=== PATIENT | female | born 1945 | race Caucasian/White ===

== ENCOUNTER → 2018-05-17 | Outpatient (CLI) | payer MEDICARE, OTHER ==
[2018-05-17 17:30] LABS: ABSOLUTE EOSINOPHILS # (AUTO) 0.1 10^3/uL (0.0-0.6); ABSOLUTE LYMPHOCYTES (AUTO) 2.1 10^3/uL (0.5-4.7); ABSOLUTE MONOCYTES (AUTO) 0.8 10^3/uL (0.1-1.4); ABSOLUTE NEUT (AUTO) 6.5 10^3/uL (1.7-8.2); BASOPHILS % (AUTO) 0.4 % (0-2); EOSINOPHILS % (AUTO) 1.3 % (0-6); HEMATOCRIT 37.3 % (36.0-47.0); HEMOGLOBIN 12.6 g/dL (12.0-15.5); LYMPHOCYTES % (AUTO) 22.1 % (13-45); MEAN CORPUSCULAR HEMOGLOBIN 29.2 pg (27.0-33.4); MEAN CORPUSCULAR HGB CONC 33.8 g/dL (32.0-36.0); MEAN CORPUSCULAR VOLUME 87 fl (80-97); MONOCYTES % (AUTO) 8.7 % (3-13); PLATELET COUNT 537 10^3/uL (150-450); RED BLOOD COUNT 4.31 10^6/uL (3.72-5.28); SEGMENTED NEUTROPHILS % (AUTO) 67.5 % (42-78); TOTAL CELLS COUNTED % (AUTO) 100 %; WHITE BLOOD COUNT 9.6 10^3/uL (4.0-10.5)
[2018-05-17 17:37] LABS: APPEARANCE,URINE CLOUDY; BILIRUBIN,URINE NEGATIVE (NEGATIVE); CALCIUM OXALATE CRYSTALS,URINE TOO NUMEROUS TO CNT /HPF; COLOR,URINE YELLOW; GLUCOSE, URINE NEGATIVE (NEGATIVE); KETONES,URINE NEGATIVE (NEGATIVE); LEUKOCYTE ESTERASE,URINE LARGE (NEGATIVE); NITRITE,URINE NEGATIVE (NEGATIVE); PROTEIN,URINE 30 mg/dL (NEGATIVE); URINE SPECIFIC GRAVITY 1.026; UROBILINOGEN,URINE NEGATIVE mg/dL (<2.0)
--- NOTE | 2018-05-17 17:49 | RADIOLOGY REPORT (SQ) ---
EXAM DESCRIPTION: CHEST PA/LATERAL COMPLETED DATE/TIME: 05/17/2018 4:57 pm REASON FOR STUDY: PRE-OP COMPARISON: Two-view chest 05/27/2015 EXAM PARAMETERS: NUMBER OF VIEWS: two views TECHNIQUE: Digital Frontal and Lateral radiographic views of the chest acquired. RADIATION DOSE: NA LIMITATIONS: none FINDINGS: LUNGS AND PLEURA: No opacities, masses or pneumothorax. No pleural effusion. MEDIASTINUM AND HILAR STRUCTURES: No masses or contour abnormalities. HEART AND VASCULAR STRUCTURES: Heart normal size. No evidence for failure. BONES: No acute findings. HARDWARE: None in the chest. OTHER: No other significant finding. IMPRESSION: NO SIGNIFICANT RADIOGRAPHIC FINDING IN THE CHEST. TECHNICAL DOCUMENTATION: JOB ID: [id number] [employer]- All Rights Reserved Reading location - IP/workstation name: [email or web address]
[2018-05-17 17:53] LABS: ANION GAP 14 (5-19); BLOOD UREA NITROGEN 25 mg/dL (7-20); C-REACTIVE PROTEIN 18.4 mg/L (<10.0); CALCIUM 10.8 mg/dL (8.4-10.2); CARBON DIOXIDE 28 mmol/L (22-30); CHLORIDE 98 mmol/L (98-107); GLUCOSE 101 mg/dL (75-110); POTASSIUM 4.8 mmol/L (3.6-5.0); SODIUM 140.2 mmol/L (137-145)
[2018-05-17 18:07] LABS: ERYTHROCYTE SEDIMENTATION RATE 74 mm/hr (0-30)
--- NOTE | 2018-05-17 22:56 | EKG REPORT ---
SEVERITY:- ABNORMAL ECG - SINUS RHYTHM LEFT ANTERIOR FASCICULAR BLOCK PROBABLE LEFT VENTRICULAR HYPERTROPHY : Confirmed by: Andra Monreal 17-May-2018 22:55:24
== END ==
LOC: OD 16:19
PROVIDERS: ATTEND Orthopaedic Surgery
DX: Z01.810 Encounter for preprocedural cardiovascular examination (principal); Z01.811 Encounter for preprocedural respiratory examination; I10 Essential (primary) hypertension
CPT/HCPCS: 36415; 71046; 80048; 81001; 85025; 85652; 86140; 93005; 93010

== ENCOUNTER 2018-05-28 09:26 | Inpatient (IN) | payer MEDICARE, OTHER ==
[~2018-05-28 09:26] MED LIST: ACETAMINOPHEN 0 MG/0 ML RTUPB IV ONE; BUPIVACAINE INJ/PF LIPOSOME/PF 266 MG/20 ML SDV INJ PRN; CEFAZOLIN INJ 1 GM VIAL IV PRN; DEXAMETHASONE SOD PHOSPHATE INJ 4 MG/1 ML VIAL ONE; FENTANYL CITRATE INJ/PF 100 MCG/2 ML AMPUL ONE; IBUPROFEN 800 MG in NORMAL SALINE 250 ML IV PRN; LACTATED RINGERS 1000 ML IV PRN; LIDOCAINE 0.5% INJ-PF (5 MG/ML) 50 ML SDV SUBCUT PRN; MIDAZOLAM 2 MG/2 ML INJ ONE; ONDANSETRON HCL INJ/PF 4 MG/2 ML SDV ONE; OXYCODONE HCL SR 10 MG TABLET PO PRN; PANTOPRAZOLE SODIUM 20 MG TABLET.DR PO PRN; PROPOFOL INJ 200 MG/20 ML VIAL IV ONE; TRANEXAMIC ACID INJ/PF 1,000 MG/10 ML SDV IV ONE; VANCOMYCIN HCL 1,000 MG in DEXTROSE 5%-WATER 250 ML IV PRN
[2018-05-28] MEDS ORDERED: PANTOPRAZOLE SODIUM 20 MG TABLET.DR PO ONE (09:59)
[2018-05-28] MEDS ORDERED: OXYCODONE HCL SR 10 MG TABLET PO ONE (09:59)
[2018-05-28] MEDS ORDERED: CEFAZOLIN INJ 1 GM VIAL ONE (09:59)
[2018-05-28] MEDS ORDERED: METOPROLOL TARTRATE 25 MG TABLET ONE (10:45)
[2018-05-28] MEDS ORDERED: ONDANSETRON HCL INJ/PF 4 MG/2 ML SDV ONE (11:26)
[2018-05-28] MEDS ORDERED: DEXAMETHASONE SOD PHOSPHATE INJ 4 MG/1 ML VIAL ONE (11:26)
[2018-05-28] MEDS ORDERED: GLYCOPYRROLATE 1 MG/5 ML SYRINGE ONE (11:26)
[2018-05-28] MEDS ORDERED: PHENYLEPHRINE HCL INJ/PF 10 MG/1 ML SDV ONE (11:26)
[2018-05-28] MEDS ORDERED: LIDOCAINE 2% INJ-PF (20 MG/ML) 2 ML AMPUL ONE (11:26)
[2018-05-28] MEDS ORDERED: METOCLOPRAMIDE HCL INJ/PF 10 MG/2 ML SDV ONE (11:26)
[2018-05-28] MEDS ORDERED: MIDAZOLAM 2 MG/2 ML INJ ONE (11:48)
[2018-05-28] MEDS ORDERED: FENTANYL CITRATE INJ/PF 100 MCG/2 ML AMPUL ONE (11:48)
[2018-05-28] MEDS ORDERED: EPHEDRINE SULFATE INJ 50 MG/1 ML AMPULE ONE (11:48)
[2018-05-28] MEDS ORDERED: BUPIVACAINE HCL 0.25% /EPINEPHRINE INJ/PF 30 ML SDV ONE (11:49)
[2018-05-28] MEDS ORDERED: PROPOFOL INJ 200 MG/20 ML VIAL IV ONE (11:49)
[2018-05-28] MEDS ORDERED: THROMBIN (BOVINE) TOPICAL 20000 UNIT VIAL ONE (11:49)
[2018-05-28] MEDS ORDERED: THROMBIN (BOVINE) TOPICAL 5000 UNIT VIAL ONE (11:49)
[2018-05-28] MEDS ORDERED: TRANEXAMIC ACID INJ/PF 1,000 MG/10 ML SDV IV ONE ×2 (12:35→15:30)
[2018-05-28] MEDS ORDERED: DIPHENHYDRAMINE HCL 50 MG/ML VIAL IV PRN ×2 (12:47→13:33)
[2018-05-28] MEDS ORDERED: FENTANYL CITRATE INJ/PF 100 MCG/2 ML AMPUL IV PRN ×3 (12:47)
[2018-05-28] MEDS ORDERED: MORPHINE SULFATE 10 MG/ML INJ IV PRN ×5 (12:47→13:33)
[2018-05-28] MEDS ORDERED: PROMETHAZINE HCL INJ 25 MG/1 ML VIAL IV PRN ×2 (12:47)
[2018-05-28] MEDS ORDERED: MEPERIDINE HCL/PF INJ 25 MG/1 ML DISP.SYRIN IV PRN (12:47)
[2018-05-28] MEDS ORDERED: ONDANSETRON HCL INJ/PF 4 MG/2 ML SDV IV PRN ×2 (12:47→13:33)
--- NOTE | 2018-05-28 13:28 | Operative Report ---
Operative Report DATE OF SURGERY: 05/28/18 PREOPERATIVE DIAGNOSIS: Mechanical failure right knee POSTOPERATIVE DIAGNOSIS: Polyethylene failure right tibial component, extensive metallosis OPERATION: Revision right knee arthroplasty, extensive synovectomy SURGEON: ONDINA SIMONS ANESTHESIA: Spinal TISSUE REMOVED OR ALTERED: Cultures x2 to micrology. Implant to CSS. Synovium to pathology ESTIMATED BLOOD LOSS: 75 PROCEDURE: Implants used: Sada size 3, 13 mm CS tibial insert Procedure: With the patient supine Afrin table the right lower extremity is prepped and draped in sterile fashion. Limb is elevated for exsanguination tourniquet inflated to 280 torr. A longitudinal midline incision is line with the previous surgical approach. Upon entering the knee capsule along the median parapatellar region a large amount of discolored fluid is encountered. This was cultured and then evacuated. The underlying synovium varies between a dark barclay and a black. The polyethylene spacer was removed. Was found here is that in contrast to what I expected which would have been a fracture of the medial plateau, there was extensive wear of both posterior aspects such that the femur must have rolled back off the existing tibial tray and suggested a loss of polyethylene wear really what was was behind it. An extensive synovectomy was performed including suprapatellar, medial, and lateral gutters. At this point I consider the options which would be firstly just replacing the polyethylene with an increased thickness polyethylene hence giving tighter soft tissue envelope to prevent the femur from riding up and over the posterior aspect of the tibial plateau. Secondly I could revise the femoral component to a posterior stabilized implant, and then thirdly I could revise both the femoral and tibial component. The first polyethylene component lasted 6 years. By increasing the thickness of the current polyethylene and decreasing the slide off the back of the tibial component presumably a new polyethylene would last considerably longer than the 6 years. This would be relatively simple operation with a lower risk of infection. I decided to proceed with this, solely a revision of the polyethylene component. The wound was vivienne irrigated. A 13 mm by size 3 CS tibial spacer was impacted into position. Since the locking medical involves a central post and the anterior lip with a locking mechanism is not affected by any type of posterior instability. The wound was then irrigated with pulse lavage. Tourniquet was deflated. Hemostasis obtained. Wound is soft and closed in layers interrupted Vicryl followed by yecenia. A sterile compressive dressing was applied and the patient's return to the PACU in satisfactory condition.
[2018-05-28] MEDS ORDERED: ONDANSETRON 4 MG TAB.RAPDIS PO PRN (13:33)
[2018-05-28] MEDS ORDERED: ZOLPIDEM TARTRATE 5 MG TABLET PO PRN (13:33)
[2018-05-28] MEDS ORDERED: MAG HYDROX/AL HYDROX/SIMETH SUSP 30 ML UDCUP PO PRN (13:33)
[2018-05-28] MEDS ORDERED: OXYCODONE HCL IR 5 MG TABLET PO PRN (13:33)
[2018-05-28] MEDS ORDERED: ACETAMINOPHEN 325 MG TABLET PO PRN (13:33)
[2018-05-28] MEDS: RINGERS SOLUTION,LACTATED 1,000 ML IV PRN (15:26)
--- NOTE | 2018-05-28 15:35 | RADIOLOGY REPORT (SQ) ---
EXAM DESCRIPTION: KNEE RIGHT 2 VIEWS COMPLETED DATE/TIME: 05/28/2018 3:19 pm REASON FOR STUDY: Post OP -Long Cassette in PACU Z96.651 PRESENCE OF RIGHT ARTIFICIAL KNEE JOINT COMPARISON: None. NUMBER OF VIEWS: Two views TECHNIQUE: Digital radiographic images of the right knee post-procedure. LIMITATIONS: None. FINDINGS: BONES: No worrisome or unexpected findings post-procedure. DEVICE: Right total knee replacement with patellar resurfacing SOFT TISSUES: No worrisome findings. Expected postoperative soft tissue changes. IMPRESSION: SATISFACTORY POSTOPERATIVE RIGHT KNEE. TECHNICAL DOCUMENTATION: JOB ID: [id number] [employer]- All Rights Reserved Reading location - IP/workstation name: [email or web address]
[2018-05-28] MEDS: PREGABALIN 75 MG CAPSULE PO SCH (17:17)
[2018-05-28] MEDS: SENNOSIDES/DOCUSATE 8.6-50 MG 1 EACH TABLET PO SCH (17:17)
[2018-05-28] MEDS: OXYCODONE HCL SR 10 MG TABLET PO SCH (21:20)
[2018-05-28] MEDS: IBUPROFEN 800 MG in NORMAL SALINE 250 ML IV SCH (21:20)
[2018-05-28] MEDS: ATORVASTATIN CALCIUM 10 MG TABLET PO SCH (21:20)
[2018-05-29] MEDS ORDERED: VANCOMYCIN HCL 1,000 MG in DEXTROSE 5%-WATER 250 ML IV ONE (01:30)
[2018-05-29] MEDS: RINGERS SOLUTION,LACTATED 1,000 ML IV PRN (02:24)
[2018-05-29] MEDS: IBUPROFEN 800 MG in NORMAL SALINE 250 ML IV SCH ×3 (05:24→22:33)
[2018-05-29] MEDS: PANTOPRAZOLE SODIUM 40 MG TABLET.DR PO SCH (05:26)
[2018-05-29 06:04] LABS: HEMATOCRIT 31.7 % (36.0-47.0); HEMOGLOBIN 10.6 g/dL (12.0-15.5); MEAN CORPUSCULAR HEMOGLOBIN 28.9 pg (27.0-33.4); MEAN CORPUSCULAR HGB CONC 33.4 g/dL (32.0-36.0); MEAN CORPUSCULAR VOLUME 87 fl (80-97); PLATELET COUNT 303 10^3/uL (150-450); RED BLOOD COUNT 3.65 10^6/uL (3.72-5.28); RED CELL DISTRIBUTION WIDTH 13.4 % (11.5-14.0); WHITE BLOOD COUNT 11.6 10^3/uL (4.0-10.5)
[2018-05-29 06:25] LABS: ANION GAP 9 (5-19); BLOOD UREA NITROGEN 18 mg/dL (7-20); CALCIUM 9.1 mg/dL (8.4-10.2); CARBON DIOXIDE 24 mmol/L (22-30); CHLORIDE 102 mmol/L (98-107); GLUCOSE 117 mg/dL (75-110); POTASSIUM 4.8 mmol/L (3.6-5.0); SODIUM 134.6 mmol/L (137-145)
--- NOTE | 2018-05-29 07:22 | PDOC PROGRESS REPORT ---
Subjective Progress Note for:: 05/29/18 Reason For Visit: MECHANICAL FAILURE RIGHT TOTAL KNEE ARTHROPLASTY 72-year-old white female status post right revision knee arthroplasty postop day 1. Limited progress with physical therapy yesterday. Physical Exam Vital Signs: Temp Pulse Resp BP Pulse Ox 36.4 C 55 L 18 100/54 L 93 05/28/18 23:08 05/28/18 23:08 05/28/18 23:08 05/28/18 23:08 05/28/18 23:08 Intake & Output 05/28/18 05/29/18 05/30/18 06:59 06:59 06:59 Intake Total 5505 Output Total 1680 Balance 3825 Weight 106.2 kg Physical Exam: Obese middle-aged white female lying comfortably in bed. General appearance: PRESENT: no acute distress, mild distress, obese Head exam: PRESENT: normocephalic Respiratory exam: PRESENT: unlabored Cardiovascular exam: PRESENT: RRR Pulses: PRESENT: +1 pedal pulses bilateral Vascular exam: PRESENT: normal capillary refill GI/Abdominal exam: PRESENT: soft Rectal exam: PRESENT: deferred Extremities exam: PRESENT: other - Right knee dressing clean dry and intact. Distal neurovascular examination is intact. Neurological exam: PRESENT: alert, awake, oriented to person, oriented to place, oriented to time, oriented to situation. ABSENT: motor sensory deficit Psychiatric exam: PRESENT: appropriate affect, normal mood. ABSENT: homicidal ideation, suicidal ideation Skin exam: PRESENT: dry, intact, warm. ABSENT: cyanosis, rash Results Laboratory Results: 05/29/18 05:38 05/29/18 05:38 05/28/18 05/29/18 05/29/18 10:18 05:38 05:38 WBC 11.6 H RBC 3.65 L Hgb 10.6 L Hct 31.7 L MCV 87 MCH 28.9 MCHC 33.4 RDW 13.4 Plt Count 303 Sodium 134.6 L Potassium 4.4 4.8 Chloride 102 Carbon Dioxide 24 Anion Gap 9 BUN 18 Creatinine 1.00 Est GFR ( Amer) > 60 Est GFR (Non-Af Amer) 55 L Glucose 117 H Calcium 9.1 Impressions: Knee X-Ray 05/28/18 13:34 IMPRESSION: SATISFACTORY POSTOPERATIVE RIGHT KNEE. 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 Mobilize with physical therapy and weightbearing as tolerated basis. - Time Time Spent with patient: 15-24 minutes Anticipated discharge: Home with Homehealth Within: within 24 hours
[2018-05-29] MEDS ORDERED: (PENDING PHARMACY ID) (Pravastatin Sodium [Pravachol] 40 MG) PO SCH (10:00)
[2018-05-29] MEDS: ASPIRIN 81 MG TABLET, ENT COATED PO SCH (10:09)
[2018-05-29] MEDS: METOPROLOL TARTRATE 50 MG TABLET PO SCH (10:09)
[2018-05-29] MEDS: PREGABALIN 75 MG CAPSULE PO SCH ×2 (10:09→17:48)
[2018-05-29] MEDS: PRENATAL VITAMIN W DHA CAPSULE PO SCH (10:10)
[2018-05-29] MEDS: HYDROCHLOROTHIAZIDE 25 MG TABLET PO SCH (10:10)
[2018-05-29] MEDS: SENNOSIDES/DOCUSATE 8.6-50 MG 1 EACH TABLET PO SCH ×2 (10:10→17:48)
[2018-05-29] MEDS: OXYCODONE HCL SR 10 MG TABLET PO SCH ×2 (10:10→22:31)
[2018-05-29] MEDS: ATORVASTATIN CALCIUM 10 MG TABLET PO SCH (22:31)
[2018-05-30] MEDS: IBUPROFEN 800 MG in NORMAL SALINE 250 ML IV SCH (05:11)
[2018-05-30] MEDS: PANTOPRAZOLE SODIUM 40 MG TABLET.DR PO SCH (05:13)
--- NOTE | 2018-05-30 07:21 | PDOC DISCHARGE SUMMARY ---
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 Is this a current diagnosis for this admission?: Yes - Additional Information Resuscitation Status: Full Code Discharge Diet: As Tolerated Discharge Activity: Activity As Tolerated, Balance Activity w/Rest, No Driving, Slowly Increase Activity, No tub bath, Walk Frequently Home Medications: Celecoxib [Celebrex 200 mg Capsule] 200 mg PO DAILY 05/22/18 Ergocalciferol (Vitamin D2) [Drisdol 50,000 unit (1.25MG) Capsule] 50,000 unit PO MO@1000 05/22/18 Hydrochlorothiazide [Hydrodiuril 25 mg Tablet] 25 mg PO DAILY 05/22/18 Metoprolol Tartrate [Lopressor 50 mg Tablet] 50 mg PO DAILY 05/22/18 Pravastatin Sodium [Pravachol] 40 mg PO DAILY 05/22/18 Tramadol HCl [Ultram 50 mg Tablet] 50 mg PO Q4HP PRN MDD filled 3/4 for 7 day supply 05/22/18 History of Present Illness History of Present Illness: MELONY DAWSON is a 72 year old female The patient is a 72-year-old white female status post right knee arthroplasty in 2012 who presents with polyethylene failure. She is admitted for elective right knee revision arthroplasty. Hospital Course Hospital Course: Patient is admitted through the operating where she undergoes uncomplicated revision ORIF plasty. She is returned to floor in satisfactory condition. Initially she makes little progress with physical therapy for the second day she is up ambulating and is relatively pain-free except for incisional pain. Dressing is taken down on postop day #2. The underlying OpSite is clean dry and intact. There is minimal pedal edema. Distal neurovascular examination is intact. Physical Exam Vital Signs: Temp Pulse Resp BP Pulse Ox 36.9 C 56 L 18 134/58 H 96 05/30/18 02:04 05/30/18 02:04 05/30/18 02:04 05/30/18 02:04 05/30/18 02:04 Intake & Output 05/29/18 05/30/18 05/31/18 06:59 06:59 06:59 Intake Total 5505 2890 Output Total 6320 900 Balance 3825 1989 Weight 106.2 kg 107 kg Physical Exam: Middle-aged white female lying in bed. She is alert, oriented, and appropriate. General appearance: PRESENT: obese Head exam: PRESENT: normocephalic Respiratory exam: PRESENT: unlabored Cardiovascular exam: PRESENT: RRR Pulses: PRESENT: +1 pedal pulses bilateral Vascular exam: PRESENT: normal capillary refill GI/Abdominal exam: PRESENT: soft Rectal exam: PRESENT: deferred Extremities exam: PRESENT: other - Compressive dressing taken down on the morning of postop day 2. The underlying OpSite dressing is clean dry and intact. There is minimal pedal edema. Distal neurovascular examination is intact. Neurological exam: PRESENT: alert, awake, oriented to person, oriented to place, oriented to time, oriented to situation. ABSENT: motor sensory deficit Psychiatric exam: PRESENT: appropriate affect, normal mood. ABSENT: homicidal ideation, suicidal ideation Skin exam: PRESENT: dry, intact, warm. ABSENT: cyanosis, rash Results Laboratory Results: 05/29/18 05:38 05/29/18 05:38 Impressions: Knee X-Ray 05/28/18 13:34 IMPRESSION: SATISFACTORY POSTOPERATIVE RIGHT KNEE. Status: Imported from PACS Qualifiers - * PATIENT BEING DISCHARGED WITH ANY OF THE FOLLOWING DIAGNOSIS: No VTE patient discharged on overlapping Therapy?: Yes Plan Discharge Plan: Patient to be discharged home with home health services and DME. Follow-up with Dr. Rosi De Los Santos Groom for surgery in 2 weeks for staple removal.
[2018-05-30 07:50] LABS: HEMOGLOBIN 10.7 g/dL (12.0-15.5); MEAN CORPUSCULAR HEMOGLOBIN 28.9 pg (27.0-33.4); MEAN CORPUSCULAR HGB CONC 33.5 g/dL (32.0-36.0); MEAN CORPUSCULAR VOLUME 86 fl (80-97); PLATELET COUNT 311 10^3/uL (150-450); RED BLOOD COUNT 3.71 10^6/uL (3.72-5.28); RED CELL DISTRIBUTION WIDTH 13.5 % (11.5-14.0); WHITE BLOOD COUNT 6.4 10^3/uL (4.0-10.5)
[2018-05-30 09:49] VITALS: BP 134/58
[2018-05-30] MEDS: HYDROCHLOROTHIAZIDE 25 MG TABLET PO SCH (09:57)
[2018-05-30] MEDS: ASPIRIN 81 MG TABLET, ENT COATED PO SCH (09:57)
[2018-05-30] MEDS: SENNOSIDES/DOCUSATE 8.6-50 MG 1 EACH TABLET PO SCH (09:57)
[2018-05-30] MEDS: METOPROLOL TARTRATE 50 MG TABLET PO SCH (09:57)
[2018-05-30] MEDS: PRENATAL VITAMIN W DHA CAPSULE PO SCH (09:57)
[2018-05-30] MEDS: PREGABALIN 75 MG CAPSULE PO SCH (09:57)
[2018-05-30] MEDS: OXYCODONE HCL SR 10 MG TABLET PO SCH (09:58)
[2018-06-04] MEDS ORDERED: ERGOCALCIFEROL (VITAMIN D2) 50000 UNIT (1.25 MG) CAPSULE PO SCH (10:00)
== END 2018-05-30 10:42 | disposition home health service (06) | DRG 489 ==
LOC: INOR 09:26 → 4S 14:59
PROVIDERS: ADMIT Orthopaedic Surgery; ATTEND Orthopaedic Surgery
PROC: 0SPC09Z Removal of Liner from Right Knee Joint, Open Approach (ICD-10-PCS; 2018-05-28)
PROC: 0SUV09Z Supplement Right Knee Joint, Tibial Surface with Liner, Open Approach (ICD-10-PCS; principal; 2018-05-28 14:00)
DX: T84.092A Other mechanical complication of internal right knee prosthesis, initial encounter (principal); Y79.2 Prosthetic and other implants, materials and accessory orthopedic devices associated with adverse incidents; I10 Essential (primary) hypertension; E78.00 Pure hypercholesterolemia, unspecified; E66.9 Obesity, unspecified; Z96.651 Presence of right artificial knee joint; Z79.82 Long term (current) use of aspirin; Z79.899 Other long term (current) drug therapy; Z79.891 Long term (current) use of opiate analgesic
CPT/HCPCS: 01402; 36415; 80048; 84132; 85027; 87070; 87075; 87077; 87186; 87205; 88304; 94799; C1713; C1776; J0131; J0690; J1100; J1741; J2250; J2370; J2405; J2704; J2765; J3010; J3370; J3490; J7050; J7060; J7120

== ENCOUNTER → 2018-06-28 | Outpatient (CLI) | payer MEDICARE, OTHER ==
[2018-06-28 10:34] LABS: ABSOLUTE EOSINOPHILS # (AUTO) 0.3 10^3/uL (0.0-0.6); ABSOLUTE LYMPHOCYTES (AUTO) 1.3 10^3/uL (0.5-4.7); ABSOLUTE MONOCYTES (AUTO) 0.8 10^3/uL (0.1-1.4); ABSOLUTE NEUT (AUTO) 4.4 10^3/uL (1.7-8.2); BASOPHILS % (AUTO) 0.4 % (0-2); EOSINOPHILS % (AUTO) 4.7 % (0-6); HEMATOCRIT 37.5 % (36.0-47.0); HEMOGLOBIN 12.2 g/dL (12.0-15.5); LYMPHOCYTES % (AUTO) 18.3 % (13-45); MEAN CORPUSCULAR HEMOGLOBIN 27.8 pg (27.0-33.4); MEAN CORPUSCULAR HGB CONC 32.6 g/dL (32.0-36.0); MEAN CORPUSCULAR VOLUME 85 fl (80-97); MONOCYTES % (AUTO) 12.2 % (3-13); PLATELET COUNT 412 10^3/uL (150-450); RED BLOOD COUNT 4.39 10^6/uL (3.72-5.28); RED CELL DISTRIBUTION WIDTH 14.8 % (11.5-14.0); SEGMENTED NEUTROPHILS % (AUTO) 64.4 % (42-78); TOTAL CELLS COUNTED % (AUTO) 100 %; WHITE BLOOD COUNT 6.9 10^3/uL (4.0-10.5)
[2018-06-28 11:07] LABS: ANION GAP 13 (5-19); BLOOD UREA NITROGEN 27 mg/dL (7-20); C-REACTIVE PROTEIN 13.4 mg/L (<10.0); CARBON DIOXIDE 27 mmol/L (22-30); CHLORIDE 103 mmol/L (98-107); GLUCOSE 103 mg/dL (75-110); POTASSIUM 5.4 mmol/L (3.6-5.0); SODIUM 142.7 mmol/L (137-145)
[2018-06-28 11:36] LABS: ERYTHROCYTE SEDIMENTATION RATE 34 mm/hr (0-30)
== END ==
LOC: OD 09:51
PROVIDERS: ATTEND Orthopaedic Surgery
DX: M25.561 Pain in right knee (principal)
CPT/HCPCS: 36415; 80048; 85025; 85652; 86140

== ENCOUNTER → 2018-07-19 | Outpatient (CLI) | payer MEDICARE, OTHER ==
[2018-07-19 10:31] LABS: ABSOLUTE EOSINOPHILS # (AUTO) 0.2 10^3/uL (0.0-0.6); ABSOLUTE MONOCYTES (AUTO) 0.5 10^3/uL (0.1-1.4); ABSOLUTE NEUT (AUTO) 1.8 10^3/uL (1.7-8.2); BASOPHILS % (AUTO) 1.3 % (0-2); EOSINOPHILS % (AUTO) 4.7 % (0-6); HEMATOCRIT 36.1 % (36.0-47.0); HEMOGLOBIN 11.9 g/dL (12.0-15.5); MEAN CORPUSCULAR HEMOGLOBIN 28.1 pg (27.0-33.4); MEAN CORPUSCULAR VOLUME 85 fl (80-97); MONOCYTES % (AUTO) 14.5 % (3-13); PLATELET COUNT 290 10^3/uL (150-450); RED BLOOD COUNT 4.23 10^6/uL (3.72-5.28); RED CELL DISTRIBUTION WIDTH 15.7 % (11.5-14.0); SEGMENTED NEUTROPHILS % (AUTO) 50.5 % (42-78); TOTAL CELLS COUNTED % (AUTO) 100 %; WHITE BLOOD COUNT 3.6 10^3/uL (4.0-10.5)
[2018-07-19 10:59] LABS: ANION GAP 11 (5-19); BLOOD UREA NITROGEN 32 mg/dL (7-20); CARBON DIOXIDE 27 mmol/L (22-30); CHLORIDE 103 mmol/L (98-107); GLUCOSE 94 mg/dL (75-110); POTASSIUM 4.9 mmol/L (3.6-5.0)
[2018-07-19 11:03] LABS: C-REACTIVE PROTEIN < 5.0 mg/L (<10.0)
[2018-07-19 11:21] LABS: ERYTHROCYTE SEDIMENTATION RATE 23 mm/hr (0-30)
== END ==
LOC: OD 09:31
PROVIDERS: ATTEND Orthopaedic Surgery
DX: M25.561 Pain in right knee (principal); M25.562 Pain in left knee
CPT/HCPCS: 36415; 80048; 85025; 85652; 86140

== ENCOUNTER 2018-07-30 03:23 | Inpatient (IN) | payer MEDICARE, OTHER ==
--- NOTE | 2018-07-30 05:26 | RADIOLOGY REPORT (SQ) ---
EXAM DESCRIPTION: XR KNEE 4 OR MORE VIEWS COMPLETED DATE/TME: 07/30/2018 04:46 CLINICAL HISTORY: 72 years, Female, post surgical/ pain COMPARISON: 05/28/2018 right knee NUMBER OF VIEWS: 4 TECHNIQUE: 4 view right knee LIMITATIONS: None. FINDINGS: Osteopenia. Right knee arthroplasty changes. Negative for acute fracture or dislocation. Soft tissue swelling may reflect residual postoperative inflammation. Question tiny joint effusion IMPRESSION: Residual soft tissue swelling with questionable tiny joint effusion may reflect residual postoperative change. copyright 2010 [employer]- All Rights Reserved
--- NOTE | 2018-07-30 07:03 | ER Document Report ---
ED Extremity Problem, Lower - General Chief Complaint: Knee Pain Stated Complaint: KNEE PAIN Time Seen by Provider: 07/30/18 06:39 Notes: This is a pleasant 72-year-old female to emerge department chief complaint of severe pain in the right knee. Patient had a partial knee replacement by Dr. Duy Aranda. This happened approximately a month or so ago. Since that time she has had drainage coming out of the knee. Has seen Dr. Aranda as an outpatient. Scheduled to go back to [place] for the summer but the pain was so severe that she could not stand up or walk or go to the bathroom. States that she feels like she really does need to go to the bathroom but cannot. She denies any fevers but does feel achy. TRAVEL OUTSIDE OF THE [place] IN LAST 30 DAYS: No - HPI Patient complains to provider of: Pain, Swelling Location: Knee Quality of pain: Achy, Throbbing Severity: Moderate Associated symptoms: Chills - Related Data Allergies/Adverse Reactions: No Known Allergies Allergy (Verified 05/21/18 12:19) Past Medical History - General Information source: Patient - Social History Smoking Status: Former Smoker Frequency of alcohol use: None Drug Abuse: None Lives with: Spouse/Significant other Family History: Reviewed & Not Pertinent Patient has suicidal ideation: No Patient has homicidal ideation: No - Past Medical History Cardiac Medical History: Reports: Hx Hypercholesterolemia, Hx Hypertension Denies: Hx Atrial Fibrillation, Hx Congestive Heart Failure, Hx Coronary Artery Disease, Hx Heart Attack, Hx Peripheral Vascular Disease, Hx Heart Murmur Pulmonary Medical History: Denies: Hx Asthma, Hx Bronchitis, Hx COPD, Hx Sleep Apnea Neurological Medical History: Denies: Hx Cerebrovascular Accident, Hx Seizures Endocrine Medical History: Denies: Hx Hyperthyroidism, Hx Hypothyroidism Renal/ Medical History: Denies: Hx Kidney Stones, Hx Peritoneal Dialysis Malignancy Medical History: Denies: Hx Leukemia GI Medical History: Denies: Hx Gastroesophageal Reflux Disease Musculoskeletal Medical History: Reports Hx Arthritis - knees, hands, Denies Hx Fibromyalgia, Denies Hx Muscular Dystrophy Psychiatric Medical History: Denies: Hx Bipolar Disorder, Hx Depression, Hx Post Traumatic Stress Disorder Traumatic Medical History: Denies: Hx Fractures Infectious Medical History: Denies: Hx HIV Past Surgical History: Denies: Hx Appendectomy, Hx Bowel Surgery, Hx Section, Hx Cholecystectomy, Hx Coronary Artery Bypass Graft, Hx Gastric Bypass Surgery, Hx Herniorrhaphy, Hx Hysterectomy, Hx Mastectomy, Hx Pacemaker, Hx Tonsillectomy, Hx Tubal Ligation - Immunizations Hx Pneumococcal Vaccination: 02/28/16 Review of Systems - Review of Systems Notes: Constitutional: denies: Chills, Diaphoresis, Fever, Malaise, Weakness EENT: denies: Eye discharge, Blurred vision, Tearing, Double vision, Nose congestion, Nose discharge, Throat swelling, Mouth pain Cardiovascular: denies: Palpitations, Heart racing, Orthopnea, Dyspnea, Chest pain Respiratory: denies: Cough, Hurts to breathe, Wheezing, Shortness of breath Gastrointestinal: denies: Abdominal pain, Diarrhea, Nausea, Vomiting, Black stools, bright red blood in stool Genitourinary: denies: Burning, Dysuria, Discharge, Frequency, Flank pain, Hematuria Musculoskeletal: Complaining of pain, swelling, redness and drainage from the right knee. Hematologic/Lymphatic: denies: Anemia, Easy bleeding, Easy bruising, Blood clots Neurological/Psychological: denies: Confusion, Dementia, Depression, Loss of consciousness Skin: No lesions, no masses, no skin breakdown, no abscesses Physical Exam - Vital signs Vitals: Temp Pulse Resp BP Pulse Ox 99.7 F 106 H 20 159/60 H 94 07/30/18 03:32 07/30/18 03:32 07/30/18 03:32 07/30/18 03:32 07/30/18 03:32 Interpretation: Normal - General General appearance: Appears well, Alert - HEENT Head: Normocephalic, Atraumatic Eyes: Normal Pupils: PERRL - Respiratory Respiratory status: No respiratory distress Chest status: Nontender Breath sounds: Normal Chest palpation: Normal - Cardiovascular Rhythm: Regular Heart sounds: Normal auscultation Murmur: No - Abdominal Inspection: Normal Distension: No distension Bowel sounds: Normal Tenderness: Nontender Organomegaly: No organomegaly - Back Back: Normal, Nontender - Extremities General upper extremity: Normal inspection, Nontender, Normal color, Normal ROM, Normal temperature General lower extremity: Other - Left lower extremity unremarkable. Right lower extremity demonstrates market swelling to the right knee. There is a midline surgical incision scar that is healing but there is a small little area right in the middle of the incision that is open and draining a clear serous fluid. The knee has palpable ballottement and effusion. decrease range of motion due to pain. Pulses are intact distally.. No: Monroe's sign - Neurological Neuro grossly intact: Yes Cognition: Normal Orientation: AAOx4 Adan Coma Scale Eye Opening: Spontaneous Adan Coma Scale Verbal: Oriented Hancock Coma Scale Motor: Obeys Commands Adan Coma Scale Total: 15 Speech: Normal Motor strength normal: LUE, RUE, LLE, RLE Sensory: Normal - Psychological Associated symptoms: Normal affect, Normal mood - Skin Skin Temperature: Warm Skin Moisture: Dry Skin Color: Normal Course - Re-evaluation Re-evalutation: 07/30/18 13:31 Patient has a slight elevated WBC count elevated CRP. Has drainage coming out of the knee. Culture has been obtained. Consulted with Dr. Duy Aranda. He will admit at this time in stable condition. - Vital Signs Vital signs: Temp Pulse Resp BP Pulse Ox 98.6 F 59 L 16 133/73 H 96 07/30/18 09:45 07/30/18 09:45 07/30/18 09:45 07/30/18 09:45 07/30/18 09:45 - Laboratory Result Diagrams: 07/30/18 07:50 07/30/18 07:50 Laboratory results interpreted by me: 07/30/18 07/30/18 07:50 07:50 WBC 11.5 H Hgb 11.8 L Hct 35.0 L RDW 16.0 H Seg Neutrophils % 84.1 H Lymphocytes % 5.5 L Absolute Neutrophils 9.7 H Est GFR (Non-Af Amer) 56 L Glucose 126 H C-Reactive Protein 52.0 H Discharge - Discharge Clinical Impression: Effusion, right knee, Postoperative pain of knee, Urinary retention with incomplete bladder emptying Condition: Good Disposition: ADMITTED INPATIENT Admitting Provider: Rosi Unit Admitted: Medical Floor
[2018-07-30 08:07] LABS: ABSOLUTE LYMPHOCYTES (AUTO) 0.6 10^3/uL (0.5-4.7); ABSOLUTE MONOCYTES (AUTO) 1.2 10^3/uL (0.1-1.4); ABSOLUTE NEUT (AUTO) 9.7 10^3/uL (1.7-8.2); BASOPHILS % (AUTO) 0.4 % (0-2); HEMOGLOBIN 11.8 g/dL (12.0-15.5); LYMPHOCYTES % (AUTO) 5.5 % (13-45); MEAN CORPUSCULAR HEMOGLOBIN 28.3 pg (27.0-33.4); MEAN CORPUSCULAR HGB CONC 33.5 g/dL (32.0-36.0); MEAN CORPUSCULAR VOLUME 84 fl (80-97); PLATELET COUNT 281 10^3/uL (150-450); RED BLOOD COUNT 4.16 10^6/uL (3.72-5.28); SEGMENTED NEUTROPHILS % (AUTO) 84.1 % (42-78); TOTAL CELLS COUNTED % (AUTO) 100 %; WHITE BLOOD COUNT 11.5 10^3/uL (4.0-10.5)
[2018-07-30] MEDS ORDERED: ONDANSETRON 4 MG TAB.RAPDIS PO PRN (08:15)
[2018-07-30 08:29] LABS: ALANINE AMINOTRANSFERASE 23 U/L (9-52); ALKALINE PHOSPHATASE 81 U/L (38-126); ANION GAP 11 (5-19); ASPARTATE AMINO TRANSFERASE 21 U/L (14-36); BILIRUBIN,DIRECT 0.3 mg/dL (0.0-0.4); BLOOD UREA NITROGEN 19 mg/dL (7-20); CALCIUM 9.6 mg/dL (8.4-10.2); CARBON DIOXIDE 25 mmol/L (22-30); CHLORIDE 102 mmol/L (98-107); GLUCOSE 126 mg/dL (75-110); POTASSIUM 4.1 mmol/L (3.6-5.0); SODIUM 138.4 mmol/L (137-145); TOTAL PROTEIN 6.6 g/dL (6.3-8.2)
[2018-07-30 08:48] LABS: ERYTHROCYTE SEDIMENTATION RATE 22 mm/hr (0-30)
[2018-07-30] MEDS: ACETAMINOPHEN 325 MG TABLET PO PRN (10:17)
[2018-07-30] MEDS: OXYCODONE HCL IR 5 MG TABLET PO PRN ×2 (15:00→21:03)
[2018-07-31] MEDS: ACETAMINOPHEN 325 MG TABLET PO PRN (05:30)
[2018-07-31] MEDS: OXYCODONE HCL IR 5 MG TABLET PO PRN ×2 (05:31→20:30)
[2018-07-31] MEDS ORDERED: (PENDING PHARMACY ID) (Acetaminophen [Tylenol Extra Strength 500 Mg Tablet] 500 MG) PO PRN (07:53)
[2018-07-31] MEDS ORDERED: SULFAMETHOXAZOLE/TRIMETHOPRIM 800-160 MG TABLET PO SCH (08:00)
[2018-07-31] MEDS: HYDROCHLOROTHIAZIDE 25 MG TABLET PO SCH (09:57)
[2018-07-31] MEDS: METOPROLOL TARTRATE 50 MG TABLET PO SCH (09:57)
[2018-07-31] MEDS: DOCUSATE SODIUM 100 MG CAPSULE PO SCH ×2 (09:57→17:56)
[2018-07-31] MEDS: CELECOXIB 200 MG CAPSULE PO SCH (09:58)
--- NOTE | 2018-07-31 14:26 | PDOC PROGRESS REPORT ---
Subjective Progress Note for:: 07/31/18 Reason For Visit: EFFUSION,RIGHT KNEE The patient is a 72-year-old white female the patient is a 72-year-old white female approximate 1 month status post right knee revision a rthroplasty. She is been followed as an outpatient postoperatively with some concernConcern about the appearance of the wound. The wound has been dry. She is been followed with laboratory values which have demonstrated normal erythrocyte sedimentation rate and C-reactive protein numbers. She presented to the emergency room yesterday with increasing pain at that point a C-reactive protein had increased from normal to 50. She was admitted for observation. Superficial cultures have grown gram-positive cocci otherwise undetermined. This may well represent a skin contamination. The patient remains afebrile with moderate knee pain. Physical Exam Vital Signs: Temp Pulse Resp BP Pulse Ox 36.7 C 61 16 127/70 H 95 07/31/18 07:17 07/31/18 12:05 07/31/18 12:05 07/31/18 12:05 07/31/18 12:05 Intake & Output 07/30/18 07/31/18 08/01/18 06:59 06:59 06:59 Intake Total 1606 240 Output Total 1875 325 Balance -269 -85 Weight 106.4 kg 105.5 kg Physical Exam: Overweight middle-aged white female lying in bed in minimal distress. General appearance: PRESENT: no acute distress, obese, well-developed, well- nourished Head exam: PRESENT: normocephalic Respiratory exam: PRESENT: unlabored Cardiovascular exam: PRESENT: RRR Pulses: PRESENT: +1 pedal pulses bilateral GI/Abdominal exam: PRESENT: soft Rectal exam: PRESENT: deferred Extremities exam: PRESENT: other - Right knee dressing with a small amount of serous drainage from the central portion of the wound Neurological exam: PRESENT: alert, awake, oriented to person, oriented to place, oriented to time, oriented to situation. ABSENT: motor sensory deficit Psychiatric exam: PRESENT: appropriate affect, normal mood. ABSENT: homicidal ideation, suicidal ideation Skin exam: PRESENT: dry, intact, warm. ABSENT: cyanosis, rash Results Laboratory Results: 07/30/18 07:50 07/30/18 07:50 Impressions: Knee X-Ray 07/30/18 04:46 IMPRESSION: Residual soft tissue swelling with questionable tiny joint effusion may reflect residual postoperative change. copyright 2010 [employer]- All Rights Reserved Status: Imported from PACS Assessment & Plan - Diagnosis (1) Effusion, right knee Is this a current diagnosis for this admission?: Yes Plan: Right knee dressing with a small amount of serous drainage from the central portion of the wound 72-year-old white female with a relatively benign postoperative course but now with an elevation in CRP and some superficial wound drainage approximate 1 month status post revision right knee arthroplasty. I am not sure how much kayode to put into a superficial wound culture. I think the best course of action at this point would be to take the patient back to the operating room for an I&D liner exchange and good deep cultures. The patient and her understand the rationale for this and agreed to the plan. - Time Time Spent with patient: 15-24 minutes Anticipated discharge: Other Within: Other
[2018-07-31] MEDS: ATORVASTATIN CALCIUM 10 MG TABLET PO SCH (17:55)
[2018-07-31] MEDS ORDERED: ATORVASTATIN CALCIUM 10 MG TABLET PO SCH (18:00)
[2018-07-31] MEDS ORDERED: (PENDING PHARMACY ID) (Pravastatin Sodium [Pravachol] 40 MG) PO SCH (18:00)
[2018-08-01] MEDS: RINGERS SOLUTION,LACTATED 1,000 ML IV PRN (00:06)
[2018-08-01] MEDS: ACETAMINOPHEN 325 MG TABLET PO PRN ×3 (01:22→23:34)
[2018-08-01] MEDS: OXYCODONE HCL IR 5 MG TABLET PO PRN ×3 (02:56→21:47)
[2018-08-01] MEDS ORDERED: MIDAZOLAM 2 MG/2 ML INJ ONE (11:06)
[2018-08-01] MEDS ORDERED: EPHEDRINE SULFATE INJ 50 MG/1 ML AMPULE ONE (11:07)
[2018-08-01] MEDS ORDERED: PROPOFOL INJ 200 MG/20 ML VIAL IV ONE ×2 (11:07→13:29)
[2018-08-01] MEDS ORDERED: BUPIVACAINE HCL 0.5%-EPI 1:200000 INJ/PF 30 ML VIAL ONE (11:08)
[2018-08-01] MEDS ORDERED: THROMBIN (BOVINE) TOPICAL 20000 UNIT VIAL ONE (11:08)
[2018-08-01] MEDS ORDERED: BACITRACIN INJ 50,000 UNIT VIAL ONE (11:10)
[2018-08-01] MEDS ORDERED: DIPHENHYDRAMINE HCL 50 MG/ML VIAL IV PRN (11:45)
[2018-08-01] MEDS ORDERED: FENTANYL CITRATE INJ/PF 100 MCG/2 ML AMPUL IV PRN ×3 (11:45)
[2018-08-01] MEDS ORDERED: PROMETHAZINE HCL INJ 25 MG/1 ML VIAL IV PRN ×2 (11:45)
[2018-08-01] MEDS ORDERED: ONDANSETRON HCL INJ/PF 4 MG/2 ML SDV IV PRN (11:45)
[2018-08-01] MEDS ORDERED: MEPERIDINE HCL/PF INJ 25 MG/1 ML DISP.SYRIN IV PRN (11:45)
[2018-08-01] MEDS ORDERED: VANCOMYCIN HCL INJ 1000 MG VIAL ONE ×3 (12:05→12:21)
--- NOTE | 2018-08-01 12:41 | Operative Report ---
Operative Report DATE OF SURGERY: 08/01/18 PREOPERATIVE DIAGNOSIS: Wound drainage status post right revision knee arthropl asty POSTOPERATIVE DIAGNOSIS: Same OPERATION: Revision knee arthroplasty SURGEON: ONDINA SIMONS ANESTHESIA: Spinal TISSUE REMOVED OR ALTERED: Cultures x2 to microbiology, polyethylene insert to CSS ESTIMATED BLOOD LOSS: 75 PROCEDURE: With the patient supine Afrin table the right lower extremities prepped and draped in sterile fashion. The limb is elevated for exsanguination tourniquet inflated to 280 torr. The inferior aspect of incision including the sinus tract is open. The underlying fluid collection is evacuated and cultured. Tissue from the wound edges at this point is included in the culture specimen. Its p articular debrided and then irrigated with 3 L of normal suntanned bacitracin. At this point gloves are changed as is a knife blade and the underlying retinaculum which appears intact is open. The cultures are taken deep. The polyethylene is removed. The polyethylene is examined and there is no clear damage to the posterior lip suggesting that the previous surgery which was for instability was successful in eradicating the instability. The wound was again irrigated with 3 L normal saline containing bacitracin. Antibiotics are now administered intravenously. The replacement polyethylene liner which is a [employer] CS size 3, 13 mm spacer is impacted into position. The wound is now closed in layers using PDS followed by yecenia. A sterile compressive dressing was applied and the patient's return to the PACU in satisfactory condition.
[2018-08-01] MEDS ORDERED: RINGERS SOLUTION,LACTATED 1,000 ML IV PRN (13:32)
[2018-08-01] MEDS ORDERED: FENTANYL CITRATE INJ/PF 100 MCG/2 ML AMPUL ONE (13:35)
[2018-08-01] MEDS ORDERED: MEPERIDINE HCL/PF INJ 25 MG/1 ML DISP.SYRIN ONE (13:40)
[2018-08-01] MEDS ORDERED: PHENYLEPHRINE HCL INJ/PF 10 MG/1 ML SDV ONE (13:51)
[2018-08-01] MEDS: CELECOXIB 200 MG CAPSULE PO SCH (14:32)
[2018-08-01] MEDS: HYDROCHLOROTHIAZIDE 25 MG TABLET PO SCH (14:59)
[2018-08-01] MEDS: DOCUSATE SODIUM 100 MG CAPSULE PO SCH ×2 (14:59→17:04)
[2018-08-01] MEDS: METOPROLOL TARTRATE 50 MG TABLET PO SCH (15:00)
[2018-08-01] MEDS: ATORVASTATIN CALCIUM 10 MG TABLET PO SCH (17:07)
[2018-08-01] MEDS: VANCOMYCIN HCL 750 MG in DEXTROSE 5%-WATER 250 ML IV SCH (21:40)
[2018-08-02] MEDS: RINGERS SOLUTION,LACTATED 1,000 ML IV PRN (02:13)
[2018-08-02] MEDS: OXYCODONE HCL IR 5 MG TABLET PO PRN ×2 (04:16→18:20)
--- NOTE | 2018-08-02 07:41 | PDOC PROGRESS REPORT ---
Subjective Progress Note for:: 08/02/18 Reason For Visit: STATUS POST RIGHT TOTAL KNEE REPLACEMENT POD #1, R TKR Physical Exam Vital Signs: Temp Pulse Resp BP Pulse Ox 38.4 C H 76 18 133/45 H 96 08/01/18 23:31 08/01/18 23:31 08/01/18 23:31 08/01/18 23:31 08/01/18 23:31 Intake & Output 08/01/18 08/02/18 08/03/18 06:59 06:59 06:59 Intake Total 1320 26033 Output Total 725 1700 Balance 595 8930 Weight 106.503 kg 109.9 kg General appearance: PRESENT: no acute distress Musculoskeletal exam: PRESENT: other - R knee dressing with some proximal drainage Neurological exam: PRESENT: alert, awake, oriented to person, oriented to place, oriented to time, oriented to situation, CN II-XII grossly intact. ABSENT: motor sensory deficit Psychiatric exam: PRESENT: appropriate affect, normal mood. ABSENT: homicidal ideation, suicidal ideation Skin exam: PRESENT: dry, intact, warm. ABSENT: cyanosis, rash Results Laboratory Results: 07/30/18 07:50 07/30/18 07:50 07/30/18 07:32 Knee - Right Gram Stain - Final 07/30/18 07:32 Knee - Right Wound Culture - Final 1+ SKIN GADIEL Impressions: Knee X-Ray 07/30/18 04:46 IMPRESSION: Residual soft tissue swelling with questionable tiny joint effusion may reflect residual postoperative change. copyright 2010 [employer]- All Rights Reserved Status: Imported from PACS Assessment & Plan - Diagnosis (1) Effusion, right knee Is this a current diagnosis for this admission?: Yes Plan: awaiting intra op cx - Time Time Spent with patient: 15-24 minutes Anticipated discharge: Home with Homehealth Within: Other
[2018-08-02] MEDS: ACETAMINOPHEN 325 MG TABLET PO PRN (08:45)
[2018-08-02] MEDS: METOPROLOL TARTRATE 50 MG TABLET PO SCH (09:18)
[2018-08-02] MEDS: HYDROCHLOROTHIAZIDE 25 MG TABLET PO SCH (09:18)
[2018-08-02] MEDS: DOCUSATE SODIUM 100 MG CAPSULE PO SCH ×2 (09:18→18:17)
[2018-08-02] MEDS: VANCOMYCIN HCL 750 MG in DEXTROSE 5%-WATER 250 ML IV SCH ×2 (09:19→21:14)
[2018-08-02] MEDS: ASPIRIN 81 MG TABLET, ENT COATED PO SCH (10:39)
[2018-08-02] MEDS: ATORVASTATIN CALCIUM 10 MG TABLET PO SCH (18:17)
[2018-08-03] MEDS: OXYCODONE HCL IR 5 MG TABLET PO PRN ×3 (00:06→20:23)
[2018-08-03 05:39] LABS: APPEARANCE,URINE CLEAR; BILIRUBIN,URINE NEGATIVE (NEGATIVE); COLOR,URINE YELLOW; GLUCOSE, URINE NEGATIVE (NEGATIVE); KETONES,URINE NEGATIVE (NEGATIVE); LEUKOCYTE ESTERASE,URINE NEGATIVE (NEGATIVE); NITRITE,URINE NEGATIVE (NEGATIVE); PROTEIN,URINE NEGATIVE (NEGATIVE); URINE SPECIFIC GRAVITY 1.006; UROBILINOGEN,URINE NEGATIVE mg/dL (<2.0)
[2018-08-03] MEDS: DOCUSATE SODIUM 100 MG CAPSULE PO SCH ×2 (10:34→17:02)
[2018-08-03] MEDS: ASPIRIN 81 MG TABLET, ENT COATED PO SCH (10:34)
[2018-08-03] MEDS: HYDROCHLOROTHIAZIDE 25 MG TABLET PO SCH (10:34)
[2018-08-03] MEDS: METOPROLOL TARTRATE 50 MG TABLET PO SCH (10:34)
[2018-08-03] MEDS: VANCOMYCIN HCL 750 MG in DEXTROSE 5%-WATER 250 ML IV SCH ×2 (10:35→21:28)
[2018-08-03 11:06] LABS: HEMOGLOBIN 10.7 g/dL (12.0-15.5); MEAN CORPUSCULAR HEMOGLOBIN 28.5 pg (27.0-33.4); MEAN CORPUSCULAR HGB CONC 33.5 g/dL (32.0-36.0); MEAN CORPUSCULAR VOLUME 85 fl (80-97); PLATELET COUNT 322 10^3/uL (150-450); RED BLOOD COUNT 3.76 10^6/uL (3.72-5.28); WHITE BLOOD COUNT 6.7 10^3/uL (4.0-10.5)
[2018-08-03 11:24] LABS: ANION GAP 11 (5-19); BLOOD UREA NITROGEN 13 mg/dL (7-20); CARBON DIOXIDE 28 mmol/L (22-30); CHLORIDE 96 mmol/L (98-107); GLUCOSE 112 mg/dL (75-110); POTASSIUM 3.8 mmol/L (3.6-5.0); SODIUM 135.3 mmol/L (137-145)
[2018-08-03 11:29] LABS: VANCOMYCIN,TROUGH 13.5 ug/mL (5.0-20.0)
[2018-08-03] MEDS: ATORVASTATIN CALCIUM 10 MG TABLET PO SCH (17:02)
[2018-08-04] MEDS: ACETAMINOPHEN 325 MG TABLET PO PRN ×3 (01:03→17:05)
--- NOTE | 2018-08-04 06:55 | PDOC PROGRESS REPORT ---
Subjective Progress Note for:: 08/04/18 Reason For Visit: STATUS POST RIGHT TOTAL KNEE REPLACEMENT 72-year-old white female 2-month status post right knee revision arthroplasty now status post an I&D. Both superficial and deep cultures are growing gram- positive cocci in clusters. No further identification and sensitivities available at this time. Physical Exam Vital Signs: Temp Pulse Resp BP Pulse Ox 37.1 C 74 18 142/69 H 95 08/04/18 00:00 08/04/18 00:00 08/04/18 00:00 08/04/18 00:00 08/04/18 00:00 Intake & Output 08/02/18 08/03/18 08/04/18 06:59 06:59 06:59 Intake Total 95801 2670 2380 Output Total 1700 1250 750 Balance 8930 1420 1630 Weight 109.9 kg 107.4 kg 106.7 kg Physical Exam: Patient is alert, oriented, and appropriate. She is somewhat discouraged with the news of the deep underlying infection. We do discuss going home versus halfway facility and she seems somewhat resigned towards the latter. General appearance: PRESENT: no acute distress, mild distress Head exam: PRESENT: normocephalic Respiratory exam: PRESENT: unlabored Cardiovascular exam: PRESENT: RRR Pulses: PRESENT: +1 pedal pulses bilateral Vascular exam: PRESENT: normal capillary refill GI/Abdominal exam: PRESENT: soft Rectal exam: PRESENT: deferred Extremities exam: PRESENT: other - Right knee dressing with minor drainage. Results Laboratory Results: 08/03/18 10:50 08/03/18 10:50 08/03/18 08/03/18 10:50 10:50 WBC 6.7 RBC 3.76 Hgb 10.7 L Hct 32.0 L MCV 85 MCH 28.5 MCHC 33.5 RDW 16.0 H Plt Count 322 Sodium 135.3 L Potassium 3.8 Chloride 96 L Carbon Dioxide 28 Anion Gap 11 BUN 13 Creatinine 0.65 Est GFR ( Amer) > 60 Est GFR (Non-Af Amer) > 60 Glucose 112 H Calcium 9.0 Impressions: Knee X-Ray 07/30/18 04:46 IMPRESSION: Residual soft tissue swelling with questionable tiny joint effusion may reflect residual postoperative change. copyright 2010 [email or web address]- All Rights Reserved Status: Imported from PACS Assessment & Plan - Diagnosis (1) Effusion, right knee Is this a current diagnosis for this admission?: Yes Plan: We will continue empiric vancomycin pending further culture identification and sensitivity. I anticipate halfway facility placement early next week. - Time Time Spent with patient: 15-24 minutes Anticipated discharge: SNF Within: Other
[2018-08-04] MEDS ORDERED: ROPINIROLE HCL 0.25 MG TABLET PO ONE ×2 (07:15→09:30)
[2018-08-04] MEDS: ASPIRIN 81 MG TABLET, ENT COATED PO SCH (09:29)
[2018-08-04] MEDS: METOPROLOL TARTRATE 50 MG TABLET PO SCH (09:29)
[2018-08-04] MEDS: HYDROCHLOROTHIAZIDE 25 MG TABLET PO SCH (09:29)
[2018-08-04] MEDS: DOCUSATE SODIUM 100 MG CAPSULE PO SCH ×2 (09:29→17:05)
[2018-08-04] MEDS: VANCOMYCIN HCL 750 MG in DEXTROSE 5%-WATER 250 ML IV SCH ×2 (09:30→21:13)
[2018-08-04] MEDS: OXYCODONE HCL IR 5 MG TABLET PO PRN ×2 (11:14→21:20)
[2018-08-04] MEDS: ATORVASTATIN CALCIUM 10 MG TABLET PO SCH (17:05)
[2018-08-04] MEDS: ROPINIROLE HCL 0.25 MG TABLET PO SCH ×2 (21:06→21:13)
[2018-08-05] MEDS: ACETAMINOPHEN 325 MG TABLET PO PRN (02:46)
[2018-08-05] MEDS: OXYCODONE HCL IR 5 MG TABLET PO PRN ×2 (06:03→20:02)
[2018-08-05] MEDS: HYDROCHLOROTHIAZIDE 25 MG TABLET PO SCH (09:26)
[2018-08-05] MEDS: ASPIRIN 81 MG TABLET, ENT COATED PO SCH (09:26)
[2018-08-05] MEDS: DOCUSATE SODIUM 100 MG CAPSULE PO SCH ×2 (09:26→17:27)
[2018-08-05] MEDS: VANCOMYCIN HCL 750 MG in DEXTROSE 5%-WATER 250 ML IV SCH ×2 (09:27→21:22)
[2018-08-05] MEDS: METOPROLOL TARTRATE 50 MG TABLET PO SCH (09:27)
[2018-08-05] MEDS: ATORVASTATIN CALCIUM 10 MG TABLET PO SCH (17:27)
[2018-08-05] MEDS: ROPINIROLE HCL 0.25 MG TABLET PO SCH ×2 (21:21→21:23)
[2018-08-06] MEDS ORDERED: ERGOCALCIFEROL (VITAMIN D2) 50000 UNIT (1.25 MG) CAPSULE PO SCH (07:53)
[2018-08-06] MEDS: ACETAMINOPHEN 325 MG TABLET PO PRN (08:24)
[2018-08-06] MEDS: OXYCODONE HCL IR 5 MG TABLET PO PRN ×2 (08:54→23:17)
[2018-08-06] MEDS ORDERED: NORMAL SALINE 10 ML SDV (AFTER EACH USE) IV PRN (11:00)
[2018-08-06] MEDS: HYDROCHLOROTHIAZIDE 25 MG TABLET PO SCH (11:21)
[2018-08-06] MEDS: METOPROLOL TARTRATE 50 MG TABLET PO SCH (11:22)
[2018-08-06] MEDS: DOCUSATE SODIUM 100 MG CAPSULE PO SCH ×2 (11:22→17:49)
[2018-08-06] MEDS: VANCOMYCIN HCL 750 MG in DEXTROSE 5%-WATER 250 ML IV SCH (11:23)
[2018-08-06] MEDS: ASPIRIN 81 MG TABLET, ENT COATED PO SCH (11:23)
--- NOTE | 2018-08-06 11:56 | RADIOLOGY REPORT (SQ) ---
EXAM DESCRIPTION: PICC INSERTION; FLUORO/CV PLACEMENT; U/S GUIDE FOR VASCULAR ACCESS COMPLETED DATE/TIME: 08/06/2018 10:11 am REASON FOR STUDY: Pt needs picc access for medications. ; [employer] ABX; IV ACCESS COMPARISON: None. FLUOROSCOPY TIME: 49 seconds. 1 images saved to PACS. TECHNIQUE: Fluoroscopic and ultrasound guided PICC placement. LIMITATIONS: None. PROCEDURE: After written consent and assessment were obtained, the patient was brought into the fluo roscopy room and placed supine on the table. Ultrasound evaluation of potential access sites were per formed. After successfully identifying a patent left basilic vein, the left arm was prepped and drape d in a sterile fashion along with the ultrasound probe. The entry site was anesthetized with 1% lidoc sarah. A 21 gauge 7 cm needle was advanced through the skin and into the basilic vein under live ultra sound guidance. An ultrasound image was saved to PACS confirming access site. A .018 guide wire was then inserted through the needle and into the venous system. The needle was then removed and an 11 b lade scalpel was used to make a 1cm skin incision. A 5 fr peel-away sheath was advanced over the wir e and into the venous system. A measurement was then made using the existing wire and live fluoroscop ic guidance. The wire was then removed and trimmed. The PICC was advanced through the peel-away sheat h and into the venous system. The peel-away sheath was removed and the catheter was adhered to the pa tients arm with a stat lock. The catheter was then aspirated and flushed and a sterile bandage was pl aced over the access site. A fluoroscopic spot image was saved to PACS confirming the catheter tip w ithin the superior vena cava. IMPRESSION: SUCCESSFUL PLACEMENT OF A 5 FR DUAL LUMEN 43 CM PICC IN THE LEFT BASILIC VEIN. COMMENT: Patient medication list reviewed: Yes- Quality ID# 130:Eligible professional attests to doc umenting in the medical record they obtained, updated, or reviewed the patient's current medications. . Quality ID 145: Final reports for procedures using fluoroscopy that document radiation exposure lucia pam, or exposure time and number of fluorographic images (if radiation exposure indices are not avail able) Quality ID #76: The patient was prepped and draped using maximum sterile barrier technique including cap, mask, sterile gown, sterile gloves, a large sterile sheet, hand hygiene, and 2% Chlorhexidine fo r cutaneous antisepsis. When ultrasound is used, sterile ultrasound techniques are followed requiring sterile gel and sterile probes. TECHNICAL DOCUMENTATION: JOB ID: [id number] [employer]- All Rights Reserved rev-07/14 Reading location - IP/workstation name: [email or web address]
--- NOTE | 2018-08-06 12:28 | PDOC PROGRESS REPORT ---
Subjective Progress Note for:: 08/06/18 Subjective:: Patient sitting up in bed eating lunch with no distress. Interval events are notable for identification of the pathogen is micrococcus. Sensitivities are being sent out and are pending. Reason For Visit: STATUS POST RIGHT TOTAL KNEE REPLACEMENT Status post I&D for right knee periprosthetic infection. Physical Exam Vital Signs: Temp Pulse Resp BP Pulse Ox 37.1 C 83 18 131/47 H 94 08/06/18 07:28 08/06/18 07:28 08/06/18 07:28 08/06/18 07:28 08/06/18 07:28 Intake & Output 08/05/18 08/06/18 08/07/18 06:59 06:59 06:59 Intake Total 2270 2040 Output Total 200 Balance 2270 1840 Weight 106.7 kg 106.7 kg General appearance: PRESENT: no acute distress Pulses: PRESENT: +1 pedal pulses bilateral Vascular exam: PRESENT: normal capillary refill GI/Abdominal exam: PRESENT: soft Rectal exam: PRESENT: deferred Extremities exam: PRESENT: other - Right knee dressing with bloody drainage Neurological exam: PRESENT: alert, awake, oriented to person, oriented to place, oriented to time, oriented to situation. ABSENT: motor sensory deficit Psychiatric exam: PRESENT: appropriate affect, normal mood. ABSENT: homicidal ideation, suicidal ideation Skin exam: PRESENT: dry, intact, warm. ABSENT: cyanosis, rash Results Laboratory Results: 08/03/18 10:50 08/03/18 10:50 08/01/18 11:55 Knee - Right Gram Stain - Final 08/01/18 11:55 Knee - Right Wound Culture - Final Micrococcus Species No Anaerobic Organisms 08/01/18 11:55 Knee - Right Gram Stain - Final 08/01/18 11:55 Knee - Right Wound Culture - Final Micrococcus Species No Anaerobic Organisms Impressions: Knee X-Ray 07/30/18 04:46 IMPRESSION: Residual soft tissue swelling with questionable tiny joint effusion may reflect residual postoperative change. copyright 2011 [employer]- All Rights Reserved Guidance Fluoroscopy 08/06/18 00:00 IMPRESSION: SUCCESSFUL PLACEMENT OF A 5 FR DUAL LUMEN 43 CM PICC IN THE LEFT BASILIC VEIN. Interventional Vascular Procedure 08/06/18 00:00 IMPRESSION: SUCCESSFUL PLACEMENT OF A 5 FR DUAL LUMEN 43 CM PICC IN THE LEFT BASILIC VEIN. PICC Line Insertion 08/06/18 00:00 IMPRESSION: SUCCESSFUL PLACEMENT OF A 5 FR DUAL LUMEN 43 CM PICC IN THE LEFT BASILIC VEIN. Status: Imported from PACS Assessment & Plan - Diagnosis (1) Effusion, right knee Is this a current diagnosis for this admission?: Yes Plan: Plan will be to switch from vancomycin to Levaquin. Sensitivities are pending. Patient requesting transfer to [facility] facility as opposed to being discharged home. Social work has been consulted for this. - Time Time Spent with patient: 15-24 minutes Anticipated discharge: SNF Within: when bed available
--- NOTE | 2018-08-06 12:42 | PDOC TRANSFER SUMMARY ---
General - Admit/Disc Date/PCP Admission Date/Primary Care Provider: 07/30/18 08:10 ONDINA SIMONS MD Discharge Date: 08/06/18 - Discharge Diagnosis (1) Effusion, right knee Is this a current diagnosis for this admission?: Yes - Additional Information Resuscitation Status: Full Code Home Medications: Acetaminophen [Tylenol Extra Strength 500 mg Tablet] 500 mg PO Q4HP PRN 07/30/18 Celecoxib [Celebrex 200 mg Capsule] 200 mg PO DAILY 07/30/18 Ergocalciferol (Vitamin D2) [Drisdol 50,000 unit (1.25MG) Capsule] 50,000 unit PO MO 07/30/18 Hydrochlorothiazide [Hydrodiuril 25 mg Tablet] 25 mg PO DAILY 07/30/18 Metoprolol Tartrate [Lopressor 50 mg Tablet] 50 mg PO DAILY 07/30/18 Pravastatin Sodium [Pravachol] 40 mg PO QPM 07/30/18 History of Present Illness Admission Date/PCP: 07/30/18 08:10 ONDINA SIMONS MD History of Present Illness: MELONY DAWSON is a 72 year old female 72-year-old white female status post right knee revision arthroplasty on May 28, 2018 presented with serous drainage from the central portion of the wound. Hospital Course Hospital Course: The patient was admitted through the operating where she underwent I&D of the wound. Intraoperative findings were unremarkable. Subsequent cultures have grown micrococcus. PICC line is placed and the patient switch from vancomycin which was empiric, to Levaquin. Physical Exam Vital Signs: Temp Pulse Resp BP Pulse Ox 37.1 C 83 18 131/47 H 94 08/06/18 07:28 08/06/18 07:28 08/06/18 07:28 08/06/18 07:28 08/06/18 07:28 Intake & Output 08/05/18 08/06/18 08/07/18 06:59 06:59 06:59 Intake Total 2270 2040 Output Total 200 Balance 2270 1840 Weight 106.7 kg 106.7 kg General appearance: PRESENT: no acute distress, obese, well-developed, well- nourished Head exam: PRESENT: normocephalic Respiratory exam: PRESENT: unlabored Cardiovascular exam: PRESENT: RRR Pulses: PRESENT: +1 pedal pulses bilateral Vascular exam: PRESENT: normal capillary refill GI/Abdominal exam: PRESENT: soft Rectal exam: PRESENT: deferred Extremities exam: PRESENT: other - Right knee dressing with some drainage evident. Wound is well approximated with sutures. Neurological exam: PRESENT: alert, awake, oriented to person, oriented to place, oriented to time, oriented to situation. ABSENT: motor sensory deficit Skin exam: PRESENT: dry, intact, warm. ABSENT: cyanosis, rash Results Laboratory Results: 08/03/18 10:50 08/03/18 10:50 08/01/18 11:55 Knee - Right Gram Stain - Final 08/01/18 11:55 Knee - Right Wound Culture - Final Micrococcus Species No Anaerobic Organisms 08/01/18 11:55 Knee - Right Gram Stain - Final 08/01/18 11:55 Knee - Right Wound Culture - Final Micrococcus Species No Anaerobic Organisms Impressions: Knee X-Ray 07/30/18 04:46 IMPRESSION: Residual soft tissue swelling with questionable tiny joint effusion may reflect residual postoperative change. copyright 2011 [employer]- All Rights Reserved Guidance Fluoroscopy 08/06/18 00:00 IMPRESSION: SUCCESSFUL PLACEMENT OF A 5 FR DUAL LUMEN 43 CM PICC IN THE LEFT BASILIC VEIN. Interventional Vascular Procedure 08/06/18 00:00 IMPRESSION: SUCCESSFUL PLACEMENT OF A 5 FR DUAL LUMEN 43 CM PICC IN THE LEFT BASILIC VEIN. PICC Line Insertion 08/06/18 00:00 IMPRESSION: SUCCESSFUL PLACEMENT OF A 5 FR DUAL LUMEN 43 CM PICC IN THE LEFT BASILIC VEIN. Status: Imported from PACS Transfer Plan - Disposition Transfer Plan: Patient to be transferred to senior care facility for ongoing physical therapy and IV antibiotic administration - Time Spent with Patient Time spent with patient: Less than 30 Minutes Qualifiers - * PATIENT BEING DISCHARGED WITH ANY OF THE FOLLOWING DIAGNOSIS: No VTE patient discharged on overlapping Therapy?: Yes Acute Heart Failure - Is this a Heart Failure Patient?: No LVEF < 40%?: No- if no continue to question #3 Plan Discharge Plan: Follow-up with Dr. Simons and [facility] for surgery in 2 weeks for suture removal Time Spent: Less than 30 Minutes
[2018-08-06] MEDS: ATORVASTATIN CALCIUM 10 MG TABLET PO SCH (17:49)
[2018-08-06] MEDS ORDERED: LEVOFLOXACIN 750 MG/D5W RTU 750 MG/150 ML RTUPB IV SCH (18:00)
[2018-08-06] MEDS: ROPINIROLE HCL 0.25 MG TABLET PO SCH (21:07)
[2018-08-06] MEDS: NORMAL SALINE 10 ML SDV (SCHEDULED) IV SCH (21:07)
[2018-08-07] MEDS ORDERED: POLYETHYLENE GLYCOL 3350 POWDER 17 GM/1 PACKET PO SCH (09:00)
[2018-08-07] MEDS: ASPIRIN 81 MG TABLET, ENT COATED PO SCH (09:04)
[2018-08-07] MEDS: METOPROLOL TARTRATE 50 MG TABLET PO SCH (09:04)
[2018-08-07] MEDS: DOCUSATE SODIUM 100 MG CAPSULE PO SCH (09:04)
[2018-08-07] MEDS: OXYCODONE HCL IR 5 MG TABLET PO PRN (09:04)
[2018-08-07] MEDS: HYDROCHLOROTHIAZIDE 25 MG TABLET PO SCH (09:04)
[2018-08-07] MEDS: NORMAL SALINE 10 ML SDV (SCHEDULED) IV SCH (09:21)
[2018-08-07 10:42] LABS: VANCOMYCIN,TROUGH 7.9 ug/mL (5.0-20.0)
[2018-08-07] MEDS ORDERED: MAGNESIUM CITRATE 296 ML BOTTLE PO ONE (13:00)
[2018-08-07 15:36] VITALS: BP 115/68
== END 2018-08-07 17:00 | DRG 489 ==
LOC: ER 03:23 → OBSVTOIN 08:10 → EH 08:10 → 4N 09:27
PROVIDERS: ADMIT Orthopaedic Surgery; ATTEND Orthopaedic Surgery
PROC: 0SUV09Z Supplement Right Knee Joint, Tibial Surface with Liner, Open Approach (ICD-10-PCS; 2018-08-01)
PROC: 0SPC09Z Removal of Liner from Right Knee Joint, Open Approach (ICD-10-PCS; principal; 2018-08-01 10:30)
PROC: 02HV33Z Insertion of Infusion Device into Superior Vena Cava, Percutaneous Approach (ICD-10-PCS; 2018-08-06)
PROC: B5181ZA Fluoroscopy of Superior Vena Cava using Low Osmolar Contrast, Guidance (ICD-10-PCS; 2018-08-06)
PROC: B548ZZA Ultrasonography of Superior Vena Cava, Guidance (ICD-10-PCS; 2018-08-06)
DX: M25.461 Effusion, right knee (principal); E66.9 Obesity, unspecified; I10 Essential (primary) hypertension; Z96.651 Presence of right artificial knee joint; Z79.899 Other long term (current) drug therapy; Z79.1 Long term (current) use of non-steroidal anti-inflammatories (NSAID); Z87.891 Personal history of nicotine dependence
CPT/HCPCS: 01402; 36415; 36569; 51702; 76937; 77001; 80048; 80053; 80202; 81001; 82565; 85025; 85027; 85652; 86140; 87070; 87075; 87077; 87205; 99284; C1776; J1642; J1956; J2175; J2250; J2370; J2704; J3010; J3370; J3490; J7060; J7120

== ENCOUNTER → 2018-12-12 | Outpatient (CLI) | payer MEDICARE, OTHER ==
[2018-12-12 09:54] LABS: ABSOLUTE EOSINOPHILS # (AUTO) 0.2 10^3/uL (0.0-0.6); ABSOLUTE MONOCYTES (AUTO) 0.8 10^3/uL (0.1-1.4); ABSOLUTE NEUT (AUTO) 3.1 10^3/uL (1.7-8.2); BASOPHILS % (AUTO) 0.5 % (0-2); EOSINOPHILS % (AUTO) 4.7 % (0-6); HEMATOCRIT 33.1 % (36.0-47.0); HEMOGLOBIN 11.1 g/dL (12.0-15.5); LYMPHOCYTES % (AUTO) 19.1 % (13-45); MEAN CORPUSCULAR HEMOGLOBIN 27.3 pg (27.0-33.4); MEAN CORPUSCULAR HGB CONC 33.6 g/dL (32.0-36.0); MEAN CORPUSCULAR VOLUME 81 fl (80-97); MONOCYTES % (AUTO) 15.7 % (3-13); PLATELET COUNT 374 10^3/uL (150-450); RED BLOOD COUNT 4.07 10^6/uL (3.72-5.28); RED CELL DISTRIBUTION WIDTH 14.9 % (11.5-14.0); TOTAL CELLS COUNTED % (AUTO) 100 %; WHITE BLOOD COUNT 5.2 10^3/uL (4.0-10.5)
--- NOTE | 2018-12-12 10:08 | RADIOLOGY REPORT (SQ) ---
EXAM DESCRIPTION: CHEST PA/LATERAL COMPLETED DATE/TIME: 12/12/2018 9:46 am REASON FOR STUDY: PRE-OP COMPARISON: 05/17/2018. EXAM PARAMETERS: NUMBER OF VIEWS: two views TECHNIQUE: Digital Frontal and Lateral radiographic views of the chest acquired. RADIATION DOSE: NA LIMITATIONS: none FINDINGS: LUNGS AND PLEURA: No opacities, masses or pneumothorax. No pleural effusion. MEDIASTINUM AND HILAR STRUCTURES: No masses or contour abnormalities. HEART AND VASCULAR STRUCTURES: Heart normal size. No evidence for failure. BONES: No acute findings. HARDWARE: None in the chest. OTHER: No other significant finding. IMPRESSION: NO SIGNIFICANT RADIOGRAPHIC FINDING IN THE CHEST. TECHNICAL DOCUMENTATION: JOB ID: [id number] [employer]- All Rights Reserved Reading location - IP/workstation name: [email or web address]
[2018-12-12 10:18] LABS: APPEARANCE,URINE CLEAR; BILIRUBIN,URINE NEGATIVE (NEGATIVE); COLOR,URINE YELLOW; GLUCOSE, URINE NEGATIVE (NEGATIVE); KETONES,URINE NEGATIVE (NEGATIVE); LEUKOCYTE ESTERASE,URINE NEGATIVE (NEGATIVE); NITRITE,URINE NEGATIVE (NEGATIVE); PROTEIN,URINE NEGATIVE (NEGATIVE); URINE SPECIFIC GRAVITY 1.015; UROBILINOGEN,URINE NEGATIVE mg/dL (<2.0)
[2018-12-12 10:24] LABS: ANION GAP 10 (5-19); BLOOD UREA NITROGEN 25 mg/dL (7-20); CALCIUM 10.7 mg/dL (8.4-10.2); CARBON DIOXIDE 24 mmol/L (22-30); CHLORIDE 104 mmol/L (98-107); GLUCOSE 91 mg/dL (75-110); POTASSIUM 5.2 mmol/L (3.6-5.0)
--- NOTE | 2018-12-12 23:09 | EKG REPORT ---
SEVERITY:- ABNORMAL ECG - SINUS RHYTHM FIRST DEGREE AV BLOCK LEFT ANTERIOR FASCICULAR BLOCK PROBABLE LEFT VENTRICULAR HYPERTROPHY ANTERIOR Q WAVES, POSSIBLY DUE TO LVH : Confirmed by: Andra Monreal 12-Dec-2018 23:08:45
== END ==
LOC: OD 09:10
PROVIDERS: ATTEND Orthopaedic Surgery
DX: Z01.810 Encounter for preprocedural cardiovascular examination (principal); Z01.811 Encounter for preprocedural respiratory examination; Z01.812 Encounter for preprocedural laboratory examination; M16.11 Unilateral primary osteoarthritis, right hip
CPT/HCPCS: 36415; 71046; 80048; 81001; 85025; 93005; 93010

== ENCOUNTER 2019-01-09 06:43 | Inpatient (IN) | payer MEDICARE, OTHER ==
[~2019-01-09 06:43] MED LIST changes: -ACETAMINOPHEN 0 MG/0 ML RTUPB IV ONE; +CEFAZOLIN INJ 1 GM VIAL ONE; -DEXAMETHASONE SOD PHOSPHATE INJ 4 MG/1 ML VIAL ONE; -FENTANYL CITRATE INJ/PF 100 MCG/2 ML AMPUL ONE; +GLYCOPYRROLATE 1 MG/5 ML VIAL ONE; -MIDAZOLAM 2 MG/2 ML INJ ONE; -ONDANSETRON HCL INJ/PF 4 MG/2 ML SDV ONE; +OXYCODONE HCL SR 10 MG TABLET PO ONE; -OXYCODONE HCL SR 10 MG TABLET PO PRN; +PANTOPRAZOLE SODIUM 20 MG TABLET.DR PO ONE; -PROPOFOL INJ 200 MG/20 ML VIAL IV ONE; -TRANEXAMIC ACID INJ/PF 1,000 MG/10 ML SDV IV ONE
[2019-01-09] MEDS: OXYCODONE HCL SR 10 MG TABLET PO PRN ×2 (06:50→21:05)
[2019-01-09] MEDS ORDERED: FENTANYL CITRATE INJ/PF 100 MCG/2 ML AMPUL ONE (08:52)
[2019-01-09] MEDS ORDERED: MIDAZOLAM 2 MG/2 ML INJ ONE (08:53)
[2019-01-09] MEDS ORDERED: PROPOFOL INJ 200 MG/20 ML VIAL IV ONE ×2 (08:53→13:03)
[2019-01-09] MEDS ORDERED: TRANEXAMIC ACID INJ/PF 1,000 MG/10 ML SDV ONE ×2 (09:01→13:26)
[2019-01-09] MEDS ORDERED: VANCOMYCIN HCL INJ 1000 MG VIAL ONE (09:16)
[2019-01-09] MEDS ORDERED: MEPERIDINE HCL/PF INJ 25 MG/1 ML DISP.SYRIN IV PRN (09:57)
[2019-01-09] MEDS ORDERED: PROMETHAZINE HCL INJ 25 MG/1 ML VIAL IV PRN (09:57)
[2019-01-09] MEDS ORDERED: MORPHINE SULFATE 10 MG/ML INJ IV PRN (09:57)
[2019-01-09] MEDS ORDERED: FENTANYL CITRATE INJ/PF 100 MCG/2 ML AMPUL IV PRN ×3 (09:57)
[2019-01-09] MEDS ORDERED: DIPHENHYDRAMINE HCL 50 MG/ML VIAL IV PRN ×2 (09:57→10:55)
[2019-01-09] MEDS ORDERED: ONDANSETRON 4 MG TAB.RAPDIS PO PRN (10:55)
[2019-01-09] MEDS ORDERED: MAG HYDROX/AL HYDROX/SIMETH SUSP 30 ML UDCUP PO PRN (10:55)
[2019-01-09] MEDS ORDERED: ONDANSETRON HCL INJ/PF 4 MG/2 ML SDV IV PRN (10:55)
[2019-01-09] MEDS ORDERED: RINGERS SOLUTION,LACTATED 1,000 ML IV PRN (10:55)
[2019-01-09] MEDS ORDERED: ZOLPIDEM TARTRATE 5 MG TABLET PO PRN (10:55)
--- NOTE | 2019-01-09 10:55 | Operative Report ---
Operative Report DATE OF SURGERY: 01/09/19 PREOPERATIVE DIAGNOSIS: Right knee periprosthetic infection OPERATION: Right knee resection arthroplasty and implantation of a cement spacer SURGEON: ONDINA SIMONS ANESTHESIA: Spinal TISSUE REMOVED OR ALTERED: Tissue to pathology. Implant to CSS. Swabs and tissue to microbiology ESTIMATED BLOOD LOSS: 100 INTRAOPERATIVE FINDINGS: Extensive synovitis with metallosis PROCEDURE: With the patient supine Afrin table the right lower extremity is prepped and draped in sterile fashion. Limb is elevated for exsanguination tourniquet inflated to 280 torr. A standard midline medial parapatellar approach knee is taken in line with previous surgical approaches. Upon entering the deep layer a large amount of cloudy yellow fluid is incorporated encountered and this is sent for culture and sensitivity. There is a significant amount of hypertrophic synovium and metallosis from the first failure. The synovium was debrided and most of the metallosis was in this manner removed but it cannot be removed in its entirety because of its extensive nature. Next a TPS saw was used to loosen the cement on the femoral component and this is disimpacted with essentially no loss. TPS saw was then used to loosen the tibial component and this is elevated using stacked osteotomes. There is essentially no bone loss except behind the knee and the keel. Lastly a TPS saw was used to remove the existing patella component and the talar pegs were removed using combination of a drill and a curette. At this point the wound was again debrided meticulously and irrigated with 3 L normal suntanned of Betadine. Size medium femoral and tibial ostial remedy components are used as a trial reduction and this is felt to be adequate. The ostial remedy implants containing gentamicin. Subsequently PMMA with tobramycin and vancomycin is mixed and used to cement these implants in place. The tourniquet is deflated. Hemostasis obtained with electrocautery. The wound was reapproximated interrupted PDS suture. Skin is reapproximated using yecenia. A sterile compressive dressing and knee immobilizer are applied and the patient's return to the PACU in satisfactory condition.
--- NOTE | 2019-01-09 12:05 | RADIOLOGY REPORT (SQ) ---
EXAM DESCRIPTION: KNEE RIGHT 2 VIEWS COMPLETED DATE/TIME: 01/09/2019 11:53 am REASON FOR STUDY: Post OP -Long Cassette in PACU M25.561 PAIN IN RIGHT KNEE COMPARISON: None. NUMBER OF VIEWS: Two view(s). TECHNIQUE: Digital radiographic images of the right knee post-procedure. LIMITATIONS: None. FINDINGS: BONES: No worrisome or unexpected findings post-procedure. DEVICE: Patient is status post total knee revision. Please refer to the operative report for further discussion. SOFT TISSUES: No worrisome findings. Expected postoperative soft tissue changes. IMPRESSION: Postoperative total right knee revision. Please refer to the operative report for furth er discussion. TECHNICAL DOCUMENTATION: JOB ID: [id number] [employer]- All Rights Reserved Reading location - IP/workstation name: [email or web address]
[2019-01-09] MEDS: TRANEXAMIC ACID INJ/PF 1,000 MG/10 ML SDV IV ONE ×2 (13:30→17:10)
[2019-01-09] MEDS ORDERED: IBUPROFEN 800 MG in NORMAL SALINE 250 ML IV SCH (14:00)
[2019-01-09] MEDS: SENNOSIDES/DOCUSATE 8.6-50 MG 1 EACH TABLET PO SCH (17:30)
[2019-01-09] MEDS: IBUPROFEN 800 MG in NORMAL SALINE 250 ML IV SCH (17:30)
[2019-01-09] MEDS ORDERED: VANCOMYCIN HCL 1,000 MG in DEXTROSE 5%-WATER 250 ML IV ONE (23:00)
[2019-01-10] MEDS: OXYCODONE HCL IR 5 MG TABLET PO PRN ×2 (03:59→10:22)
[2019-01-10] MEDS: IBUPROFEN 800 MG in NORMAL SALINE 250 ML IV SCH ×3 (03:59→18:11)
[2019-01-10 06:03] LABS: HEMATOCRIT 29.6 % (36.0-47.0); HEMOGLOBIN 9.9 g/dL (12.0-15.5); MEAN CORPUSCULAR HEMOGLOBIN 28.2 pg (27.0-33.4); MEAN CORPUSCULAR HGB CONC 33.5 g/dL (32.0-36.0); MEAN CORPUSCULAR VOLUME 84 fl (80-97); PLATELET COUNT 223 10^3/uL (150-450); RED BLOOD COUNT 3.51 10^6/uL (3.72-5.28); RED CELL DISTRIBUTION WIDTH 15.6 % (11.5-14.0); WHITE BLOOD COUNT 7.3 10^3/uL (4.0-10.5)
[2019-01-10 06:24] LABS: ANION GAP 6 (5-19); BLOOD UREA NITROGEN 23 mg/dL (7-20); CALCIUM 9.6 mg/dL (8.4-10.2); CARBON DIOXIDE 27 mmol/L (22-30); CHLORIDE 104 mmol/L (98-107); GLUCOSE 100 mg/dL (75-110); POTASSIUM 4.3 mmol/L (3.6-5.0)
--- NOTE | 2019-01-10 07:36 | PDOC PROGRESS REPORT ---
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 Uneventful course overnight. Limited progress with physical therapy yesterday. Physical Exam Vital Signs: Temp Pulse Resp BP Pulse Ox 36.8 C 57 L 18 111/48 L 95 01/09/19 23:20 01/09/19 23:20 01/09/19 22:00 01/09/19 23:20 01/09/19 23:20 Intake & Output 01/09/19 01/10/19 01/11/19 06:59 06:59 06:59 Intake Total 0 7381 Output Total 4459 Balance 0 2922 Weight 107.9 kg Physical Exam: Elderly white female lying in bed in no apparent distress. Patient is alert, oriented, and appropriate. General appearance: PRESENT: no acute distress, mild distress Head exam: PRESENT: normocephalic Respiratory exam: PRESENT: unlabored Cardiovascular exam: PRESENT: RRR Pulses: PRESENT: +1 pedal pulses bilateral Vascular exam: PRESENT: normal capillary refill GI/Abdominal exam: PRESENT: soft Rectal exam: PRESENT: deferred Extremities exam: PRESENT: other - Right lower extremity dressing clean dry and intact. Distal neurovascular examination is intact. Neurological exam: PRESENT: alert, awake, oriented to person, oriented to place, oriented to time, oriented to situation. ABSENT: motor sensory deficit Psychiatric exam: PRESENT: appropriate affect, normal mood. ABSENT: homicidal ideation, suicidal ideation Skin exam: PRESENT: dry, intact, warm. ABSENT: cyanosis, rash Results Laboratory Results: 01/10/19 04:44 01/10/19 04:44 01/09/19 01/10/19 01/10/19 07:19 04:44 04:44 WBC 7.3 RBC 3.51 L Hgb 9.9 L Hct 29.6 L MCV 84 MCH 28.2 MCHC 33.5 RDW 15.6 H Plt Count 223 Sodium 136.9 L Potassium 4.3 4.3 Chloride 104 Carbon Dioxide 27 Anion Gap 6 BUN 23 H Creatinine 1.04 Est GFR ( Amer) > 60 Glucose 100 Calcium 9.6 Impressions: Knee X-Ray 01/09/19 10:57 IMPRESSION: Postoperative total right knee revision. Please refer to the operative report for further discussion. Status: Imported from PACS Assessment & Plan - Diagnosis (1) Infection of knee Is this a current diagnosis for this admission?: Yes Plan: Patient has an order for PICC line placement and anticipate 6 weeks of IV antibiotic therapy. Empirically have chosen Rocephin for 6 weeks and we will await intraoperative cultures for any further information. Patient remains committed to returning home with home health services and antibiotic administration which I concur with. However advised her that this will require a certain level of function includes independent transfers from bed to chair to bathroom. She is can work aggressively with physical therapy today. - Time Time Spent with patient: 15-24 minutes Anticipated discharge: Home with Homehealth Within: within 24 hours
[2019-01-10] MEDS ORDERED: CEFTRIAXONE 2 GM/D5W RTU 2 GM/50 ML RTUPB IV SCH (10:00)
[2019-01-10] MEDS: PRENATAL VITAMIN W DHA CAPSULE PO SCH (10:14)
[2019-01-10] MEDS: ESCITALOPRAM OXALATE 10 MG TABLET PO SCH (10:15)
[2019-01-10] MEDS: ASPIRIN 81 MG TABLET, ENT COATED PO SCH (10:15)
[2019-01-10] MEDS: SENNOSIDES/DOCUSATE 8.6-50 MG 1 EACH TABLET PO SCH ×2 (10:15→18:11)
[2019-01-10] MEDS: PANTOPRAZOLE SODIUM 40 MG TABLET.DR PO SCH (10:15)
[2019-01-10] MEDS: HYDROCHLOROTHIAZIDE 25 MG TABLET PO SCH (10:15)
[2019-01-10] MEDS: OXYCODONE HCL SR 10 MG TABLET PO SCH ×3 (10:16→22:27)
--- NOTE | 2019-01-10 10:24 | RADIOLOGY REPORT (SQ) ---
EXAM DESCRIPTION: PICC INSERTION; FLUORO/CV PLACEMENT; U/S GUIDE FOR VASCULAR ACCESS COMPLETED DATE/TIME: 01/10/2019 9:47 am REASON FOR STUDY: IV access; IV ABX M25.561 PAIN IN RIGHT KNEE COMPARISON: Two-view chest 12/12/2018 FLUOROSCOPY TIME: 43 seconds total fluoro time 1 fluoroscopic and 1 ultrasound images saved to PACS. TECHNIQUE: Fluoroscopic and ultrasound guided PICC placement. LIMITATIONS: None. PROCEDURE: After written consent and assessment were obtained, the patient was brought into the fluo roscopy room and placed supine on the table. Ultrasound evaluation of potential access sites were per formed. After successfully identifying a patent left basilic vein, the left arm was prepped and drape d in a sterile fashion along with the ultrasound probe. The entry site was anesthetized with 1% lidoc sarah. A 21 gauge 7 cm needle was advanced through the skin and into the basilic vein under live ultra sound guidance. An ultrasound image was saved to PACS confirming access site. A .018 guide wire was then inserted through the needle and into the venous system. The needle was then removed and an 11 b lade scalpel was used to make a 1cm skin incision. A 5 fr peel-away sheath was advanced over the wir e and into the venous system. A measurement was then made using the existing wire and live fluoroscop ic guidance. The wire was then removed and trimmed. The PICC was advanced through the peel-away sheat h and into the venous system. The peel-away sheath was removed and the catheter was adhered to the pa tients arm with a stat lock. The catheter was then aspirated and flushed and a sterile bandage was pl aced over the access site. A fluoroscopic spot image was saved to PACS confirming the catheter tip w ithin the superior vena cava. IMPRESSION: SUCCESSFUL PLACEMENT OF A 5 FR DUAL LUMEN 43 CM PICC IN THE LEFT BASILIC VEIN. COMMENT: Patient medication list reviewed: Yes- Quality ID# 130:Eligible professional attests to doc umenting in the medical record they obtained, updated, or reviewed the patient's current medications. . Quality ID 145: Final reports for procedures using fluoroscopy that document radiation exposure lucia pam, or exposure time and number of fluorographic images (if radiation exposure indices are not avail able) Quality ID #76: The patient was prepped and draped using maximum sterile barrier technique including cap, mask, sterile gown, sterile gloves, a large sterile sheet, hand hygiene, and 2% Chlorhexidine fo r cutaneous antisepsis. When ultrasound is used, sterile ultrasound techniques are followed requiring sterile gel and sterile probes. Right Knee prosthesis put in May 2018 TECHNICAL DOCUMENTATION: JOB ID: [id number] [employer]- All Rights Reserved rev-07/14 Reading location - IP/workstation name: [email or web address]
[2019-01-10] MEDS ORDERED: NORMAL SALINE 10 ML SDV (AFTER EACH USE) IV PRN (13:00)
[2019-01-10] MEDS ORDERED: (PENDING PHARMACY ID) (Pravastatin Sodium [Pravachol] 40 MG) PO SCH (18:00)
[2019-01-10] MEDS: ATORVASTATIN CALCIUM 10 MG TABLET PO SCH (18:11)
[2019-01-10] MEDS: NORMAL SALINE 10 ML SDV (SCHEDULED) IV SCH (22:28)
[2019-01-11] MEDS: IBUPROFEN 800 MG in NORMAL SALINE 250 ML IV SCH ×3 (02:56→21:11)
[2019-01-11] MEDS: OXYCODONE HCL IR 5 MG TABLET PO PRN (02:56)
[2019-01-11 06:38] LABS: HEMATOCRIT 21.8 % (36.0-47.0); MEAN CORPUSCULAR HEMOGLOBIN 28.4 pg (27.0-33.4); MEAN CORPUSCULAR HGB CONC 33.6 g/dL (32.0-36.0); MEAN CORPUSCULAR VOLUME 85 fl (80-97); PLATELET COUNT 160 10^3/uL (150-450); RED BLOOD COUNT 2.58 10^6/uL (3.72-5.28); RED CELL DISTRIBUTION WIDTH 15.4 % (11.5-14.0)
[2019-01-11 06:41] LABS: HEMOGLOBIN 7.3 g/dL (12.0-15.5)
--- NOTE | 2019-01-11 07:19 | PDOC PROGRESS REPORT ---
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 Physical Exam Vital Signs: Temp Pulse Resp BP Pulse Ox 36.9 C 76 19 94/53 L 99 01/11/19 00:00 01/11/19 00:00 01/11/19 00:00 01/11/19 00:00 01/11/19 00:00 Intake & Output 01/10/19 01/11/19 01/12/19 06:59 06:59 06:59 Intake Total 7381 790 Output Total 4459 1300 Balance 2922 -510 Weight 107.9 kg 103.5 kg Physical Exam: Middle-aged white female lying in bed. Patient is alert, oriented, and appropriate. General appearance: PRESENT: no acute distress, mild distress Head exam: PRESENT: normocephalic Respiratory exam: PRESENT: unlabored Cardiovascular exam: PRESENT: RRR Pulses: PRESENT: +1 pedal pulses bilateral Vascular exam: PRESENT: normal capillary refill GI/Abdominal exam: PRESENT: soft Rectal exam: PRESENT: deferred Extremities exam: PRESENT: other - Lower extremity dressing clean dry and intact Neurological exam: PRESENT: alert, awake, oriented to person, oriented to place, oriented to time, oriented to situation. ABSENT: motor sensory deficit Psychiatric exam: PRESENT: appropriate affect, normal mood. ABSENT: homicidal ideation, suicidal ideation Skin exam: PRESENT: dry, intact, warm. ABSENT: cyanosis, rash Results Laboratory Results: 01/11/19 05:45 01/10/19 04:44 01/11/19 05:45 WBC 5.0 RBC 2.58 L Hgb 7.3 L D Hct 21.8 L MCV 85 MCH 28.4 MCHC 33.6 RDW 15.4 H Plt Count 160 Impressions: Knee X-Ray 01/09/19 10:57 IMPRESSION: Postoperative total right knee revision. Please refer to the operative report for further discussion. Guidance Fluoroscopy 01/10/19 00:00 IMPRESSION: SUCCESSFUL PLACEMENT OF A 5 FR DUAL LUMEN 43 CM PICC IN THE LEFT BASILIC VEIN. Interventional Vascular Procedure 01/10/19 00:00 IMPRESSION: SUCCESSFUL PLACEMENT OF A 5 FR DUAL LUMEN 43 CM PICC IN THE LEFT BASILIC VEIN. PICC Line Insertion 01/10/19 00:00 IMPRESSION: SUCCESSFUL PLACEMENT OF A 5 FR DUAL LUMEN 43 CM PICC IN THE LEFT BASILIC VEIN. Status: Imported from PACS Assessment & Plan - Diagnosis (1) Infection of knee Is this a current diagnosis for this admission?: Yes Plan: Physical therapy has recommended consideration for rehab placement. The patient is committed to returning home. We will continue in-house physical therapy for coming day or 2 and reassess her functional capacity at that point. Patient will need 6 weeks of IV antibiotic therapy. Cultures are growing gram-positive cocci in chains. (2) Acute blood loss anemia Is this a current diagnosis for this admission?: Yes Plan: Patient's hematocrit is dropped to 21%. She received 2 units of packed red blood cells today. - Time Time Spent with patient: 15-24 minutes Anticipated discharge: Home with Homehealth Within: Other
[2019-01-11] MEDS: PANTOPRAZOLE SODIUM 40 MG TABLET.DR PO SCH (09:11)
[2019-01-11] MEDS: ESCITALOPRAM OXALATE 10 MG TABLET PO SCH (09:12)
[2019-01-11] MEDS: OXYCODONE HCL SR 10 MG TABLET PO SCH (09:12)
[2019-01-11] MEDS: SENNOSIDES/DOCUSATE 8.6-50 MG 1 EACH TABLET PO SCH ×2 (09:12→17:01)
[2019-01-11] MEDS: PRENATAL VITAMIN W DHA CAPSULE PO SCH (09:12)
[2019-01-11] MEDS: HYDROCHLOROTHIAZIDE 25 MG TABLET PO SCH (09:12)
[2019-01-11] MEDS: ASPIRIN 81 MG TABLET, ENT COATED PO SCH (09:12)
[2019-01-11] MEDS: NORMAL SALINE 10 ML SDV (SCHEDULED) IV SCH ×2 (09:14→21:12)
[2019-01-11] MEDS: ATORVASTATIN CALCIUM 10 MG TABLET PO SCH (17:01)
[2019-01-12] MEDS: IBUPROFEN 800 MG in NORMAL SALINE 250 ML IV SCH ×3 (03:12→17:44)
[2019-01-12] MEDS: PANTOPRAZOLE SODIUM 40 MG TABLET.DR PO SCH (05:17)
[2019-01-12 05:54] LABS: HEMATOCRIT 33.2 % (36.0-47.0); MEAN CORPUSCULAR HEMOGLOBIN 28.7 pg (27.0-33.4); MEAN CORPUSCULAR HGB CONC 33.8 g/dL (32.0-36.0); MEAN CORPUSCULAR VOLUME 85 fl (80-97); PLATELET COUNT 203 10^3/uL (150-450); RED BLOOD COUNT 3.91 10^6/uL (3.72-5.28); RED CELL DISTRIBUTION WIDTH 14.9 % (11.5-14.0); WHITE BLOOD COUNT 5.5 10^3/uL (4.0-10.5)
[2019-01-12 05:57] LABS: HEMOGLOBIN 11.2 g/dL (12.0-15.5)
[2019-01-12 06:06] LABS: ANION GAP 8 (5-19); BLOOD UREA NITROGEN 21 mg/dL (7-20); CALCIUM 9.7 mg/dL (8.4-10.2); CARBON DIOXIDE 25 mmol/L (22-30); CHLORIDE 107 mmol/L (98-107); GLUCOSE 116 mg/dL (75-110); POTASSIUM 3.8 mmol/L (3.6-5.0)
[2019-01-12] MEDS: SENNOSIDES/DOCUSATE 8.6-50 MG 1 EACH TABLET PO SCH ×2 (10:18→17:44)
[2019-01-12] MEDS: HYDROCHLOROTHIAZIDE 25 MG TABLET PO SCH (10:18)
[2019-01-12] MEDS: PRENATAL VITAMIN W DHA CAPSULE PO SCH (10:18)
[2019-01-12] MEDS: ESCITALOPRAM OXALATE 10 MG TABLET PO SCH (10:18)
[2019-01-12] MEDS: ASPIRIN 81 MG TABLET, ENT COATED PO SCH (10:19)
[2019-01-12] MEDS: NORMAL SALINE 10 ML SDV (SCHEDULED) IV SCH ×2 (10:25→21:14)
[2019-01-12] MEDS: ATORVASTATIN CALCIUM 10 MG TABLET PO SCH (17:44)
[2019-01-12] MEDS ORDERED: CEFTRIAXONE 2 GM/D5W RTU 2 GM/50 ML RTUPB IV ONE (20:00)
[2019-01-12] MEDS: OXYCODONE HCL IR 5 MG TABLET PO PRN (23:34)
[2019-01-13] MEDS: IBUPROFEN 800 MG in NORMAL SALINE 250 ML IV SCH (02:41)
[2019-01-13] MEDS: PANTOPRAZOLE SODIUM 40 MG TABLET.DR PO SCH (05:06)
--- NOTE | 2019-01-13 08:01 | PDOC PROGRESS REPORT ---
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 Patient quite distraught this morning in tears. I think this is in part because of her functional disability and prolonged hospitalization. She is adamant that she wants discharged to home as opposed to a senior care facility. She is also complaining about constipation. And when I asked she states that she was on an antidepressant preoperatively that has not been continued. More concerningly her postoperative orders included 6 weeks of IV Rocephin therapy. For reasons that are unclear to this clinician her IV Rocephin was stopped 2 days ago without any notification to myself. Of asked the nurse in attendance to enter this as an RL6 event. Physical Exam Vital Signs: Temp Pulse Resp BP Pulse Ox 36.8 C 71 18 158/78 H 94 01/13/19 00:14 01/13/19 00:14 01/13/19 00:14 01/13/19 00:14 01/13/19 00:14 Intake & Output 01/12/19 01/13/19 01/14/19 06:59 06:59 06:59 Intake Total 2090 1847 Output Total 1200 1950 Balance 890 -103 Weight 90.5 kg 90 kg Physical Exam: Overweight not obese middle-aged white female in bed in [facility]. When the patient comes down she is alert, oriented, and appropriate. She is complaining of constipation. General appearance: PRESENT: mild distress, obese Head exam: PRESENT: normocephalic Respiratory exam: PRESENT: unlabored Cardiovascular exam: PRESENT: RRR Pulses: PRESENT: +1 pedal pulses bilateral Vascular exam: PRESENT: normal capillary refill GI/Abdominal exam: PRESENT: soft Rectal exam: PRESENT: deferred Musculoskeletal exam: PRESENT: other - Right knee compressive dressing is taken down. Wound is well approximated with sutures. There is no surrounding erythema or induration. There may be a small amount of ongoing serosanguineous drainage. Psychiatric exam: PRESENT: depressed Skin exam: PRESENT: dry, intact, warm. ABSENT: cyanosis, rash Results Laboratory Results: 01/12/19 05:20 01/12/19 05:20 01/09/19 10:00 Knee - Right Gram Stain - Final 01/09/19 10:00 Knee - Right Gram Stain - Final 01/09/19 10:09 Knee - Right Gram Stain - Final Impressions: Knee X-Ray 01/09/19 10:57 IMPRESSION: Postoperative total right knee revision. Please refer to the operative report for further discussion. Guidance Fluoroscopy 01/10/19 00:00 IMPRESSION: SUCCESSFUL PLACEMENT OF A 5 FR DUAL LUMEN 43 CM PICC IN THE LEFT BASILIC VEIN. Interventional Vascular Procedure 01/10/19 00:00 IMPRESSION: SUCCESSFUL PLACEMENT OF A 5 FR DUAL LUMEN 43 CM PICC IN THE LEFT BASILIC VEIN. PICC Line Insertion 01/10/19 00:00 IMPRESSION: SUCCESSFUL PLACEMENT OF A 5 FR DUAL LUMEN 43 CM PICC IN THE LEFT BASILIC VEIN. Status: Imported from PACS Assessment & Plan - Diagnosis (1) Infection of knee Is this a current diagnosis for this admission?: Yes Plan: Restart IV Rocephin therapy. The dose is 2 g IV every 24 for 6 weeks. Continue with physical therapy on touchdown weightbearing restriction. (2) Acute blood loss anemia Is this a current diagnosis for this admission?: Yes Plan: Status post transfusion patient's hematocrit is above 30% (3) Constipation Is this a current diagnosis for this admission?: Yes Plan: Discussed the use of cathartic with nursing staff (4) Situational depression Is this a current diagnosis for this admission?: Yes Plan: Discussed restarting the patient's antidepressant with the nursing staff - Time Time Spent with patient: 15-24 minutes Anticipated discharge: Home with Homehealth Within: Other Disposition: Patient remains committed to returning home with home health services as opposed to rehab. This will probably require a longer hospitalization but I am supportive of it.
[2019-01-13] MEDS: ESCITALOPRAM OXALATE 10 MG TABLET PO SCH (10:06)
[2019-01-13] MEDS: HYDROCHLOROTHIAZIDE 25 MG TABLET PO SCH (10:06)
[2019-01-13] MEDS: SENNOSIDES/DOCUSATE 8.6-50 MG 1 EACH TABLET PO SCH ×2 (10:06→18:09)
[2019-01-13] MEDS: PRENATAL VITAMIN W DHA CAPSULE PO SCH (10:06)
[2019-01-13] MEDS: NORMAL SALINE 10 ML SDV (SCHEDULED) IV SCH ×2 (10:06→21:17)
[2019-01-13] MEDS: ASPIRIN 81 MG TABLET, ENT COATED PO SCH (10:06)
[2019-01-13] MEDS: OXYCODONE HCL IR 5 MG TABLET PO PRN ×2 (18:08→23:32)
[2019-01-13] MEDS: ATORVASTATIN CALCIUM 10 MG TABLET PO SCH (18:09)
[2019-01-13] MEDS: CEFTRIAXONE 2 GM/D5W RTU 2 GM/50 ML RTUPB IV SCH (18:09)
[2019-01-14] MEDS: PANTOPRAZOLE SODIUM 40 MG TABLET.DR PO SCH (05:48)
[2019-01-14] MEDS: ESCITALOPRAM OXALATE 10 MG TABLET PO SCH (09:22)
[2019-01-14] MEDS: PRENATAL VITAMIN W DHA CAPSULE PO SCH (09:22)
[2019-01-14] MEDS: SENNOSIDES/DOCUSATE 8.6-50 MG 1 EACH TABLET PO SCH ×2 (09:22→17:54)
[2019-01-14] MEDS: HYDROCHLOROTHIAZIDE 25 MG TABLET PO SCH (09:22)
[2019-01-14] MEDS: ASPIRIN 81 MG TABLET, ENT COATED PO SCH (09:22)
[2019-01-14] MEDS: NORMAL SALINE 10 ML SDV (SCHEDULED) IV SCH ×2 (09:23→22:27)
[2019-01-14] MEDS: OXYCODONE HCL IR 5 MG TABLET PO PRN ×2 (09:30→22:27)
[2019-01-14] MEDS: ATORVASTATIN CALCIUM 10 MG TABLET PO SCH (17:54)
[2019-01-14] MEDS: CEFTRIAXONE 2 GM/D5W RTU 2 GM/50 ML RTUPB IV SCH (17:54)
[2019-01-14] MEDS: ACETAMINOPHEN 325 MG TABLET PO PRN (20:10)
[2019-01-15] MEDS: PANTOPRAZOLE SODIUM 40 MG TABLET.DR PO SCH (05:31)
--- NOTE | 2019-01-15 07:09 | PDOC PROGRESS REPORT ---
Subjective Progress Note for:: 01/15/19 Reason For Visit: M25.561 PAIN IN RIGHT KNEE 73-year-old white female status post right knee resection arthroplasty for periprosthetic infection. Patient in better spirits this morning. Ambulated 30 feet with physical therapy yesterday. Physical Exam Vital Signs: Temp Pulse Resp BP Pulse Ox 36.9 C 75 18 143/68 H 99 01/15/19 00:00 01/15/19 00:00 01/15/19 00:00 01/15/19 00:00 01/15/19 00:00 Intake & Output 01/14/19 01/15/19 01/16/19 06:59 06:59 06:59 Intake Total 1324 526 Output Total 2450 2550 Balance -1125 Weight 92 kg 92.4 kg General appearance: PRESENT: no acute distress, obese Head exam: PRESENT: normocephalic Respiratory exam: PRESENT: unlabored Cardiovascular exam: PRESENT: RRR Pulses: PRESENT: +1 pedal pulses bilateral Vascular exam: PRESENT: normal capillary refill GI/Abdominal exam: PRESENT: soft Rectal exam: PRESENT: deferred Extremities exam: PRESENT: other - Right knee dressing clean and dry Results Laboratory Results: 01/12/19 05:20 01/12/19 05:20 01/09/19 10:09 Knee - Right Gram Stain - Final Impressions: Knee X-Ray 01/09/19 10:57 IMPRESSION: Postoperative total right knee revision. Please refer to the operative report for further discussion. Guidance Fluoroscopy 01/10/19 00:00 IMPRESSION: SUCCESSFUL PLACEMENT OF A 5 FR DUAL LUMEN 43 CM PICC IN THE LEFT BASILIC VEIN. Interventional Vascular Procedure 01/10/19 00:00 IMPRESSION: SUCCESSFUL PLACEMENT OF A 5 FR DUAL LUMEN 43 CM PICC IN THE LEFT BASILIC VEIN. PICC Line Insertion 01/10/19 00:00 IMPRESSION: SUCCESSFUL PLACEMENT OF A 5 FR DUAL LUMEN 43 CM PICC IN THE LEFT BASILIC VEIN. Status: Imported from PACS Assessment & Plan - Diagnosis (1) Infection of knee Is this a current diagnosis for this admission?: Yes Plan: Patient's cultures now growing strep mitis. In the past they have grown micrococcus as well as E. coli. Is very difficult for me to put the infectious picture together in one knee package. I think continue on with a broad-spectrum antibiotic such as Rocephin is appropriate. Plan on 6 weeks of IV Rocephin therapy and then reevaluate for reconstruction. Anticipate discharge home tomorrow with home health services and DME. (2) Acute blood loss anemia Is this a current diagnosis for this admission?: Yes Plan: Resolved after transfusion (3) Constipation Is this a current diagnosis for this admission?: Yes Plan: Resolved (4) Situational depression Is this a current diagnosis for this admission?: Yes Plan: Improving on Lexapro - Time Time Spent with patient: 15-24 minutes Anticipated discharge: Home with Homehealth Within: within 24 hours - Plan Summary Plan Summary: Anticipate discharge home tomorrow with DME and home health services.
[2019-01-15] MEDS: OXYCODONE HCL IR 5 MG TABLET PO PRN ×2 (10:15→22:26)
[2019-01-15] MEDS: PRENATAL VITAMIN W DHA CAPSULE PO SCH (10:16)
[2019-01-15] MEDS: SENNOSIDES/DOCUSATE 8.6-50 MG 1 EACH TABLET PO SCH ×2 (10:16→17:35)
[2019-01-15] MEDS: ASPIRIN 81 MG TABLET, ENT COATED PO SCH (10:16)
[2019-01-15] MEDS: ESCITALOPRAM OXALATE 10 MG TABLET PO SCH (10:16)
[2019-01-15] MEDS: HYDROCHLOROTHIAZIDE 25 MG TABLET PO SCH (10:17)
[2019-01-15] MEDS: NORMAL SALINE 10 ML SDV (SCHEDULED) IV SCH ×2 (10:47→22:26)
[2019-01-15] MEDS: ACETAMINOPHEN 325 MG TABLET PO PRN ×2 (12:56→19:45)
[2019-01-15] MEDS: ATORVASTATIN CALCIUM 10 MG TABLET PO SCH (17:35)
[2019-01-15] MEDS: CEFTRIAXONE 2 GM/D5W RTU 2 GM/50 ML RTUPB IV SCH (17:35)
[2019-01-16] MEDS: PANTOPRAZOLE SODIUM 40 MG TABLET.DR PO SCH (06:27)
--- NOTE | 2019-01-16 08:52 | PDOC PROGRESS REPORT ---
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 Patient receiving IV Rocephin for what seems to be a myriad of positive cultures beginning in May 2018. Very limited progress with physical therapy yesterday. Physical Exam Vital Signs: Temp Pulse Resp BP Pulse Ox 37.2 C 76 16 139/65 H 92 01/15/19 23:38 01/15/19 23:38 01/15/19 23:38 01/15/19 23:38 01/15/19 23:38 Intake & Output 01/15/19 01/16/19 01/17/19 06:59 06:59 06:59 Intake Total 526 516 Output Total 2550 Balance -2023 516 Weight 92.4 kg General appearance: PRESENT: no acute distress, mild distress Head exam: PRESENT: normocephalic Respiratory exam: PRESENT: unlabored Cardiovascular exam: PRESENT: RRR Pulses: PRESENT: +1 pedal pulses bilateral GI/Abdominal exam: PRESENT: soft Rectal exam: PRESENT: deferred Musculoskeletal exam: PRESENT: other - Right knee dressing clean dry and intact. Modest amount of pedal edema. Distal neurovascular examination is intact. Neurological exam: PRESENT: alert, awake, oriented to person, oriented to place, oriented to time, oriented to situation. ABSENT: motor sensory deficit Psychiatric exam: PRESENT: depressed Skin exam: PRESENT: dry, intact, warm. ABSENT: cyanosis, rash Results Laboratory Results: 01/12/19 05:20 01/12/19 05:20 01/09/19 10:09 Knee - Right Gram Stain - Final 01/09/19 10:09 Knee - Right Wound Culture - Final Streptococcus Mitis Staphylococcus Epidermidis No Anaerobic Organisms Impressions: Knee X-Ray 01/09/19 10:57 IMPRESSION: Postoperative total right knee revision. Please refer to the operative report for further discussion. Guidance Fluoroscopy 01/10/19 00:00 IMPRESSION: SUCCESSFUL PLACEMENT OF A 5 FR DUAL LUMEN 43 CM PICC IN THE LEFT BASILIC VEIN. Interventional Vascular Procedure 01/10/19 00:00 IMPRESSION: SUCCESSFUL PLACEMENT OF A 5 FR DUAL LUMEN 43 CM PICC IN THE LEFT BASILIC VEIN. PICC Line Insertion 01/10/19 00:00 IMPRESSION: SUCCESSFUL PLACEMENT OF A 5 FR DUAL LUMEN 43 CM PICC IN THE LEFT BASILIC VEIN. Status: Imported from PACS Assessment & Plan - Diagnosis (1) Infection of knee Is this a current diagnosis for this admission?: Yes Plan: Under adequate adequate antibiotic treatment (2) Acute blood loss anemia Is this a current diagnosis for this admission?: Yes Plan: Resolved (3) Constipation Is this a current diagnosis for this admission?: Yes Plan: Resolved (4) Situational depression Is this a current diagnosis for this admission?: Yes Plan: Antidepressant, Lexapro, restarted - Time Time Spent with patient: 15-24 minutes Anticipated discharge: Home with Homehealth Within: within 24 hours - Plan Summary Plan Summary: At this point the patient's functional level is really not going to be able to support a discharge home with home health services. The patient is encouraged to work diligently with physical therapy today. We also begin discussing the potential for discharge to rehabilitation.
[2019-01-16] MEDS: OXYCODONE HCL IR 5 MG TABLET PO PRN (08:54)
[2019-01-16] MEDS: HYDROCHLOROTHIAZIDE 25 MG TABLET PO SCH (09:47)
[2019-01-16] MEDS: ASPIRIN 81 MG TABLET, ENT COATED PO SCH (09:47)
[2019-01-16] MEDS: PRENATAL VITAMIN W DHA CAPSULE PO SCH (09:48)
[2019-01-16] MEDS: NORMAL SALINE 10 ML SDV (SCHEDULED) IV SCH (09:48)
[2019-01-16] MEDS: SENNOSIDES/DOCUSATE 8.6-50 MG 1 EACH TABLET PO SCH (09:48)
[2019-01-16] MEDS: ESCITALOPRAM OXALATE 10 MG TABLET PO SCH (09:48)
[2019-01-16] MEDS ORDERED: ZOLPIDEM TARTRATE 5 MG TABLET PO PRN (11:29)
[2019-01-16] MEDS ORDERED: OXYCODONE HCL IR 5 MG TABLET PO PRN (11:29)
--- NOTE | 2019-01-16 13:18 | PDOC TRANSFER SUMMARY ---
Impression - Admit/DC Date/PCP Admission Date/Primary Care Provider: 01/09/19 06:43 EDWARD JEAN NP Discharge Date: 01/16/19 - Discharge Diagnosis (1) Infection of knee Is this a current diagnosis for this admission?: Yes (2) Acute blood loss anemia Is this a current diagnosis for this admission?: Yes (3) Constipation Is this a current diagnosis for this admission?: Yes (4) Situational depression Is this a current diagnosis for this admission?: Yes - Additional Information Resuscitation Status: Full Code Discharge Diet: Regular Discharge Activity: Balance Activity w/Rest, No tub bath Referrals: [facility] [Outside] EDWARD JEAN NP [Primary Care Provider] - Home Medications: Hydrochlorothiazide [Hydrodiuril 25 mg Tablet] 25 mg PO DAILY 07/30/18 Pravastatin Sodium [Pravachol] 40 mg PO QPM 07/30/18 Escitalopram Oxalate [Lexapro 10 mg Tablet] 10 mg PO DAILY 01/09/19 History of Present Illiness History of Present Illness: MELONY DAWSON is a 73 year old female The patient is a 73-year-old female who underwent a right knee 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 coli. She separately had drainage from the wound and underwent an I&D when the cultures grew micrococcus. Persistent wound drainage resulted in her current admission for a two-stage resection arthroplasty of the right knee. Hospital Course Hospital Course: Patient is admitted through the operating where she undergoes an uncomplicated resection arthroplasty. Sutures have grown strep mitis. A PICC line was placed and patient was started on Rocephin because it was felt to cover E. coli, micrococcus, and strep mitis. The patient is to receive 2 g IV every 24. The patient was seen by physical therapy for touchdown weightbearing of the right lower extremity and this has been difficult for the patient to make progress with. The patient demonstrated a hematocrit dropped to 21.8% received 2 units of packed red blood cells. This resulted in hematocrit of 33%. Patient also complained constipation and this was relieved with a cathartic. Physical Exam Vital Signs: Temp Pulse Resp BP Pulse Ox 37.1 C 83 22 H 157/75 H 94 01/16/19 08:28 01/16/19 08:28 01/16/19 08:28 01/16/19 08:28 01/16/19 08:28 Intake & Output 01/15/19 01/16/19 01/17/19 06:59 06:59 06:59 Intake Total 526 516 Output Total 2550 Balance -2023 516 Weight 92.4 kg General appearance: PRESENT: mild distress, obese Respiratory exam: PRESENT: unlabored Cardiovascular exam: PRESENT: RRR Pulses: PRESENT: +1 pedal pulses bilateral Vascular exam: PRESENT: normal capillary refill GI/Abdominal exam: PRESENT: soft Rectal exam: PRESENT: deferred Extremities exam: PRESENT: other - Lower extremity incision is covered with an OpSite. The wound remains clean dry and intact. Mild pedal edema. Distal neurovascular examination is intact. Neurological exam: PRESENT: alert, awake, oriented to person, oriented to place, oriented to time, oriented to situation. ABSENT: motor sensory deficit Psychiatric exam: PRESENT: appropriate affect, normal mood. ABSENT: homicidal ideation, suicidal ideation Skin exam: PRESENT: dry, intact, warm. ABSENT: cyanosis, rash Results Laboratory Results: WBC 5.5 10^3/uL (4.0-10.5) 01/12/19 05:20 RBC 3.91 10^6/uL (3.72-5.28) 01/12/19 05:20 Hgb 11.2 g/dL (12.0-15.5) L D 01/12/19 05:20 Hct 33.2 % (36.0-47.0) L 01/12/19 05:20 MCV 85 fl (80-97) 01/12/19 05:20 MCH 28.7 pg (27.0-33.4) 01/12/19 05:20 MCHC 33.8 g/dL (32.0-36.0) 01/12/19 05:20 RDW 14.9 % (11.5-14.0) H 01/12/19 05:20 Plt Count 203 10^3/uL (150-450) 01/12/19 05:20 Sodium 139.8 mmol/L (137-145) 01/12/19 05:20 Potassium 3.8 mmol/L (3.6-5.0) 01/12/19 05:20 Chloride 107 mmol/L (98-107) 01/12/19 05:20 Carbon Dioxide 25 mmol/L (22-30) 01/12/19 05:20 Anion Gap 8 (5-19) 01/12/19 05:20 BUN 21 mg/dL (7-20) H 01/12/19 05:20 Creatinine 1.29 mg/dL (0.52-1.25) H 01/12/19 05:20 Est GFR ( Amer) 49 (>60) L 01/12/19 05:20 Est GFR (MDRD) Non-Af 41 (>60) L 01/12/19 05:20 Glucose 116 mg/dL (75-110) H 01/12/19 05:20 Calcium 9.7 mg/dL (8.4-10.2) 01/12/19 05:20 Blood Type O POSITIVE 01/11/19 10:36 Blood Type Confirm O POSITIVE 01/11/19 10:39 Antibody Screen NEGATIVE 01/11/19 10:36 Crossmatch See Detail 01/11/19 10:36 Impressions: Knee X-Ray 01/09/19 10:57 IMPRESSION: Postoperative total right knee revision. Please refer to the operative report for further discussion. Guidance Fluoroscopy 01/10/19 00:00 IMPRESSION: SUCCESSFUL PLACEMENT OF A 5 FR DUAL LUMEN 43 CM PICC IN THE LEFT BASILIC VEIN. Interventional Vascular Procedure 01/10/19 00:00 IMPRESSION: SUCCESSFUL PLACEMENT OF A 5 FR DUAL LUMEN 43 CM PICC IN THE LEFT BASILIC VEIN. PICC Line Insertion 01/10/19 00:00 IMPRESSION: SUCCESSFUL PLACEMENT OF A 5 FR DUAL LUMEN 43 CM PICC IN THE LEFT BASILIC VEIN. Plan Plan of Treatment: Patient to be transferred to a assisted facility where she will continue to receive Rocephin 2 g IV every 24 hours for a total of 6 weeks of therapy. She will also be seen by physical therapy for touchdown weightbearing ambulation on the right lower extremity. Follow-up with Dr. Aranda Bronson [facility] for surgery in 2 weeks for suture removal. Resting can be changed on the right knee as needed. Stroke Is this a Stroke Patient?: No Stroke Pt being discharged on Anti-thrombolytic therapy?: Yes Acute Heart Failure - Is this a Heart Failure Patient?: No
[2019-01-16 16:29] VITALS: BP 135/55
== END 2019-01-16 18:18 | DRG 464 ==
LOC: INOR 06:43 → 4S 15:42
PROVIDERS: ADMIT Orthopaedic Surgery; ATTEND Orthopaedic Surgery
PROC: 0SHC08Z Insertion of Spacer into Right Knee Joint, Open Approach (ICD-10-PCS; 2019-01-09)
PROC: 0SBC0ZZ Excision of Right Knee Joint, Open Approach (ICD-10-PCS; 2019-01-09)
PROC: 0SPC0JZ Removal of Synthetic Substitute from Right Knee Joint, Open Approach (ICD-10-PCS; principal; 2019-01-09 09:00)
PROC: 02HV33Z Insertion of Infusion Device into Superior Vena Cava, Percutaneous Approach (ICD-10-PCS; 2019-01-10)
PROC: B518ZZA Fluoroscopy of Superior Vena Cava, Guidance (ICD-10-PCS; 2019-01-10)
PROC: B548ZZA Ultrasonography of Superior Vena Cava, Guidance (ICD-10-PCS; 2019-01-10)
PROC: 30233N1 Transfusion of Nonautologous Red Blood Cells into Peripheral Vein, Percutaneous Approach (ICD-10-PCS; 2019-01-11)
DX: T84.53XA Infection and inflammatory reaction due to internal right knee prosthesis, initial encounter (principal); D62 Acute posthemorrhagic anemia; E78.00 Pure hypercholesterolemia, unspecified; I10 Essential (primary) hypertension; K59.00 Constipation, unspecified; F43.21 Adjustment disorder with depressed mood; B95.4 Other streptococcus as the cause of diseases classified elsewhere; B95.7 Other staphylococcus as the cause of diseases classified elsewhere
CPT/HCPCS: 01402; 36415; 36430; 36569; 76937; 77001; 80048; 84132; 85027; 86617; 86618; 86850; 86900; 86901; 86920; 87070; 87075; 87077; 87186; 87205; 94799; C1713; J0690; J0696; J1642; J1741; J2250; J2704; J3010; J3370; J3490; J7050; J7060; L1830; P9016

== ENCOUNTER → 2019-03-07 | Outpatient (CLI) | payer MEDICARE, OTHER ==
[2019-03-07 11:58] LABS: ABSOLUTE LYMPHOCYTES (AUTO) 0.9 10^3/uL (0.5-4.7); ABSOLUTE MONOCYTES (AUTO) 0.8 10^3/uL (0.1-1.4); ABSOLUTE NEUT (AUTO) 3.8 10^3/uL (1.7-8.2); HEMATOCRIT 37.3 % (36.0-47.0); HEMOGLOBIN 12.6 g/dL (12.0-15.5); LYMPHOCYTES % (AUTO) 16.8 % (13-45); MEAN CORPUSCULAR HEMOGLOBIN 28.6 pg (27.0-33.4); MEAN CORPUSCULAR HGB CONC 33.9 g/dL (32.0-36.0); MEAN CORPUSCULAR VOLUME 84 fl (80-97); MONOCYTES % (AUTO) 14.2 % (3-13); PLATELET COUNT 241 10^3/uL (150-450); RED BLOOD COUNT 4.42 10^6/uL (3.72-5.28); RED CELL DISTRIBUTION WIDTH 15.1 % (11.5-14.0); TOTAL CELLS COUNTED % (AUTO) 100 %; WHITE BLOOD COUNT 5.5 10^3/uL (4.0-10.5)
[2019-03-07 12:27] LABS: ANION GAP 8 (5-19); BLOOD UREA NITROGEN 29 mg/dL (7-20); C-REACTIVE PROTEIN 5.2 mg/L (<10.0); CALCIUM 11.6 mg/dL (8.4-10.2); CARBON DIOXIDE 33 mmol/L (22-30); CHLORIDE 99 mmol/L (98-107); GLUCOSE 92 mg/dL (75-110); POTASSIUM 3.6 mmol/L (3.6-5.0)
[2019-03-07 12:46] LABS: ERYTHROCYTE SEDIMENTATION RATE 13 mm/hr (0-30)
== END ==
LOC: OD 11:01
PROVIDERS: ATTEND Orthopaedic Surgery
DX: M25.561 Pain in right knee (principal)
CPT/HCPCS: 36415; 80048; 85025; 85652; 86140

== ENCOUNTER 2019-03-19 21:24 | Inpatient (IN) | payer OTHER, MEDICARE ==
--- NOTE | 2019-03-19 21:42 | ER Document Report ---
ED Medical Screen (RME) - General Chief Complaint: Fever Stated Complaint: FEVER POST SURGICAL PAIN Time Seen by Provider: 03/19/19 21:36 Primary Care Provider: ONDINA SIMONS MD [Primary Care Provider] - Follow up as needed Mode of Arrival: Wheelchair Information source: Patient, Relative Notes: 73-year-old female presents to the emergency department with right knee pain swelling fever vomiting. She reports last year, 2018, she had a knee replacement. She reports it became infected. In November they removed the knee replacement due to this infection, put a block in, placed a PICC line and she has been taking antibiotics since then. She just stopped antibiotics 5 days ago per orders from Dr. Simons. She reports today increased knee pain, fever and she is vomited upon arrival to the ED. Son reports swelling and redness to the knee. I have greeted and performed a rapid initial assessment of this patient. A comprehensive ED assessment and evaluation of the patient, analysis of test results and completion of the medical decision making process will be conducted by additional ED providers. TRAVEL OUTSIDE OF THE [place] IN LAST 30 DAYS: No - Related Data Allergies/Adverse Reactions: No Known Allergies Allergy (Verified 01/09/19 07:48) Past Medical History - Past Medical History Cardiac Medical History: Reports: Hx Hypercholesterolemia, Hx Hypertension Denies: Hx Atrial Fibrillation, Hx Congestive Heart Failure, Hx Coronary Artery Disease, Hx Heart Attack, Hx Peripheral Vascular Disease, Hx Heart Murmur Pulmonary Medical History: Denies: Hx Asthma, Hx Bronchitis, Hx COPD, Hx Sleep Apnea Neurological Medical History: Denies: Hx Cerebrovascular Accident, Hx Seizures Endocrine Medical History: Denies: Hx Hyperthyroidism, Hx Hypothyroidism Renal/ Medical History: Denies: Hx Kidney Stones, Hx Peritoneal Dialysis Malignancy Medical History: Denies: Hx Leukemia GI Medical History: Denies: Hx Gastroesophageal Reflux Disease Musculoskeltal Medical History: Reports Hx Arthritis - knees, hands, Denies Hx Fibromyalgia, Denies Hx Muscular Dystrophy Psychiatric Medical History: Denies: Hx Bipolar Disorder, Hx Depression, Hx Post Traumatic Stress Disorder Traumatic Medical History: Denies: Hx Fractures Infectious Medical History: Denies: Hx HIV Past Surgical History: Denies: Hx Appendectomy, Hx Bowel Surgery, Hx S ection, Hx Cholecystectomy, Hx Coronary Artery Bypass Graft, Hx Gastric Bypass Surgery, Hx Herniorrhaphy, Hx Hysterectomy, Hx Mastectomy, Hx Pacemaker, Hx Tonsillectomy, Hx Tubal Ligation Physical Exam - Vital signs Vitals: Temp Pulse Resp BP Pulse Ox 98.0 F 89 18 125/67 97 03/19/19 21:35 03/19/19 21:35 03/19/19 21:35 03/19/19 21:35 03/19/19 21:35 Course - Vital Signs Vital signs: Temp Pulse Resp BP Pulse Ox 98.0 F 89 18 125/67 97 03/19/19 21:35 03/19/19 21:35 03/19/19 21:35 03/19/19 21:35 03/19/19 21:35 Doctor's Discharge - Discharge Referrals: ONDINA SIMONS MD [Primary Care Provider] - Follow up as needed
[2019-03-19] MEDS ORDERED: ONDANSETRON 4 MG TAB.RAPDIS PO ONE (21:44)
[2019-03-19 22:28] LABS: ABSOLUTE LYMPHOCYTES (AUTO) 0.8 10^3/uL (0.5-4.7); ABSOLUTE MONOCYTES (AUTO) 1.4 10^3/uL (0.1-1.4); ABSOLUTE NEUT (AUTO) 11.9 10^3/uL (1.7-8.2); BASOPHILS % (AUTO) 0.2 % (0-2); HEMATOCRIT 39.6 % (36.0-47.0); HEMOGLOBIN 13.5 g/dL (12.0-15.5); LYMPHOCYTES % (AUTO) 5.6 % (13-45); MEAN CORPUSCULAR HEMOGLOBIN 28.7 pg (27.0-33.4); MEAN CORPUSCULAR HGB CONC 34.1 g/dL (32.0-36.0); MEAN CORPUSCULAR VOLUME 84 fl (80-97); PLATELET COUNT 262 10^3/uL (150-450); RED CELL DISTRIBUTION WIDTH 14.5 % (11.5-14.0); SEGMENTED NEUTROPHILS % (AUTO) 84.2 % (42-78); TOTAL CELLS COUNTED % (AUTO) 100 %; WHITE BLOOD COUNT 14.1 10^3/uL (4.0-10.5)
[2019-03-19 22:45] LABS: ALBUMIN 4.3 g/dL (3.5-5.0); ALKALINE PHOSPHATASE 91 U/L (38-126); ANION GAP 12 (5-19); ASPARTATE AMINO TRANSFERASE 34 U/L (14-36); BILIRUBIN,DIRECT 0.1 mg/dL (0.0-0.4); BILIRUBIN,TOTAL 1.7 mg/dL (0.2-1.3); BLOOD UREA NITROGEN 23 mg/dL (7-20); CARBON DIOXIDE 30 mmol/L (22-30); CHLORIDE 96 mmol/L (98-107); GLUCOSE 125 mg/dL (75-110); POTASSIUM 3.3 mmol/L (3.6-5.0); TOTAL PROTEIN 6.9 g/dL (6.3-8.2)
[2019-03-19 22:55] LABS: CALCIUM 12.1 mg/dL (8.4-10.2)
[2019-03-19] MEDS ORDERED: KETOROLAC TROMETHAMINE INJ/PF 30 MG/1 ML SDV IV ONE (23:06)
--- NOTE | 2019-03-19 23:06 | ER Document Report ---
ED General - General Chief Complaint: Knee Pain Stated Complaint: FEVER POST SURGICAL PAIN Time Seen by Provider: 03/19/19 21:36 Primary Care Provider: ONDINA SIMONS MD [Primary Care Provider] - Follow up as needed Mode of Arrival: Wheelchair TRAVEL OUTSIDE OF THE [place] IN LAST 30 DAYS: No - HPI Notes: Mrs. Crow is a 73-year-old female with a chief complaint of recurrent problems with right knee. Patient reports that she has advanced degenerative arthritis of both knees and underwent a right knee arthroplasty and total joint replacement performed by Dr. Ondina Simons in August 2017. The prosthesis subsequently became infected and was removed surgically. Thereafter a second knee replacement was performed on the same joint. This also became infected and was subsequently removed. Since that time the patient has had 2 persistent draining tracts along the anterior aspect of the right knee joint. She is recently been treated with IV vancomycin for an extended course through a PICC line. This was completed 5 days ago and the PICC line was removed. She is now reporting increased drainage over the past 24 hours and says that she has had temperature about 99. 8 associated with malaise, chills, nausea and vomiting. - Related Data Allergies/Adverse Reactions: No Known Allergies Allergy (Verified 01/09/19 07:48) Home Medications: Hydroclorothiazide 1 daily. Lexapro 1 daily. Pravachol daily. [place] q6 hours Past Medical History - General Information source: Patient, Relative - Social History Smoking Status: Never Smoker Family History: Reviewed & Not Pertinent Patient has suicidal ideation: No Patient has homicidal ideation: No - Past Medical History Cardiac Medical History: Reports: Hx Hypercholesterolemia, Hx Hypertension Denies: Hx Atrial Fibrillation, Hx Congestive Heart Failure, Hx Coronary Artery Disease, Hx Heart Attack, Hx Peripheral Vascular Disease, Hx Heart Murmur Pulmonary Medical History: Denies: Hx Asthma, Hx Bronchitis, Hx COPD, Hx Sleep Apnea Neurological Medical History: Denies: Hx Cerebrovascular Accident, Hx Seizures Endocrine Medical History: Denies: Hx Hyperthyroidism, Hx Hypothyroidism Renal/ Medical History: Denies: Hx Kidney Stones, Hx Peritoneal Dialysis Malignancy Medical History: Denies: Hx Leukemia GI Medical History: Denies: Hx Gastroesophageal Reflux Disease Musculoskeletal Medical History: Reports Hx Arthritis - knees, hands, Denies Hx Fibromyalgia, Denies Hx Muscular Dystrophy Psychiatric Medical History: Denies: Hx Bipolar Disorder, Hx Depression, Hx Post Traumatic Stress Disorder Traumatic Medical History: Denies: Hx Fractures Infectious Medical History: Denies: Hx HIV Past Surgical History: Denies: Hx Appendectomy, Hx Bowel Surgery, Hx Section, Hx Cholecystectomy, Hx Coronary Artery Bypass Graft, Hx Gastric Bypass Surgery, Hx Herniorrhaphy, Hx Hysterectomy, Hx Mastectomy, Hx Pacemaker, Hx Tonsillectomy, Hx Tubal Ligation - Immunizations Hx Pneumococcal Vaccination: 02/28/16 Review of Systems - Review of Systems Notes: Constitutional: As per HPI. HENT: Negative for sore throat. Eyes: Negative for visual changes. Cardiovascular: Negative for chest pain. Respiratory: Negative for shortness of breath. Gastrointestinal: As per HPI. Genitourinary: Negative for dysuria. Musculoskeletal: As per HPI. Skin: Negative for rash. Neurological: Negative for headaches, weakness or numbness. 10 point ROS negative except as marked above and in HPI. Physical Exam - Vital signs Vitals: Temp Pulse Resp BP Pulse Ox 98.0 F 89 18 125/67 97 03/19/19 21:35 03/19/19 21:35 03/19/19 21:35 03/19/19 21:35 03/19/19 21:35 - Notes Notes: GENERAL: Well-developed well-nourished appearing in no acute distress. SKIN: Good turgor no rashes. HEAD: Normocephalic atraumatic. EYES: PERRLA. EOMI. Conjunctivae and sclerae clear. EARS: CANALS AND TMS CLEAR. NOSE: CLEAR. MOUTH: Moist mucosa. Good dentition. No stridor or edema. No drooling. NECK: Supple. No masses or thyromegaly. No adenopathy. Carotids 2+ without bruits. No JVD. BACK: Symmetrical without tenderness. CHEST: Respirations unlabored. Breath sounds clear and symmetrical. HEART: Regular rhythm. No murmur gallop or rub. ABDOMEN: Soft nontender without masses, organomegaly or rebound. Bowel sounds normally active. No bruits. GENITALIA: Deferred. EXTREMITIES: Right knee joint shows extensive soft tissue swelling with diffuse redness and warmth as well as associated tenderness. There are 2 draining tracts over the anterior surface of the knee near midline each measuring approxi mately 2.0 cm's with some clear to yellow drainage. Decreased range of motion of the knee joint secondary to pain and swelling. No calf tenderness. Cap refill less than 1.5 seconds. Dorsalis pedis and posterior tibial pulses 3+ and symmetrical. NEUROLOGICAL: GCS 15. Alert and oriented x3. Fluent speech. Cranial nerves II through XII intact. Sensorimotor and cerebellar normal. Normal tone. PSYCHIATRIC: Appropriate affect. Course - Vital Signs Vital signs: Temp Pulse Resp BP Pulse Ox 98.0 F 89 18 136/54 H 92 03/19/19 21:35 03/19/19 21:35 03/19/19 21:35 03/19/19 23:01 03/19/19 23:01 - Laboratory Result Diagrams: 03/19/19 22:15 03/19/19 22:15 Laboratory results interpreted by me: 03/19/19 03/19/19 03/19/19 22:15 22:15 23:20 WBC 14.1 H RDW 14.5 H Lymph % (Auto) 5.6 L Absolute Neuts (auto) 11.9 H Seg Neutrophils % 84.2 H Potassium 3.3 L Chloride 96 L BUN 23 H Est GFR ( Amer) 55 L Est GFR (MDRD) Non-Af 45 L Glucose 125 H Calcium 12.1 H* Ionized Calcium Glory 1.44 H Total Bilirubin 1.7 H Discharge - Discharge Clinical Impression: Postoperative wound infection right knee, Hypercalcemia Condition: Stable Disposition: ADMITTED INPATIENT Unit Admitted: Surgical Floor Referrals: ONDINA SIMONS MD [Primary Care Provider] - Follow up as needed
--- NOTE | 2019-03-19 23:35 | RADIOLOGY REPORT (SQ) ---
EXAM DESCRIPTION: XR KNEE 1-2 VIEWS COMPLETED DATE/TME: 03/19/2019 22:59 CLINICAL HISTORY: 73 years, Female, pain, swelling, drainage COMPARISON: 01/09/2019 right knee NUMBER OF VIEWS: 2 TECHNIQUE: 2 views right knee LIMITATIONS: None. FINDINGS: Diffuse osteopenia. Vascular opacifications. Extensive soft tissue swelling anteriorly. There is disruption of the right knee prosthesis, with periprosthetic lucencies involving the distal femur and the proximal tibia. Abnormal anterior tilting of the tibial component. Findings could reflect a posttraumatic process versus loosening versus infection IMPRESSION: Disruption of the right knee prosthesis with periprosthetic lucencies and anterior abnormal tilting of the tibial component. Extensive soft tissue swelling. copyright 2010 [employer]- All Rights Reserved
--- NOTE | 2019-03-20 00:02 | RADIOLOGY REPORT (SQ) ---
EXAM DESCRIPTION: AP portable view of the chest CLINICAL HISTORY: 73 years Female, Hypercalcemia COMPARISON: None. FINDINGS: Lungs: Exam is underpenetrated. This limits diagnostic quality. The appearance of the lung parenchyma is stable. No pneumothorax. No pleural effusion. Mediastinum: Cardiac and mediastinal silhouette are stable Bones: Degenerative arthritis is noted in the left shoulder joint IMPRESSION: No acute process. No significant interval change.
[2019-03-20] MEDS ORDERED: INFLUENZA QUAD (6MOS+) 2019-20 VAC 0.5 ML SYR IM ONE (01:42)
[2019-03-20] MEDS: RINGERS SOLUTION,LACTATED 1,000 ML IV PRN ×3 (01:45→18:59)
[2019-03-20] MEDS: MORPHINE SULFATE 10 MG/ML INJ IV PRN (02:31)
--- NOTE | 2019-03-20 08:30 | PDOC CONSULTATION ---
Consultation Consult Date: 03/20/19 Attending physician:: ONDINA SIMONS Provider Consulted: JANIYA CARRILLO Consult reason:: Hypercalcemia, concern of malignancy History of Present Illness Admission Date/PCP: 03/19/19 23:44 ONDINA SIMONS MD Patient complains of: Hypercalcemia History of Present Illness: MELONY DAWSON is a 73 year old female with a known history of right knee replacement with unfortunate persistent infection, has been on recent prolonged course of IV antibiotics for this. This is been ongoing for some time now. Upon presentation here with continued dehydration and infection, she was found to have calcium of 11.6, thereafter today the calcium was up to 12. We were consulted as oncology for consideration of work-up for malignancy. She does not have pain anywhere else other than the knee. Past Medical History Cardiac Medical History: Reports: Hyperlipidema, Hypertension Denies: Atrial Fibrillation, Congestive Heart Failure, Coronary Artery Disease, Myocardial Infarction, Peripheral Vascular Disease, Heart Murmur Pulmonary Medical History: Denies: Asthma, Bronchitis, Chronic Obstructive Pulmonary Disease (COPD), Sleep Apnea Neurological Medical History: Denies: Seizures Endocrine Medical History: Denies: Hyperthyroidism, Hypothyroidism Malignancy Medical History: Denies: Leukemia GI Medical History: Denies: Gastroesophageal Reflux Disease Musculoskeltal Medical History: Reports: Arthritis - knees, hands Denies: Fibromyalgia Psychiatric Medical History: Denies: Bipolar Disorder, Depression, Post Traumatic Stress Disorder Hematology: Reports: Anemia - as a teen Denies: Hemophilia, Sickle Cell Disease Infectious Medical History: Denies: HIV Past Surgical History Past Surgical History: Denies: Amputation, Appendectomy, Section, Cholecystectomy, Coronary Artery Bypass Graft, Gastric Bypass Surgery, Herniorrhaphy, Hysterectomy, Mastectomy, Pacemaker, Tonsillectomy, Tubal Ligation Social History Information Source: Patient Smoking Status: Never Smoker Frequency of Alcohol Use: None Hx Recreational Drug Use: No Drugs: None Hx Prescription Drug Abuse: No - Advance Directive Resuscitation Status: Full Code Family History Family History: Reviewed & Not Pertinent Parental Family History Reviewed: Yes Children Family History Reviewed: Yes Sibling(s) Family History Reviewed.: Yes Medication/Allergy Allergies/Adverse Reactions: No Known Allergies Allergy (Verified 01/09/19 07:48) Review of Systems Constitutional: ABSENT: chills, fever(s), headache(s), weight gain, weight loss Eyes: ABSENT: visual disturbances Ears: ABSENT: hearing changes Cardiovascular: ABSENT: chest pain, dyspnea on exertion, edema, orthropnea, palpitations Respiratory: ABSENT: cough, hemoptysis Gastrointestinal: ABSENT: abdominal pain, constipation, diarrhea, hematemesis, hematochezia, nausea, vomiting Genitourinary: ABSENT: dysuria, hematuria Musculoskeletal: ABSENT: joint swelling Integumentary: ABSENT: rash, wounds Neurological: ABSENT: abnormal gait, abnormal speech, confusion, dizziness, focal weakness, syncope Psychiatric: ABSENT: anxiety, depression, homidical ideation, suicidal ideation Endocrine: ABSENT: cold intolerance, heat intolerance, polydipsia, polyuria Hematologic/Lymphatic: ABSENT: easy bleeding, easy bruising Physical Exam Vital Signs: Temp Pulse Resp BP Pulse Ox 99.0 F 73 20 102/52 L 93 03/20/19 03:08 03/20/19 03:08 03/20/19 03:08 03/20/19 03:08 03/20/19 03:08 Intake & Output 03/19/19 03/20/19 03/21/19 06:59 06:59 06:59 Output Total 0 Balance 0 Weight 92.5 kg General appearance: PRESENT: no acute distress, well-developed, well-nourished Head exam: PRESENT: atraumatic, normocephalic Eye exam: PRESENT: conjunctiva pink, EOMI, PERRLA. ABSENT: scleral icterus Ear exam: PRESENT: normal external ear exam Mouth exam: PRESENT: moist, tongue midline Neck exam: ABSENT: carotid bruit, JVD, lymphadenopathy, thyromegaly Respiratory exam: PRESENT: clear to auscultation nbuia. ABSENT: rales, rhonchi, wheezes Cardiovascular exam: PRESENT: RRR. ABSENT: diastolic murmur, rubs, systolic murmur Pulses: PRESENT: normal dorsalis pedis pul Vascular exam: PRESENT: normal capillary refill GI/Abdominal exam: PRESENT: normal bowel sounds, soft. ABSENT: distended, guarding, mass, organolmegaly, rebound, tenderness Rectal exam: PRESENT: deferred Extremities exam: PRESENT: full ROM. ABSENT: calf tenderness, clubbing, pedal edema Neurological exam: PRESENT: alert, awake, oriented to person, oriented to place, oriented to time, oriented to situation, CN II-XII grossly intact. ABSENT: motor sensory deficit Psychiatric exam: PRESENT: appropriate affect, normal mood. ABSENT: homicidal ideation, suicidal ideation Skin exam: PRESENT: dry, intact, warm. ABSENT: cyanosis, rash Results Laboratory Results: 03/19/19 22:15 03/19/19 22:15 03/19/19 03/19/19 03/19/19 22:15 22:15 23:20 WBC 14.1 H RBC 4.70 Hgb 13.5 Hct 39.6 MCV 84 MCH 28.7 MCHC 34.1 RDW 14.5 H Plt Count 262 Seg Neutrophils % 84.2 H Sodium 137.5 Potassium 3.3 L Chloride 96 L Carbon Dioxide 30 Anion Gap 12 BUN 23 H Creatinine 1.17 Est GFR ( Amer) 55 L Glucose 125 H Calcium 12.1 H* Ionized Calcium Glory 1.44 H Total Bilirubin 1.7 H AST 34 Alkaline Phosphatase 91 Total Protein 6.9 Albumin 4.3 Impressions: Knee X-Ray 03/19/19 22:59 IMPRESSION: Disruption of the right knee prosthesis with periprosthetic lucencies and anterior abnormal tilting of the tibial component. Extensive soft tissue swelling. copyright 2011 [employer]- All Rights Reserved Chest X-Ray 03/19/19 23:36 IMPRESSION: No acute process. No significant interval change. Assessment & Plan - Diagnosis (1) Hypercalcemia Is this a current diagnosis for this admission?: Yes Plan: Unlikely related to malignancy but we did a full malignancy work-up with myeloma labs, I also did work-up for other causes of hypercalcemia including thyroid abnormalities as well as parathyroid abnormalities, creatinine is slightly elevated at 1.17, but she does not seem to have a strong element of chronic kidney disease. Electrolyte work-up also pending. Ultimately if the myeloma labs show some sort of M spike, a skeletal survey would be useful. Will follow. - Time Time Spent: Greater than 70 Minutes - Inpatient Certification Based on my medical assessment, after consideration of the patient's comorbidities, presenting symptoms, or acuity I expect that the services needed warrant INPATIENT care.: Yes I certify that my determination is in accordance with my understanding of Medicare's requirements for reasonable and necessary INPATIENT services [42 CFR 412.3e].: Yes Medical Necessity: Risk of Complication if Not Cared For in Hospital
[2019-03-20 08:42] LABS: ABSOLUTE MONOCYTES (AUTO) 1.4 10^3/uL (0.1-1.4); ABSOLUTE NEUT (AUTO) 7.5 10^3/uL (1.7-8.2); BASOPHILS % (AUTO) 0.1 % (0-2); HEMATOCRIT 34.4 % (36.0-47.0); HEMOGLOBIN 11.9 g/dL (12.0-15.5); LYMPHOCYTES % (AUTO) 10.1 % (13-45); MEAN CORPUSCULAR HEMOGLOBIN 29.2 pg (27.0-33.4); MEAN CORPUSCULAR HGB CONC 34.6 g/dL (32.0-36.0); MEAN CORPUSCULAR VOLUME 84 fl (80-97); PLATELET COUNT 198 10^3/uL (150-450); RED BLOOD COUNT 4.08 10^6/uL (3.72-5.28); RED CELL DISTRIBUTION WIDTH 14.8 % (11.5-14.0); SEGMENTED NEUTROPHILS % (AUTO) 75.8 % (42-78); TOTAL CELLS COUNTED % (AUTO) 100 %; WHITE BLOOD COUNT 9.9 10^3/uL (4.0-10.5)
[2019-03-20 09:02] LABS: PHOSPHORUS 3.6 mg/dL (2.5-4.5)
[2019-03-20 09:12] LABS: C-REACTIVE PROTEIN 129.1 mg/L (<10.0)
[2019-03-20] MEDS: ESCITALOPRAM OXALATE 10 MG TABLET PO SCH ×2 (11:23→11:25)
[2019-03-20] MEDS: HYDROCHLOROTHIAZIDE 25 MG TABLET PO SCH (11:24)
[2019-03-20] MEDS: HYDROCODONE/ACETAMINOPHEN 5-325 MG TABLET PO PRN (11:25)
[2019-03-20] MEDS: ATORVASTATIN CALCIUM 10 MG TABLET PO SCH (21:58)
--- NOTE | 2019-03-20 23:27 | Progress Note ---
Provider Note Provider Note: ID Telephone Consultation Note Contacted earlier by Dr. Aranda via Pharmacy earlier this afternoon. Spoke by telephone. Pt not seen or examined. Per chart review, Ms. 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 At that time infection was not suspected; operative cultures taken of a dark colored fuild encountered in the OR yielded E coli in broth subculture only. Patient returned to the OR in July 2018 for washout and liner exchange after she developed increasing pain, elevation in inflammatory markers, and complaint of a small amount of serous drainage from the central portion of her post-op wound. In the OR, Micrococcus was isolated from both cultures sent. Per notes, she was on IV vancomycin, then Levaquin. Pt continued to have a single area of weeping sinus with serous drainage at the proximal end of the incision, and on 01/09/19 she was taken to the OR for resection arthroplasty with implantation of cement spacer. A "large amount of cloudy yellow fluid" was encountered and sent for culture; 3 cultures all grew Streptococcus mitis. Two colonies of a methicillin- resistant CoNS were encountered in one culture. The patient was recommended treatment with IV Rocephin 2 grams daily x 6 weeks. This hospitalization she presented with c/o 2 persistent sinus tracts along the anterior aspect of the R knee, per ED provider note, which had increased in drainage over 24h, becoming associated with malaise and chills. No objective fever. R knee was described as having extensive soft tissue swelling with diffuse redness, warmth, and tenderness with 2 areas near the midline of the knee with clear to yellow drainage. Initial labs notable for leukocytosis WBC 14, slightly low chloride Cl 96 and potassium 3.3, and elevated calcium 12.1. Normal total protein and albumin. CRP is elevated 129.1. ESR two weeks earlier was normal 13 mm/hr. Blood cultures are negative x 1 day. 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 If patient is not septic, holding antibiotics until deep cultures can be obtained is appropriate. If she become systemically ill, Rocephin 2 grams IV daily would be a reasonable antibiotic to start with based on her prior cultures. Prognosis for successful reimplantation is guarded based on her hx of prior revisions and infections and current problem. Whether there is a direct relationship between her hypercalcemia and infection is unclear. Excess 1,25-dihydroxyvitamin D can occur with TB and lead to hypercalcemia, but her vitamin D level was in the 20s. Does not appear to be primary hyperthyroidism with low-normal PTH. Thiazide diuretic can contribute to mild hypercalcemia. Not sure it can account for calcium level of 12.1 in its entirety, but stopping HCTZ and using alternative antihpertensive may be prudent to take this out of the picture. Edgard Su MD [facility] Infectious Diseases pager [phone]
[2019-03-21] MEDS: RINGERS SOLUTION,LACTATED 1,000 ML IV PRN ×3 (02:11→17:00)
[2019-03-21] MEDS: HYDROCODONE/ACETAMINOPHEN 5-325 MG TABLET PO PRN (04:31)
--- NOTE | 2019-03-21 07:03 | PDOC H&P ---
History of Present Illness Admission Date/PCP: 03/19/19 23:44 ONDINA SIMONS MD History of Present Illness: MELONY DAWSON is a 73 year old female Patient is a 73-year-old white female status post knee revision with subsequent postoperative infection. This is been treated initially with a washout and polyethylene exchange and then subsequently with component removal and insertion of a part of a polymethylmethacrylate spacer. Cultures have grown strep mitis. The patient has been treated with IV Rocephin. Once the IV Rocephin was stopped at the end of 6 weeks, the patient clearly had a recurrence of the underlying infection. The patient is admitted to the orthopedic service. Infectious disease at [facility] was consulted. Because of a concurrent hypercalcemia which seems to be persistent oncology is consulted. Past Medical History Cardiac Medical History: Reports: Hyperlipidema, Hypertension Denies: Atrial Fibrillation, Congestive Heart Failure, Coronary Artery Disease, Myocardial Infarction, Peripheral Vascular Disease, Heart Murmur Pulmonary Medical History: Denies: Asthma, Bronchitis, Chronic Obstructive Pulmonary Disease (COPD), Sleep Apnea Neurological Medical History: Denies: Seizures Endocrine Medical History: Denies: Hyperthyroidism, Hypothyroidism Malignancy Medical History: Denies: Leukemia GI Medical History: Denies: Gastroesophageal Reflux Disease Musculoskeltal Medical History: Reports: Arthritis - knees, hands Denies: Fibromyalgia Psychiatric Medical History: Denies: Bipolar Disorder, Depression, Post Traumatic Stress Disorder Hematology: Reports: Anemia - as a teen Denies: Hemophilia, Sickle Cell Disease Infectious Medical History: Denies: HIV Past Surgical History Past Surgical History: Denies: Amputation, Appendectomy, Section, Cholecystectomy, Coronary Artery Bypass Graft, Gastric Bypass Surgery, Herniorrhaphy, Hysterectomy, Mastectomy, Pacemaker, Tonsillectomy, Tubal Ligation Social History Information Source: Patient, [facility]ri[facility] Office, [facility] Records Lives with: Spouse/Significant other Smoking Status: Never Smoker Frequency of Alcohol Use: None Hx Recreational Drug Use: No Drugs: None Hx Prescription Drug Abuse: No - Advance Directive Resuscitation Status: Full Code Family History Family History: Reviewed & Not Pertinent Parental Family History Reviewed: No Children Family History Reviewed: No Sibling(s) Family History Reviewed.: No Medication/Allergy Home Medications: Escitalopram Oxalate [Lexapro 10 mg Tablet] 10 mg PO DAILY 03/20/19 Hydrochlorothiazide [Hydrodiuril 25 mg Tablet] 25 mg PO DAILY 03/20/19 Hydrocodone/Acetaminophen [Vance 5-325 mg Tablet] 1 tab PO Q6HP PRN 03/20/19 Pravastatin Sodium [Pravachol] 40 mg PO QHS 03/20/19 Allergies/Adverse Reactions: No Known Allergies Allergy (Verified 01/09/19 07:48) Review of Systems All systems: as per PMH Physical Exam Vital Signs: Temp Pulse Resp BP Pulse Ox 37.3 C 72 20 127/43 H 95 03/20/19 23:37 03/20/19 23:37 03/20/19 23:37 03/20/19 23:37 03/20/19 23:37 Intake & Output 03/19/19 03/20/19 03/21/19 06:59 06:59 06:59 Intake Total 3675 Output Total 0 700 Balance 0 2975 Weight 92.5 kg Physical Exam: Overweight middle-aged white female lying in hospital bed. Patient is alert, oriented, appropriate, and somewhat discouraged. General appearance: PRESENT: no acute distress, mild distress Head exam: PRESENT: normocephalic Respiratory exam: PRESENT: unlabored Cardiovascular exam: PRESENT: RRR Pulses: PRESENT: +1 pedal pulses bilateral GI/Abdominal exam: PRESENT: soft Rectal exam: PRESENT: deferred Extremities exam: PRESENT: other - Right knee dressing with continued serous drainage Neurological exam: PRESENT: alert, awake, oriented to person, oriented to place, oriented to time, oriented to situation. ABSENT: motor sensory deficit Psychiatric exam: PRESENT: appropriate affect, normal mood. ABSENT: homicidal ideation, suicidal ideation Skin exam: PRESENT: dry, intact, warm. ABSENT: cyanosis, rash Results Laboratory Results: 03/20/19 08:30 03/19/19 22:15 03/20/19 03/20/19 03/20/19 08:30 08:30 08:30 WBC 9.9 RBC 4.08 Hgb 11.9 L Hct 34.4 L MCV 84 MCH 29.2 MCHC 34.6 RDW 14.8 H Plt Count 198 Seg Neutrophils % 75.8 Phosphorus 3.6 Magnesium 1.8 C-Reactive Protein 129.1 H TSH PTH Intact 12.9 03/20/19 08:30 WBC RBC Hgb Hct MCV MCH MCHC RDW Plt Count Seg Neutrophils % Phosphorus Magnesium C-Reactive Protein TSH 0.79 PTH Intact Impressions: Knee X-Ray 03/19/19 22:59 IMPRESSION: Disruption of the right knee prosthesis with periprosthetic lucencies and anterior abnormal tilting of the tibial component. Extensive soft tissue swelling. copyright 2011 [employer]- All Rights Reserved Chest X-Ray 03/19/19 23:36 IMPRESSION: No acute process. No significant interval change. Status: Imported from PACS Assessment & Plan - Diagnosis (1) Infection of knee Is this a current diagnosis for this admission?: Yes Plan: Patient is discussed in great detail with Dr. Elizabeth at [facility]. We agree to withhold antibiotics pending repeat irrigation debridement PMMA spacer exchange. Based on those cultures recommendations for eye ongoing IV antibiotics will be made. (2) Hypercalcemia Is this a current diagnosis for this admission?: Yes Plan: Patient with a persistent hyperglycemia of uncertain etiology. This may represent an associated immune suppression condition that may have an impact on eradicating the patient's knee infection. Will follow Dr. Maria G dc's recommendations. - Time Time Spent: 50 to 70 Minutes Anticipated discharge: Other Within: Other
[2019-03-21] MEDS: ESCITALOPRAM OXALATE 10 MG TABLET PO SCH (10:18)
[2019-03-21] MEDS: HYDROCHLOROTHIAZIDE 25 MG TABLET PO SCH (10:18)
[2019-03-21 15:36] LABS: FREE KAPPA LIGHT CHAINS 14.9 mg/L (3.3-19.4); FREE LAMBDA LIGHT CHAINS 12.3 mg/L (5.7-26.3)
[2019-03-21 15:50] LABS: KAPPA LAMBDA RATIO 1.21 (0.26-1.65)
[2019-03-21] MEDS: MORPHINE SULFATE 10 MG/ML INJ IV PRN (19:07)
[2019-03-21] MEDS: ATORVASTATIN CALCIUM 10 MG TABLET PO SCH (22:02)
[2019-03-22] MEDS: RINGERS SOLUTION,LACTATED 1,000 ML IV PRN ×3 (00:46→13:19)
[2019-03-22] MEDS: MORPHINE SULFATE 10 MG/ML INJ IV PRN ×2 (02:55→16:27)
[2019-03-22] MEDS ORDERED: FENTANYL CITRATE INJ/PF 100 MCG/2 ML AMPUL ONE (06:30)
[2019-03-22] MEDS ORDERED: KETAMINE HCL INJ 500 MG/10 ML VIAL ONE (06:30)
[2019-03-22] MEDS ORDERED: ONDANSETRON HCL INJ/PF 4 MG/2 ML SDV ONE (06:31)
[2019-03-22] MEDS ORDERED: PROPOFOL INJ 200 MG/20 ML VIAL IV ONE (06:31)
[2019-03-22] MEDS ORDERED: MIDAZOLAM 2 MG/2 ML INJ ONE (06:31)
[2019-03-22] MEDS ORDERED: MORPHINE SULFATE 10 MG/ML INJ IV PRN (09:16)
[2019-03-22] MEDS ORDERED: FENTANYL CITRATE INJ/PF 100 MCG/2 ML AMPUL IV PRN ×3 (09:16)
[2019-03-22] MEDS ORDERED: ONDANSETRON HCL INJ/PF 4 MG/2 ML SDV IV PRN (09:16)
[2019-03-22] MEDS ORDERED: DIPHENHYDRAMINE HCL 50 MG/ML VIAL IV PRN (09:16)
[2019-03-22] MEDS ORDERED: PROMETHAZINE HCL INJ 25 MG/1 ML VIAL IV PRN ×2 (09:16)
[2019-03-22] MEDS ORDERED: MEPERIDINE HCL/PF INJ 25 MG/1 ML DISP.SYRIN IV PRN (09:16)
[2019-03-22] MEDS ORDERED: VANCOMYCIN HCL INJ 1000 MG VIAL ONE (09:33)
--- NOTE | 2019-03-22 11:09 | Operative Report ---
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 SURGEON: ONDINA SIMONS ANESTHESIA: Spinal TISSUE REMOVED OR ALTERED: Tissue to pathology for frozen section diagnosis. Synovium x2 to microbiology. Synovial fluid x1 to microbiology ESTIMATED BLOOD LOSS: 100 PROCEDURE: Preamble the patient is a 73-year-old white female status post knee revision with subsequent prosthetic infection that underwent a polyethylene exchange and I&D which was unsuccessful with persistent infection. That she then underwent a resection arthroplasty and after completing 6 weeks of IV Rocephin therapy with normalization of sed rate and CRP, there was a recurrence of the infection clinically and the sedimentation rate and CRP both leticia. Patient is taken to the operating room today for irrigation debridement exchange of the polymethylmethacrylate spacer primarily for the purpose of good deep cultures. The patient supine operative table the right lower extremities prepped and draped sterile fashion. Limb is elevated for exsanguination tourniquet inflated to 280 torr. The longitudinal incision is elliptically excised to leave good skin at the edges for closure. This is taken down to the retinaculum the retinaculum was opened. Upon opening the retinaculum the underlying synovial fluid which is bloody tinged is collected and sent for culture and sensitivity. The knee is then opened and the existing med spacers from the femur and the tibia are easily removed. The joint is then examined in systematic fashion and debrided meticulously. Patient was sent to pathology for frozen section and a diagnosis is returned of focal acute inflammation. Joint is irrigated with 3 L of normal saline containing Betadine and pulse lavage. Joint is again debrided meticulously. An additional 3 L normal saline containing Betadine is irrigated through the pulse lavage. The joint is examined in systematic fashion again with no evidence of any necrotic debris, residual cement, or other foreign bodies such as suture. Polymethylmethacrylate with tobramycin and vancomycin is mixed and used inserted as a spacer. This is inserted as a static spacer as opposed to a dynamic spacer. The tourniquet is deflated. Hemostasis obtained with electrocautery. The wound is then closed in layers with interrupted PDS. A sterile compressive dressing is applied and the patient is returned to the PACU in satisfactory condition.
[2019-03-22] MEDS ORDERED: RINGERS SOLUTION,LACTATED 1,000 ML IV PRN (11:31)
[2019-03-22] MEDS ORDERED: EPHEDRINE SULFATE INJ 50 MG/1 ML AMPULE ONE (11:49)
[2019-03-22] MEDS ORDERED: MORPHINE SULFATE 10 MG/ML INJ IV SCH (12:00)
--- NOTE | 2019-03-22 12:20 | PDOC PROGRESS REPORT ---
Subjective Progress Note for:: 03/22/19 Subjective:: Patient resting in bed comfortably. She states that she has no abdominal pain, no confusion. She denies recent fevers. Reason For Visit: POST OPERATIVE WOUND INFECTION. Physical Exam Vital Signs: Temp Pulse Resp BP Pulse Ox 97.4 F 99 17 96/56 L 100 03/22/19 11:32 03/22/19 12:02 03/22/19 12:02 03/22/19 12:02 03/22/19 12:02 Intake & Output 03/21/19 03/22/19 03/23/19 06:59 06:59 06:59 Intake Total 3675 4900 8500 Output Total 1150 2400 6030 Balance 2525 2500 2470 Weight 92.3 kg 86.2 kg General appearance: PRESENT: obese Head exam: PRESENT: normocephalic Eye exam: PRESENT: EOMI Respiratory exam: PRESENT: unlabored Neurological exam: PRESENT: alert, awake, oriented to person, oriented to place, oriented to time, oriented to situation Psychiatric exam: PRESENT: appropriate affect Results Laboratory Results: 03/20/19 08:30 03/19/19 22:15 03/22/19 08:11 Ionized Calcium Glory 1.42 H 03/19/19 23:20 Knee - Right Gram Stain - Final Impressions: Knee X-Ray 03/19/19 22:59 IMPRESSION: Disruption of the right knee prosthesis with periprosthetic lucencies and anterior abnormal tilting of the tibial component. Extensive soft tissue swelling. copyright 2011 [employer]- All Rights Reserved Chest X-Ray 03/19/19 23:36 IMPRESSION: No acute process. No significant interval change. Assessment & Plan - Diagnosis (1) Hypercalcemia Is this a current diagnosis for this admission?: Yes Plan: Work-up in process, but labs could take 1-2 weeks to come back. If she is stable for discharge otherwise, I am happy to follow-up in office for the remainder of results. (2) Infection of knee Is this a current diagnosis for this admission?: Yes Plan: As per Dr. Aranda. ID was consulted. - Time Time Spent with patient: Less than 15 minutes - Plan Summary Plan Summary: Please call with any concerns. Her Ca is stable without any symptoms.
[2019-03-22] MEDS: ESCITALOPRAM OXALATE 10 MG TABLET PO SCH (13:14)
[2019-03-22] MEDS: HYDROCHLOROTHIAZIDE 25 MG TABLET PO SCH (13:17)
[2019-03-22 14:07] LABS: ABSOLUTE MONOCYTES (AUTO) 0.8 10^3/uL (0.1-1.4); ABSOLUTE NEUT (AUTO) 3.6 10^3/uL (1.7-8.2); BASOPHILS % (AUTO) 0.6 % (0-2); HEMATOCRIT 31.5 % (36.0-47.0); LYMPHOCYTES % (AUTO) 18.1 % (13-45); MEAN CORPUSCULAR HEMOGLOBIN 29.6 pg (27.0-33.4); MEAN CORPUSCULAR HGB CONC 34.9 g/dL (32.0-36.0); MEAN CORPUSCULAR VOLUME 85 fl (80-97); MONOCYTES % (AUTO) 15.5 % (3-13); PLATELET COUNT 192 10^3/uL (150-450); RED BLOOD COUNT 3.71 10^6/uL (3.72-5.28); RED CELL DISTRIBUTION WIDTH 14.1 % (11.5-14.0); SEGMENTED NEUTROPHILS % (AUTO) 65.8 % (42-78); TOTAL CELLS COUNTED % (AUTO) 100 %; WHITE BLOOD COUNT 5.5 10^3/uL (4.0-10.5)
[2019-03-22] MEDS ORDERED: GLYCOPYRROLATE 1 MG/5 ML VIAL ONE (14:36)
[2019-03-22] MEDS ORDERED: PHENYLEPHRINE HCL INJ/PF 10 MG/1 ML SDV ONE (14:36)
[2019-03-22 14:37] LABS: A/G RATIO. 1.6 (0.7-1.7); ALBUMIN 3 3.3 g/dL (2.9-4.4); ALPHA-1-GLOBULIN 0.4 g/dL (0.0-0.4); BETA GLOBULIN 0.8 g/dL (0.7-1.3); GAMMA GLOBULINS 0.4 g/dL (0.4-1.8); IMMUNOGLOBULIN G 458 mg/dL (700-1600); IMMUNOGLOBULIN M 28 mg/dL (26-217); MONOCLONAL-SPIKE Not Observed g/dL (Not Observ); PROTEIN TOTAL SERUM 5.5 g/dL (6.0-8.5)
[2019-03-22] MEDS: HYDROCODONE/ACETAMINOPHEN 5-325 MG TABLET PO PRN ×2 (15:08→21:12)
[2019-03-22] MEDS ORDERED: RIFAMPIN 300 MG CAPSULE PO SCH (18:00)
[2019-03-22] MEDS: CEFEPIME HCL 2 GM in DEXTROSE 5%-WATER 50 ML IV SCH (21:10)
[2019-03-22] MEDS: ATORVASTATIN CALCIUM 10 MG TABLET PO SCH (21:12)
--- NOTE | 2019-03-22 21:38 | Progress Note ---
Provider Note Provider Note: [facility] Telephone Advice Follow Up Chart reviewed. Patient os a 73-year-old woman admitted with suspected right k nee infection. She has a history of right TKR in 2012. In 05/2018, she had revision and cultures at that time grew E coli from broth only, but no signs of infection at that time. In July she had washout and poly exchange. Cultures grew Micrococcus for which she received vancomycin then Levaquin. Due to non healing, she returned to the OR in 12/2018 for resection arthroplasty and cement spacer. Streptococcus mitis grew at that time. She received 6 weeks of ceftriaxone. She is now presenting pain again and drainage. She was taken to the OR today for washout/debridement and poly exchange with vancomycin and tobramycin spacer. She has been started on vancomycin and cefepime awaiting for cultures. Vital Signs: Temp Pulse Resp BP Pulse Ox 98.1 F 82 18 95/49 L 98 03/22/19 19:16 03/22/19 19:16 03/22/19 19:16 03/22/19 19:16 03/22/19 19:16 Intake & Output 03/21/19 03/22/19 03/23/19 06:59 06:59 06:59 Intake Total 3675 4900 02617 Output Total 1150 2400 6580 Balance 2525 2500 4440 Weight 92.3 kg 86.2 kg Weight/Height Weight 86.2 kg Height 5 ft 5 in Laboratories: 03/22/19 08:11 03/19/19 22:15 MCV 85 fl (80-97) 03/22/19 08:11 MCH 29.6 pg (27.0-33.4) 03/22/19 08:11 MCHC 34.9 g/dL (32.0-36.0) 03/22/19 08:11 RDW 14.1 % (11.5-14.0) H 03/22/19 08:11 Seg Neutrophils % 65.8 % (42-78) 03/22/19 08:11 Chloride 96 mmol/L (98-107) L 03/19/19 22:15 Carbon Dioxide 30 mmol/L (22-30) 03/19/19 22:15 Anion Gap 12 (5-19) 03/19/19 22:15 Est GFR ( Amer) 55 (>60) L 03/19/19 22:15 Glucose 125 mg/dL (75-110) H 03/19/19 22:15 Calcium 12.1 mg/dL (8.4-10.2) H* 03/19/19 22:15 Ionized Calcium Glory 1.42 mmol/L (1.14-1.30) H 03/22/19 08:11 Phosphorus 3.6 mg/dL (2.5-4.5) 03/20/19 08:30 Magnesium 1.8 mg/dL (1.6-2.3) 03/20/19 08:30 Total Bilirubin 1.7 mg/dL (0.2-1.3) H 03/19/19 22:15 AST 34 U/L (14-36) 03/19/19 22:15 Alkaline Phosphatase 91 U/L (38-126) 03/19/19 22:15 C-Reactive Protein 129.1 mg/L (<10.0) H 03/20/19 08:30 Total Protein 6.9 g/dL (6.3-8.2) 03/19/19 22:15 Albumin 4.3 g/dL (3.5-5.0) 03/19/19 22:15 TSH 0.79 uIU/mL (0.47-4.68) 03/20/19 08:30 PTH Intact 12.9 pg/mL (10.0-65.0) 03/20/19 08:30 03/19/19 23:20 Knee - Right Gram Stain - Final Microbiology: Blood cultures 03/19 NGTD Wound Culture 03/19 NGTD Tissue Culture 03/22 NGTD Radiology: Knee X-Ray 03/19/19 22:59 IMPRESSION: Disruption of the right knee prosthesis with periprosthetic lucencies and anterior abnormal tilting of the tibial component. Extensive soft tissue swelling. Chest X-Ray 03/19/19 23:36 IMPRESSION: No acute process. No significant interval change. Assessment and Recommendations: Patient admitted with right knee infection, she is s/p multiple washouts and poly exchange. Cultures are in process, continue vancomycin and cefepime until cultures are finalized to target therapy. Once cultures are final, we will give final recommendations. She will need 6 weeks of iV antibiotics if cultures come back positive. Chen Tolbert MD [facility] [id number]
[2019-03-23] MEDS: HYDROCODONE/ACETAMINOPHEN 5-325 MG TABLET PO PRN ×3 (03:18→16:42)
[2019-03-23 05:02] LABS: ANION GAP 5 (5-19); BLOOD UREA NITROGEN 15 mg/dL (7-20); CALCIUM 10.1 mg/dL (8.4-10.2); CARBON DIOXIDE 31 mmol/L (22-30); CHLORIDE 99 mmol/L (98-107); GLUCOSE 99 mg/dL (75-110); POTASSIUM 3.9 mmol/L (3.6-5.0)
[2019-03-23] MEDS: MORPHINE SULFATE 10 MG/ML INJ IV PRN (05:39)
[2019-03-23] MEDS: CEFEPIME HCL 2 GM in DEXTROSE 5%-WATER 50 ML IV SCH ×3 (05:39→22:38)
[2019-03-23 06:09] LABS: HEMATOCRIT 26.1 % (36.0-47.0); HEMOGLOBIN 9.3 g/dL (12.0-15.5); MEAN CORPUSCULAR HGB CONC 35.5 g/dL (32.0-36.0); MEAN CORPUSCULAR VOLUME 84 fl (80-97); PLATELET COUNT 209 10^3/uL (150-450); RED BLOOD COUNT 3.09 10^6/uL (3.72-5.28); RED CELL DISTRIBUTION WIDTH 13.9 % (11.5-14.0); WHITE BLOOD COUNT 6.1 10^3/uL (4.0-10.5)
[2019-03-23 08:28] LABS: IMMUNOGLOBULIN A 39 mg/dL (64-422)
[2019-03-23] MEDS: ESCITALOPRAM OXALATE 10 MG TABLET PO SCH (09:54)
[2019-03-23] MEDS: HYDROCHLOROTHIAZIDE 25 MG TABLET PO SCH (09:54)
[2019-03-23] MEDS: ASPIRIN 81 MG TABLET, ENT COATED PO SCH (09:54)
[2019-03-23] MEDS: VANCOMYCIN HCL 1,000 MG in DEXTROSE 5%-WATER 250 ML IV SCH (09:55)
[2019-03-23] MEDS ORDERED: CEFTRIAXONE 2 GM/D5W RTU 2 GM/50 ML RTUPB IV SCH (10:00)
[2019-03-23] MEDS: ATORVASTATIN CALCIUM 10 MG TABLET PO SCH (22:38)
[2019-03-24] MEDS: CEFEPIME HCL 2 GM in DEXTROSE 5%-WATER 50 ML IV SCH ×3 (05:13→21:22)
[2019-03-24] MEDS: ASPIRIN 81 MG TABLET, ENT COATED PO SCH (10:58)
[2019-03-24] MEDS: ESCITALOPRAM OXALATE 10 MG TABLET PO SCH (10:58)
[2019-03-24] MEDS: HYDROCHLOROTHIAZIDE 25 MG TABLET PO SCH (11:02)
[2019-03-24] MEDS: HYDROCODONE/ACETAMINOPHEN 5-325 MG TABLET PO PRN ×2 (11:06→21:22)
[2019-03-24] MEDS: VANCOMYCIN HCL 1,000 MG in DEXTROSE 5%-WATER 250 ML IV SCH (11:55)
[2019-03-24] MEDS: ATORVASTATIN CALCIUM 10 MG TABLET PO SCH (21:22)
[2019-03-25] MEDS: HYDROCODONE/ACETAMINOPHEN 5-325 MG TABLET PO PRN ×2 (03:22→19:39)
[2019-03-25] MEDS: CEFEPIME HCL 2 GM in DEXTROSE 5%-WATER 50 ML IV SCH ×3 (05:22→22:11)
[2019-03-25] MEDS: VANCOMYCIN HCL 1,000 MG in DEXTROSE 5%-WATER 250 ML IV SCH (09:10)
[2019-03-25] MEDS: HYDROCHLOROTHIAZIDE 25 MG TABLET PO SCH (09:19)
[2019-03-25] MEDS: ESCITALOPRAM OXALATE 10 MG TABLET PO SCH (09:19)
[2019-03-25] MEDS: ASPIRIN 81 MG TABLET, ENT COATED PO SCH (09:19)
--- NOTE | 2019-03-25 11:44 | PDOC PROGRESS REPORT ---
Subjective Progress Note for:: 03/25/19 Reason For Visit: POST OPERATIVE WOUND INFECTION. 73-year-old white female status post resection arthroplasty of the right knee and implantation of a non-articulating spacer. Patient doing well postop on empiric antibiotics. Initial culture results are showing corynebacteria and gram-positive cocci in chains. Physical Exam Vital Signs: Temp Pulse Resp BP Pulse Ox 36.8 C 63 16 117/43 L 94 03/25/19 07:32 03/25/19 07:32 03/25/19 07:32 03/25/19 07:32 03/25/19 07:32 Intake & Output 03/24/19 03/25/19 03/26/19 06:59 06:59 06:59 Intake Total 2410 861 Output Total 800 Balance 1610 861 Weight 106.7 kg 104.4 kg General appearance: PRESENT: mild distress, obese Head exam: PRESENT: normocephalic Respiratory exam: PRESENT: unlabored Cardiovascular exam: PRESENT: RRR Pulses: PRESENT: +1 pedal pulses bilateral Vascular exam: PRESENT: normal capillary refill GI/Abdominal exam: PRESENT: soft Rectal exam: PRESENT: deferred Musculoskeletal exam: PRESENT: other - Right knee OpSite clean dry and intact. Results Laboratory Results: 03/23/19 04:17 03/23/19 04:17 03/22/19 10:22 Knee - Right Gram Stain - Final 03/22/19 10:22 Knee - Right Wound Culture - Final Corynebacterium Species Enterococcus Faecium (Group D) No Anaerobic Organisms 03/19/19 23:20 Blood Blood Culture - Final NO GROWTH IN 5 DAYS 03/19/19 22:15 Blood Blood Culture - Final NO GROWTH IN 5 DAYS 03/19/19 23:20 Knee - Right Gram Stain - Final 03/19/19 23:20 Knee - Right Wound Culture - Final Enterococcus Faecium (Group D) Impressions: Knee X-Ray 03/19/19 22:59 IMPRESSION: Disruption of the right knee prosthesis with periprosthetic lucencies and anterior abnormal tilting of the tibial component. Extensive soft tissue swelling. copyright 2010 [employer]- All Rights Reserved Chest X-Ray 03/19/19 23:36 IMPRESSION: No acute process. No significant interval change. Status: Imported from PACS Assessment & Plan - Diagnosis (1) Infection of knee Is this a current diagnosis for this admission?: Yes Plan: Waiting final culture results and recommendations from [facility] (2) Hypercalcemia Is this a current diagnosis for this admission?: Yes - Time Time Spent with patient: 15-24 minutes Anticipated discharge: Home with Homehealth Within: Other
[2019-03-25] MEDS: ATORVASTATIN CALCIUM 10 MG TABLET PO SCH (22:11)
[2019-03-26] MEDS: HYDROCODONE/ACETAMINOPHEN 5-325 MG TABLET PO PRN ×2 (02:16→22:18)
[2019-03-26] MEDS: CEFEPIME HCL 2 GM in DEXTROSE 5%-WATER 50 ML IV SCH ×3 (05:32→22:19)
--- NOTE | 2019-03-26 07:08 | PDOC PROGRESS REPORT ---
Subjective Progress Note for:: 03/26/19 Reason For Visit: POST OPERATIVE WOUND INFECTION. 73-year-old white female now postop day 4 status post I&D of the right knee with a PMMA spacer exchange. Patient with an uneventful course overnight. Patient somewhat distraught over her ongoing morbidities and the uncertainty in her postoperative plan. She desires discharge home as opposed to rehab. Physical Exam Vital Signs: Temp Pulse Resp BP Pulse Ox 36.9 C 72 16 121/40 L 93 03/25/19 23:40 03/25/19 23:40 03/25/19 23:40 03/25/19 23:40 03/25/19 23:40 Intake & Output 03/25/19 03/26/19 03/27/19 06:59 06:59 06:59 Intake Total 861 1180 Balance 861 1180 Weight 104.4 kg 102.6 kg General appearance: PRESENT: no acute distress, obese Head exam: PRESENT: normocephalic Respiratory exam: PRESENT: unlabored Cardiovascular exam: PRESENT: RRR Pulses: PRESENT: +1 pedal pulses bilateral GI/Abdominal exam: PRESENT: soft Rectal exam: PRESENT: deferred Extremities exam: PRESENT: other - Right lower extremity dressing clean dry and intact. Neurological exam: PRESENT: alert, awake, oriented to person, oriented to place, oriented to time, oriented to situation. ABSENT: motor sensory deficit Psychiatric exam: PRESENT: appropriate affect, normal mood. ABSENT: homicidal ideation, suicidal ideation Skin exam: PRESENT: dry, intact, warm. ABSENT: cyanosis, rash Results Laboratory Results: 03/23/19 04:17 03/23/19 04:17 03/22/19 10:22 Knee - Right Gram Stain - Final 03/22/19 10:22 Knee - Right Gram Stain - Final 03/22/19 10:22 Knee - Right Wound Culture - Final Corynebacterium Species Enterococcus Faecium (Group D) No Anaerobic Organisms Impressions: Knee X-Ray 03/19/19 22:59 IMPRESSION: Disruption of the right knee prosthesis with periprosthetic lucencies and anterior abnormal tilting of the tibial component. Extensive soft tissue swelling. copyright 2010 [employer]- All Rights Reserved Chest X-Ray 03/19/19 23:36 IMPRESSION: No acute process. No significant interval change. Status: Imported from PACS Assessment & Plan - Diagnosis (1) Infection of knee Is this a current diagnosis for this admission?: Yes Plan: Currently cultures are growing corynebacteria as well as gram-positive cocci in chains presumably the previously cultured strep mitis. Recommendations from [facility] pending. Plan for today will be discussing the patient's discharge plan with social work and coming up with a concrete plan. A team meeting will then be convened so that everybody is aware of what the patient's discharge plan will be. I think this will decrease the patient's anxiety level considerably. (2) Hypercalcemia Is this a current diagnosis for this admission?: Yes - Time Time Spent with patient: 15-24 minutes Anticipated discharge: Home with Homehealth Within: Other
[2019-03-26 07:44] LABS: ABSOLUTE MONOCYTES (AUTO) 0.9 10^3/uL (0.1-1.4); ABSOLUTE NEUT (AUTO) 3.9 10^3/uL (1.7-8.2); BASOPHILS % (AUTO) 0.1 % (0-2); HEMATOCRIT 28.9 % (36.0-47.0); LYMPHOCYTES % (AUTO) 17.2 % (13-45); MEAN CORPUSCULAR HEMOGLOBIN 29.1 pg (27.0-33.4); MEAN CORPUSCULAR HGB CONC 34.6 g/dL (32.0-36.0); MEAN CORPUSCULAR VOLUME 84 fl (80-97); MONOCYTES % (AUTO) 15.3 % (3-13); PLATELET COUNT 372 10^3/uL (150-450); RED BLOOD COUNT 3.44 10^6/uL (3.72-5.28); RED CELL DISTRIBUTION WIDTH 13.8 % (11.5-14.0); SEGMENTED NEUTROPHILS % (AUTO) 67.4 % (42-78); TOTAL CELLS COUNTED % (AUTO) 100 %; WHITE BLOOD COUNT 5.7 10^3/uL (4.0-10.5)
[2019-03-26] MEDS ORDERED: PHARMACY COMMUNICATION ORDER MC SCH (09:30)
[2019-03-26] MEDS: VANCOMYCIN HCL 1,000 MG in DEXTROSE 5%-WATER 250 ML IV SCH (10:46)
[2019-03-26] MEDS: HYDROCHLOROTHIAZIDE 25 MG TABLET PO SCH (10:47)
[2019-03-26] MEDS: ASPIRIN 81 MG TABLET, ENT COATED PO SCH (10:47)
[2019-03-26] MEDS: ESCITALOPRAM OXALATE 10 MG TABLET PO SCH (10:47)
[2019-03-26 11:28] LABS: VANCOMYCIN,TROUGH 11.4 ug/mL (5.0-20.0)
--- NOTE | 2019-03-26 11:33 | Progress Note ---
Provider Note Provider Note: [facility] Telephone Advice Follow Up Chart reviewed. Patient is a 73-year-old woman admitted with suspected right k nee infection. She has a history of right TKR in 2012. In 05/2018, she had revision and cultures at that time grew E coli from broth only, but no signs of infection at that time. In July she had washout and poly exchange. Cultures grew Micrococcus for which she received vancomycin then Levaquin. Due to non healing, she returned to the OR in 12/2018 for resection arthroplasty and cement spacer. Streptococcus mitis grew at that time. She received 6 weeks of ceftriaxone. She is now presenting pain again and drainage. She was taken to the OR on Monday for washout/debridement and poly exchange with vancomycin and tobramycin spacer. She has been started on vancomycin and cefepime awaiting for cultures. Her cultures are growing Corynebacterium and Enterococcus faecium susceptible to vancomycin. She is otherwise doing well post operatively. Allergies: No Known Allergies Allergy (Verified 01/09/19 07:48) Medications: Escitalopram Oxalate [Lexapro 10 mg Tablet] 10 mg PO DAILY 03/20/19 [History] Hydrochlorothiazide [Hydrodiuril 25 mg Tablet] 25 mg PO DAILY 03/20/19 [History] Hydrocodone/Acetaminophen [[place] 5-325 mg Tablet] 1 tab PO Q6HP PRN 03/20/19 [History] Pravastatin Sodium [Pravachol] 40 mg PO QHS 03/20/19 [History] Vital Signs: Temp Pulse Resp BP Pulse Ox 98.1 F 65 18 146/65 H 94 03/26/19 08:00 03/26/19 08:00 03/26/19 08:00 03/26/19 08:00 03/26/19 08:00 Intake & Output 03/25/19 03/26/19 03/27/19 06:59 06:59 06:59 Intake Total 861 1180 Balance 861 1180 Weight 104.4 kg 102.6 kg Weight/Height Weight 102.6 kg Height 5 ft 5 in Laboratories: 03/26/19 07:25 MCV 84 fl (80-97) 03/26/19 07:25 MCH 29.1 pg (27.0-33.4) 03/26/19 07:25 MCHC 34.6 g/dL (32.0-36.0) 03/26/19 07:25 RDW 13.8 % (11.5-14.0) 03/26/19 07:25 Seg Neutrophils % 67.4 % (42-78) 03/26/19 07:25 Chloride 99 mmol/L (98-107) 03/23/19 04:17 Carbon Dioxide 31 mmol/L (22-30) H 03/23/19 04:17 Anion Gap 5 (5-19) 03/23/19 04:17 Est GFR ( Amer) > 60 (>60) 03/23/19 04:17 Glucose 99 mg/dL (75-110) 03/23/19 04:17 Calcium 10.1 mg/dL (8.4-10.2) 03/23/19 04:17 Ionized Calcium Glory 1.40 mmol/L (1.14-1.30) H 03/26/19 07:25 Phosphorus 3.6 mg/dL (2.5-4.5) 03/20/19 08:30 Magnesium 1.8 mg/dL (1.6-2.3) 03/20/19 08:30 Total Bilirubin 1.7 mg/dL (0.2-1.3) H 03/19/19 22:15 AST 34 U/L (14-36) 03/19/19 22:15 Alkaline Phosphatase 91 U/L (38-126) 03/19/19 22:15 C-Reactive Protein 129.1 mg/L (<10.0) H 03/20/19 08:30 Total Protein 5.5 g/dL (6.0-8.5) L 03/20/19 08:30 Albumin 4.3 g/dL (3.5-5.0) 03/19/19 22:15 TSH 0.79 uIU/mL (0.47-4.68) 03/20/19 08:30 PTH Intact 12.9 pg/mL (10.0-65.0) 03/20/19 08:30 03/22/19 10:22 Knee - Right Gram Stain - Final 03/22/19 10:22 Knee - Right Gram Stain - Final 03/22/19 10:22 Knee - Right Wound Culture - Final Corynebacterium Species Enterococcus Faecium (Group D) No Anaerobic Organisms Radiology: Knee X-Ray 03/19/19 22:59 IMPRESSION: Disruption of the right knee prosthesis with periprosthetic lucencies and anterior abnormal tilting of the tibial component. Extensive soft tissue swelling. Chest X-Ray 03/19/19 23:36 IMPRESSION: No acute process. No significant interval change. Assessment and Recommendations: Patient with right prosthetic knee infection s/p I&D and poly exchange. She is overall doing well. Cultures positive for Corynebacterium and Enterococcus faecium susceptible to vancomycin and daptomycin. She will need 6 weeks of vancomycin if she tolerates it. Should closely monitor GFR nad vancomycin trough 15. If can't tolerate vancomycin, daptomycin 6 mg/kg iv daily will be the alternative. It is safer and better tolerated. If daptomycin is chosen, should hold pravastatin as it will increase the risk of muscle toxicity and monitor CK weekly. Please monitor CBC, CMP, ESR and CRP weekly. EOT will be 05/03/2019. At completion of therapy should remove PICC line. She will need follow up with [facility] to determine if further therapy is needed after completion of 6 weeks of iv. She will need a referral to [facility] that can be faxed to [phone]. Please call [phone] to schedule an appointment within 3 weeks. Please call if any questions. Chen Tolbert MD [facility] [id number]
[2019-03-26] MEDS: POLYETHYLENE GLYCOL 3350 POWDER 17 GM/1 PACKET PO PRN (12:59)
--- NOTE | 2019-03-26 13:48 | PDOC PROGRESS REPORT ---
Subjective Progress Note for:: 03/26/19 Subjective:: Patient continues to feel good without new complaints. Knee is feeling better. She continues on IV antibiotics. She was seen during morning rounds. Reason For Visit: POST OPERATIVE WOUND INFECTION. Physical Exam Vital Signs: Temp Pulse Resp BP Pulse Ox 98.1 F 65 18 146/65 H 94 03/26/19 08:00 03/26/19 08:00 03/26/19 08:00 03/26/19 08:00 03/26/19 08:00 Intake & Output 03/25/19 03/26/19 03/27/19 06:59 06:59 06:59 Intake Total 861 1230 250 Balance 861 1230 250 Weight 104.4 kg 102.6 kg General appearance: PRESENT: no acute distress Head exam: PRESENT: normocephalic Eye exam: PRESENT: EOMI Respiratory exam: PRESENT: unlabored Extremities exam: ABSENT: pedal edema Neurological exam: PRESENT: alert, awake Psychiatric exam: PRESENT: appropriate affect Skin exam: PRESENT: normal color Results Laboratory Results: 03/26/19 07:25 03/26/19 10:07 03/26/19 03/26/19 03/26/19 07:25 07:25 10:07 WBC 5.7 RBC 3.44 L Hgb 10.0 L Hct 28.9 L MCV 84 MCH 29.1 MCHC 34.6 RDW 13.8 Plt Count 372 Seg Neutrophils % 67.4 Creatinine 0.95 Est GFR ( Amer) > 60 Ionized Calcium Glory 1.40 H 03/22/19 10:22 Knee - Right Gram Stain - Final 03/22/19 10:22 Knee - Right Gram Stain - Final 03/22/19 10:22 Knee - Right Wound Culture - Final Corynebacterium Species Enterococcus Faecium (Group D) No Anaerobic Organisms Impressions: Knee X-Ray 03/19/19 22:59 IMPRESSION: Disruption of the right knee prosthesis with periprosthetic lucencies and anterior abnormal tilting of the tibial component. Extensive soft tissue swelling. copyright 2011 [employer]- All Rights Reserved Chest X-Ray 03/19/19 23:36 IMPRESSION: No acute process. No significant interval change. Assessment & Plan - Diagnosis (1) Hypercalcemia Is this a current diagnosis for this admission?: Yes Plan: Ionized calcium is improving, although no known cause. We discussed her work-up for multiple myeloma. This was negative. May consider bone scan or skeletal survey as outpatient. She is not currently symptomatic, so I do not feel strongly that bisphosphonate is needed. Continue hydration, and avoid exogenous Ca supplements. (2) Infection of knee Is this a current diagnosis for this admission?: Yes Plan: As per primary team. - Time Time Spent with patient: Less than 15 minutes
[2019-03-26] MEDS: ATORVASTATIN CALCIUM 10 MG TABLET PO SCH (22:18)
[2019-03-27] MEDS: CEFEPIME HCL 2 GM in DEXTROSE 5%-WATER 50 ML IV SCH (05:51)
[2019-03-27] MEDS: VANCOMYCIN HCL 1,000 MG in DEXTROSE 5%-WATER 250 ML IV SCH (10:58)
[2019-03-27] MEDS: HYDROCHLOROTHIAZIDE 25 MG TABLET PO SCH (10:58)
[2019-03-27] MEDS: ASPIRIN 81 MG TABLET, ENT COATED PO SCH (10:58)
[2019-03-27] MEDS: ESCITALOPRAM OXALATE 10 MG TABLET PO SCH (10:58)
[2019-03-27] MEDS: POLYETHYLENE GLYCOL 3350 POWDER 17 GM/1 PACKET PO PRN (10:59)
[2019-03-27] MEDS ORDERED: NA PHOS,M-B/NA PHOS,DI-BA (ADULT) 133 ML ENEMA PR ONE (12:00)
--- NOTE | 2019-03-27 14:43 | RADIOLOGY REPORT (SQ) ---
EXAM DESCRIPTION: PICC INSERTION; FLUORO/CV PLACEMENT; U/S GUIDE FOR VASCULAR ACCESS COMPLETED DATE/TIME: 03/27/2019 2:10 pm REASON FOR STUDY: NURSING HOME ANTIBIOTICS; NURSING HOME ABX; IV ABX COMPARISON: None. FLUOROSCOPY TIME: 17 seconds 1 images saved to PACS. TECHNIQUE: Fluoroscopic and ultrasound guided PICC placement. LIMITATIONS: None. PROCEDURE: After written consent and assessment were obtained, the patient was brought into the fluo roscopy room and placed supine on the table. Ultrasound evaluation of potential access sites were per formed. After successfully identifying a patent right basilic vein, the right upper arm was prepped a nd draped in a sterile fashion along with the ultrasound probe. The entry site was anesthetized with 1% lidocaine. A 21 gauge 7 cm needle was advanced through the skin and into the basilic vein under li ve ultrasound guidance. An ultrasound image was saved to PACS confirming access site. A .018 guide wire was then inserted through the needle and into the venous system. The needle was then removed and an 11 blade scalpel was used to make a 1cm skin incision. A 5 fr peel-away sheath was advanced over the wire and into the venous system. A measurement was then made using the existing wire and live fl uoroscopic guidance. The wire was then removed and trimmed. The PICC was advanced through the peel-aw ay sheath and into the venous system. The peel-away sheath was removed and the catheter was adhered t o the patients arm with a stat lock. The catheter was then aspirated and flushed and a sterile bandag e was placed over the access site. A fluoroscopic spot image was saved to PACS confirming the cathet er tip within the SVC. IMPRESSION: SUCCESSFUL PLACEMENT OF A 5 FR DUAL LUMEN 42 CM PICC IN THE RIGHT BASILIC VEIN. COMMENT: Patient medication list reviewed: Yes- Quality ID# [id number]:Eligible professional attests to doc umenting in the medical record they obtained, updated, or reviewed the patient's current medications. . Quality ID 145: Final reports for procedures using fluoroscopy that document radiation exposure lucia pam, or exposure time and number of fluorographic images (if radiation exposure indices are not avail able) Quality ID #76: The patient was prepped and draped using maximum sterile barrier technique including cap, mask, sterile gown, sterile gloves, a large sterile sheet, hand hygiene, and 2% Chlorhexidine fo r cutaneous antisepsis. When ultrasound is used, sterile ultrasound techniques are followed requiring sterile gel and sterile probes. TECHNICAL DOCUMENTATION: JOB ID: [id number] [employer]- All Rights Reserved rev-07/14 Reading location - IP/workstation name: [id number]
--- NOTE | 2019-03-27 14:43 | RADIOLOGY REPORT (SQ) ---
EXAM DESCRIPTION: PICC INSERTION; FLUORO/CV PLACEMENT; U/S GUIDE FOR VASCULAR ACCESS COMPLETED DATE/TIME: 03/27/2019 2:10 pm REASON FOR STUDY: CORRECTION ANTIBIOTICS; CORRECTION ABX; IV ABX COMPARISON: None. FLUOROSCOPY TIME: 17 seconds 1 images saved to PACS. TECHNIQUE: Fluoroscopic and ultrasound guided PICC placement. LIMITATIONS: None. PROCEDURE: After written consent and assessment were obtained, the patient was brought into the fluo roscopy room and placed supine on the table. Ultrasound evaluation of potential access sites were per formed. After successfully identifying a patent right basilic vein, the right upper arm was prepped a nd draped in a sterile fashion along with the ultrasound probe. The entry site was anesthetized with 1% lidocaine. A 21 gauge 7 cm needle was advanced through the skin and into the basilic vein under li ve ultrasound guidance. An ultrasound image was saved to PACS confirming access site. A .018 guide wire was then inserted through the needle and into the venous system. The needle was then removed and an 11 blade scalpel was used to make a 1cm skin incision. A 5 fr peel-away sheath was advanced over the wire and into the venous system. A measurement was then made using the existing wire and live fl uoroscopic guidance. The wire was then removed and trimmed. The PICC was advanced through the peel-aw ay sheath and into the venous system. The peel-away sheath was removed and the catheter was adhered t o the patients arm with a stat lock. The catheter was then aspirated and flushed and a sterile bandag e was placed over the access site. A fluoroscopic spot image was saved to PACS confirming the cathet er tip within the SVC. IMPRESSION: SUCCESSFUL PLACEMENT OF A 5 FR DUAL LUMEN 42 CM PICC IN THE RIGHT BASILIC VEIN. COMMENT: Patient medication list reviewed: Yes- Quality ID# 130:Eligible professional attests to doc umenting in the medical record they obtained, updated, or reviewed the patient's current medications. . Quality ID 145: Final reports for procedures using fluoroscopy that document radiation exposure lucia pam, or exposure time and number of fluorographic images (if radiation exposure indices are not avail able) Quality ID #76: The patient was prepped and draped using maximum sterile barrier technique including cap, mask, sterile gown, sterile gloves, a large sterile sheet, hand hygiene, and 2% Chlorhexidine fo r cutaneous antisepsis. When ultrasound is used, sterile ultrasound techniques are followed requiring sterile gel and sterile probes. TECHNICAL DOCUMENTATION: JOB ID: [id number] [employer]- All Rights Reserved rev-07/14 Reading location - IP/workstation name: [email or web address]
[2019-03-27] MEDS ORDERED: NORMAL SALINE 10 ML SDV (AFTER EACH USE) IV PRN (17:30)
[2019-03-27] MEDS: HYDROCODONE/ACETAMINOPHEN 5-325 MG TABLET PO PRN (21:37)
[2019-03-27] MEDS: ATORVASTATIN CALCIUM 10 MG TABLET PO SCH (21:37)
[2019-03-27] MEDS: NORMAL SALINE 10 ML SDV (SCHEDULED) IV SCH (21:38)
--- NOTE | 2019-03-28 06:42 | PDOC DISCHARGE SUMMARY ---
Impression - Admit/DC Date/PCP Admission Date/Primary Care Provider: 03/19/19 23:44 ONDINA SIMONS MD Discharge Date: 03/28/19 - Discharge Diagnosis (1) Infection of knee Is this a current diagnosis for this admission?: Yes (2) Hypercalcemia Is this a current diagnosis for this admission?: Yes - Additional Information Resuscitation Status: Full Code Discharge Diet: Regular Discharge Activity: Balance Activity w/Rest, No tub bath Referrals: ONDINA SIMONS MD [Primary Care Provider] - Follow up as needed Home Medications: Escitalopram Oxalate [Lexapro 10 mg Tablet] 10 mg PO DAILY 03/20/19 Hydrochlorothiazide [Hydrodiuril 25 mg Tablet] 25 mg PO DAILY 03/20/19 Hydrocodone/Acetaminophen [[place] 5-325 mg Tablet] 1 tab PO Q6HP PRN 03/20/19 Pravastatin Sodium [Pravachol] 40 mg PO QHS 03/20/19 History of Present Illiness History of Present Illness: The patient is a 73-year-old white female status post left knee revision arthroplasty who developed postoperative infection. Initially the patient underwent a polyethylene exchange and washout followed by a component resection and insertion of a spacer. This ultimately did not control the infection and the patient returns for repeat I&D with spacer exchange. Hospital Course Hospital Course: Patient is admitted through the emergency room because of elevated white count, malaise, and other systemic manifestations of recurrent infection. She is subsequently taken to the operating where she undergoes an I&D of the knee with spacer exchange. Intraoperative findings included frozen section diagnosis of focal acute inflammation. The patient is returned to the floor in satisfactory condition. [facility] ID is consulted and make specific recommendations regarding ongoing antibiotics. Once the organisms are identified the antibiotic is narrowed to vancomycin. Of note also is that pathology has noted chronic granulomatous inflammation in the resected skin sp ecimen in addition to the acute inflammation in the synovial. The significance of this is uncertain at this point. Physical Exam Vital Signs: Temp Pulse Resp BP Pulse Ox 37.0 C 76 17 119/62 96 03/27/19 23:45 03/27/19 23:45 03/27/19 23:45 03/27/19 23:45 03/27/19 23:45 Intake & Output 03/26/19 03/27/19 03/28/19 06:59 06:59 06:59 Intake Total 1230 1654 1206 Balance 1230 1654 1206 Weight 102.6 kg 102.5 kg 95.1 kg General appearance: PRESENT: no acute distress, mild distress, obese Head exam: PRESENT: normocephalic Respiratory exam: PRESENT: unlabored Cardiovascular exam: PRESENT: RRR Pulses: PRESENT: +1 pedal pulses bilateral Vascular exam: PRESENT: normal capillary refill GI/Abdominal exam: PRESENT: soft Rectal exam: PRESENT: deferred Musculoskeletal exam: PRESENT: other - Right knee dressing change on the morning of discharge. A portion of this is saturated with serosanguineous fluid that seems to emanate from the midportion of the wound. Neurological exam: PRESENT: alert, awake, oriented to person, oriented to place, oriented to time, oriented to situation. ABSENT: motor sensory deficit Psychiatric exam: PRESENT: appropriate affect, normal mood. ABSENT: homicidal ideation, suicidal ideation Skin exam: PRESENT: dry, intact, warm. ABSENT: cyanosis, rash Results Laboratory Results: WBC 5.7 10^3/uL (4.0-10.5) 03/26/19 07:25 RBC 3.44 10^6/uL (3.72-5.28) L 03/26/19 07:25 Hgb 10.0 g/dL (12.0-15.5) L 03/26/19 07:25 Hct 28.9 % (36.0-47.0) L 03/26/19 07:25 MCV 84 fl (80-97) 03/26/19 07:25 MCH 29.1 pg (27.0-33.4) 03/26/19 07:25 MCHC 34.6 g/dL (32.0-36.0) 03/26/19 07:25 RDW 13.8 % (11.5-14.0) 03/26/19 07:25 Plt Count 372 10^3/uL (150-450) 03/26/19 07:25 Lymph % (Auto) 17.2 % (13-45) 03/26/19 07:25 [place] % (Auto) 15.3 % (3-13) H 03/26/19 07:25 Eos % (Auto) 0.0 % (0-6) 03/26/19 07:25 Baso % (Auto) 0.1 % (0-2) 03/26/19 07:25 Absolute Neuts (auto) 3.9 10^3/uL (1.7-8.2) 03/26/19 07:25 Absolute Lymphs (auto) 1.0 10^3/uL (0.5-4.7) 03/26/19 07:25 Absolute Monos (auto) 0.9 10^3/uL (0.1-1.4) 03/26/19 07:25 Absolute Eos (auto) 0.0 10^3/uL (0.0-0.6) 03/26/19 07:25 Absolute Basos (auto) 0.0 10^3/uL (0.0-0.2) 03/26/19 07:25 Seg Neutrophils % 67.4 % (42-78) 03/26/19 07:25 ESR 31 mm/hr (0-30) H 03/21/19 05:29 Sodium 134.8 mmol/L (137-145) L 03/23/19 04:17 Potassium 3.9 mmol/L (3.6-5.0) 03/23/19 04:17 Chloride 99 mmol/L (98-107) 03/23/19 04:17 Carbon Dioxide 31 mmol/L (22-30) H 03/23/19 04:17 Anion Gap 5 (5-19) 03/23/19 04:17 BUN 15 mg/dL (7-20) 03/23/19 04:17 Creatinine 0.95 mg/dL (0.52-1.25) 03/26/19 10:07 Est GFR ( Amer) > 60 (>60) 03/26/19 10:07 Est GFR (MDRD) Non-Af 58 (>60) L 03/26/19 10:07 Glucose 99 mg/dL (75-110) 03/23/19 04:17 Calcium 10.1 mg/dL (8.4-10.2) 03/23/19 04:17 Ionized Calcium Glory 1.40 mmol/L (1.14-1.30) H 03/26/19 07:25 Phosphorus 3.6 mg/dL (2.5-4.5) 03/20/19 08:30 Magnesium 1.8 mg/dL (1.6-2.3) 03/20/19 08:30 Total Bilirubin 1.7 mg/dL (0.2-1.3) H 03/19/19 22:15 Direct Bilirubin 0.1 mg/dL (0.0-0.4) 03/19/19 22:15 Neonat Total Bilirubin Not Reportable 03/19/19 22:15 Neonat Direct Bilirubin Not Reportable 03/19/19 22:15 Neonat Indirect Bili Not Reportable 03/19/19 22:15 AST 34 U/L (14-36) 03/19/19 22:15 ALT 21 U/L (<35) 03/19/19 22:15 Alkaline Phosphatase 91 U/L (38-126) 03/19/19 22:15 C-Reactive Protein 129.1 mg/L (<10.0) H 03/20/19 08:30 Total Protein 5.5 g/dL (6.0-8.5) L 03/20/19 08:30 Albumin 4.3 g/dL (3.5-5.0) 03/19/19 22:15 Globulin 2.2 g/dL (2.2-3.9) 03/20/19 08:30 Alb/Glob Ratio Alt Meth 1.6 (0.7-1.7) 03/20/19 08:30 Svfgo-8-Lfpgggidj 0.4 g/dL (0.0-0.4) 03/20/19 08:30 Ovdwm-1-Ejfstvbjn 0.6 g/dL (0.4-1.0) 03/20/19 08:30 Beta Globulins 0.8 g/dL (0.7-1.3) 03/20/19 08:30 Gamma Globulins 0.4 g/dL (0.4-1.8) 03/20/19 08:30 M-Kenny Not Observed g/dL (Not Observ) 03/20/19 08:30 Vitamin D 25-Hydroxy 23.8 ng/mL (14.7-68.3) 03/20/19 08:30 TSH 0.79 uIU/mL (0.47-4.68) 03/20/19 08:30 PTH Intact 12.9 pg/mL (10.0-65.0) 03/20/19 08:30 Immunoglobulin A 39 mg/dL (64-422) L 03/20/19 08:30 Immunoglobulin A 40 mg/dL (64-422) L 03/20/19 08:30 Immunoglobulin G 458 mg/dL (700-1600) L 03/20/19 08:30 Immunoglobulin G 475 mg/dL (700-1600) L 03/20/19 08:30 Immunoglobulin M 28 mg/dL (26-217) 03/20/19 08:30 Immunoglobulin M 29 mg/dL (26-217) 03/20/19 08:30 Serum Immunofixation Comment (.) 03/20/19 08:30 Immunofixation Note Comment (.) 03/20/19 08:30 Time Trough Drawn 1007 03/26/19 10:07 Vancomycin Trough 11.4 ug/mL (5.0-20.0) 03/26/19 10:07 IgE 3 IU/mL (6-495) L 03/20/19 08:30 Albumin (TOAN) 3.3 g/dL (2.9-4.4) 03/20/19 08:30 [place] LC, Quant 14.9 mg/L (3.3-19.4) 03/20/19 08:30 Free Lambda LC, Quant 12.3 mg/L (5.7-26.3) 03/20/19 08:30 [place]/Lambda Ratio 1.21 (0.26-1.65) 03/20/19 08:30 Impressions: Knee X-Ray 03/19/19 22:59 IMPRESSION: Disruption of the right knee prosthesis with periprosthetic lucencies and anterior abnormal tilting of the tibial component. Extensive soft tissue swelling. copyright 2011 [facility] [employer] [facility] [employer]- All Rights Reserved Chest X-Ray 03/19/19 23:36 IMPRESSION: No acute process. No significant interval change. Guidance Fluoroscopy 03/27/19 00:00 IMPRESSION: SUCCESSFUL PLACEMENT OF A 5 FR DUAL LUMEN 42 CM PICC IN THE RIGHT BASILIC VEIN. Interventional Vascular Procedure 03/27/19 00:00 IMPRESSION: SUCCESSFUL PLACEMENT OF A 5 FR DUAL LUMEN 42 CM PICC IN THE RIGHT BASILIC VEIN. PICC Line Insertion 03/27/19 00:00 IMPRESSION: SUCCESSFUL PLACEMENT OF A 5 FR DUAL LUMEN 42 CM PICC IN THE RIGHT BASILIC VEIN. Plan Plan of Treatment: Patient is can be discharged home with home health services and DME. She is on a touchdown weightbearing restriction on the right lower extremity. She received a total of 6 weeks of IV vancomycin therapy. Follow-up with Dr. Simons and [facility] for surgery in 1 week for wound inspection and potentially suture removal. Stroke Is this a Stroke Patient?: No Stroke Pt being discharged on Anti-thrombolytic therapy?: Yes Acute Heart Failure - Is this a Heart Failure Patient?: No
[2019-03-28] MEDS: ESCITALOPRAM OXALATE 10 MG TABLET PO SCH (09:05)
[2019-03-28] MEDS: HYDROCHLOROTHIAZIDE 25 MG TABLET PO SCH (09:05)
[2019-03-28] MEDS: VANCOMYCIN HCL 1,000 MG in DEXTROSE 5%-WATER 250 ML IV SCH (09:05)
[2019-03-28] MEDS: ASPIRIN 81 MG TABLET, ENT COATED PO SCH (09:05)
[2019-03-28] MEDS: NORMAL SALINE 10 ML SDV (SCHEDULED) IV SCH (09:06)
[2019-03-28] MEDS: HYDROCODONE/ACETAMINOPHEN 5-325 MG TABLET PO PRN (09:09)
[2019-03-28 12:41] VITALS: BP 132/79
== END 2019-03-28 15:00 | disposition home health service (06) | DRG 487 ==
LOC: ER 21:24 → EH 23:44 → 3S 03-20 00:55 → 4N 03-24 11:16
PROVIDERS: ADMIT Orthopaedic Surgery; ATTEND Orthopaedic Surgery
PROC: 0SHC08Z Insertion of Spacer into Right Knee Joint, Open Approach (ICD-10-PCS; 2019-03-22)
PROC: 0SPC08Z Removal of Spacer from Right Knee Joint, Open Approach (ICD-10-PCS; principal; 2019-03-22 09:30)
PROC: 02HV33Z Insertion of Infusion Device into Superior Vena Cava, Percutaneous Approach (ICD-10-PCS; 2019-03-27)
PROC: B518ZZA Fluoroscopy of Superior Vena Cava, Guidance (ICD-10-PCS; 2019-03-27)
PROC: B548ZZA Ultrasonography of Superior Vena Cava, Guidance (ICD-10-PCS; 2019-03-27)
DX: T84.53XA Infection and inflammatory reaction due to internal right knee prosthesis, initial encounter (principal); B95.2 Enterococcus as the cause of diseases classified elsewhere; E83.52 Hypercalcemia; E86.0 Dehydration; E78.5 Hyperlipidemia, unspecified; I10 Essential (primary) hypertension; M17.0 Bilateral primary osteoarthritis of knee; M19.042 Primary osteoarthritis, left hand; M19.041 Primary osteoarthritis, right hand; Z96.651 Presence of right artificial knee joint; E66.9 Obesity, unspecified; Z68.37 Body mass index [BMI] 37.0-37.9, adult
CPT/HCPCS: 01400; 36415; 36569; 71045; 76937; 77001; 80048; 80053; 80202; 82306; 82330; 82565; 82784; 82785; 83735; 83883; 83970; 84100; 84443; 85025; 85027; 85652; 86140; 86320; 87040; 87070; 87075; 87077; 87186; 87205; 88305; 88312; 88331; 96374; 99284; C1713; J0692; J1642; J1885; J2250; J2270; J2370; J2405; J2704; J3010; J3370; J3490; J7060; J7120; S0119

== ENCOUNTER → 2019-05-10 | Outpatient (CLI) | payer MEDICARE, OTHER ==
[~2019-05-10] MED LIST changes: -CEFAZOLIN INJ 1 GM VIAL ONE; -GLYCOPYRROLATE 1 MG/5 ML VIAL ONE; +OXYCODONE HCL SR 10 MG TABLET PO PRN
[2019-05-10 10:58] LABS: APPEARANCE,URINE CLEAR; BILIRUBIN,URINE NEGATIVE (NEGATIVE); COLOR,URINE YELLOW; GLUCOSE, URINE NEGATIVE (NEGATIVE); KETONES,URINE NEGATIVE (NEGATIVE); LEUKOCYTE ESTERASE,URINE NEGATIVE (NEGATIVE); NITRITE,URINE NEGATIVE (NEGATIVE); PROTEIN,URINE 30 mg/dL (NEGATIVE); URINE SPECIFIC GRAVITY 1.012; UROBILINOGEN,URINE NEGATIVE mg/dL (<2.0)
--- NOTE | 2019-05-10 18:21 | EKG REPORT ---
SEVERITY:- ABNORMAL ECG - SINUS RHYTHM FIRST DEGREE AV BLOCK LEFT ANTERIOR FASCICULAR BLOCK : Confirmed by: Andra Monreal 10-May-2019 18:20:19
== END ==
LOC: OD 09:24 → EDSTATUS 05-13 10:45
PROVIDERS: ATTEND Orthopaedic Surgery
DX: Z01.810 Encounter for preprocedural cardiovascular examination (principal); Z01.812 Encounter for preprocedural laboratory examination
CPT/HCPCS: 81001; 93005; 93010; J1741; J3370; J3490; J7050; J7060

== ENCOUNTER 2019-07-10 00:35 | Inpatient (IN) | payer OTHER, MEDICARE ==
--- NOTE | 2019-07-10 00:53 | ER Document Report ---
ED General - General Chief Complaint: Knee Pain Stated Complaint: KNEE PAIN Time Seen by Provider: 07/10/19 00:39 Primary Care Provider: EDWARD JEAN NP [Primary Care Provider] - Follow up as needed Notes: Patient presents the emergency department chief complaint of drainage and swelling from right knee. Patient has a history of a knee replacement several months ago. She was seen by Dr. Aranda. She states that she is scheduled to have another knee replacement done at the end of this month. Her current symp toms have been ongoing for the last 3 days. Patient reports she has had recurrent infections in this knee in the past and has had to have outpatient vancomycin. She currently denies any fevers. TRAVEL OUTSIDE OF THE [place] IN LAST 30 DAYS: No - Related Data Allergies/Adverse Reactions: No Known Allergies Allergy (Verified 05/08/19 14:12) Past Medical History - General Information source: Patient - Social History Smoking Status: Never Smoker Chew tobacco use (# tins/day): No Frequency of alcohol use: Rare Drug Abuse: None Family History: Reviewed & Not Pertinent Patient has homicidal ideation: No - Past Medical History Cardiac Medical History: Reports: Hx Hypercholesterolemia, Hx Hypertension Denies: Hx Atrial Fibrillation, Hx Congestive Heart Failure, Hx Coronary Artery Disease, Hx Heart Attack, Hx Peripheral Vascular Disease, Hx Heart Murmur Pulmonary Medical History: Denies: Hx Asthma, Hx Bronchitis, Hx COPD, Hx Sleep Apnea Neurological Medical History: Denies: Hx Cerebrovascular Accident, Hx Seizures Endocrine Medical History: Denies: Hx Hyperthyroidism, Hx Hypothyroidism Renal/ Medical History: Denies: Hx Kidney Stones, Hx Peritoneal Dialysis Malignancy Medical History: Denies: Hx Leukemia GI Medical History: Denies: Hx Gastroesophageal Reflux Disease Musculoskeletal Medical History: Reports Hx Arthritis - knees, hands, Denies Hx Fibromyalgia, Denies Hx Muscular Dystrophy Psychiatric Medical History: Reports: Hx Depression Denies: Hx Bipolar Disorder, Hx Post Traumatic Stress Disorder, Hx Schizophrenia Traumatic Medical History: Denies: Hx Fractures Infectious Medical History: Denies: Hx HIV Past Surgical History: Denies: Hx Appendectomy, Hx Bowel Surgery, Hx Section, Hx Cholecystectomy, Hx Coronary Artery Bypass Graft, Hx Gastric Bypass Surgery, Hx Herniorrhaphy, Hx Hysterectomy, Hx Mastectomy, Hx Pacemaker, Hx Tonsillectomy, Hx Tubal Ligation - Immunizations Hx Pneumococcal Vaccination: 02/28/16 Review of Systems - Review of Systems Musculoskeletal: See HPI -: Yes All other systems reviewed and negative Physical Exam - Vital signs Vitals: Pulse Ox 89 L 07/10/19 00:41 - Notes Notes: GENERAL: Well-developed well-nourished appearing in no acute distress. SKIN: Good turgor no rashes. HEAD: Normocephalic atraumatic. EYES: PERRLA. EOMI. Conjunctivae and sclerae clear. EARS: CANALS AND TMS CLEAR. NOSE: CLEAR. MOUTH: Moist mucosa. Good dentition. No stridor or edema. No drooling. NECK: Supple. No masses or thyromegaly. No adenopathy. Carotids 2+ without bruits. No JVD. BACK: Symmetrical without tenderness. CHEST: Respirations unlabored. Breath sounds clear and symmetrical. HEART: Regular rhythm. No murmur gallop or rub. ABDOMEN: Soft nontender without masses, organomegaly or rebound. Bowel sounds normally active. No bruits. GENITALIA: Deferred. EXTREMITIES: Right knee joint shows extensive soft tissue swelling with diffuse redness and warmth as well as associated tenderness. There is one draining tract over the anterior surface of the knee near midline purulent drainage. Decreased range of motion of the knee joint secondary to pain and swelling. No calf tenderness. Cap refill less than 3 seconds. Dorsalis pedis and posterior tibial pulses 3+ and symmetrical. NEUROLOGICAL: GCS 15. Alert and oriented x3. Fluent speech. Cranial nerves II through XII intact. PSYCHIATRIC: Appropriate affect. Course - Re-evaluation Re-evalutation: 07/10/19 02:[address] Aranda, patient accepted for admission. - Vital Signs Vital signs: Temp Pulse Resp BP Pulse Ox 98.2 F 17 121/57 L 92 07/10/19 01:02 07/10/19 00:46 07/10/19 00:46 07/10/19 00:46 - Laboratory Result Diagrams: 07/10/19 01:25 07/10/19 01:25 Laboratory results interpreted by me: 07/10/19 07/10/19 01:25 01:25 WBC 11.4 H RBC 3.60 L Hgb 10.9 L Hct 31.2 L Lymph % (Auto) 7.3 L [place] % (Auto) 17.2 H Absolute Neuts (auto) 8.6 H Absolute Monos (auto) 2.0 H Sodium 132.5 L Potassium 3.5 L BUN 26 H Creatinine 1.53 H Est GFR ( Amer) 40 L Est GFR (MDRD) Non-Af 33 L Calcium 11.3 H Total Bilirubin 2.0 H Total Protein 5.7 L Albumin 3.4 L Discharge - Discharge Clinical Impression: Infection of knee Condition: Stable Disposition: ADMITTED INPATIENT Admitting Provider: Duy Aranda MD Unit Admitted: Surgical Floor Referrals: EDWARD JEAN NP [Primary Care Provider] - Follow up as needed
--- NOTE | 2019-07-10 01:42 | RADIOLOGY REPORT (SQ) ---
Right knee radiographs: 07/10/2019 12:39 AM CDT HISTORY: 73-year-old patient with right knee pain . TECHNIQUE: AP, oblique, and lateral images of the right knee were obtained. COMPARISON: None available FINDINGS: There is cement noted at the right knee. No obvious acute fracture is seen. There is mild medial translation of the femur over the tibia. There is diffuse adjacent soft tissue swelling. IMPRESSION: No cement again noted around the right knee with no acute osseous abnormality. There is diffuse soft tissue tissue swelling present.
[2019-07-10 01:45] LABS: ABSOLUTE LYMPHOCYTES (AUTO) 0.8 10^3/uL (0.5-4.7); ABSOLUTE NEUT (AUTO) 8.6 10^3/uL (1.7-8.2); BASOPHILS % (AUTO) 0.1 % (0-2); EOSINOPHILS % (AUTO) 0.1 % (0-6); HEMATOCRIT 31.2 % (36.0-47.0); HEMOGLOBIN 10.9 g/dL (12.0-15.5); LYMPHOCYTES % (AUTO) 7.3 % (13-45); MEAN CORPUSCULAR HEMOGLOBIN 30.2 pg (27.0-33.4); MEAN CORPUSCULAR HGB CONC 34.8 g/dL (32.0-36.0); MEAN CORPUSCULAR VOLUME 87 fl (80-97); MONOCYTES % (AUTO) 17.2 % (3-13); PLATELET COUNT 243 10^3/uL (150-450); SEGMENTED NEUTROPHILS % (AUTO) 75.3 % (42-78); TOTAL CELLS COUNTED % (AUTO) 100 %; WHITE BLOOD COUNT 11.4 10^3/uL (4.0-10.5)
[2019-07-10] MEDS ORDERED: VANCOMYCIN HCL INJ 1000 MG VIAL IV ONE (01:50)
[2019-07-10 02:03] LABS: ALBUMIN 3.4 g/dL (3.5-5.0); ALKALINE PHOSPHATASE 68 U/L (38-126); ANION GAP 6 (5-19); ASPARTATE AMINO TRANSFERASE 24 U/L (14-36); BILIRUBIN,DIRECT 0.2 mg/dL (0.0-0.4); BLOOD UREA NITROGEN 26 mg/dL (7-20); CALCIUM 11.3 mg/dL (8.4-10.2); CARBON DIOXIDE 29 mmol/L (22-30); CHLORIDE 98 mmol/L (98-107); GLUCOSE 109 mg/dL (75-110); POTASSIUM 3.5 mmol/L (3.6-5.0); TOTAL PROTEIN 5.7 g/dL (6.3-8.2)
--- NOTE | 2019-07-10 06:06 | PDOC H&P ---
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 The bacterial infection was thought to be eradicated and the patient was awaiting reimplantation which was scheduled for July 23, 2019. In the interim the patient's had a recurrent recurrence of the infection with increasing pain. She presented to the emergency room with a draining wound. She is admitted to the orthopedic service for management. Past Medical History Cardiac Medical History: Reports: Hyperlipidema, Hypertension Denies: Atrial Fibrillation, Congestive Heart Failure, Coronary Artery Disease, Myocardial Infarction, Peripheral Vascular Disease, Heart Murmur Pulmonary Medical History: Denies: Asthma, Bronchitis, Chronic Obstructive Pulmonary Disease (COPD), Sleep Apnea Neurological Medical History: Denies: Seizures Endocrine Medical History: Denies: Hyperthyroidism, Hypothyroidism Malignancy Medical History: Denies: Leukemia GI Medical History: Denies: Gastroesophageal Reflux Disease Musculoskeltal Medical History: Reports: Arthritis - knees, hands Denies: Fibromyalgia Psychiatric Medical History: Reports: Depression Denies: Bipolar Disorder, Post Traumatic Stress Disorder Hematology: Reports: Anemia - as a teen Denies: Hemophilia, Sickle Cell Disease Infectious Medical History: Denies: HIV Past Surgical History Past Surgical History: Reports: Orthopedic Surgery - Status post right knee arthroplasty, failure, and revision. Denies: Amputation, Appendectomy, Section, Cholecystectomy, Coronary Artery Bypass Graft, Gastric Bypass Surgery, Herniorrhaphy, Hysterectomy, Mastectomy, Pacemaker, Tonsillectomy, Tubal Ligation Social History Information Source: Patient, [facility]ri[facility] Office, [facility] Records Lives with: Spouse/Significant other Smoking Status: Never Smoker Electronic Cigarette use?: No Frequency of Alcohol Use: None Hx Recreational Drug Use: No Drugs: None Hx Prescription Drug Abuse: No Family History Family History: Reviewed & Not Pertinent Parental Family History Reviewed: No Children Family History Reviewed: No Sibling(s) Family History Reviewed.: No Medication/Allergy Home Medications: Escitalopram Oxalate [Lexapro 10 mg Tablet] 10 mg PO DAILY 03/20/19 Hydrochlorothiazide [Hydrodiuril 25 mg Tablet] 25 mg PO DAILY 03/20/19 Hydrocodone/Acetaminophen [[place] 5-325 mg Tablet] 1 tab PO Q6HP PRN 03/20/19 Pravastatin Sodium [Pravachol] 40 mg PO QHS 03/20/19 Allergies/Adverse Reactions: No Known Allergies Allergy (Verified 05/08/19 14:12) Review of Systems All systems: as per PMH Physical Exam Vital Signs: Temp Pulse Resp BP Pulse Ox 36.9 C 23 H 124/51 L 98 07/10/19 03:27 07/10/19 03:01 07/10/19 03:00 07/10/19 03:01 Intake & Output 07/08/19 07/09/19 07/10/19 06:59 06:59 06:59 Weight 74.843 kg General appearance: PRESENT: mild distress, well-developed, well-nourished Head exam: PRESENT: normocephalic Respiratory exam: PRESENT: unlabored Cardiovascular exam: PRESENT: RRR Vascular exam: PRESENT: normal capillary refill GI/Abdominal exam: PRESENT: soft Rectal exam: PRESENT: deferred Musculoskeletal exam: PRESENT: other - Right knee incision with a draining sinus tract in the proximal third of what appears to be purulent drainage. Neurological exam: PRESENT: alert, awake, oriented to person, oriented to place, oriented to time, oriented to situation. ABSENT: motor sensory deficit Psychiatric exam: PRESENT: appropriate affect, normal mood, other - Discouraged. ABSENT: homicidal ideation, suicidal ideation Skin exam: PRESENT: dry, intact, warm. ABSENT: cyanosis, rash Results Laboratory Results: 07/10/19 01:25 07/10/19 01:25 07/10/19 07/10/19 07/10/19 01:25 01:25 01:25 WBC 11.4 H RBC 3.60 L Hgb 10.9 L Hct 31.2 L MCV 87 MCH 30.2 MCHC 34.8 RDW 14.0 Plt Count 243 Seg Neutrophils % 75.3 Sodium 132.5 L Potassium 3.5 L Chloride 98 Carbon Dioxide 29 Anion Gap 6 BUN 26 H Creatinine 1.53 H Est GFR ( Amer) 40 L Glucose 109 Lactic Acid 0.9 Calcium 11.3 H Total Bilirubin 2.0 H AST 24 Alkaline Phosphatase 68 Total Protein 5.7 L Albumin 3.4 L Impressions: Knee X-Ray 07/10/19 00:50 IMPRESSION: No cement again noted around the right knee with no acute osseous abnormality. There is diffuse soft tissue tissue swelling present. Status: Imported from PACS Assessment & Plan - Diagnosis (1) Infection of knee Is this a current diagnosis for this admission?: Yes Plan: The patient and the surgeon are notably discouraged with the recurrence of the infection. At this point again I have to gather some information and formulate a plan. - Time Time Spent: 50 to 70 Minutes Anticipated discharge: Home with Homehealth Within: Other
[2019-07-10] MEDS: METOPROLOL TARTRATE 50 MG TABLET PO SCH (09:02)
[2019-07-10] MEDS: ESCITALOPRAM OXALATE 10 MG TABLET PO SCH (09:02)
[2019-07-10] MEDS: OXYCODONE HCL IR 5 MG TABLET PO PRN (11:20)
[2019-07-10] MEDS: DAPTOMYCIN 500 MG in NORMAL SALINE 50 ML IV SCH (11:20)
[2019-07-10] MEDS: ATORVASTATIN CALCIUM 10 MG TABLET PO SCH (22:11)
--- NOTE | 2019-07-11 06:46 | PDOC PROGRESS REPORT ---
Subjective Progress Note for:: 07/11/19 Reason For Visit: INFECTION OF KNEE 73-year-old white female with persistent infectious focus in the right knee Physical Exam Vital Signs: Temp Pulse Resp BP Pulse Ox 37.1 C 68 18 112/70 98 07/11/19 00:00 07/11/19 00:00 07/11/19 00:00 07/11/19 00:00 07/11/19 00:00 Intake & Output 07/09/19 07/10/19 07/11/19 06:59 06:59 06:59 Intake Total 730 Output Total 400 Balance -400 730 Weight 75.6 kg 75.6 kg General appearance: PRESENT: no acute distress, mild distress Pulses: PRESENT: +1 pedal pulses bilateral Vascular exam: PRESENT: normal capillary refill Musculoskeletal exam: PRESENT: other - Right knee with draining sinus tract Results Laboratory Results: 07/10/19 01:25 07/10/19 01:25 07/10/19 01:25 C-Reactive Protein 165.1 H Impressions: Knee X-Ray 07/10/19 00:50 IMPRESSION: No cement again noted around the right knee with no acute osseous abnormality. There is diffuse soft tissue tissue swelling present. Status: Imported from PACS Assessment & Plan - Diagnosis (1) Infection of knee Is this a current diagnosis for this admission?: Yes Plan: Plan for irrigation debridement and antibiotic spacer exchange tomorrow - Time Time Spent with patient: 15-24 minutes Anticipated discharge: Home with Homehealth Within: Other
[2019-07-11] MEDS: DAPTOMYCIN 500 MG in NORMAL SALINE 50 ML IV SCH (10:06)
[2019-07-11] MEDS: ESCITALOPRAM OXALATE 10 MG TABLET PO SCH (10:06)
[2019-07-11] MEDS: METOPROLOL TARTRATE 50 MG TABLET PO SCH (10:06)
[2019-07-11] MEDS: ATORVASTATIN CALCIUM 10 MG TABLET PO SCH (21:16)
[2019-07-12] MEDS: ESCITALOPRAM OXALATE 10 MG TABLET PO SCH (10:12)
[2019-07-12] MEDS: METOPROLOL TARTRATE 50 MG TABLET PO SCH (10:12)
[2019-07-12] MEDS: DAPTOMYCIN 500 MG in NORMAL SALINE 50 ML IV SCH (10:12)
[2019-07-12] MEDS ORDERED: BUPIVACAINE HCL 0.5 % INJ/PF 30 ML SDV ONE (11:54)
[2019-07-12] MEDS ORDERED: BACITRACIN INJ 50,000 UNIT VIAL ONE (11:54)
[2019-07-12] MEDS ORDERED: THROMBIN (BOVINE) TOPICAL 20000 UNIT VIAL ONE (11:54)
[2019-07-12] MEDS ORDERED: FENTANYL CITRATE INJ/PF 100 MCG/2 ML AMPUL ONE ×2 (12:14→15:30)
[2019-07-12] MEDS ORDERED: LIDOCAINE 2% INJ-PF (20 MG/ML) 10 ML AMPUL ONE (12:14)
[2019-07-12] MEDS ORDERED: PROPOFOL INJ 200 MG/20 ML VIAL IV ONE (12:15)
[2019-07-12] MEDS ORDERED: ONDANSETRON HCL INJ/PF 4 MG/2 ML SDV ONE (12:15)
[2019-07-12] MEDS ORDERED: MIDAZOLAM 2 MG/2 ML INJ ONE (12:15)
--- NOTE | 2019-07-12 12:50 | PDOC PROGRESS REPORT ---
Subjective Progress Note for:: 07/12/19 Subjective:: 73-year-old female with longstanding history of periprosthetic infection of the right knee. She states drainage started a few days ago and subsequently concern for recurrent periprosthetic infection at that point decision was made to proceed with operative intervention Reason For Visit: INFECTION OF KNEE Physical Exam Vital Signs: Temp Pulse Resp BP Pulse Ox 98.6 F 65 18 120/54 L 96 07/12/19 09:31 07/12/19 09:31 07/12/19 09:31 07/12/19 09:31 07/12/19 09:31 Intake & Output 07/11/19 07/12/19 07/13/19 06:59 06:59 06:59 Intake Total 730 1002 Balance 730 1002 Weight 75.6 kg 97.4 kg Musculoskeletal exam: PRESENT: other - Right knee: Small punctate wound proximally with serosanguineous drainage no erythema. Appropriate tenderness to palpation. Intact plantarflexion/dorsiflexion. Results Laboratory Results: 07/10/19 01:25 07/10/19 01:25 07/10/19 02:10 Knee - Right Gram Stain - Final 07/10/19 02:10 Knee - Right Wound Culture - Final Strep Mitis/Oralis Grp Impressions: Knee X-Ray 07/10/19 00:50 IMPRESSION: No cement again noted around the right knee with no acute osseous abnormality. There is diffuse soft tissue tissue swelling present. Assessment & Plan - Diagnosis (1) Infection of knee Is this a current diagnosis for this admission?: Yes Plan: Plan for irrigation debridement and antibiotic spacer exchange tomorrow. We will obtain intraoperative cultures and continue IV antibiotics. Consultation with infectious disease will be made postoperatively discuss patient's possible treatment options. Risk and benefits of operative procedure were explained to the patient she verbalized understanding consented for surgical procedure. - Time Time Spent with patient: Less than 15 minutes
[2019-07-12] MEDS ORDERED: VANCOMYCIN HCL INJ 1000 MG VIAL ONE ×2 (13:26→13:31)
--- NOTE | 2019-07-12 15:53 | Operative Report ---
Operative Report DATE OF SURGERY: 07/12/19 PREOPERATIVE DIAGNOSIS: Right knee periprosthetic infection POSTOPERATIVE DIAGNOSIS: Same OPERATION: Irrigation and debridement with exchange antibiotic spacer SURGEON: HERB SANDOVAL ANESTHESIA: Spinal TISSUE REMOVED OR ALTERED: Synovium sent to pathology and microbiology for AFB, fungal, anaerobic/aerobic COMPLICATIONS: None ESTIMATED BLOOD LOSS: 50cc PROCEDURE: Indication for above procedure: Patient is a 73-year-old white female who is in the middle of a two-stage rec onstruction for a right periprosthetic knee infection. The bacterial infection was thought to be eradicated and the patient was awaiting reimplantation which was scheduled for July 23, 2019. In the interim the patient's had a recurrent drainage from the wound and increasing pain. At that point decision was made to proceed with operative intervention. Risk and benefits of the surgical procedure were explained patient verbalized understanding consented for surgical procedure. Procedure In Detail: Patient was seen and evaluated in the preoperative holding area. The right lower extremity was initialized and marked. Patient receiving daptomycin IV. Patient was taken back to the operative room where transferred to the operative table and placed under spinal anesthesia. Once they were adequately anesthetized a nonsterile tourniquet was placed on the lower extremity. A surgical team debriefing was performed ensuring all instrumentation was available, the surgical procedure was discussed with possible concerns reviewed. The upper extremity was prepped with ChloraPrep and draped in a sterile fashion. A timeout was done identifying correct patient, procedure and extremity everyone in attendance agree with this and verbalized no concerns. The extremity was elevated the tourniquet was inflated to 350 mmHg. Previous skin incision was utilized. Sharp dissection was performed down to the fascia and capsule. Patellar tendon and quadriceps tendon were identified and medial parapatellar approach was performed sharply. Any peripheral bleeding was controlled with bipolar cautery there was clear bloody tinged fluid emanating from the superior portion of the wound with nonviable inflamed synovium. No purulence was appreciated. Prior antibiotic spacer was then removed. Osteotome was utilized to remove remnant cement from the tibia and femur. Extensive synovectomy was performed any nonviable necrotic tissue was excised down to fresh healthy appearing tissue. Curette was placed down the femoral and tibial canals normal cancellus bone was approached. Bone edges were freshened with a rondure and curette down to cancellus bone. Wound was then copiously irrigated with 3 L of pulse lavage with bacitracin. Trial for the REMEDY articulating antibiotic spacer was placed in the femur and tibia respectively did obtain good fixation without instability utilizing a la rge femoral component and large tibial component with the large modular component. Was able to achieve stability with 30 degrees of flexion. Thus decision was made to proceed with implantation of all Remedy large tibial and femoral component. On the back table cement was mixed with additional gram of vancomycin once adequately mixed cement was placed between the spacer and the tibial implant and down the canal and tibial component implanted. While maintaining extension tibial component was held until fixation was achieved additional batch of cement was then mixed on the back table and placed along the large femoral component and femoral shaft and then implanted. Knee was held in approximately 30 degrees of flexion until cement was set. Additional batch of cement was then mixed by h and and placed on the intricacies of the femoral and tibial component in order to achieve improved stability. Once cement was set attention then turned to additional irrigation closure. Tourniquet was deflated any peripheral bleeding was controlled with cautery until the wound was dry. Wound was irrigated with 3 additional liters of normal saline without bacitracin. 2 large size 15 Jose drains were placed one medially and 1 laterally into the joint. These were later secured with 2-0 nylon. Additional liter of antiseptic was then irrigated within the joint. Capsule was closed with interrupted #1 PDS suture. Subcutaneous tissues were closed with interrupted 3-0 and 2-0 Monocryl suture. Skin was closed with yecenia. Wound was dressed with Acticoat soft dressing and patient was placed in a knee immobilizer. Sponge counts, instrument counts, needle counts were correct. Patient was then awoken from anesthesia. Transferred from the operating room table to the operating room stretcher. There was no intraoperative complications patient tolerated procedure well stable to PACU. Postop plan: Patient will be started on Rocephin along with daptomycin given her previous microbiology results and most recent microbiology results. Patient will begin physical therapy but no knee range of motion until likely 2 weeks postoperatively. Patient will begin ambulation with a knee immobilizer. Plan will be for drain removal if less than 10 cc of drainage. Anticipate patient will require additional IV antibiotics for 6 weeks however will defer to infectious disease as per recommendation. Implant: REMEDY Articulating Antibiotic Spacer Large Femoral Component, Large Tibial Component w/ Large Insert
[2019-07-12] MEDS ORDERED: FENTANYL CITRATE INJ/PF 100 MCG/2 ML AMPUL IV PRN ×3 (16:00)
[2019-07-12] MEDS ORDERED: ONDANSETRON HCL INJ/PF 4 MG/2 ML SDV IV PRN (16:00)
[2019-07-12] MEDS ORDERED: MEPERIDINE HCL/PF INJ 25 MG/1 ML DISP.SYRIN IV PRN (16:00)
[2019-07-12] MEDS ORDERED: DIPHENHYDRAMINE HCL 50 MG/ML VIAL IV PRN (16:00)
[2019-07-12] MEDS ORDERED: PROMETHAZINE HCL INJ 25 MG/1 ML VIAL IV PRN ×2 (16:00)
[2019-07-12] MEDS ORDERED: OXYCODONE-ACETAMINOPHEN 5-325 MG TABLET PO PRN ×2 (16:00)
[2019-07-12] MEDS: MORPHINE SULFATE 10 MG/ML INJ IV PRN (17:11)
[2019-07-12] MEDS: RIVAROXABAN 10 MG TABLET PO SCH (17:45)
[2019-07-12] MEDS: OXYCODONE HCL SR 10 MG TABLET PO SCH (21:09)
[2019-07-12] MEDS: PREGABALIN 75 MG CAPSULE PO SCH (21:09)
[2019-07-12] MEDS: ATORVASTATIN CALCIUM 10 MG TABLET PO SCH (21:09)
[2019-07-13 06:32] LABS: HEMATOCRIT 28.5 % (36.0-47.0); MEAN CORPUSCULAR HEMOGLOBIN 30.2 pg (27.0-33.4); MEAN CORPUSCULAR HGB CONC 34.9 g/dL (32.0-36.0); MEAN CORPUSCULAR VOLUME 87 fl (80-97); PLATELET COUNT 275 10^3/uL (150-450); RED CELL DISTRIBUTION WIDTH 13.9 % (11.5-14.0)
[2019-07-13 06:57] LABS: ANION GAP 5 (5-19); BLOOD UREA NITROGEN 23 mg/dL (7-20); CALCIUM 11.3 mg/dL (8.4-10.2); CARBON DIOXIDE 29 mmol/L (22-30); CHLORIDE 103 mmol/L (98-107); GLUCOSE 113 mg/dL (75-110); POTASSIUM 3.9 mmol/L (3.6-5.0)
[2019-07-13] MEDS: METOPROLOL TARTRATE 50 MG TABLET PO SCH (09:34)
[2019-07-13] MEDS: PREGABALIN 75 MG CAPSULE PO SCH ×2 (09:34→21:07)
[2019-07-13] MEDS: ESCITALOPRAM OXALATE 10 MG TABLET PO SCH (09:34)
[2019-07-13] MEDS: OXYCODONE HCL SR 10 MG TABLET PO SCH ×2 (09:35→21:05)
[2019-07-13] MEDS: DAPTOMYCIN 500 MG in NORMAL SALINE 50 ML IV SCH (09:35)
--- NOTE | 2019-07-13 11:48 | PDOC PROGRESS REPORT ---
Subjective Progress Note for:: 07/13/19 Subjective:: 73-year-old patient is postop day 1 from a debridement as described in the op note. Patient is doing good over the last 24 hours she is afebrile she is drowsy but has no complaints of chills or Reiger's. Her pain level has been controlled pretty well. Reason For Visit: INFECTION OF KNEE Physical Exam Vital Signs: Temp Pulse Resp BP Pulse Ox 98.7 F 70 20 109/42 L 92 07/13/19 07:28 07/13/19 07:28 07/13/19 07:28 07/13/19 07:28 07/13/19 07:28 Intake & Output 07/12/19 07/13/19 07/14/19 06:59 06:59 06:59 Intake Total 1002 1350 50 Output Total 470 Balance 1002 880 50 Weight 97.4 kg 97.4 kg Additional comments: Patient is laying in bed comfortably she is in no acute distress she is interacting appropriately she is alert and oriented x3. Patient's right knee does show drains JPs that are draining well it is red bloody fluid that looks noninfectious. Patient's capillary refill is less than 2 seconds in her right lower extremity her pulses are good. Results Laboratory Results: 07/13/19 06:20 07/13/19 06:20 07/13/19 07/13/19 06:20 06:20 WBC 7.0 RBC 3.30 L Hgb 10.0 L Hct 28.5 L MCV 87 MCH 30.2 MCHC 34.9 RDW 13.9 Plt Count 275 Sodium 136.5 L Potassium 3.9 Chloride 103 Carbon Dioxide 29 Anion Gap 5 BUN 23 H Creatinine 1.29 H Est GFR ( Amer) 49 L Glucose 113 H Calcium 11.3 H 07/10/19 02:10 Knee - Right Gram Stain - Final 07/10/19 02:10 Knee - Right Wound Culture - Final Strep Mitis/Oralis Grp Impressions: Knee X-Ray 07/10/19 00:50 IMPRESSION: No cement again noted around the right knee with no acute osseous abnormality. There is diffuse soft tissue tissue swelling present. Assessment & Plan - Diagnosis (1) Hyponatremia Is this a current diagnosis for this admission?: Yes Plan: Patients sodium levels have been low throughout visit, will continue to monitor and consider hospitalist consult if no improvement in 24hrs (2) Infection of knee Is this a current diagnosis for this admission?: Yes Plan: SP irrigation debridement and antibiotic spacer exchange one day/ cultures are pending and continue IV antibiotics. Consultation with infectious disease after cultures. Risk and benefits of operative procedure were explained to the patient she verbalized understanding consented for surgical procedure. (3) Acute blood loss anemia Is this a current diagnosis for this admission?: Yes Plan: Stable with mild decrease today, will continue to monitor - Time Time Spent with patient: 15-24 minutes Level of Care: MEDICAL Anticipated discharge: SNF Within: Other
[2019-07-13] MEDS: RIVAROXABAN 10 MG TABLET PO SCH (16:04)
[2019-07-13] MEDS: ATORVASTATIN CALCIUM 10 MG TABLET PO SCH (21:07)
[2019-07-14 06:21] LABS: HEMATOCRIT 26.1 % (36.0-47.0); HEMOGLOBIN 9.2 g/dL (12.0-15.5); MEAN CORPUSCULAR HEMOGLOBIN 30.7 pg (27.0-33.4); MEAN CORPUSCULAR HGB CONC 35.4 g/dL (32.0-36.0); MEAN CORPUSCULAR VOLUME 87 fl (80-97); PLATELET COUNT 292 10^3/uL (150-450); RED BLOOD COUNT 3.01 10^6/uL (3.72-5.28); RED CELL DISTRIBUTION WIDTH 13.7 % (11.5-14.0)
[2019-07-14] MEDS: PREGABALIN 75 MG CAPSULE PO SCH ×2 (09:46→23:48)
[2019-07-14] MEDS: METOPROLOL TARTRATE 50 MG TABLET PO SCH (09:46)
[2019-07-14] MEDS: DAPTOMYCIN 500 MG in NORMAL SALINE 50 ML IV SCH (09:46)
[2019-07-14] MEDS: ESCITALOPRAM OXALATE 10 MG TABLET PO SCH (09:46)
--- NOTE | 2019-07-14 10:22 | PDOC PROGRESS REPORT ---
Subjective Progress Note for:: 07/14/19 Subjective:: 73-year-old female with longstanding history of periprosthetic infection of the right knee. She states she is doing well. Pain currently controlled. Was able to transfer from the bed to chair with physical therapy. Reason For Visit: INFECTION OF KNEE Physical Exam Vital Signs: Temp Pulse Resp BP Pulse Ox 98.7 F 86 20 142/88 H 97 07/14/19 07:26 07/14/19 07:26 07/14/19 07:26 07/14/19 07:26 07/14/19 07:26 Intake & Output 07/13/19 07/14/19 07/15/19 06:59 06:59 06:59 Intake Total 1350 570 Output Total 470 575 Balance 880 -5 Weight 97.4 kg 97.6 kg Musculoskeletal exam: PRESENT: other - Right knee: Dressing clean/dry/intact no erythema or drainage. Intact plantarflexion/dorsiflexion. Bloody drainage noted along the JPs x2 Results Laboratory Results: 07/14/19 05:06 07/13/19 06:20 07/14/19 05:06 WBC 8.0 RBC 3.01 L Hgb 9.2 L Hct 26.1 L MCV 87 MCH 30.7 MCHC 35.4 RDW 13.7 Plt Count 292 Impressions: Knee X-Ray 07/10/19 00:50 IMPRESSION: No cement again noted around the right knee with no acute osseous abnormality. There is diffuse soft tissue tissue swelling present. Assessment & Plan - Diagnosis (1) Infection of knee Is this a current diagnosis for this admission?: Yes Plan: SP irrigation debridement and antibiotic spacer exchange postop day #1 1. Pain control 2. Physical therapy partial weightbearing 3. Currently on Rocephin and daptomycin awaiting culture results and infectious disease consultation 4. Discharge planning anticipate patient will require PICC line and IV antibiotics however patient is fairly adamant against IV antibiotics as noted above will continue to monitor cultures and await infectious disease antibiotic recommendations. - Time Time Spent with patient: Less than 15 minutes
[2019-07-14] MEDS: OXYCODONE HCL SR 10 MG TABLET PO SCH (10:47)
[2019-07-14] MEDS: RIVAROXABAN 10 MG TABLET PO SCH (16:00)
[2019-07-14] MEDS: ATORVASTATIN CALCIUM 10 MG TABLET PO SCH (23:48)
[2019-07-15 05:31] LABS: HEMATOCRIT 22.8 % (36.0-47.0); MEAN CORPUSCULAR HEMOGLOBIN 30.4 pg (27.0-33.4); MEAN CORPUSCULAR HGB CONC 35.2 g/dL (32.0-36.0); MEAN CORPUSCULAR VOLUME 87 fl (80-97); PLATELET COUNT 285 10^3/uL (150-450); RED BLOOD COUNT 2.64 10^6/uL (3.72-5.28); RED CELL DISTRIBUTION WIDTH 13.6 % (11.5-14.0); WHITE BLOOD COUNT 6.2 10^3/uL (4.0-10.5)
[2019-07-15] MEDS: PREGABALIN 75 MG CAPSULE PO SCH ×2 (09:11→22:39)
[2019-07-15] MEDS: ESCITALOPRAM OXALATE 10 MG TABLET PO SCH (09:12)
[2019-07-15] MEDS: METOPROLOL TARTRATE 50 MG TABLET PO SCH (09:12)
[2019-07-15] MEDS: OXYCODONE HCL IR 5 MG TABLET PO PRN ×2 (09:14→18:45)
[2019-07-15] MEDS: DAPTOMYCIN 500 MG in NORMAL SALINE 50 ML IV SCH (11:56)
--- NOTE | 2019-07-15 12:39 | PDOC PROGRESS REPORT ---
Subjective Progress Note for:: 07/15/19 Subjective:: 73-year-old female with longstanding history of periprosthetic infection of the right knee. She states she is doing well. Pain currently controlled. Was able to transfer from the bed to chair with physical therapy. Reason For Visit: INFECTION OF KNEE Physical Exam Vital Signs: Temp Pulse Resp BP Pulse Ox 97.4 F 51 L 18 112/42 L 94 07/15/19 11:51 07/15/19 11:51 07/15/19 11:51 07/15/19 11:51 07/15/19 11:51 Intake & Output 07/14/19 07/15/19 07/16/19 06:59 06:59 06:59 Intake Total 570 590 120 Output Total 575 475 10 Balance -5 115 110 Weight 97.6 kg 97.6 kg Musculoskeletal exam: PRESENT: other - Right knee: Dressing change today. Surgical incision well approximated no erythema or drainage. Drains removed today with less than 10 cc per drain. Intact plantarflexion/dorsiflexion. No sensory deficits. Results Laboratory Results: 07/15/19 04:40 07/13/19 06:20 07/15/19 04:40 WBC 6.2 RBC 2.64 L Hgb 8.0 L Hct 22.8 L MCV 87 MCH 30.4 MCHC 35.2 RDW 13.6 Plt Count 285 07/12/19 13:30 Knee - Tissue (Surgical) Gram Stain - Final 07/10/19 03:38 Blood Blood Culture - Final NO GROWTH IN 5 DAYS 07/10/19 03:04 Blood Blood Culture - Final NO GROWTH IN 5 DAYS Impressions: Knee X-Ray 07/10/19 00:50 IMPRESSION: No cement again noted around the right knee with no acute osseous abnormality. There is diffuse soft tissue tissue swelling present. Assessment & Plan - Diagnosis (1) Infection of knee Is this a current diagnosis for this admission?: Yes Plan: SP irrigation debridement and antibiotic spacer exchange postop day #3 1. Pain control 2. Physical therapy partial weightbearing 3. Currently on Rocephin and daptomycin awaiting culture results and infectious disease consultation 4. Discharge planning anticipate patient will require PICC line and IV antibiotics however patient is fairly adamant against IV antibiotics as noted above will continue to monitor cultures and await infectious disease antibiotic recommendations. - Time Time Spent with patient: Less than 15 minutes
[2019-07-15] MEDS ORDERED: POLYETHYLENE GLYCOL 3350 POWDER 17 GM/1 PACKET PO PRN (12:40)
--- NOTE | 2019-07-15 16:04 | Progress Note ---
Provider Note Provider Note: [facility] ID Telephone Advice Consultation Chart reviewed. Patient known to our service due to prior admission to the [facility] for prosthetic knee infection. She is a 73-year-old woman admitted with suspected right knee infection. She has a history of right TKA in 2012. In 05/2018, she had revision and cultures at that time grew E coli from broth only, but no signs of infection at that time. In July she had washout and poly exchange. Cultures grew Micrococcus for which she received vancomycin, then Levaquin. Due to non healing, she returned to the OR in 12/2018 for resection arthroplasty and cement spacer. Streptococcus mitis and Staphylococcus epidermidis grew at that time. She received 6 weeks of ceftriaxone. In February, she was admitted again with knee infection. A 2 stage revision was recommended. She had the first stage done. Cultures at that time grew Enterococcus faecium and Corynebacterium. She received 6 weeks of daptomycin. AFB and fungal cultures in March were negative. Previous pathology demonstrated non- necrotizing granulomatous inflammation in synovium and soft tissue. All cultures were negative in March. She was readmitted with drainage and was taken to the OR on 07/09. She had I&D with antibiotic spacer exchange. There was serosanguineous drainage. There was no erythema, but clear bloody tinged fluid. Cultures from 07/09 were positive for Streptococcus mitis. Drains were removed today. CRP 165. She was started on ceftriaxone and daptomycin. ID consulted for recommendations. Allergies: No Known Allergies Allergy (Verified 05/08/19 14:12) Medications: Escitalopram Oxalate [Lexapro 10 mg Tablet] 10 mg PO DAILY 03/20/19 Hydrochlorothiazide [Hydrodiuril 25 mg Tablet] 25 mg PO DAILY 03/20/19 Pravastatin Sodium [Pravachol] 40 mg PO DAILY 03/20/19 Celecoxib [Celebrex 200 mg Capsule] 200 mg PO DAILY 07/10/19 Ergocalciferol (Vitamin D2) [Vitamin D2] 1 cap PO LIGHT@1000 07/10/19 Metoprolol Tartrate [Lopressor 50 mg Tablet] 50 mg PO DAILY 07/10/19 Sulfamethoxazole/Trimethoprim [Septra-Ds 800-160 mg Tablet] 1 tab PO DAILY 07/10/19 Vital Signs: Temp Pulse Resp BP Pulse Ox 97.9 F 56 L 18 112/51 L 95 07/15/19 15:23 07/15/19 15:23 07/15/19 15:23 07/15/19 15:23 07/15/19 15:23 Intake & Output 07/14/19 07/15/19 07/16/19 06:59 06:59 06:59 Intake Total 570 590 120 Output Total 575 475 10 Balance -5 115 110 Weight 97.6 kg 97.6 kg Weight/Height Weight 97.6 kg Height 5 ft 5 in Laboratories: 07/15/19 04:40 07/13/19 06:20 MCV 87 fl (80-97) 07/15/19 04:40 MCH 30.4 pg (27.0-33.4) 07/15/19 04:40 MCHC 35.2 g/dL (32.0-36.0) 07/15/19 04:40 RDW 13.6 % (11.5-14.0) 07/15/19 04:40 Seg Neutrophils % 75.3 % (42-78) 07/10/19 01:25 Chloride 103 mmol/L (98-107) 07/13/19 06:20 Carbon Dioxide 29 mmol/L (22-30) 07/13/19 06:20 Anion Gap 5 (5-19) 07/13/19 06:20 Est GFR ( Amer) 49 (>60) L 07/13/19 06:20 Glucose 113 mg/dL (75-110) H 07/13/19 06:20 Lactic Acid 0.9 mmol/L (0.7-2.1) 07/10/19 01:25 Calcium 11.3 mg/dL (8.4-10.2) H 07/13/19 06:20 Total Bilirubin 2.0 mg/dL (0.2-1.3) H 07/10/19 01:25 AST 24 U/L (14-36) 07/10/19 01:25 Alkaline Phosphatase 68 U/L (38-126) 07/10/19 01:25 C-Reactive Protein 165.1 mg/L (<10.0) H 07/10/19 01:25 Total Protein 5.7 g/dL (6.3-8.2) L 07/10/19 01:25 Albumin 3.4 g/dL (3.5-5.0) L 07/10/19 01:25 07/12/19 13:30 Knee - Tissue (Surgical) Gram Stain - Final 07/10/19 03:38 Blood Blood Culture - Final NO GROWTH IN 5 DAYS 07/10/19 03:04 Blood Blood Culture - Final NO GROWTH IN 5 DAYS Microbiology: Synovial Fluid cultures: 05/28/18 E coli 08/01/18 Micrococcus 12/06/18 Negative 01/09/19 Streptococcus mitis, Staphylococcus epidermidis 03/19/19 Enterococcus faecium, Corynebacterium 04/02/19 No fungal or AFB organisms isolated 07/10/19 Streptococcus mitis Radiology: Knee X-Ray 07/10/19 00:50 IMPRESSION: No cement again noted around the right knee with no acute osseous abnormality. There is diffuse soft tissue tissue swelling present. Assessment and Recommendations: Patient evaluated for recurrent prosthetic joint infection. She has had multiple organisms causing infection in the past and has received multiple antibiotic courses for this. Cultures now grew Streptococcus mitis. She has had antibiotic spacer exchanged, I&D. Previous pathology report described non- necrotizing granulomatous inflammation which initially raised concerns for NTM infection but AFB cultures were negative. This granulomatous inflammation may not be infectious and could be due to a non infectious disease like sarcoidosis especially in the setting of hypercalcemia that can impair healing and increase the risk of infection. This became secondarily infected with Streptococcus mitis again (previously positive for this organism in 2019). Ceftriaxone is adequate, she will need 6 weeks of ceftriaxone 2g IV daily, monitoring CBC, CMP, ESR and CRP. Consider MICHAEL levels. EOT will be 07/23/2019. She may require suppressive therapy after completion of therapy with amoxicillin or cephalexin. Please call if questions. Chen Tolbert MD U ID [phone]
[2019-07-15] MEDS: RIVAROXABAN 10 MG TABLET PO SCH (18:45)
[2019-07-15] MEDS: ATORVASTATIN CALCIUM 10 MG TABLET PO SCH (22:39)
--- NOTE | 2019-07-16 07:54 | PDOC PROGRESS REPORT ---
Subjective Progress Note for:: 07/16/19 Subjective:: 73-year-old female with longstanding history of periprosthetic infection of the right knee. She states she is doing well. Pain currently controlled. Was able to transfer from the bed to chair with physical therapy. Denies fever chills or sweats. Did have a dream this morning which made her somewhat confused but that has resolved. Reason For Visit: INFECTION OF KNEE Physical Exam Vital Signs: Temp Pulse Resp BP Pulse Ox 98.6 F 60 19 106/35 L 94 07/16/19 00:22 07/16/19 00:22 07/16/19 00:22 07/16/19 00:22 07/16/19 00:22 Intake & Output 07/15/19 07/16/19 07/17/19 06:59 06:59 06:59 Intake Total 590 646 Output Total 475 10 Balance 115 636 Weight 97.6 kg 100.4 kg Musculoskeletal exam: PRESENT: other - Right knee: Dressing clean/dry/intact no erythema or drainage. Minimal swelling without change, intact plantarflexion/dorsiflexion. No sensory deficits. No calf tenderness. Results Laboratory Results: 07/15/19 04:40 07/13/19 06:20 07/12/19 13:30 Knee - Tissue (Surgical) Gram Stain - Final Impressions: Knee X-Ray 07/10/19 00:50 IMPRESSION: No cement again noted around the right knee with no acute osseous abnormality. There is diffuse soft tissue tissue swelling present. Assessment & Plan - Diagnosis (1) Infection of knee Is this a current diagnosis for this admission?: Yes Plan: Status post revision irrigation debridement with exchange antibiotic spacer 1. Physical therapy partial weightbearing with knee immobilizer 2. Pain control oxycodone 3. Xarelto for DVT prophylaxis will transition to 81 mg aspirin daily upon discharge 4. Infectious disease consultation recommends 2 g of IV Rocephin for 6 weeks patient to receive PICC line today. 5. Patient orthopedically stable for discharge today if home IV antibiotics set up along with home health and home physical therapy. Plan will be for follow-up with Dr. Aranda in 2 weeks - Time Time Spent with patient: Less than 15 minutes
[2019-07-16 08:36] LABS: ABSOLUTE EOSINOPHILS # (AUTO) 0.1 10^3/uL (0.0-0.6); ABSOLUTE LYMPHOCYTES (AUTO) 0.7 10^3/uL (0.5-4.7); ABSOLUTE MONOCYTES (AUTO) 0.9 10^3/uL (0.1-1.4); ABSOLUTE NEUT (AUTO) 4.7 10^3/uL (1.7-8.2); BASOPHILS % (AUTO) 0.3 % (0-2); EOSINOPHILS % (AUTO) 1.2 % (0-6); HEMATOCRIT 24.1 % (36.0-47.0); HEMOGLOBIN 8.5 g/dL (12.0-15.5); LYMPHOCYTES % (AUTO) 11.5 % (13-45); MEAN CORPUSCULAR HEMOGLOBIN 30.2 pg (27.0-33.4); MEAN CORPUSCULAR HGB CONC 35.2 g/dL (32.0-36.0); MEAN CORPUSCULAR VOLUME 86 fl (80-97); MONOCYTES % (AUTO) 14.4 % (3-13); PLATELET COUNT 369 10^3/uL (150-450); RED BLOOD COUNT 2.81 10^6/uL (3.72-5.28); RED CELL DISTRIBUTION WIDTH 13.5 % (11.5-14.0); SEGMENTED NEUTROPHILS % (AUTO) 72.6 % (42-78); TOTAL CELLS COUNTED % (AUTO) 100 %; WHITE BLOOD COUNT 6.5 10^3/uL (4.0-10.5)
[2019-07-16 09:12] LABS: ANION GAP 5 (5-19); BLOOD UREA NITROGEN 21 mg/dL (7-20); CALCIUM 10.6 mg/dL (8.4-10.2); CARBON DIOXIDE 29 mmol/L (22-30); CHLORIDE 102 mmol/L (98-107); GLUCOSE 103 mg/dL (75-110); POTASSIUM 3.5 mmol/L (3.6-5.0)
[2019-07-16] MEDS: METOPROLOL TARTRATE 50 MG TABLET PO SCH (10:15)
[2019-07-16] MEDS: ESCITALOPRAM OXALATE 10 MG TABLET PO SCH (10:16)
[2019-07-16] MEDS: CEFTRIAXONE 2 GM/D5W RTU 2 GM/50 ML RTUPB IV SCH (10:16)
[2019-07-16] MEDS: PREGABALIN 75 MG CAPSULE PO SCH ×2 (10:16→21:11)
--- NOTE | 2019-07-16 14:28 | RADIOLOGY REPORT (SQ) ---
EXAM DESCRIPTION: PICC INSERTION IMAGES COMPLETED DATE/TIME: 07/16/2019 1:45 pm REASON FOR STUDY: 6 weeks IV abx infected knee COMPARISON: None. FLUOROSCOPY TIME: 0.5 minutes 1 images saved to PACS. TECHNIQUE: Fluoroscopic and ultrasound guided PICC placement. LIMITATIONS: None. PROCEDURE: After written consent and assessment were obtained, the patient was brought into the fluo roscopy room and placed supine on the table. Ultrasound evaluation of potential access sites were per formed. After successfully identifying a patent right upper extremity brachiocephalic vein, the right arm was prepped and draped in a sterile fashion along with the ultrasound probe. The entry site was anesthetized with 1% lidocaine. A 21 gauge 7 cm needle was advanced through the skin and into the bra chiocephalic vein under live ultrasound guidance. An ultrasound image was saved to PACS confirming a ccess site. A .018 guide wire was then inserted through the needle and into the venous system. The n eedle was then removed and an 11 blade scalpel was used to make a 1cm skin incision. A 5 fr peel-clyde y sheath was advanced over the wire and into the venous system. A measurement was then made using the existing wire and live fluoroscopic guidance. The wire was then removed and trimmed. The PICC was ad vanced through the peel-away sheath and into the venous system. The peel-away sheath was removed and the catheter was adhered to the patients arm with a stat lock. The catheter was then aspirated and fl ushed and a sterile bandage was placed over the access site. A fluoroscopic spot image was saved to PACS confirming the catheter tip within the SVC. IMPRESSION: SUCCESSFUL PLACEMENT OF A 5 FR DUAL LUMEN 39 CM PICC IN THE RIGHT BRACHIOCEPHALIC VEIN. COMMENT: Patient medication list reviewed: Yes- Quality ID# 130:Eligible professional attests to doc umenting in the medical record they obtained, updated, or reviewed the patient's current medications. . Quality ID 145: Final reports for procedures using fluoroscopy that document radiation exposure lucia pam, or exposure time and number of fluorographic images (if radiation exposure indices are not avail able) Quality ID #76: The patient was prepped and draped using maximum sterile barrier technique including cap, mask, sterile gown, sterile gloves, a large sterile sheet, hand hygiene, and 2% Chlorhexidine fo r cutaneous antisepsis. When ultrasound is used, sterile ultrasound techniques are followed requiring sterile gel and sterile probes. TECHNICAL DOCUMENTATION: JOB ID: [id number] 2010 [email or web address] All Rights Reserved rev-07/14 Reading location - IP/workstation name: [email or web address]
[2019-07-16] MEDS: RIVAROXABAN 10 MG TABLET PO SCH (17:47)
[2019-07-16] MEDS ORDERED: NORMAL SALINE 10 ML SDV (AFTER EACH USE) IV PRN (18:00)
[2019-07-16] MEDS: ATORVASTATIN CALCIUM 10 MG TABLET PO SCH (21:11)
[2019-07-16] MEDS: NORMAL SALINE 10 ML SDV (SCHEDULED) IV SCH (21:11)
--- NOTE | 2019-07-17 10:05 | PDOC PROGRESS REPORT ---
Subjective Progress Note for:: 07/17/19 Subjective:: Patient is doing well status post I&D of the knee responding well to antibiotics reports that the pain is well controlled status post I&D of the knee. Reason For Visit: INFECTION OF KNEE Physical Exam Vital Signs: Temp Pulse Resp BP Pulse Ox 98.0 F 71 16 111/46 L 94 07/17/19 07:40 07/17/19 07:40 07/17/19 07:40 07/17/19 07:40 07/17/19 07:40 Intake & Output 07/16/19 07/17/19 07/18/19 06:59 06:59 06:59 Intake Total 646 908 Output Total 10 Balance 636 908 Weight 100.4 kg 100.4 kg General appearance: PRESENT: no acute distress Head exam: PRESENT: atraumatic - That is 1 thing. But I would know for sure what it was available so I think the kit planner is working on that that the amphetamine setting that up whether it is at home or a discharge facility this could be the next Thank sugar 2 perfect thank you so much Additional comments: Patient's dressing is intact patient has no calf tenderness grossly neurovascular intact bilateral lower extremity. Results Laboratory Results: 07/16/19 08:23 07/16/19 08:23 07/12/19 13:30 Knee - Tissue (Surgical) Fungal Smear - Final 07/12/19 13:30 Knee - Tissue (Surgical) Fungal Smear - Final 07/12/19 13:30 Knee - Tissue (Surgical) Gram Stain - Final 07/12/19 13:30 Knee - Tissue (Surgical) Wound Culture - Final NO AEROBIC OR ANAEROBIC ORGANISMS RECOVERED 07/12/19 13:30 Knee - Tissue (Surgical) AFB Smear Concentration - Final 07/12/19 13:30 Knee - Tissue (Surgical) Acid Fast Bacilli Smear - Final Impressions: Knee X-Ray 07/10/19 00:50 IMPRESSION: No cement again noted around the right knee with no acute osseous abnormality. There is diffuse soft tissue tissue swelling present. PICC Line Insertion 07/16/19 00:00 IMPRESSION: SUCCESSFUL PLACEMENT OF A 5 FR DUAL LUMEN 39 CM PICC IN THE RIGHT BRACHIOCEPHALIC VEIN. Assessment & Plan - Plan Summary Plan Summary: Plan for the patient to be discharged with IV antibiotics once that can be set up by discharge planning.
[2019-07-17] MEDS: NORMAL SALINE 10 ML SDV (SCHEDULED) IV SCH ×2 (10:28→21:07)
[2019-07-17] MEDS: CEFTRIAXONE 2 GM/D5W RTU 2 GM/50 ML RTUPB IV SCH (10:28)
[2019-07-17] MEDS: PREGABALIN 75 MG CAPSULE PO SCH ×2 (10:28→21:07)
[2019-07-17] MEDS: METOPROLOL TARTRATE 50 MG TABLET PO SCH (10:28)
[2019-07-17] MEDS: ESCITALOPRAM OXALATE 10 MG TABLET PO SCH (10:29)
[2019-07-17] MEDS: RIVAROXABAN 10 MG TABLET PO SCH (17:03)
[2019-07-17] MEDS: MORPHINE SULFATE 10 MG/ML INJ IV PRN (18:01)
[2019-07-17] MEDS: ATORVASTATIN CALCIUM 10 MG TABLET PO SCH (21:07)
[2019-07-18] MEDS: METOPROLOL TARTRATE 50 MG TABLET PO SCH (10:11)
[2019-07-18] MEDS: ESCITALOPRAM OXALATE 10 MG TABLET PO SCH (10:11)
[2019-07-18] MEDS: PREGABALIN 75 MG CAPSULE PO SCH (10:11)
[2019-07-18] MEDS: NORMAL SALINE 10 ML SDV (SCHEDULED) IV SCH (10:12)
[2019-07-18] MEDS: CEFTRIAXONE 2 GM/D5W RTU 2 GM/50 ML RTUPB IV SCH (10:12)
--- NOTE | 2019-07-18 15:38 | PDOC PROGRESS REPORT ---
Subjective Progress Note for:: 07/18/19 Subjective:: 73-year-old female with longstanding history of periprosthetic infection of the right knee. She states she is doing well, denies pain currently controlled. Was able to transfer from the bed to chair with physical therapy. Denies fever chills or sweats. Reason For Visit: INFECTION OF KNEE Physical Exam Vital Signs: Temp Pulse Resp BP Pulse Ox 98.5 F 55 L 16 125/54 L 96 07/18/19 11:12 07/18/19 11:12 07/18/19 11:12 07/18/19 11:12 07/18/19 11:12 Intake & Output 07/17/19 07/18/19 07/19/19 06:59 06:59 06:59 Intake Total 908 1462 410 Balance 908 1462 410 Weight 100.4 kg 101.1 kg General appearance: PRESENT: no acute distress, cooperative Results Laboratory Results: 07/16/19 08:23 07/16/19 08:23 Impressions: Knee X-Ray 07/10/19 00:50 IMPRESSION: No cement again noted around the right knee with no acute osseous abnormality. There is diffuse soft tissue tissue swelling present. PICC Line Insertion 07/16/19 00:00 IMPRESSION: SUCCESSFUL PLACEMENT OF A 5 FR DUAL LUMEN 39 CM PICC IN THE RIGHT BRACHIOCEPHALIC VEIN. Assessment & Plan - Time Time Spent with patient: Less than 15 minutes - Plan Summary Plan Summary: Patient doing well Ok to d/c home after home health and abx are established
[2019-07-18 16:17] VITALS: BP 114/52
--- NOTE | 2019-07-19 10:50 | Progress Note ---
Provider Note Provider Note: [facility] Telephone Advice Consultation Correction from my previous note. Patient will need 6 weeks of therapy from the day of the surgery with end date of August 23, 2019 (not 07/23/19). Please call if questions. Chen Tolbert MD [facility] [phone]
--- NOTE | 2019-07-19 13:55 | PDOC DISCHARGE SUMMARY ---
Impression - Admit/DC Date/PCP Admission Date/Primary Care Provider: 07/10/19 02:33 EDWARD JEAN NP Discharge Date: 07/19/19 - Discharge Diagnosis (1) Infection of knee Is this a current diagnosis for this admission?: Yes - Additional Information Resuscitation Status: Full Code Referrals: [facility] [Outside] ONDINA ARANDA MD [ACTIVE STAFF] - 07/26/19 9:30 am Prescriptions: Oxycodone HCl [Oxy-Ir 5 mg Tablet] 5 mg PO Q6HP PRN #20 tablet PRN Reason: Home Medications: Escitalopram Oxalate [Lexapro 10 mg Tablet] 10 mg PO DAILY 03/20/19 Hydrochlorothiazide [Hydrodiuril 25 mg Tablet] 25 mg PO DAILY 03/20/19 Pravastatin Sodium [Pravachol] 40 mg PO DAILY 03/20/19 Celecoxib [Celebrex 200 mg Capsule] 200 mg PO DAILY 07/10/19 Ergocalciferol (Vitamin D2) [Vitamin D2] 1 cap PO LIGHT@1000 07/10/19 Metoprolol Tartrate [Lopressor 50 mg Tablet] 50 mg PO DAILY 07/10/19 Sulfamethoxazole/Trimethoprim [Septra-Ds 800-160 mg Tablet] 1 tab PO DAILY 07/10/19 Oxycodone HCl [Oxy-Ir 5 mg Tablet] 5 mg PO Q6HP PRN #20 tablet 07/16/19 History of Present Illiness History of Present Illness: MELONY DAWSON is a 73-year-old woman admitted with suspected right knee infection. She has a history of right TKA in 2012. In 05/2018, she had revision and cultures at that time grew E coli from broth only, but no signs of infection at that time. In July she had washout and poly exchange. Cultures grew Micrococcus for which she received vancomycin, then Levaquin. Due to non healing, she returned to the OR in 12/2018 for resection arthroplasty and cement spacer. Streptococcus mitis and Staphylococcus epidermidis grew at that time. She received 6 weeks of ceftriaxone. In February, she was admitted again with knee infection. A 2 stage revision was recommended. She had the first stage done. Cultures at that time grew Enterococcus faecium and Corynebacterium. She received 6 weeks of daptomycin. AFB and fungal cultures in March were negative. Previous pathology demonstrated non-necrotizing granulomatous inflammation in synovium and soft tissue. All cultures were negative in March. She was readmitted with drainage and was taken to the OR on 07/09. She had I&D with antibiotic spacer exchange. There was serosanguineous drainage. There was no erythema, but clear bloody tinged fluid. Hospital Course Hospital Course: Patient was admitted to the orthopedic service on 07/10/2019 laboratory values demonstrated elevated CRP and sed rate. Cultures were obtained at that time. Given patient's history of multiple periprosthetic joint infections decision was made to proceed with operative intervention. On 07/12/2019 patient underwent revision irrigation debridement with exchange of antibiotic spacer. On postop day #1 patient's pain had improved. Had no issues overnight. Did begin physical therapy maintaining partial weightbearing in a knee immobilizer. Throughout her hospital course cultures demonstrate no evidence of growth till original cultures finalized to Streptococcus mitis. Infectious disease consultation recommended 6 weeks of IV Rocephin 2 g. Patient continued to have CBC with without evidence of leukocytosis. Hemoglobin and hematocrit did slowly decrease however patient remained asymptomatic. On 07/16/2019 patient's pain had improved and drains were removed with no sign or symptoms of recurrent infection. At that point decision was made for discharge to home with home health and physical therapy. Physical Exam Vital Signs: Temp Pulse Resp BP Pulse Ox 98.6 F 60 19 106/35 L 94 07/16/19 00:22 07/16/19 00:22 07/16/19 00:22 07/16/19 00:22 07/16/19 00:22 Intake & Output 07/15/19 07/16/19 07/17/19 06:59 06:59 06:59 Intake Total 590 646 Output Total 475 10 Balance 115 636 Weight 97.6 kg 100.4 kg General appearance: PRESENT: no acute distress, well-developed, well-nourished Head exam: PRESENT: atraumatic, normocephalic Eye exam: PRESENT: conjunctiva pink, EOMI, PERRLA. ABSENT: scleral icterus Ear exam: PRESENT: normal external ear exam Mouth exam: PRESENT: moist, tongue midline Neck exam: ABSENT: carotid bruit, JVD, lymphadenopathy, thyromegaly Respiratory exam: PRESENT: clear to auscultation nubia. ABSENT: rales, rhonchi, wheezes Cardiovascular exam: PRESENT: RRR. ABSENT: diastolic murmur, rubs, systolic murmur Pulses: PRESENT: normal dorsalis pedis pul Vascular exam: PRESENT: normal capillary refill GI/Abdominal exam: PRESENT: normal bowel sounds, soft. ABSENT: distended, guarding, mass, organolmegaly, rebound, tenderness Rectal exam: PRESENT: deferred Extremities exam: PRESENT: full ROM. ABSENT: calf tenderness, clubbing, pedal edema Musculoskeletal exam: PRESENT: other - Right lower extremity: Dressing clean/dry/intact no erythema or drainage. Intact plantarflexion/dorsiflexion. No sensory deficits. Negative Homans test. Dorsalis pedis pulse 2+. Neurological exam: PRESENT: alert, awake, oriented to person, oriented to place, oriented to time, oriented to situation, CN II-XII grossly intact. ABSENT: motor sensory deficit Psychiatric exam: PRESENT: appropriate affect, normal mood. ABSENT: homicidal ideation, suicidal ideation Skin exam: PRESENT: dry, intact, warm. ABSENT: cyanosis, rash Results Laboratory Results: WBC 6.2 10^3/uL (4.0-10.5) 07/15/19 04:40 RBC 2.64 10^6/uL (3.72-5.28) L 07/15/19 04:40 Hgb 8.0 g/dL (12.0-15.5) L 07/15/19 04:40 Hct 22.8 % (36.0-47.0) L 07/15/19 04:40 MCV 87 fl (80-97) 07/15/19 04:40 MCH 30.4 pg (27.0-33.4) 07/15/19 04:40 MCHC 35.2 g/dL (32.0-36.0) 07/15/19 04:40 RDW 13.6 % (11.5-14.0) 07/15/19 04:40 Plt Count 285 10^3/uL (150-450) 07/15/19 04:40 Lymph % (Auto) 7.3 % (13-45) L 07/10/19 01:25 Bledsoe % (Auto) 17.2 % (3-13) H 07/10/19 01:25 Eos % (Auto) 0.1 % (0-6) 07/10/19 01:25 Baso % (Auto) 0.1 % (0-2) 07/10/19 01:25 Absolute Neuts (auto) 8.6 10^3/uL (1.7-8.2) H 07/10/19 01:25 Absolute Lymphs (auto) 0.8 10^3/uL (0.5-4.7) 07/10/19 01:25 Absolute Monos (auto) 2.0 10^3/uL (0.1-1.4) H 07/10/19 01:25 Absolute Eos (auto) 0.0 10^3/uL (0.0-0.6) 07/10/19 01:25 Absolute Basos (auto) 0.0 10^3/uL (0.0-0.2) 07/10/19 01:25 Seg Neutrophils % 75.3 % (42-78) 07/10/19 01:25 ESR 37 mm/hr (0-30) H 07/10/19 09:17 Sodium 136.5 mmol/L (137-145) L 07/13/19 06:20 Potassium 3.9 mmol/L (3.6-5.0) 07/13/19 06:20 Chloride 103 mmol/L (98-107) 07/13/19 06:20 Carbon Dioxide 29 mmol/L (22-30) 07/13/19 06:20 Anion Gap 5 (5-19) 07/13/19 06:20 BUN 23 mg/dL (7-20) H 07/13/19 06:20 Creatinine 1.29 mg/dL (0.52-1.25) H 07/13/19 06:20 Est GFR ( Amer) 49 (>60) L 07/13/19 06:20 Est GFR (MDRD) Non-Af 41 (>60) L 07/13/19 06:20 Glucose 113 mg/dL (75-110) H 07/13/19 06:20 Lactic Acid 0.9 mmol/L (0.7-2.1) 07/10/19 01:25 Calcium 11.3 mg/dL (8.4-10.2) H 07/13/19 06:20 Total Bilirubin 2.0 mg/dL (0.2-1.3) H 07/10/19 01:25 Direct Bilirubin 0.2 mg/dL (0.0-0.4) 07/10/19 01:25 Neonat Total Bilirubin Not Reportable 07/10/19 01:25 Neonat Direct Bilirubin Not Reportable 07/10/19 01:25 Neonat Indirect Bili Not Reportable 07/10/19 01:25 AST 24 U/L (14-36) 07/10/19 01:25 ALT 18 U/L (<35) 07/10/19 01:25 Alkaline Phosphatase 68 U/L (38-126) 07/10/19 01:25 C-Reactive Protein 165.1 mg/L (<10.0) H 07/10/19 01:25 Total Protein 5.7 g/dL (6.3-8.2) L 07/10/19 01:25 Albumin 3.4 g/dL (3.5-5.0) L 07/10/19 01:25 COVID-19 Source Cancelled 07/11/19 10:20 COVID-19 (ELMER) Cancelled 07/11/19 10:20 SARS-CoV-2 (PCR) NEGATIVE (NEGATIVE) 07/11/19 10:20 Impressions: Knee X-Ray 07/10/19 00:50 IMPRESSION: No cement again noted around the right knee with no acute osseous abnormality. There is diffuse soft tissue tissue swelling present. Plan Plan of Treatment: Given patient's multiple periprosthetic joint fractions decision was made for her to continue 6 weeks of IV 2 g Rocephin as per infectious disease consultation and PICC line would be inserted. Patient is to maintain partial weightbearing in the knee immobilizer. Plans are set up for home health with IV antibiotics and serial labs. Patient to follow-up in the office with Dr. Aranda in 2 weeks for wound check. Patient is to call the office with any questions or concerns including increasing pain, redness, swelling, temperature greater 101.5, drainage or any further concerns. Patient read above instructions understood above instructions and orthopedically stable for discharge to home. Stroke Is this a Stroke Patient?: No Acute Heart Failure - Is this a Heart Failure Patient?: No
== END 2019-07-18 16:59 | disposition home health service (06) | DRG 486 ==
LOC: ER 00:35 → EH 02:33 → 4W 04:00 → 4N 07-11 14:20
PROVIDERS: ADMIT Orthopaedic Surgery; ATTEND Orthopaedic Surgery
PROC: 0SRC0EZ Replacement of Right Knee Joint with Articulating Spacer, Open Approach (ICD-10-PCS; 2019-07-12)
PROC: 0SPC0EZ Removal of Articulating Spacer from Right Knee Joint, Open Approach (ICD-10-PCS; principal; 2019-07-12 12:00)
PROC: 02HV33Z Insertion of Infusion Device into Superior Vena Cava, Percutaneous Approach (ICD-10-PCS; 2019-07-16)
PROC: B518ZZA Fluoroscopy of Superior Vena Cava, Guidance (ICD-10-PCS; 2019-07-16)
PROC: B548ZZA Ultrasonography of Superior Vena Cava, Guidance (ICD-10-PCS; 2019-07-16)
DX: T84.53XA Infection and inflammatory reaction due to internal right knee prosthesis, initial encounter (principal); E87.1 Hypo-osmolality and hyponatremia; D62 Acute posthemorrhagic anemia; E83.52 Hypercalcemia; M17.0 Bilateral primary osteoarthritis of knee; M19.042 Primary osteoarthritis, left hand; M19.041 Primary osteoarthritis, right hand; Y83.1 Surgical operation with implant of artificial internal device as the cause of abnormal reaction of the patient, or of later complication, without mention of misadventure at the time of the procedure; B95.4 Other streptococcus as the cause of diseases classified elsewhere; E78.5 Hyperlipidemia, unspecified; I10 Essential (primary) hypertension; Z96.651 Presence of right artificial knee joint
CPT/HCPCS: 01320; 36415; 36573; 80048; 80053; 83605; 85025; 85027; 85652; 86140; 87015; 87040; 87070; 87075; 87077; 87101; 87116; 87186; 87205; 87206; 87635; 88304; 88312; 94799; 99285; C1713; C1776; J0696; J0878; J1642; J2250; J2270; J2405; J2704; J3010; J3370; J3490; L1830

== ENCOUNTER 2019-07-19 20:40 | Inpatient (IN) | payer OTHER, MEDICARE ==
--- NOTE | 2019-07-19 22:09 | ER Document Report ---
ED General - General Mode of Arrival: Ambulatory Information source: Patient TRAVEL OUTSIDE OF THE [place] IN LAST 30 DAYS: No - HPI Onset: Other - x 3 days Quality of pain: Achy Severity: Mild Pain Level: 2 Associated symptoms: Body/muscle aches, Weakness, Other - Right lower leg edema Exacerbated by: Movement, Walking Relieved by: Denies Similar symptoms previously: Yes Recently seen / treated by doctor: Yes <GUME HAWK JR - Last Filed: 07/20/19 02:12> <RADHA WHYTE IV - Last Filed: 07/20/19 06:08> - General Chief Complaint: Leg Pain Stated Complaint: LEG PAIN Time Seen by Provider: 07/19/19 22:08 Primary Care Provider: EDWARD JEAN NP [Primary Care Provider] - Follow up as needed Notes: 07/19/19 21:09 - ED Nursing Note by KIRSTY ROWE Acct Num: [id number] : 1945 Patient Age: 73 Addendum entered by KIRSTY ROWE RN 07/19/19 21:12: EMS initiated a 20G IV to the Lt AC and Pt has PICC line to the Rt clavicle. Original Note: Pt brought in today via EMS 2 days post-op from a "knee block" procedure on the Rt knee by Dr. Adan. Pt indicates that she is unable to walk at this time and according to her surgeon she should be able to weight bare up to 50%. Pt reports that this is her 7th surgery to this knee. Area is enlarged but soft with no redness. Operative dressing is in place. Pt sensation is in tact and distal pulses are present. Pt appears uncomfortable AEB facial grimacing. A&Ox4. on Metoprolol and low BP HR my notes 73-year-old female arrives via EMS with severe malaise and tiredness and chills. Patient has been taking antibiotics because they found that her right knee grew a bacteria on 09 July. This was strep mitis/oralis. Patient currently has a left arm PICC line in a right AC IV line. She has been taking antibiotics since her discharge from hospital 3 days ago. Patient reports she was scheduled for surgery in April 24 but the coronavirus caused all cessation of outpatient surgeries. She was called last week by Dr. Aranda's office and advised that she will receive her right knee surgery. She reports this is the seventh surgery she has had on the right knee. 6 years ago while in [place] she experienced a fractured right kneecap and therefore this was replaced but this grew MRSA. Since then she has had multiple surgeries to her right knee and leg. She has dressing on the right patella at this time. please note Annmarie's notes on 17 july Subjective Progress Note for:: 07/18/19 Subjective:: 73-year-old female with longstanding history of periprosthetic infection of the right knee. She states she is doing well, denies pain currently controlled. Was able to transfer from the bed to chair with physical therapy. Denies fever chills or sweats. Reason For Visit: INFECTION OF KNEE Physical Exam Vital Signs: Temp Pulse Resp BP Pulse Ox 98.5 F 55 L 16 125/54 L 96 07/18/19 11:12 07/18/19 11:12 07/18/19 11:12 07/18/19 11:12 07/18/19 11:12 Intake & Output 07/17/19 07/18/19 07/19/19 06:59 06:59 06:59 Intake Total 908 1462 410 Balance 908 1462 410 Weight 100.4 kg 101.1 kg General appearance: PRESENT: no acute distress, cooperative Results Laboratory Results: 07/16/19 08:23 07/16/19 08:23 Impressions: Knee X-Ray 07/10/19 00:50 IMPRESSION: No cement again noted around the right knee with no acute osseous abnormality. There is diffuse soft tissue tissue swelling present. PICC Line Insertion 07/16/19 00:00 IMPRESSION: SUCCESSFUL PLACEMENT OF A 5 FR DUAL LUMEN 39 CM PICC IN THE RIGHT BRACHIOCEPHALIC VEIN. Assessment & Plan - Time Time Spent with patient: Less than 15 minutes - Plan Summary Plan Summary: Patient doing well Ok to d/c home after home health and abx are established (GUME HAWK JR) - Related Data Allergies/Adverse Reactions: No Known Allergies Allergy (Verified 05/08/19 14:12) Past Medical History - General Information source: Patient - Social History Smoking Status: Never Smoker Cigarette use (# per day): No Chew tobacco use (# tins/day): No Smoking Education Provided: No Frequency of alcohol use: None Drug Abuse: None Lives with: Family Family History: Reviewed & Not Pertinent Patient has suicidal ideation: No Patient has homicidal ideation: No - Past Medical History Cardiac Medical History: Reports: Hx Hypercholesterolemia, Hx Hypertension Denies: Hx Atrial Fibrillation, Hx Congestive Heart Failure, Hx Coronary Artery Disease, Hx Heart Attack, Hx Peripheral Vascular Disease, Hx Heart Murmur Pulmonary Medical History: Denies: Hx Asthma, Hx Bronchitis, Hx COPD, Hx Sleep Apnea Neurological Medical History: Denies: Hx Cerebrovascular Accident, Hx Seizures Endocrine Medical History: Denies: Hx Hyperthyroidism, Hx Hypothyroidism Renal/ Medical History: Denies: Hx Kidney Stones, Hx Peritoneal Dialysis Malignancy Medical History: Denies: Hx Leukemia GI Medical History: Denies: Hx Gastroesophageal Reflux Disease Musculoskeletal Medical History: Reports Hx Arthritis - knees, hands, Denies Hx Fibromyalgia, Denies Hx Muscular Dystrophy Psychiatric Medical History: Reports: Hx Depression Denies: Hx Bipolar Disorder, Hx Post Traumatic Stress Disorder, Hx S chizophrenia Traumatic Medical History: Denies: Hx Fractures Infectious Medical History: Denies: Hx HIV Past Surgical History: Reports: Hx Orthopedic Surgery - Status post right knee arthroplasty, failure, and revision.. Denies: Hx Appendectomy, Hx Bowel Surgery, Hx Section, Hx Cholecystectomy, Hx Coronary Artery Bypass Graft, Hx Gastric Bypass Surgery, Hx Herniorrhaphy, Hx Hysterectomy, Hx Mastectomy, Hx Pacemaker, Hx Tonsillectomy, Hx Tubal Ligation - Immunizations Hx Pneumococcal Vaccination: 02/28/16 <GUME HAWK JR - Last Filed: 07/20/19 02:12> Review of Systems - Review of Systems Constitutional: See HPI, Chills, Weakness, Other - Status post surgery EENT: No symptoms reported Cardiovascular: No symptoms reported Respiratory: No symptoms reported Gastrointestinal: No symptoms reported Genitourinary: No symptoms reported Female Genitourinary: No symptoms reported Musculoskeletal: No symptoms reported, See HPI, Joint swelling, Muscle pain, Muscle stiffness, Other - RLE edema Skin: No symptoms reported Hematologic/Lymphatic: No symptoms reported Neurological/Psychological: No symptoms reported <GUME HAWK JR - Last Filed: 07/20/19 02:12> Physical Exam - Vital signs Interpretation: Hypotensive, Bradycardic - General General appearance: Alert - HEENT Head: Normocephalic, Atraumatic Eyes: Normal Pupils: PERRL Nasal: Normal Mouth/Lips: Normal Mucous membranes: Normal Pharynx: Normal Neck: Normal - Respiratory Respiratory status: No respiratory distress Chest status: Nontender Breath sounds: Normal Chest palpation: Normal - Cardiovascular Rhythm: Bradycardia Heart sounds: Normal auscultation Murmur: No - Abdominal Inspection: Normal Distension: No distension Bowel sounds: Normal Tenderness: Nontender Organomegaly: No organomegaly - Rectal Stool: Other - deferred - Genitourinary Speculum exam: Other - deferred - Back Back: Normal - Extremities General upper extremity: Normal inspection General lower extremity: Other - RLE edema with surg tape 25 cm l x 3 cm w over patella with med lat lap /trochar sites - Neurological Neuro grossly intact: Yes Cognition: Normal Orientation: AAOx4 Adan Coma Scale Eye Opening: Spontaneous [place] Coma Scale Verbal: Oriented [place] Coma Scale Motor: Obeys Commands Adan Coma Scale Total: 15 Speech: Normal Motor strength normal: LUE, RUE, LLE, RLE Sensory: Normal - Psychological Associated symptoms: Normal affect - Skin Skin Temperature: Warm Skin Moisture: Dry <GUME HAWK JR - Last Filed: 07/20/19 02:12> - Vital signs Vitals: Temp Pulse Resp BP Pulse Ox 98.4 F 55 L 12 97/46 L 95 07/19/19 21:01 07/19/19 21:01 07/19/19 21:01 07/19/19 21:01 07/19/19 21:01 Course - Laboratory Result Diagrams: 07/19/19 22:40 07/19/19 22:40 <GUME HAWK JR - Last Filed: 07/20/19 02:12> - Laboratory Result Diagrams: 07/19/19 22:40 07/19/19 22:40 - Consults dr. adan Time consulted: 06:02 - agreed to admit patient Consulted provider: will see as inpatient <RADHA WHYTE IV - Last Filed: 07/20/19 06:08> - Vital Signs Vital signs: Temp Pulse Resp BP Pulse Ox 98.2 F 60 18 100/65 95 07/20/19 05:29 07/20/19 05:29 07/20/19 05:29 07/20/19 05:29 07/20/19 05:29 - Laboratory Laboratory results interpreted by me: 07/19/19 07/19/19 22:40 22:40 RBC 2.93 L Hgb 8.9 L Hct 25.1 L Plt Count 469 H Lymph % (Auto) 12.2 L Sodium 136.3 L Potassium 3.5 L BUN 22 H Creatinine 1.50 H Est GFR ( Amer) 41 L Est GFR (MDRD) Non-Af 34 L Calcium 11.1 H Total Protein 5.6 L Albumin 3.0 L - Consults dr. adan Reason for consultation: 07/20/19 06:04 knee infection (RADHA WHYTE IV) Critical Care Note - Critical Care Note Total time excluding time spent on procedures (mins): 90 <GUME HAWK JR - Last Filed: 07/20/19 02:12> Discharge <GUME HAWK JR - Last Filed: 07/20/19 02:12> - Discharge Admitting Provider: dr. adan Unit Admitted: Surgical Floor <RADHA WHYTE IV - Last Filed: 07/20/19 06:08> - Discharge Clinical Impression: right lower extremity edema s/p ORIF, Infection of knee Hypotension Qualifiers: Hypotension type: unspecified hypotension type Qualified Code(s): I95.9 - Hypotension, unspecified Condition: Fair Disposition: ADMITTED INPATIENT Referrals: EDWARD JEAN NP [Primary Care Provider] - Follow up as needed
[2019-07-19 22:51] LABS: ABSOLUTE EOSINOPHILS # (AUTO) 0.1 10^3/uL (0.0-0.6); BASOPHILS % (AUTO) 0.3 % (0-2); EOSINOPHILS % (AUTO) 1.3 % (0-6); HEMATOCRIT 25.1 % (36.0-47.0); HEMOGLOBIN 8.9 g/dL (12.0-15.5); LYMPHOCYTES % (AUTO) 12.2 % (13-45); MEAN CORPUSCULAR HEMOGLOBIN 30.3 pg (27.0-33.4); MEAN CORPUSCULAR HGB CONC 35.3 g/dL (32.0-36.0); MEAN CORPUSCULAR VOLUME 86 fl (80-97); MONOCYTES % (AUTO) 12.1 % (3-13); PLATELET COUNT 469 10^3/uL (150-450); RED BLOOD COUNT 2.93 10^6/uL (3.72-5.28); RED CELL DISTRIBUTION WIDTH 13.6 % (11.5-14.0); SEGMENTED NEUTROPHILS % (AUTO) 74.1 % (42-78); TOTAL CELLS COUNTED % (AUTO) 100 %; WHITE BLOOD COUNT 8.1 10^3/uL (4.0-10.5)
[2019-07-19 23:08] LABS: ALKALINE PHOSPHATASE 96 U/L (38-126); ANION GAP 6 (5-19); ASPARTATE AMINO TRANSFERASE 35 U/L (14-36); BILIRUBIN,TOTAL 0.4 mg/dL (0.2-1.3); BLOOD UREA NITROGEN 22 mg/dL (7-20); CALCIUM 11.1 mg/dL (8.4-10.2); CARBON DIOXIDE 28 mmol/L (22-30); CHLORIDE 102 mmol/L (98-107); GLUCOSE 102 mg/dL (75-110); POTASSIUM 3.5 mmol/L (3.6-5.0); TOTAL PROTEIN 5.6 g/dL (6.3-8.2)
[2019-07-19 23:14] LABS: INTERNATIONAL RATION (INR) 1.04; PROTHROMBIN TIME 13.7 SEC (11.4-15.4)
[2019-07-19 23:15] LABS: PARTIAL THROMBOPLASTIN TIME 30.1 SEC (23.5-35.8)
--- NOTE | 2019-07-20 02:01 | RADIOLOGY REPORT (SQ) ---
EXAM DESCRIPTION: XR KNEE 3 VIEWS COMPLETED DATE/TME: 07/20/2019 00:39 CLINICAL HISTORY: 73 years Female, s/p orif COMPARISON:Jul 10 2019 Findings: Right total knee arthroplasty and cement fixation with deformity of the right tibiofemoral joint. Moderate joint fluid and joint emphysema of the right knee. Skin clips. Bones, joints, and soft tissues of the RIGHT XR KNEE 3 VIEWS appear otherwise unremarkable. IMPRESSION: Moderate joint fluid and joint emphysema of the right knee increased compared with prior exam from 10 days ago.
[2019-07-20] MEDS ORDERED: CEFTRIAXONE INJ 1000 MG VIAL IV ONE (02:41)
[2019-07-20] MEDS ORDERED: GENTAMICIN SULFATE INJ 80 MG/2 ML VIAL IV ONE (02:42)
[2019-07-20] MEDS ORDERED: OXYCODONE HCL IR 5 MG TABLET ONE (08:52)
[2019-07-20] MEDS ORDERED: HYDROCHLOROTHIAZIDE 25 MG TABLET PO SCH (10:00)
[2019-07-20] MEDS ORDERED: CELECOXIB 200 MG CAPSULE PO SCH (10:00)
[2019-07-20] MEDS ORDERED: (PENDING PHARMACY ID) (Pravastatin Sodium [Pravachol] 40 MG) PO SCH (10:00)
[2019-07-20] MEDS ORDERED: METOPROLOL TARTRATE 50 MG TABLET PO SCH (10:00)
[2019-07-20] MEDS ORDERED: CEFTRIAXONE 2 GM/D5W RTU 2 GM/50 ML RTUPB IV SCH (11:00)
--- NOTE | 2019-07-20 11:04 | PDOC H&P ---
History of Present Illness Admission Date/PCP: 07/20/19 06:37 EDWARD JEAN NP Patient complains of: Right knee pain History of Present Illness: MELONY DAWSON is a 73 year old female with extensive surgical history of the right knee. Patient has underwent multiple knee surgeries including recently multiple irrigation and debridements with placement of antibiotic spacer with most recent 07/12/2019. Patient was recently discharged on 07/18/2019 and was to receive 6 weeks of IV antibiotics as per infectious disease unfortunately once home patient was unable to be cared for by the family due to difficulty upon ambulation on her right knee. She was then sent to the emergency room due to increased confusion, failure to thrive and difficulty with urination. Patient denies fever chills or sweats. Currently resting comfortably with no complaints. States pain at her knee is worse with motion. Past Medical History Cardiac Medical History: Reports: Hyperlipidema, Hypertension Denies: Atrial Fibrillation, Congestive Heart Failure, Coronary Artery Disease, Myocardial Infarction, Peripheral Vascular Disease, Heart Murmur Pulmonary Medical History: Denies: Asthma, Bronchitis, Chronic Obstructive Pulmonary Disease (COPD), Sleep Apnea Neurological Medical History: Denies: Seizures Endocrine Medical History: Denies: Hyperthyroidism, Hypothyroidism Malignancy Medical History: Denies: Leukemia GI Medical History: Denies: Gastroesophageal Reflux Disease Musculoskeltal Medical History: Reports: Arthritis - knees, hands Denies: Fibromyalgia Psychiatric Medical History: Reports: Depression Denies: Bipolar Disorder, Post Traumatic Stress Disorder Hematology: Reports: Anemia - as a teen Denies: Hemophilia, Sickle Cell Disease Infectious Medical History: Denies: HIV Past Surgical History Past Surgical History: Reports: Orthopedic Surgery - Status post right knee arthroplasty, failure, and revision. Denies: Amputation, Appendectomy, Section, Cholecystectomy, Coronary Artery Bypass Graft, Gastric Bypass Surgery, Herniorrhaphy, Hysterectomy, Mastectomy, Pacemaker, Tonsillectomy, Tubal Ligation Social History Lives with: Family Smoking Status: Never Smoker Frequency of Alcohol Use: None Hx Recreational Drug Use: No Drugs: None Hx Prescription Drug Abuse: No Family History Family History: Reviewed & Not Pertinent Parental Family History Reviewed: No Children Family History Reviewed: No Sibling(s) Family History Reviewed.: No Medication/Allergy Home Medications: Escitalopram Oxalate [Lexapro 10 mg Tablet] 10 mg PO DAILY 03/20/19 Hydrochlorothiazide [Hydrodiuril 25 mg Tablet] 25 mg PO DAILY 03/20/19 Pravastatin Sodium [Pravachol] 40 mg PO DAILY 03/20/19 Celecoxib [Celebrex 200 mg Capsule] 200 mg PO DAILY 07/10/19 Metoprolol Tartrate [Lopressor 50 mg Tablet] 50 mg PO DAILY 07/10/19 Sulfamethoxazole/Trimethoprim [Septra-Ds 800-160 mg Tablet] 1 tab PO DAILY 07/10/19 Ergocalciferol (Vitamin D2) [Drisdol 50,000 unit (1.25MG) Capsule] 50,000 unit PO LIGHT 07/20/19 Oxycodone HCl [Oxy-Ir 5 mg Tablet] 5 mg PO Q6HP PRN 07/20/19 Allergies/Adverse Reactions: No Known Allergies Allergy (Verified 05/08/19 14:12) Review of Systems Constitutional: ABSENT: chills, fever(s), headache(s), weight gain, weight loss Eyes: ABSENT: visual disturbances Ears: ABSENT: hearing changes Cardiovascular: ABSENT: chest pain, dyspnea on exertion, edema, orthropnea, palpitations Respiratory: ABSENT: cough, hemoptysis Gastrointestinal: ABSENT: abdominal pain, constipation, diarrhea, hematemesis, hematochezia, nausea, vomiting Genitourinary: PRESENT: other - Frequent urination including incontinence. ABSENT: dysuria, hematuria Musculoskeletal: PRESENT: as per HPI Integumentary: ABSENT: rash, wounds Neurological: ABSENT: abnormal gait, abnormal speech, confusion, dizziness, focal weakness, syncope Psychiatric: ABSENT: anxiety, depression, homidical ideation, suicidal ideation Endocrine: ABSENT: cold intolerance, heat intolerance, menstrual abnormalities, polydipsia, polyuria Hematologic/Lymphatic: ABSENT: easy bleeding, easy bruising, lymphadenopathy Physical Exam Vital Signs: Temp Pulse Resp BP Pulse Ox 98.5 F 64 18 119/53 L 98 07/20/19 07:54 07/20/19 07:54 07/20/19 07:54 07/20/19 07:54 07/20/19 07:54 Intake & Output 07/19/19 07/20/19 07/21/19 06:59 06:59 06:59 Weight 95.7 kg General appearance: PRESENT: no acute distress, well-developed, well-nourished Head exam: PRESENT: atraumatic, normocephalic Eye exam: PRESENT: conjunctiva pink, EOMI, PERRLA. ABSENT: scleral icterus Ear exam: PRESENT: normal external ear exam Mouth exam: PRESENT: moist, tongue midline Neck exam: PRESENT: full ROM. ABSENT: carotid bruit, JVD, lymphadenopathy, thyromegaly Respiratory exam: PRESENT: unlabored Cardiovascular exam: PRESENT: RRR. ABSENT: diastolic murmur, rubs, systolic murmur Pulses: PRESENT: normal dorsalis pedis pul, +2 pedal pulses bilateral Vascular exam: PRESENT: normal capillary refill GI/Abdominal exam: PRESENT: normal bowel sounds, soft. ABSENT: distended, guarding, mass, organolmegaly, rebound, tenderness Rectal exam: PRESENT: deferred Musculoskeletal exam: PRESENT: other - Right knee: Dressing clean/dry/intact no erythema or drainage. Moderate effusion. Pain with attempted range of motion. Intact dorsiflexion/plantarflexion. No erythema. Mild ecchymosis. Dorsalis pedis pulse 2+. Neurological exam: PRESENT: alert, awake, oriented to person, oriented to place, oriented to time, oriented to situation, CN II-XII grossly intact. ABSENT: motor sensory deficit Psychiatric exam: PRESENT: appropriate affect, normal mood. ABSENT: homicidal ideation, suicidal ideation Skin exam: PRESENT: dry, intact, warm. ABSENT: cyanosis, rash Results Laboratory Results: 07/19/19 22:40 07/19/19 22:40 07/19/19 07/19/19 22:40 22:40 WBC 8.1 RBC 2.93 L Hgb 8.9 L Hct 25.1 L MCV 86 MCH 30.3 MCHC 35.3 RDW 13.6 Plt Count 469 H Seg Neutrophils % 74.1 Sodium 136.3 L Potassium 3.5 L Chloride 102 Carbon Dioxide 28 Anion Gap 6 BUN 22 H Creatinine 1.50 H Est GFR ( Amer) 41 L Glucose 102 Calcium 11.1 H Total Bilirubin 0.4 AST 35 Alkaline Phosphatase 96 Total Protein 5.6 L Albumin 3.0 L Impressions: Knee X-Ray 07/20/19 00:39 IMPRESSION: Moderate joint fluid and joint emphysema of the right knee increased compared with prior exam from 10 days ago. Assessment & Plan - Diagnosis (1) Infection of knee Is this a current diagnosis for this admission?: Yes Plan: Patient status post irrigation remote placement of antibiotic spacer unfortunately patient was unable to function adequately at home due to difficulty with ambulation and according to family urinary incontinence that they were concerned about her overall health. At that point decision was then made to transfer to the emergency room for possible rehab placement. At this point patient will receive 6 weeks of IV Rocephin at 2 g final date of IV infusion 08/23/2019. Will consult case management for possible rehab placement. 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
[2019-07-20] MEDS: ESCITALOPRAM OXALATE 10 MG TABLET PO SCH (11:24)
--- NOTE | 2019-07-20 12:40 | RADIOLOGY REPORT (SQ) ---
EXAM DESCRIPTION: CT HEAD WITHOUT IMAGES COMPLETED DATE/TIME: 07/20/2019 12:28 pm REASON FOR STUDY: AMS COMPARISON: None. TECHNIQUE: Axial images acquired through the brain without intravenous contrast. Images reviewed wi th bone, brain and subdural windows. Additional sagittal and coronal reconstructions were generated. Images stored on PACS. All CT scanners at this facility use dose modulation, iterative reconstruction, and/or weight based d osing when appropriate to reduce radiation dose to as low as reasonably achievable (ALARA). [facility]: Dose Right [facility]: CareDose [facility]: Dose Right [facility]: Teradose 4D [facility]: CommProve RADIATION DOSE: CT Rad equipment meets quality standard of care and radiation dose reduction techniq ues were employed. CTDIvol: 53.2 mGy. DLP: 964 mGy-cm. mGy. LIMITATIONS: None. FINDINGS: VENTRICLES: Prominent. CEREBRUM: No masses. No hemorrhage. No midline shift. Areas of low density in the white matter mos t likely due to chronic micro-vascular ischemic change. No evidence for acute infarction. CEREBELLUM: No masses. No hemorrhage. No alteration of density. No evidence for acute infarction. EXTRAAXIAL SPACES: Mild age-related involutional change. No fluid collections. No masses. ORBITS AND GLOBE: No intra- or extraconal masses. Normal contour of globe without masses. CALVARIUM: No fracture. PARANASAL SINUSES: No fluid or mucosal thickening. SOFT TISSUES: No mass or hematoma. OTHER: No other significant finding. IMPRESSION: MILD CHRONIC CHANGES OF ATROPHY AND MICROVASCULAR ISCHEMIA. NO ACUTE PROCESS. EVIDENCE OF ACUTE STROKE: NO. TECHNICAL DOCUMENTATION: JOB ID: [id number] Quality ID # [id number]: Final reports with documentation of one or more dose reduction techniques (e.g., Au tomated exposure control, adjustment of the mA and/or kV according to patient size, use of iterative reconstruction technique) 2010 [employer]- All Rights Reserved Reading location - IP/workstation name: [email or web address]
[2019-07-20] MEDS ORDERED: ALTEPLASE INJ 2 MG VIAL (CATH CLEARANCE) IV ONE (14:30)
[2019-07-20] MEDS ORDERED: NORMAL SALINE 10 ML SDV (AFTER EACH USE) IV PRN (15:00)
[2019-07-20] MEDS ORDERED: POLYETHYLENE GLYCOL 3350 POWDER 17 GM/1 PACKET PO PRN (15:02)
[2019-07-20] MEDS: OXYCODONE HCL IR 5 MG TABLET PO PRN (15:21)
[2019-07-20] MEDS ORDERED: POTASSIUM CHLORIDE 10 MEQ TABLET.ER PO ONE (15:56)
--- NOTE | 2019-07-20 16:09 | PDOC CONSULTATION ---
Consultation Consult Date: 07/20/19 Attending physician:: HERB ADAN Provider Consulted: MERLENE GUALLPA Consult reason:: hypokalemia History of Present Illness Admission Date/PCP: 07/20/19 06:37 EDWARD JEAN NP Patient complains of: right knee pain History of Present Illness: Per H&P by Dr. Adan: MELONY DAWSON is a 73 year old female with extensive surgical history of the right knee. Patient has underwent multiple knee surgeries including recently multiple irrigation and debridements with placement of antibiotic spacer with most recent 07/12/2019. Patient was recently discharged on 07/18/2019 and was to receive 6 weeks of IV antibiotics as per infectious disease unfortunately once home patient was unable to be cared for by the family due to difficulty upon ambulation on her right knee. She was then sent to the emergency room due to increased confusion, failure to thrive and difficulty with urination. Patient denies fever chills or sweats. Currently resting comfortably with no complaints. States pain at her knee is worse with motion. Hospitalist consulted for hypokalemia and confusion. Patient was seen on afternoon rounds with nursing present. She was found resting in bed, comfortably, on room air. She is A&Ox4 and is able to describe her recent difficulty with knee surgeries, joint infections, and prolong antibi otics. She admits to increased forgetfulness that has gradually worsened over the last several months. She denies outright confusion and reaffirms forgetfulness that has worried her family members. She tells me her forgetfulness is worsened by fatigue and pain. Aside from her knee discomfort, she denies all sypmtoms; specifically headaches, chest pain, abdominal pain, nausea and vomiting. Tells me she is going to [place] on Monday/ She has no other questions or concerns. No concerns per nursing. Past Medical History Cardiac Medical History: Reports: Hyperlipidema, Hypertension Denies: Atrial Fibrillation, Congestive Heart Failure, Coronary Artery Disease, Myocardial Infarction, Peripheral Vascular Disease, Heart Murmur Pulmonary Medical History: Reports: None EENT Medical History: Reports: None Neurological Medical History: Reports: Other - TIA Denies: Ischemic CVA, Seizures Endocrine Medical History: Reports: Obesity Denies: Hypothyroidism Renal/ Medical History: Reports: None Malignancy Medical History: Denies: Leukemia GI Medical History: Denies: Gastroesophageal Reflux Disease Musculoskeltal Medical History: Reports: Arthritis - knees, hands Denies: Fibromyalgia Skin Medical History: Denies: Eczema Psychiatric Medical History: Reports: Depression Denies: Bipolar Disorder, Post Traumatic Stress Disorder Hematology: Reports: Anemia Denies: Hemophilia, Sickle Cell Disease Infectious Medical History: Denies: HIV Past Surgical History Past Surgical History: Reports: Orthopedic Surgery - Status post right knee arthroplasty, failure, and revision. Denies: Amputation, Appendectomy, Section, Cholecystectomy, Coronary Artery Bypass Graft, Gastric Bypass Surgery, Herniorrhaphy, Hysterectomy, Mastectomy, Pacemaker, Tonsillectomy, Tubal Ligation Social History Information Source: Patient Lives with: Family Smoking Status: Former Smoker Cigarettes Packs Per Day: 0.5 Electronic Cigarette use?: No Cigars Per Day: 0 Pipes Per Day: 0 Number of Years Smokin Last Time Smoked: 02/28/1972 Frequency of Alcohol Use: None Hx Recreational Drug Use: No Drugs: None Hx Prescription Drug Abuse: No Family History Family History: Reviewed & Not Pertinent Parental Family History Reviewed: Yes Children Family History Reviewed: Yes Sibling(s) Family History Reviewed.: Yes Medication/Allergy Home Medications: Escitalopram Oxalate [Lexapro 10 mg Tablet] 10 mg PO DAILY 03/20/19 Hydrochlorothiazide [Hydrodiuril 25 mg Tablet] 25 mg PO DAILY 03/20/19 Pravastatin Sodium [Pravachol] 40 mg PO DAILY 03/20/19 Celecoxib [Celebrex 200 mg Capsule] 200 mg PO DAILY 07/10/19 Metoprolol Tartrate [Lopressor 50 mg Tablet] 50 mg PO DAILY 07/10/19 Sulfamethoxazole/Trimethoprim [Septra-Ds 800-160 mg Tablet] 1 tab PO DAILY 07/10/19 Ergocalciferol (Vitamin D2) [Drisdol 50,000 unit (1.25MG) Capsule] 50,000 unit PO LIGHT 07/20/19 Oxycodone HCl [Oxy-Ir 5 mg Tablet] 5 mg PO Q6HP PRN 07/20/19 Allergies/Adverse Reactions: No Known Allergies Allergy (Verified 07/20/19 15:01) Review of Systems Constitutional: ABSENT: chills, fever(s), headache(s), weight gain, weight loss Eyes: ABSENT: visual disturbances Ears: ABSENT: hearing changes Cardiovascular: ABSENT: chest pain, dyspnea on exertion, edema, orthropnea, palpitations Respiratory: ABSENT: cough, hemoptysis Gastrointestinal: ABSENT: abdominal pain, constipation, diarrhea, hematemesis, hematochezia, nausea, vomiting Genitourinary: ABSENT: dysuria, hematuria Musculoskeletal: PRESENT: as per HPI. ABSENT: joint swelling Integumentary: ABSENT: rash, wounds Neurological: PRESENT: as per HPI. ABSENT: abnormal gait, abnormal speech, confusion, dizziness, focal weakness, syncope Psychiatric: ABSENT: anxiety, depression, homidical ideation, suicidal ideation Endocrine: ABSENT: cold intolerance, heat intolerance, polydipsia, polyuria Hematologic/Lymphatic: ABSENT: easy bleeding, easy bruising Physical Exam Vital Signs: Temp Pulse Resp BP Pulse Ox 98.0 F 60 19 103/46 L 99 07/20/19 12:34 07/20/19 12:34 07/20/19 12:34 07/20/19 12:34 07/20/19 12:34 Intake & Output 07/19/19 07/20/19 07/21/19 06:59 06:59 06:59 Weight 95.7 kg General appearance: PRESENT: no acute distress, cooperative, obese, well- developed, well-nourished Head exam: PRESENT: atraumatic, normocephalic Eye exam: PRESENT: conjunctiva pink, EOMI, PERRLA. ABSENT: scleral icterus Mouth exam: PRESENT: moist, tongue midline Neck exam: ABSENT: carotid bruit, JVD, lymphadenopathy, thyromegaly Respiratory exam: PRESENT: clear to auscultation nubia, symmetrical, unlabored. ABSENT: rales, rhonchi, wheezes Cardiovascular exam: PRESENT: RRR, +S1, +S2. ABSENT: diastolic murmur, rubs, systolic murmur Pulses: PRESENT: normal dorsalis pedis pul Vascular exam: PRESENT: normal capillary refill Extremities exam: PRESENT: full ROM, tenderness - right knee. ABSENT: calf tenderness, clubbing, pedal edema Neurological exam: PRESENT: alert, awake, oriented to person, oriented to place, oriented to time, oriented to situation, CN II-XII grossly intact. ABSENT: motor sensory deficit Psychiatric exam: PRESENT: appropriate affect, normal mood. ABSENT: homicidal ideation, suicidal ideation Skin exam: PRESENT: dry, intact, warm. ABSENT: cyanosis, rash Results Laboratory Results: 07/19/19 22:40 05/22/20 22:40 07/19/19 07/19/19 22:40 22:40 WBC 8.1 RBC 2.93 L Hgb 8.9 L Hct 25.1 L MCV 86 MCH 30.3 MCHC 35.3 RDW 13.6 Plt Count 469 H Seg Neutrophils % 74.1 Sodium 136.3 L Potassium 3.5 L Chloride 102 Carbon Dioxide 28 Anion Gap 6 BUN 22 H Creatinine 1.50 H Est GFR ( Amer) 41 L Glucose 102 Calcium 11.1 H Total Bilirubin 0.4 AST 35 Alkaline Phosphatase 96 Total Protein 5.6 L Albumin 3.0 L Impressions: Head CT 07/20/19 00:00 IMPRESSION: MILD CHRONIC CHANGES OF ATROPHY AND MICROVASCULAR ISCHEMIA. NO ACUTE PROCESS. EVIDENCE OF ACUTE STROKE: NO. Knee X-Ray 07/20/19 00:39 IMPRESSION: Moderate joint fluid and joint emphysema of the right knee increased compared with prior exam from 10 days ago. Assessment and Plan - Diagnosis (1) Hypokalemia Is this a current diagnosis for this admission?: Yes Plan: Replace w/ p.o. Potassium Regular diet. Follow up chemistry. (2) Intermittent confusion Is this a current diagnosis for this admission?: Yes Plan: Unclear etiology; though not unexpected in elderly patient with chronic infection, prolonged antibiotics, repeat hospital admissions/surgical procedures, and on narcotic medications. Head CT was benign. Laboratory evaluation unremarkable. We will check TSH, A1c, and a.m. cortisol with morning lab work. Urinalysis pending. Encourage p.o. fluids to prevent dehydration. Fall precautions. Supportive care. (3) Hypotension Qualifiers: Hypotension type: unspecified hypotension type Qualified Code(s): I95.9 - Hypotension, unspecified Is this a current diagnosis for this admission?: Yes Plan: Patient is noted to have soft blood pressures; 103/46. She is readmitted due to weakness at home and failure to thrive have reduced her home dose metoprolol and hydrochlorothiazide by half. Continues on metoprolol 25 mg daily and HCTZ 12.5 mg daily. Regular diet. Fall precautions. (4) Infection of knee Is this a current diagnosis for this admission?: Yes Plan: Primary management per Dr. Adan. 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
[2019-07-20] MEDS: RIVAROXABAN 10 MG TABLET PO SCH (18:04)
[2019-07-20] MEDS: NORMAL SALINE 1000 ML 1,000 ML IV PRN (18:04)
[2019-07-20] MEDS ORDERED: ALTEPLASE INJ 2 MG VIAL (CATH CLEARANCE) ONE (18:07)
[2019-07-20 18:53] LABS: APPEARANCE,URINE CLEAR; BILIRUBIN,URINE NEGATIVE (NEGATIVE); COLOR,URINE YELLOW; GLUCOSE, URINE NEGATIVE (NEGATIVE); KETONES,URINE NEGATIVE (NEGATIVE); PROTEIN,URINE NEGATIVE (NEGATIVE); URINE SPECIFIC GRAVITY 1.008; UROBILINOGEN,URINE NEGATIVE mg/dL (<2.0)
[2019-07-20] MEDS: ATORVASTATIN CALCIUM 10 MG TABLET PO SCH (22:25)
[2019-07-20] MEDS: NORMAL SALINE 10 ML SDV (SCHEDULED) IV SCH (22:25)
[2019-07-20] MEDS: CEFTRIAXONE 2 GM/D5W RTU 2 GM/50 ML RTUPB IV SCH (22:25)
[2019-07-21] MEDS: OXYCODONE HCL IR 5 MG TABLET PO PRN ×3 (02:14→21:32)
[2019-07-21 05:49] LABS: HEMATOCRIT 24.1 % (36.0-47.0); HEMOGLOBIN 8.4 g/dL (12.0-15.5); MEAN CORPUSCULAR HEMOGLOBIN 29.6 pg (27.0-33.4); MEAN CORPUSCULAR HGB CONC 34.8 g/dL (32.0-36.0); MEAN CORPUSCULAR VOLUME 85 fl (80-97); PLATELET COUNT 404 10^3/uL (150-450); RED BLOOD COUNT 2.82 10^6/uL (3.72-5.28); RED CELL DISTRIBUTION WIDTH 13.6 % (11.5-14.0); WHITE BLOOD COUNT 6.3 10^3/uL (4.0-10.5)
[2019-07-21 06:23] LABS: ANION GAP 6 (5-19); BLOOD UREA NITROGEN 17 mg/dL (7-20); CALCIUM 10.7 mg/dL (8.4-10.2); CARBON DIOXIDE 28 mmol/L (22-30); CHLORIDE 103 mmol/L (98-107); GLUCOSE 93 mg/dL (75-110); POTASSIUM 3.5 mmol/L (3.6-5.0)
--- NOTE | 2019-07-21 07:01 | PDOC PROGRESS REPORT ---
Subjective Progress Note for:: 07/21/19 Reason For Visit: RIGHT TKA INFECTION 73-year-old white female status post I&D of a right periprosthetic knee infection. Patient has subsequent been readmitted because of functional decline. Patient remains afebrile and in good spirits this morning. She is alert, oriented, appropriate. Patient is receiving Rocephin for strep mitis infection. The PICC line it has been placed in her right upper extremity is now nonfunctional and could not be salvaged with thrombolytic therapy. Physical Exam Vital Signs: Temp Pulse Resp BP Pulse Ox 36.6 C 55 L 18 122/58 L 96 07/20/19 23:49 07/21/19 03:53 07/21/19 03:53 07/21/19 04:00 07/21/19 03:53 Intake & Output 07/19/19 07/20/19 07/21/19 06:59 06:59 06:59 Intake Total 900 Output Total 500 Balance 400 Weight 95.7 kg 95.7 kg General appearance: PRESENT: no acute distress Respiratory exam: PRESENT: unlabored Cardiovascular exam: PRESENT: RRR Vascular exam: PRESENT: normal capillary refill Extremities exam: PRESENT: other - Right knee dressing clean dry and intact. Results Laboratory Results: 07/21/19 05:30 07/21/19 05:30 07/20/19 07/21/19 07/21/19 18:25 05:30 05:30 WBC 6.3 RBC 2.82 L Hgb 8.4 L Hct 24.1 L MCV 85 MCH 29.6 MCHC 34.8 RDW 13.6 Plt Count 404 Sodium 136.8 L Potassium 3.5 L Chloride 103 Carbon Dioxide 28 Anion Gap 6 BUN 17 Creatinine 1.30 H Est GFR ( Amer) 49 L Glucose 93 Calcium 10.7 H TSH Urine Color YELLOW Urine Appearance CLEAR Urine pH 6.0 Ur Specific [place] 1.008 Urine Protein NEGATIVE Urine Glucose (UA) NEGATIVE Urine Ketones NEGATIVE Urine Blood NEGATIVE Urine RBC (Auto) 0 07/21/19 05:30 WBC RBC Hgb Hct MCV MCH MCHC RDW Plt Count Sodium Potassium Chloride Carbon Dioxide Anion Gap BUN Creatinine Est GFR ( Amer) Glucose Calcium TSH 2.38 Urine Color Urine Appearance Urine pH Ur Specific [place] Urine Protein Urine Glucose (UA) Urine Ketones Urine Blood Urine RBC (Auto) Impressions: Head CT 07/20/19 00:00 IMPRESSION: MILD CHRONIC CHANGES OF ATROPHY AND MICROVASCULAR ISCHEMIA. NO ACUTE PROCESS. EVIDENCE OF ACUTE STROKE: NO. Knee X-Ray 07/20/19 00:39 IMPRESSION: Moderate joint fluid and joint emphysema of the right knee increased compared with prior exam from 10 days ago. Status: Imported from PACS Assessment & Plan - Diagnosis (1) Infection of knee Is this a current diagnosis for this admission?: Yes Plan: Patient can begin physical therapy for touchdown weightbearing on the right lower extremity. She can also work on isometric for quad and hamstring. Plan will be for replacement of the PICC line since this is not salvageable. Also social work is consulted for [facility] facility placement. - Time Time Spent with patient: 15-24 minutes Anticipated discharge: SNF Within: when bed available
[2019-07-21] MEDS ORDERED: ERGOCALCIFEROL (VITAMIN D2) 50000 UNIT (1.25 MG) CAPSULE PO SCH (08:48)
[2019-07-21] MEDS: METOPROLOL TARTRATE 50 MG TABLET PO SCH (09:18)
[2019-07-21] MEDS: ESCITALOPRAM OXALATE 10 MG TABLET PO SCH (09:21)
[2019-07-21] MEDS: POTASSIUM CHLORIDE 10 MEQ TABLET.ER PO SCH (09:23)
[2019-07-21] MEDS: NORMAL SALINE 10 ML SDV (SCHEDULED) IV SCH ×2 (09:32→21:37)
[2019-07-21] MEDS ORDERED: HYDROCHLOROTHIAZIDE 25 MG TABLET PO SCH (10:00)
--- NOTE | 2019-07-21 15:03 | PDOC PROGRESS REPORT ---
Subjective Progress Note for:: 07/21/19 Subjective:: Patient was seen on morning rounds. She was found resting in bed, comfortably, on room air. She is A&Ox4 and remembers me from yesterday. She states that she is feeling well and has no new questions or concerns today. Aside from her knee discomfort, she denies all symptoms; specifically headaches, chest pain, abdominal pain, nausea and vomiting. No concerns per nursing; they remember her from prior admission and recall that she was incontinent of urine throughout that admission. They also report that she was minimally ambulatory/independent at time of discharge and are unsurprised by need for increased care/services. To their recall, patient did experience intermittent periods of confusion early on during the last admission. They note that she is orientated at present and otherwise have no new concerns regarding her condition as compared to previously. Reason For Visit: RIGHT TKA INFECTION Physical Exam Vital Signs: Temp Pulse Resp BP Pulse Ox 98.1 F 64 16 100/60 90 L 07/21/19 11:44 07/21/19 11:44 07/21/19 11:44 07/21/19 11:44 07/21/19 11:44 Intake & Output 07/20/19 07/21/19 07/22/19 06:59 06:59 06:59 Intake Total 900 120 Output Total 500 Balance 400 120 Weight 95.7 kg 95.7 kg General appearance: PRESENT: no acute distress, cooperative, obese, well- developed, well-nourished Head exam: PRESENT: atraumatic, normocephalic Eye exam: PRESENT: conjunctiva pink, EOMI, PERRLA. ABSENT: scleral icterus Mouth exam: PRESENT: moist, tongue midline Respiratory exam: PRESENT: clear to auscultation nubia, symmetrical, unlabored. ABSENT: rales, rhonchi, wheezes Cardiovascular exam: PRESENT: RRR. ABSENT: diastolic murmur, rubs, systolic murmur Vascular exam: PRESENT: normal capillary refill Extremities exam: PRESENT: full ROM, tenderness - right knee. ABSENT: calf tenderness, clubbing, pedal edema Neurological exam: PRESENT: alert, awake, oriented to person, oriented to place, oriented to time, oriented to situation, CN II-XII grossly intact. ABSENT: motor sensory deficit Psychiatric exam: PRESENT: appropriate affect, normal mood. ABSENT: homicidal ideation, suicidal ideation Skin exam: PRESENT: dry, intact, warm. ABSENT: cyanosis, rash Results Laboratory Results: 07/21/19 05:30 07/21/19 05:30 07/20/19 07/21/19 07/21/19 18:25 05:30 05:30 WBC 6.3 RBC 2.82 L Hgb 8.4 L Hct 24.1 L MCV 85 MCH 29.6 MCHC 34.8 RDW 13.6 Plt Count 404 Sodium 136.8 L Potassium 3.5 L Chloride 103 Carbon Dioxide 28 Anion Gap 6 BUN 17 Creatinine 1.30 H Est GFR ( Amer) 49 L Glucose 93 Calcium 10.7 H Magnesium TSH Urine Color YELLOW Urine Appearance CLEAR Urine pH 6.0 Ur Specific [place] 1.008 Urine Protein NEGATIVE Urine Glucose (UA) NEGATIVE Urine Ketones NEGATIVE Urine Blood NEGATIVE Urine RBC (Auto) 0 07/21/19 07/21/19 05:30 05:30 WBC RBC Hgb Hct MCV MCH MCHC RDW Plt Count Sodium Potassium Chloride Carbon Dioxide Anion Gap BUN Creatinine Est GFR ( Amer) Glucose Calcium Magnesium 2.5 H TSH 2.38 Urine Color Urine Appearance Urine pH Ur Specific [place] Urine Protein Urine Glucose (UA) Urine Ketones Urine Blood Urine RBC (Auto) Impressions: Head CT 07/20/19 00:00 IMPRESSION: MILD CHRONIC CHANGES OF ATROPHY AND MICROVASCULAR ISCHEMIA. NO AC SHANELL PROCESS. EVIDENCE OF ACUTE STROKE: NO. Knee X-Ray 07/20/19 00:39 IMPRESSION: Moderate joint fluid and joint emphysema of the right knee increased compared with prior exam from 10 days ago. Assessment and Plan - Diagnosis (1) Hypokalemia Is this a current diagnosis for this admission?: Yes Plan: K 3.5 Mag 2.5 Replace w/ p.o. Potassium Regular diet. Follow up chemistry. (2) Intermittent confusion Is this a current diagnosis for this admission?: Yes Plan: Unclear etiology; though not unexpected in elderly patient with chronic infection, prolonged antibiotics, repeat hospital admissions/surgical procedures, and on narcotic medications. Head CT was benign. Laboratory evaluation remains unremarkable. Encourage p.o. fluids to prevent dehydration. Fall precautions. Supportive care. (3) Hypotension Qualifiers: Hypotension type: unspecified hypotension type Qualified Code(s): I95.9 - Hypotension, unspecified Is this a current diagnosis for this admission?: Yes Plan: Patient is noted to have soft blood pressures; 100/60. She is readmitted due to weakness at home and failure to thrive have reduced her home dose metoprolol and hydrochlorothiazide by half. Continues on metoprolol 25 mg daily Discontinue HCTZ. Regular diet. Fall precautions. Will check orthostatic blood pressures as this may be contributing to patient failure at home. (4) Infection of knee Is this a current diagnosis for this admission?: Yes Plan: Primary management per Dr. Adan. 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 UA nml Hold HCTZ Start ditropan - Time Time Spent with patient: 25-34 minutes Medications reviewed and adjusted accordingly: Yes Anticipated discharge: SNF Within: when bed available
[2019-07-21] MEDS: RIVAROXABAN 10 MG TABLET PO SCH (16:40)
[2019-07-21] MEDS: OXYBUTYNIN CHLORIDE 5 MG TABLET PO SCH (17:09)
[2019-07-21] MEDS: NORMAL SALINE 1000 ML 1,000 ML IV PRN (19:01)
[2019-07-21] MEDS: CEFTRIAXONE 2 GM/D5W RTU 2 GM/50 ML RTUPB IV SCH (21:37)
[2019-07-21] MEDS: ATORVASTATIN CALCIUM 10 MG TABLET PO SCH (21:37)
[2019-07-22 06:22] LABS: HEMATOCRIT 22.2 % (36.0-47.0); MEAN CORPUSCULAR HEMOGLOBIN 30.1 pg (27.0-33.4); MEAN CORPUSCULAR HGB CONC 35.4 g/dL (32.0-36.0); MEAN CORPUSCULAR VOLUME 85 fl (80-97); PLATELET COUNT 371 10^3/uL (150-450); RED BLOOD COUNT 2.61 10^6/uL (3.72-5.28); RED CELL DISTRIBUTION WIDTH 13.8 % (11.5-14.0); WHITE BLOOD COUNT 5.5 10^3/uL (4.0-10.5)
[2019-07-22 06:23] LABS: HEMOGLOBIN 7.8 g/dL (12.0-15.5)
--- NOTE | 2019-07-22 06:25 | PDOC PROGRESS REPORT ---
Subjective Progress Note for:: 07/22/19 Reason For Visit: RIGHT TKA INFECTION 73-year-old white female status post I&D of a right periprosthetic knee infection. No significant events overnight. Limited progress with physical therapy yesterday. Physical Exam Vital Signs: Temp Pulse Resp BP Pulse Ox 36.9 C 104 H 12 118/58 L 99 07/21/19 20:00 07/21/19 20:00 07/21/19 20:00 07/21/19 20:00 07/21/19 15:41 Intake & Output 07/20/19 07/21/19 07/22/19 06:59 06:59 06:59 Intake Total 900 1270 Output Total 500 300 Balance 400 970 Weight 95.7 kg 95.7 kg 95.7 kg Physical Exam: Middle-aged white female lying in bed comfortably. Patient is alert, oriented, and appropriate. General appearance: PRESENT: no acute distress, mild distress, obese Respiratory exam: PRESENT: unlabored Cardiovascular exam: PRESENT: RRR Pulses: PRESENT: +1 pedal pulses bilateral Vascular exam: PRESENT: normal capillary refill GI/Abdominal exam: PRESENT: soft Rectal exam: PRESENT: deferred Extremities exam: PRESENT: other - Right knee dressing clean dry and intact Neurological exam: PRESENT: alert, awake, oriented to person, oriented to place, oriented to time, oriented to situation. ABSENT: motor sensory deficit Psychiatric exam: PRESENT: appropriate affect, normal mood. ABSENT: homicidal ideation, suicidal ideation Skin exam: PRESENT: dry, intact, warm. ABSENT: cyanosis, rash Results Laboratory Results: 07/21/19 07/21/19 07/21/19 05:30 05:30 05:30 Sodium 136.8 L Potassium 3.5 L Chloride 103 Carbon Dioxide 28 Anion Gap 6 BUN 17 Creatinine 1.30 H Est GFR ( Amer) 49 L Glucose 93 Calcium 10.7 H Magnesium 2.5 H TSH 2.38 Impressions: Head CT 07/20/19 00:00 IMPRESSION: MILD CHRONIC CHANGES OF ATROPHY AND MICROVASCULAR ISCHEMIA. NO ACUTE PROCESS. EVIDENCE OF ACUTE STROKE: NO. Knee X-Ray 07/20/19 00:39 IMPRESSION: Moderate joint fluid and joint emphysema of the right knee increased compared with prior exam from 10 days ago. Status: Imported from PACS Assessment & Plan - Diagnosis (1) Infection of knee Is this a current diagnosis for this admission?: Yes Plan: Continue IV Rocephin, physical therapy, and placement in progress. (2) Acute blood loss anemia Is this a current diagnosis for this admission?: Yes Plan: Hematocrit is dropped to 22%. There is no obvious local wound drainage. Patient would probably benefit from 2 units of packed red blood cells. - Time Time Spent with patient: 15-24 minutes Anticipated discharge: SNF Within: when bed available
[2019-07-22 06:43] LABS: ANION GAP 5 (5-19); BLOOD UREA NITROGEN 14 mg/dL (7-20); CALCIUM 10.7 mg/dL (8.4-10.2); CARBON DIOXIDE 27 mmol/L (22-30); CHLORIDE 105 mmol/L (98-107); GLUCOSE 93 mg/dL (75-110); POTASSIUM 3.5 mmol/L (3.6-5.0)
[2019-07-22 08:11] LABS: ABSOLUTE RETICS # 0.117 10^6/uL (0.028-0.122); RETICULOCYTE COUNT (AUTO) 4.39 % (0.66-2.85)
[2019-07-22 08:30] LABS: IRON(TIBC) 29.7 ug/dL (37-170)
[2019-07-22] MEDS: OXYCODONE HCL IR 5 MG TABLET PO PRN ×2 (09:07→18:29)
[2019-07-22 09:36] LABS: FOLATE 7.88 ng/mL (>2.76)
[2019-07-22] MEDS ORDERED: FUROSEMIDE 20 MG TABLET PO SCH (10:00)
[2019-07-22] MEDS: OXYBUTYNIN CHLORIDE 5 MG TABLET PO SCH ×2 (11:18→17:55)
[2019-07-22] MEDS: ESCITALOPRAM OXALATE 10 MG TABLET PO SCH (11:19)
[2019-07-22] MEDS: POTASSIUM CHLORIDE 10 MEQ TABLET.ER PO SCH (11:23)
[2019-07-22] MEDS: METOPROLOL TARTRATE 50 MG TABLET PO SCH (11:26)
[2019-07-22] MEDS: NORMAL SALINE 10 ML SDV (SCHEDULED) IV SCH ×2 (11:36→23:50)
[2019-07-22] MEDS ORDERED: IRON SUCROSE COMPLEX 100 MG in NORMAL SALINE 100 ML IV ONE (12:30)
[2019-07-22] MEDS ORDERED: NORMAL SALINE 250 ML IV PRN ×2 (16:41)
[2019-07-22] MEDS ORDERED: FUROSEMIDE 20 MG TABLET PO ONE (16:58)
[2019-07-22] MEDS ORDERED: POTASSIUM CHLORIDE 10 MEQ TABLET.ER PO ONE (16:59)
--- NOTE | 2019-07-22 17:12 | PDOC PROGRESS REPORT ---
Subjective Progress Note for:: 07/22/19 Subjective:: Patient was seen on morning rounds. She was found resting in bed, comfortably, on room air. She is A&Ox4, conversational and socially appropriate. She states that she is feeling well and has no new questions or concerns today. Aside from her knee discomfort, she denies all symptoms; specifically headaches, chest pain, abdominal pain, nausea and vomiting. She has no questions or concerns. No concerns per nursing. Reason For Visit: RIGHT TKA INFECTION Physical Exam Vital Signs: Temp Pulse Resp BP Pulse Ox 98.4 F 69 16 106/52 L 97 07/22/19 16:00 07/22/19 16:00 07/22/19 16:00 07/22/19 16:00 07/22/19 16:00 Intake & Output 07/21/19 07/22/19 07/23/19 06:59 06:59 06:59 Intake Total 900 1270 240 Output Total 500 300 Balance 400 970 240 Weight 95.7 kg 95.7 kg General appearance: PRESENT: no acute distress, cooperative, obese, well- developed, well-nourished Head exam: PRESENT: atraumatic, normocephalic Eye exam: PRESENT: conjunctiva pink, EOMI, PERRLA. ABSENT: scleral icterus Mouth exam: PRESENT: moist, tongue midline Respiratory exam: PRESENT: clear to auscultation nubia, symmetrical, unlabored. ABSENT: rales, rhonchi, wheezes Cardiovascular exam: PRESENT: RRR. ABSENT: diastolic murmur, rubs, systolic murmur Pulses: PRESENT: normal dorsalis pedis pul Vascular exam: PRESENT: normal capillary refill Extremities exam: PRESENT: full ROM, tenderness - right knee. ABSENT: calf tenderness, clubbing, pedal edema Neurological exam: PRESENT: alert, awake, oriented to person, oriented to place, oriented to time, oriented to situation, CN II-XII grossly intact. ABSENT: motor sensory deficit Psychiatric exam: PRESENT: appropriate affect, normal mood. ABSENT: homicidal ideation, suicidal ideation Skin exam: PRESENT: dry, warm. ABSENT: cyanosis, rash Results Laboratory Results: 07/22/19 05:25 07/22/19 05:25 07/22/19 07/22/19 07/22/19 05:25 05:25 05:25 WBC 5.5 RBC 2.61 L Hgb 7.8 L Hct 22.2 L MCV 85 MCH 30.1 MCHC 35.4 RDW 13.8 Plt Count 371 Retic Count (auto) 4.39 H Sodium 136.8 L Potassium 3.5 L Chloride 105 Carbon Dioxide 27 Anion Gap 5 BUN 14 Creatinine 1.32 H Est GFR ( Amer) 48 L Glucose 93 Calcium 10.7 H Iron TIBC % Saturation Transferrin Ferritin Vitamin B12 Folate PTH Intact 07/22/19 07/22/19 07/22/19 05:25 05:25 08:07 WBC RBC Hgb Hct MCV MCH MCHC RDW Plt Count Retic Count (auto) Sodium Potassium Chloride Carbon Dioxide Anion Gap BUN Creatinine Est GFR ( Amer) Glucose Calcium Iron 29.7 L TIBC 280 % Saturation 11 Transferrin 208.60 Ferritin 82.70 Vitamin B12 304.0 Folate 7.88 PTH Intact 13.1 Impressions: Head CT 07/20/19 00:00 IMPRESSION: MILD CHRONIC CHANGES OF ATROPHY AND MICROVASCULAR ISCHEMIA. NO ACUTE PROCESS. EVIDENCE OF ACUTE STROKE: NO. Knee X-Ray 07/20/19 00:39 IMPRESSION: Moderate joint fluid and joint emphysema of the right knee increased compared with prior exam from 10 days ago. Assessment and Plan - Diagnosis (1) Hypokalemia Is this a current diagnosis for this admission?: Yes Plan: K 3.5 Mag 2.5 Continues; 3.5-> 3.5-> 3.5 Additional p.o. Potassium; start K 20 mEq daily Regular diet. Follow up chemistry. (2) Intermittent confusion Is this a current diagnosis for this admission?: Yes Plan: Unclear etiology; though not unexpected in elderly patient with chronic infection, prolonged antibiotics, repeat hospital admissions/surgical procedures, and on narcotic medications. No observed episodes this admission by myself or reported by nursing. Head CT was benign. Laboratory evaluation remains unremarkable. Encourage p.o. fluids to prevent dehydration. Fall precautions. Supportive care. (3) Hypotension Qualifiers: Hypotension type: unspecified hypotension type Qualified Code(s): I95.9 - Hypotension, unspecified Is this a current diagnosis for this admission?: Yes Plan: Improved; 120/60s today Orthostatic (laying and sitting; pt could not stand) were normal. She is readmitted due to weakness at home and failure to thrive. Continues on metoprolol 25 mg daily (1/2 her home dose) Discontinued HCTZ. Regular diet. Fall precautions. (4) Infection of knee Is this a current diagnosis for this admission?: Yes Plan: Primary management per Dr. Adan. 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 UA nml Have discontinued HCTZ Start ditropan (7) Anemia Qualifiers: Anemia type: iron deficiency Is this a current diagnosis for this admission?: Yes Plan: Anemia pannel reveals iron defficiency anemia. Hgb has trended down; 8.9-> 7.8. In part hemodilution; has received ~3 L IVF Start multivitamin with iron supplementation. Occult stool pending; if positive, patient would be appropriate for outpatient GI follow up. 1 unit PRBC as mentioned by Dr. Aranda. Follow up CBC (8) Hypercalcemia Is this a current diagnosis for this admission?: Yes Plan: Has decreased w/ IVF provided on admission TSH, PTH, Vit D Furosemide x1 Likely r/t prolonged immobility. Increase position changes. OOB for meals. PT consulted. Follow up chemistry. - Plan Summary Summary: PICC replacement scheduled for tomorrow. COVID19 screening for SNF placement is pending. Discharge planning consulted. - Time Time Spent with patient: 25-34 minutes Medications reviewed and adjusted accordingly: Yes Anticipated discharge: SNF Within: within 24 hours
[2019-07-22] MEDS: FERROUS SULFATE 325 MG TABLET PO SCH (17:43)
[2019-07-22] MEDS: RIVAROXABAN 10 MG TABLET PO SCH (17:43)
[2019-07-23] MEDS ORDERED: ATORVASTATIN CALCIUM 10 MG TABLET PO ONE (01:15)
[2019-07-23] MEDS: OXYCODONE HCL IR 5 MG TABLET PO PRN ×3 (01:24→21:16)
[2019-07-23] MEDS: CEFTRIAXONE 2 GM/D5W RTU 2 GM/50 ML RTUPB IV SCH ×2 (01:26→21:21)
[2019-07-23] MEDS: ATORVASTATIN CALCIUM 10 MG TABLET PO SCH ×2 (01:28→21:17)
[2019-07-23] MEDS: NORMAL SALINE 1000 ML 1,000 ML IV PRN (01:50)
[2019-07-23] MEDS ORDERED: CEFTRIAXONE 2 GM/D5W RTU 2 GM/50 ML RTUPB IV ONE (02:00)
[2019-07-23 06:27] LABS: HEMATOCRIT 25.4 % (36.0-47.0); HEMOGLOBIN 9.1 g/dL (12.0-15.5); MEAN CORPUSCULAR HEMOGLOBIN 29.9 pg (27.0-33.4); MEAN CORPUSCULAR HGB CONC 35.7 g/dL (32.0-36.0); MEAN CORPUSCULAR VOLUME 84 fl (80-97); PLATELET COUNT 361 10^3/uL (150-450); RED BLOOD COUNT 3.04 10^6/uL (3.72-5.28); RED CELL DISTRIBUTION WIDTH 14.5 % (11.5-14.0)
[2019-07-23 06:47] LABS: ANION GAP 5 (5-19); BLOOD UREA NITROGEN 12 mg/dL (7-20); CALCIUM 10.6 mg/dL (8.4-10.2); CARBON DIOXIDE 28 mmol/L (22-30); CHLORIDE 105 mmol/L (98-107); GLUCOSE 92 mg/dL (75-110); POTASSIUM 3.5 mmol/L (3.6-5.0)
[2019-07-23] MEDS: METOPROLOL TARTRATE 50 MG TABLET PO SCH (09:44)
[2019-07-23] MEDS: FERROUS SULFATE 325 MG TABLET PO SCH ×2 (09:44→17:39)
[2019-07-23] MEDS: MULTIVITAMIN TABLET PO SCH (09:44)
[2019-07-23] MEDS: ESCITALOPRAM OXALATE 10 MG TABLET PO SCH (09:45)
[2019-07-23] MEDS ORDERED: POTASSIUM CHLORIDE 10 MEQ TABLET.ER PO SCH ×2 (10:00)
--- NOTE | 2019-07-23 11:03 | RADIOLOGY REPORT (SQ) ---
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 FLUOROSCOPY TIME: 37 seconds of fluoroscopy was used. 1 images saved to PACS. TECHNIQUE: Fluoroscopic guided PICC replacement. LIMITATIONS: None. PROCEDURE: After written consent and assessment were obtained, the patient was brought into the fluo roscopy room and place supine on the table. The right arm an existing PICC was prepped and draped i n a sterile fashion. The entry site was anesthetized with 1% lidocaine. A .018 guide wire was then i nserted through the existing PICC and into the venous system. The old catheter was then removed and a new catheter measuring 35 cm was advanced over the wire and into the venous system. The wire was th en removed and the catheter was adhered to the patients arm with a stat lock. The catheter was then a spirated and flushed and a sterile bandage was placed over the access site. A fluoroscopic spot imag e was saved to PACS confirming the catheter tip within the superior vena cava. IMPRESSION: SUCCESSFUL OVER THE WIRE REPLACEMENT OF AN OLD PICC FOR A NEW ONE THAT IS 5 FR DUAL LUME N 35 CM PICC IN THE RIGHT ARM. COMMENT: Patient medication list reviewed: Yes- Quality ID# [id number]:Eligible professional attests to doc umenting in the medical record they obtained, updated, or reviewed the patient's current medications. . Quality ID 145: Final reports for procedures using fluoroscopy that document radiation exposure lucia pam, or exposure time and number of fluorographic images (if radiation exposure indices are not avail able) Quality ID #76: The patient was prepped and draped using maximum sterile barrier technique including cap, mask, sterile gown, sterile gloves, a large sterile sheet, hand hygiene, and 2% Chlorhexidine fo r cutaneous antisepsis. When ultrasound is used, sterile ultrasound techniques are followed requiring sterile gel and sterile probes. TECHNICAL DOCUMENTATION: JOB ID: [id number] 2010 [employer]- All Rights Reserved Reading location - IP/workstation name: [id number]
[2019-07-23] MEDS: OXYBUTYNIN CHLORIDE 5 MG TABLET PO SCH ×2 (11:19→17:39)
[2019-07-23] MEDS ORDERED: NORMAL SALINE 10 ML SDV (AFTER EACH USE) IV PRN (11:30)
--- NOTE | 2019-07-23 12:55 | PDOC PROGRESS REPORT ---
Subjective Progress Note for:: 07/23/19 Reason For Visit: RIGHT TKA INFECTION 07/23/2019 originally consulted for confusion and hypokalemia as well as anemia Physical Exam Vital Signs: Temp Pulse Resp BP Pulse Ox 98.5 F 59 L 16 110/51 L 100 07/23/19 11:00 07/23/19 11:00 07/23/19 11:00 07/23/19 11:00 07/23/19 11:00 Intake & Output 07/22/19 07/23/19 07/24/19 06:59 06:59 06:59 Intake Total 1270 2140 240 Output Total 300 200 Balance 970 2140 40 Weight 95.7 kg 95.7 kg 95.7 kg General appearance: PRESENT: no acute distress Respiratory exam: PRESENT: clear to auscultation nubia. ABSENT: rales, rhonchi, wheezes Cardiovascular exam: PRESENT: RRR. ABSENT: diastolic murmur, rubs, systolic murmur Neurological exam: PRESENT: alert, awake, oriented to person, oriented to place, oriented to time, oriented to situation, CN II-XII grossly intact. ABSENT: motor sensory deficit Psychiatric exam: PRESENT: appropriate affect, normal mood. ABSENT: homicidal ideation, suicidal ideation Results Laboratory Results: 07/23/19 05:41 07/23/19 05:41 07/22/19 07/23/19 07/23/19 18:10 05:41 05:41 WBC 5.0 RBC 3.04 L Hgb 9.1 L Hct 25.4 L MCV 84 MCH 29.9 MCHC 35.7 RDW 14.5 H Plt Count 361 Sodium 137.5 Potassium 3.5 L Chloride 105 Carbon Dioxide 28 Anion Gap 5 BUN 12 Creatinine 1.28 H Est GFR ( Amer) 49 L Glucose 92 Calcium 10.6 H Blood Type O POSITIVE Antibody Screen NEGATIVE Impressions: Head CT 07/20/19 00:00 IMPRESSION: MILD CHRONIC CHANGES OF ATROPHY AND MICROVASCULAR ISCHEMIA. NO ACUTE PROCESS. EVIDENCE OF ACUTE STROKE: NO. Knee X-Ray 07/20/19 00:39 IMPRESSION: Moderate joint fluid and joint emphysema of the right knee increased compared with prior exam from 10 days ago. PICC Line Exchange 07/23/19 00:00 IMPRESSION: SUCCESSFUL OVER THE WIRE REPLACEMENT OF AN OLD PICC FOR A NEW ONE THAT IS 5 FR DUAL LUMEN 35 CM PICC IN THE RIGHT ARM. Assessment and Plan - Diagnosis (1) Anemia Qualifiers: Anemia type: iron deficiency Is this a current diagnosis for this admission?: Yes (2) Hypokalemia Is this a current diagnosis for this admission?: Yes (3) Hypercalcemia Is this a current diagnosis for this admission?: Yes - Plan Summary Summary: PICC replacement scheduled for tomorrow. COVID19 screening for SNF placement is pending. Discharge planning consulted. 07/23/2019 Vital signs today temperature 98 pulse 65 blood pressure 124/60 The static blood pressures are stable no indication of orthostasis Cardozo saturation 95% on room air BC is stable hemoglobin is stable potassium remains low at 3.5 I have increased her potassium to 20 mEq every 12 hours. She will need to be discharged on this dose She will need to be discharged on her hydrochlorothiazide 12.5 mg daily Will need to be discharged on her Toprol 25 mg daily She will need a basic metabolic panel within 7 to 10 days of discharge to check her electrolytes primarily potassium Today she is oriented to person place and time. Placement at [facility] is pending. Patient is medically stable - Time Time Spent with patient: 25-34 minutes
[2019-07-23] MEDS: NORMAL SALINE 10 ML SDV (SCHEDULED) IV SCH ×3 (14:59→21:22)
[2019-07-23] MEDS: RIVAROXABAN 10 MG TABLET PO SCH (17:39)
[2019-07-23] MEDS: POTASSIUM CHLORIDE 10 MEQ TABLET.ER PO SCH (21:23)
[2019-07-24] MEDS: NORMAL SALINE 1000 ML 1,000 ML IV PRN (02:40)
[2019-07-24] MEDS: OXYCODONE HCL IR 5 MG TABLET PO PRN ×2 (05:22→11:58)
--- NOTE | 2019-07-24 06:54 | Progress Note ---
Provider Note Provider Note: 07/24/2019 Medical standpoint patient is stable to be discharged. Dictate more complete note later. We will sign off following.
--- NOTE | 2019-07-24 06:58 | PDOC PROGRESS REPORT ---
Subjective Progress Note for:: 07/24/19 Reason For Visit: RIGHT TKA INFECTION Consulted for confusion and hypokalemia as well as hypercalcemia and anemia Physical Exam Vital Signs: Temp Pulse Resp BP Pulse Ox 98.5 F 57 L 18 117/51 L 96 07/24/19 00:28 07/24/19 00:28 07/24/19 00:28 07/24/19 00:28 07/24/19 00:28 Intake & Output 07/22/19 07/23/19 07/24/19 06:59 06:59 06:59 Intake Total 1270 2140 1290 Output Total 300 700 Balance 970 2140 590 Weight 95.7 kg 95.7 kg 95.7 kg General appearance: PRESENT: no acute distress Respiratory exam: PRESENT: clear to auscultation nubia. ABSENT: rales, rhonchi, wheezes Cardiovascular exam: PRESENT: RRR. ABSENT: diastolic murmur, rubs, systolic murmur Neurological exam: PRESENT: alert, awake, oriented to person, oriented to place, oriented to time, oriented to situation, CN II-XII grossly intact. ABSENT: motor sensory deficit Psychiatric exam: PRESENT: appropriate affect, normal mood. ABSENT: homicidal ideation, suicidal ideation Results Laboratory Results: 07/23/19 05:41 Impressions: Head CT 07/20/19 00:00 IMPRESSION: MILD CHRONIC CHANGES OF ATROPHY AND MICROVASCULAR ISCHEMIA. NO ACUTE PROCESS. EVIDENCE OF ACUTE STROKE: NO. Knee X-Ray 07/20/19 00:39 IMPRESSION: Moderate joint fluid and joint emphysema of the right knee increased compared with prior exam from 10 days ago. PICC Line Exchange 07/23/19 00:00 IMPRESSION: SUCCESSFUL OVER THE WIRE REPLACEMENT OF AN OLD PICC FOR A NEW ONE THAT IS 5 FR DUAL LUMEN 35 CM PICC IN THE RIGHT ARM. Assessment and Plan - Diagnosis (1) Anemia Qualifiers: Anemia type: iron deficiency Is this a current diagnosis for this admission?: Yes (2) Hypokalemia Is this a current diagnosis for this admission?: Yes (3) Hypercalcemia Is this a current diagnosis for this admission?: Yes - Plan Summary Summary: PICC replacement scheduled for tomorrow. COVID19 screening for SNF placement is pending. Discharge planning consulted. 07/23/2019 Vital signs today temperature 98 pulse 65 blood pressure 124/60 The static blood pressures are stable no indication of orthostasis Cardozo saturation 95% on room air BC is stable hemoglobin is stable potassium remains low at 3.5 I have increased her potassium to 20 mEq every 12 hours. She will need to be discharged on this dose She will need to be discharged on her hydrochlorothiazide 12.5 mg daily Will need to be discharged on her Toprol 25 mg daily She will need a basic metabolic panel within 7 to 10 days of discharge to check her electrolytes primarily potassium Today she is oriented to person place and time. Placement at [facility] is pending. Patient is medically stable 07/24/2019 Patient remains afebrile 98 5 pulse is steady at 63 blood pressure stable 117/51 later blood pressure 144/55 O2 sat 96% on room air WBCs normal 5.0 Hemoglobin stable 9.1 Electrolytes are pending from this morning Examining Officer standpoint patient is medically stable for discharge ,will make final recommendations based on basic metabolic panel results Will sign off today. - Time Time Spent with patient: 25-34 minutes
--- NOTE | 2019-07-24 07:09 | PDOC TRANSFER SUMMARY ---
Impression - Admit/DC Date/PCP Admission Date/Primary Care Provider: 07/20/19 06:37 EDWARD JEAN NP Discharge Date: 07/24/19 - Discharge Diagnosis (1) Infection of knee Is this a current diagnosis for this admission?: Yes (2) Acute blood loss anemia Is this a current diagnosis for this admission?: Yes - Assessment Summary: PICC replacement scheduled for tomorrow. COVID19 screening for SNF placement is pending. Discharge planning consulted. 07/23/2019 Vital signs today temperature 98 pulse 65 blood pressure 124/60 The static blood pressures are stable no indication of orthostasis Cardozo saturation 95% on room air BC is stable hemoglobin is stable potassium remains low at 3.5 I have increased her potassium to 20 mEq every 12 hours. She will need to be discharged on this dose She will need to be discharged on her hydrochlorothiazide 12.5 mg daily Will need to be discharged on her Toprol 25 mg daily She will need a basic metabolic panel within 7 to 10 days of discharge to check her electrolytes primarily potassium Today she is oriented to person place and time. Placement at [facility] is pending. Patient is medically stable 07/24/2019 Patient remains afebrile 98 5 pulse is steady at 63 blood pressure stable 117/51 later blood pressure 144/55 O2 sat 96% on room air WBCs normal 5.0 Hemoglobin stable 9.1 Electrolytes are pending from this morning Roll Bucker standpoint patient is medically stable for discharge ,will make final recommendations based on basic metabolic panel results Will sign off today. - Additional Information Resuscitation Status: Full Code Discharge Diet: Regular Discharge Activity: Balance Activity w/Rest, No tub bath Referrals: ONDINA ARANDA MD [ACTIVE STAFF] - 07/26/19 9:30 am Prescriptions: Oxycodone HCl [Oxy-Ir 5 mg Tablet] 5 mg PO Q6HP PRN #40 PRN Reason: For Pain Home Medications: Escitalopram Oxalate [Lexapro 10 mg Tablet] 10 mg PO DAILY 03/20/19 Hydrochlorothiazide [Hydrodiuril 25 mg Tablet] 25 mg PO DAILY 03/20/19 Pravastatin Sodium [Pravachol] 40 mg PO DAILY 03/20/19 Ergocalciferol (Vitamin D2) [Drisdol 50,000 unit (1.25MG) Capsule] 50,000 unit PO LIGHT 07/20/19 Atorvastatin Calcium [Lipitor 10 mg Tablet] 10 mg PO QHS tablet 07/24/19 Ferrous Sulfate [Feosol 325 mg Tablet] 325 mg PO BIDPCBS tablet 07/24/19 Heparin Sodium,Porcine [Heparin Flush 10 Unit/ml 5 ml Disp.syrg] 30 unit IV .A FTER EACH USE PRN disp.syrin 07/24/19 Heparin Sodium,Porcine [Heparin Flush 10 Unit/ml 5 ml Disp.syrg] 30 unit IV .AFTER EACH USE PRN disp.syrin 07/24/19 Heparin Sodium,Porcine [Heparin Flush 10 Unit/ml 5 ml Disp.syrg] 30 unit IV Q12 disp.syrin 07/24/19 Heparin Sodium,Porcine [Heparin Flush 10 Unit/ml 5 ml Disp.syrg] 30 unit IV Q12 disp.syrin 07/24/19 Metoprolol Tartrate [Lopressor 50 mg Tablet] 25 mg PO DAILY tablet 07/24/19 Multivitamin [Tab-A-Melanie (Multiple Vitamin) Tablet] 1 tab PO DAILY tablet 07/24/19 Normal Saline [NaCl 0.9% Inj/Pf 10 ml Sdv] 10 ml IV .AFTER EACH USE PRN vial 07/24/19 Normal Saline [NaCl 0.9% Inj/Pf 10 ml Sdv] 10 ml IV .AFTER EACH USE PRN vial 07/24/19 Normal Saline [NaCl 0.9% Inj/Pf 10 ml Sdv] 10 ml IV Q12 vial 07/24/19 Normal Saline [NaCl 0.9% Inj/Pf 10 ml Sdv] 10 ml IV Q12 vial 07/24/19 Normal Saline [Saline Flush 2.5 ml Monoject Prefil Syrin] 2.5 ml IV Q8 disp.syrin 07/24/19 Oxybutynin Chloride [Ditropan 5 mg Tablet] 5 mg PO BID tablet 07/24/19 Oxycodone HCl [Oxy-Ir 5 mg Tablet] 5 mg PO Q6HP PRN #40 07/24/19 Polyethylene Glycol 3350 [Miralax Powder 17 gm/Packet] 17 gm PO DAILYP PRN powd.pack 07/24/19 Potassium Chloride [Klor-Con 10 Meq Tablet ER] 20 meq PO Q12 tablet.er 07/24/19 History of Present Illiness History of Present Illness: MELONY DAWSON is a 73 year old female Patient is a 73-year-old female with a 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 Patient underwent additional I&D and was discharged home. Because of functional decline she was readmitted to the hospital with the intent of fpc facility placement. Hospital Course Hospital Course: Patient was admitted through the the emergency room to the hospital and continued on IV Rocephin. She remained afebrile. Right knee dressing remained clean dry and intact. Physical Exam Vital Signs: Temp Pulse Resp BP Pulse Ox 36.9 C 57 L 18 117/51 L 96 07/24/19 00:28 07/24/19 00:28 07/24/19 00:28 07/24/19 00:28 07/24/19 00:28 Intake & Output 07/23/19 07/24/19 07/25/19 06:59 06:59 06:59 Intake Total 2140 1290 Output Total 700 Balance 2140 590 Weight 95.7 kg 95.7 kg General appearance: PRESENT: no acute distress, mild distress Head exam: PRESENT: normocephalic Respiratory exam: PRESENT: unlabored Cardiovascular exam: PRESENT: RRR Pulses: PRESENT: +1 pedal pulses bilateral GI/Abdominal exam: PRESENT: soft Rectal exam: PRESENT: deferred Musculoskeletal exam: PRESENT: other - Right lower extremity dressing remains clean dry and intact Neurological exam: PRESENT: alert, awake, oriented to person, oriented to place, oriented to time, oriented to situation. ABSENT: motor sensory deficit Psychiatric exam: PRESENT: appropriate affect, normal mood. ABSENT: homicidal ideation, suicidal ideation Skin exam: PRESENT: dry, intact, warm. ABSENT: cyanosis, rash Results Laboratory Results: WBC 5.0 10^3/uL (4.0-10.5) 07/23/19 05:41 RBC 3.04 10^6/uL (3.72-5.28) L 07/23/19 05:41 Hgb 9.1 g/dL (12.0-15.5) L 07/23/19 05:41 Hct 25.4 % (36.0-47.0) L 07/23/19 05:41 MCV 84 fl (80-97) 07/23/19 05:41 MCH 29.9 pg (27.0-33.4) 07/23/19 05:41 MCHC 35.7 g/dL (32.0-36.0) 07/23/19 05:41 RDW 14.5 % (11.5-14.0) H 07/23/19 05:41 Plt Count 361 10^3/uL (150-450) 07/23/19 05:41 Lymph % (Auto) 12.2 % (13-45) L 07/19/19 22:40 [place] % (Auto) 12.1 % (3-13) 07/19/19 22:40 Eos % (Auto) 1.3 % (0-6) 07/19/19 22:40 Baso % (Auto) 0.3 % (0-2) 07/19/19 22:40 Reticulocyte # 0.117 10^6/uL (0.028-0.122) 07/22/19 05:25 Absolute Neuts (auto) 6.0 10^3/uL (1.7-8.2) 07/19/19 22:40 Absolute Lymphs (auto) 1.0 10^3/uL (0.5-4.7) 07/19/19 22:40 Absolute Monos (auto) 1.0 10^3/uL (0.1-1.4) 07/19/19 22:40 Absolute Eos (auto) 0.1 10^3/uL (0.0-0.6) 07/19/19 22:40 Absolute Basos (auto) 0.0 10^3/uL (0.0-0.2) 07/19/19 22:40 Seg Neutrophils % 74.1 % (42-78) 07/19/19 22:40 Retic Count (auto) 4.39 % (0.66-2.85) H 07/22/19 05:25 PT 13.7 SEC (11.4-15.4) 07/19/19 22:40 INR 1.04 07/19/19 22:40 APTT 30.1 SEC (23.5-35.8) 07/19/19 22:40 Sodium 137.5 mmol/L (137-145) 07/23/19 05:41 Potassium 3.5 mmol/L (3.6-5.0) L 07/23/19 05:41 Chloride 105 mmol/L (98-107) 07/23/19 05:41 Carbon Dioxide 28 mmol/L (22-30) 07/23/19 05:41 Anion Gap 5 (5-19) 07/23/19 05:41 BUN 12 mg/dL (7-20) 07/23/19 05:41 Creatinine 1.28 mg/dL (0.52-1.25) H 07/23/19 05:41 Est GFR ( Amer) 49 (>60) L 07/23/19 05:41 Est GFR (MDRD) Non-Af 41 (>60) L 07/23/19 05:41 Glucose 92 mg/dL (75-110) 07/23/19 05:41 Hemoglobin A1c % 5.0 % (4.7-6.0) 07/21/19 05:30 Calcium 10.6 mg/dL (8.4-10.2) H 07/23/19 05:41 Magnesium 2.5 mg/dL (1.6-2.3) H 07/21/19 05:30 Iron 29.7 ug/dL (37-170) L 07/22/19 05:25 TIBC 280 ug/dL (250-450) 07/22/19 05:25 % Saturation 11 % 07/22/19 05:25 Transferrin 208.60 mg/dL (206.00-381.00) 07/22/19 05:25 Ferritin 82.70 ng/mL (11.1-264.0) 07/22/19 05:25 Total Bilirubin 0.4 mg/dL (0.2-1.3) 07/19/19 22:40 Direct Bilirubin 0.0 mg/dL (0.0-0.4) 07/19/19 22:40 Neonat Total Bilirubin Not Reportable 07/19/19 22:40 Neonat Direct Bilirubin Not Reportable 07/19/19 22:40 Neonat Indirect Bili Not Reportable 07/19/19 22:40 AST 35 U/L (14-36) 07/19/19 22:40 ALT 21 U/L (<35) 07/19/19 22:40 Alkaline Phosphatase 96 U/L (38-126) 07/19/19 22:40 Total Protein 5.6 g/dL (6.3-8.2) L 07/19/19 22:40 Albumin 3.0 g/dL (3.5-5.0) L 07/19/19 22:40 Vitamin B12 304.0 pg/mL (239-931) 07/22/19 05:25 Vitamin D 25-Hydroxy 24.8 ng/mL (14.7-68.3) 07/22/19 05:25 Folate 7.88 ng/mL (>2.76) 07/22/19 05:25 TSH 2.38 uIU/mL (0.47-4.68) 07/21/19 05:30 PTH Intact 13.1 pg/mL (10.0-65.0) 07/22/19 08:07 Cortisol AM Sample 6.56 ug/dL (4.46-22.7) 07/21/19 05:30 Urine Color YELLOW 07/20/19 18:25 Urine Appearance CLEAR 07/20/19 18:25 Urine pH 6.0 (5.0-9.0) 07/20/19 18:25 Ur Specific [place] 1.008 07/20/19 18:25 Urine Protein NEGATIVE mg/dL (NEGATIVE) 07/20/19 18:25 Urine Glucose (UA) NEGATIVE mg/dL (NEGATIVE) 07/20/19 18:25 Urine Ketones NEGATIVE mg/dL (NEGATIVE) 07/20/19 18:25 Urine Blood NEGATIVE (NEGATIVE) 07/20/19 18:25 Urine Nitrite (Reflex) NEGATIVE (NEGATIVE) 07/20/19 18:25 Urine Bilirubin NEGATIVE (NEGATIVE) 07/20/19 18:25 Urine Urobilinogen NEGATIVE mg/dL (<2.0) 07/20/19 18:25 Leukocyte Esterase Rfl NEGATIVE (NEGATIVE) 07/20/19 18:25 Urine RBC (Auto) 0 /HPF 07/20/19 18:25 Urine WBC (Reflex) 1 /HPF 07/20/19 18:25 Squamous Epi Cells Auto 1 /HPF 07/20/19 18:25 Urine Mucus (Auto) RARE /LPF 07/20/19 18:25 Urine Ascorbic Acid NEGATIVE (NEGATIVE) 07/20/19 18:25 COVID-19 Source NASOPHARYNGEAL 07/21/19 02:15 COVID-19 (ELMER) NOT DETECTED 07/21/19 02:15 Blood Type O POSITIVE 07/22/19 18:10 Antibody Screen NEGATIVE 07/22/19 18:10 Crossmatch See Detail 07/22/19 18:10 Impressions: Head CT 07/20/19 00:00 IMPRESSION: MILD CHRONIC CHANGES OF ATROPHY AND MICROVASCULAR ISCHEMIA. NO ACUTE PROCESS. EVIDENCE OF ACUTE STROKE: NO. Knee X-Ray 07/20/19 00:39 IMPRESSION: Moderate joint fluid and joint emphysema of the right knee increased compared with prior exam from 10 days ago. PICC Line Exchange 07/23/19 00:00 IMPRESSION: SUCCESSFUL OVER THE WIRE REPLACEMENT OF AN OLD PICC FOR A NEW ONE THAT IS 5 FR DUAL LUMEN 35 CM PICC IN THE RIGHT ARM. Plan Plan of Treatment: Patient to be transferred to fpc facility. We will continue IV Rocephin 2 g IV every 24 hours for a total of 42 days. Patient will be seen by physical therapy for mobilization and isometric exercises. She will maintain a touchdown weightbearing restriction on the right lower extremity. Follow-up with Dr. Aranda [facility] for surgery in 2 weeks for suture removal. Stroke Is this a Stroke Patient?: No Stroke Pt being discharged on Anti-thrombolytic therapy?: Yes Acute Heart Failure - Is this a Heart Failure Patient?: No
[2019-07-24 07:11] LABS: ALBUMIN 2.4 g/dL (3.5-5.0); BLOOD UREA NITROGEN 15 mg/dL (7-20); CALCIUM 9.6 mg/dL (8.4-10.2); GLUCOSE 89 mg/dL (75-110); POTASSIUM 3.5 mmol/L (3.6-5.0)
[2019-07-24 07:18] LABS: CARBON DIOXIDE 25 mmol/L (22-30); CHLORIDE 110 mmol/L (98-107)
[2019-07-24 07:22] LABS: ANION GAP 3 (5-19)
[2019-07-24 08:18] VITALS: BP 137/45
[2019-07-24] MEDS ORDERED: CEFTRIAXONE 2 GM/D5W RTU 2 GM/50 ML RTUPB IV SCH (10:00)
[2019-07-24] MEDS: POTASSIUM CHLORIDE 10 MEQ TABLET.ER PO SCH (10:07)
[2019-07-24] MEDS: MULTIVITAMIN TABLET PO SCH (10:08)
[2019-07-24] MEDS: METOPROLOL TARTRATE 50 MG TABLET PO SCH (10:08)
[2019-07-24] MEDS: FERROUS SULFATE 325 MG TABLET PO SCH (10:08)
[2019-07-24] MEDS: ESCITALOPRAM OXALATE 10 MG TABLET PO SCH (10:08)
[2019-07-24] MEDS: NORMAL SALINE 10 ML SDV (SCHEDULED) IV SCH ×2 (10:09→10:10)
[2019-07-24] MEDS: OXYBUTYNIN CHLORIDE 5 MG TABLET PO SCH (10:10)
== END 2019-07-24 13:15 | DRG 560 ==
LOC: ER 20:40 → EH 07-20 06:37 → 4W 07-20 07:35 → 4S 07-21 16:27
PROVIDERS: ADMIT Orthopaedic Surgery; ATTEND Orthopaedic Surgery
PROC: 30233N1 Transfusion of Nonautologous Red Blood Cells into Peripheral Vein, Percutaneous Approach (ICD-10-PCS; principal; 2019-07-22)
PROC: 02HV33Z Insertion of Infusion Device into Superior Vena Cava, Percutaneous Approach (ICD-10-PCS; 2019-07-23)
PROC: 02PY33Z Removal of Infusion Device from Great Vessel, Percutaneous Approach (ICD-10-PCS; 2019-07-23)
DX: T84.53XA Infection and inflammatory reaction due to internal right knee prosthesis, initial encounter (principal); T82.594A Other mechanical complication of infusion catheter, initial encounter; D62 Acute posthemorrhagic anemia; R62.7 Adult failure to thrive; I95.9 Hypotension, unspecified; Y79.2 Prosthetic and other implants, materials and accessory orthopedic devices associated with adverse incidents; E87.6 Hypokalemia; E78.5 Hyperlipidemia, unspecified; I10 Essential (primary) hypertension; E66.9 Obesity, unspecified; M19.042 Primary osteoarthritis, left hand; M19.041 Primary osteoarthritis, right hand; M17.0 Bilateral primary osteoarthritis of knee; F32.9 Major depressive disorder, single episode, unspecified; Z96.651 Presence of right artificial knee joint; R32 Unspecified urinary incontinence; E83.52 Hypercalcemia; D50.9 Iron deficiency anemia, unspecified; R41.0 Disorientation, unspecified; R00.1 Bradycardia, unspecified; Z86.73 Personal history of transient ischemic attack (TIA), and cerebral infarction without residual deficits; Z79.899 Other long term (current) drug therapy; Z87.891 Personal history of nicotine dependence; Z79.2 Long term (current) use of antibiotics; Z86.14 Personal history of Methicillin resistant Staphylococcus aureus infection; Z68.34 Body mass index [BMI] 34.0-34.9, adult
CPT/HCPCS: 36415; 36430; 36584; 70450; 80048; 80053; 81001; 82040; 82306; 82533; 82607; 82728; 82746; 83036; 83540; 83550; 83735; 83970; 84443; 84466; 85025; 85027; 85045; 85610; 85730; 86850; 86900; 86901; 86920; 87040; 87635; 94799; 96365; 96368; 99291; 99292; C1769; J0696; J1580; J1642; J1756; J2997; J3490; J7030; J7050; P9016

== ENCOUNTER → 2019-07-30 | Outpatient (CLI) | payer OTHER ==
--- NOTE | 2019-07-30 16:00 | RADIOLOGY REPORT (SQ) ---
EXAM DESCRIPTION: MRI RT LOWER JOINT COMBO IMAGES COMPLETED DATE/TIME: 07/30/2019 2:13 pm REASON FOR STUDY: T84.53XD INFECT/INFLM REACTION DUE TO INTERNAL R KNEE PROSTH, SUBS T84.53XD INFEC T/INFLM REACTION DUE TO INTERNAL R KNEE PROSTH COMPARISON: X-ray dated 07/20/2019. TECHNIQUE: Multiplanar imaging of the right knee to include T1-weighted, postcontrast T1-weighted, a nd T2-weighted images. CONTRAST TYPE AND DOSE: 15 mL Dotarem. RENAL FUNCTION: Not indicated. ACR Type II contrast agent associated with few, if any, unconfounded cases of NSF LIMITATIONS: None. FINDINGS: BONE MARROW: Surgical changes secondary to knee prosthesis. Heterogenous marrow signal. No marrow replacement or enhancement. No cortical break through. SOFT TISSUES: Surgical changes. Irregular heterogenous complex fluid collection anterior to the knee with a small area of extension to the skin surface. Ill-defined appearance, overall measurement pinky roximately 2 cm in thickness and 4 cm in width. There is also a more defined irregular heterogenous complex fluid collection located lateral to the knee. This also appears to have a focal connection t o the posterior skin surface. This lies just external to the lateral collateral ligament. Measures approximately 2.3 cm in thickness, 6.5 cm transverse, and 7.2 cm craniocaudal. OTHER: No other significant finding. IMPRESSION: 1. SURGICAL CHANGES. KNEE PROSTHESIS. HETEROGENOUS MARROW SIGNAL IN THE VISUALIZED BONY STRUCTURES BUT NO EVIDENCE OF SIGNIFICANT OSTEOMYELITIS. 2. ILL-DEFINED FLUID COLLECTION ANTERIOR TO THE KNEE AND A MORE WELL-DEFINED FLUID COLLECTION LATERAL TO THE KNEE DESCRIBED. HETEROGENOUS COMPLEX FLUID WITH SMALL FOCAL CONNECTION TO THE SKIN SURFAC E. THIS MAY REPRESENT POSTOPERATIVE RESOLVING HEMATOMA. INFECTION/ABSCESS CANNOT BE EXCLUDED. IF C LINICALLY INDICATED, PERCUTANEOUS ASPIRATION OF THE LATERAL FLUID COLLECTION UNDER ULTRASOUND GUIDANC E MAY BE ATTEMPTED IF SO DESIRED. TECHNICAL DOCUMENTATION: JOB ID: [id number] 2010 [employer]- All Rights Reserved Reading location - IP/workstation name: [email or web address]
== END ==
LOC: RAD 12:44
PROVIDERS: ATTEND Orthopaedic Surgery
DX: T84.53XD Infection and inflammatory reaction due to internal right knee prosthesis, subsequent encounter (principal); X58.XXXD Exposure to other specified factors, subsequent encounter
CPT/HCPCS: 73723; A9576

== ENCOUNTER 2019-08-22 11:46 | Inpatient (IN) | payer OTHER, MEDICARE ==
[2019-08-22] MEDS ORDERED: HYDROCODONE/ACETAMINOPHEN 5-325 MG TABLET PO ONE (12:30)
[2019-08-22 12:59] LABS: ABSOLUTE LYMPHOCYTES (AUTO) 0.9 10^3/uL (0.5-4.7); ABSOLUTE MONOCYTES (AUTO) 0.8 10^3/uL (0.1-1.4); ABSOLUTE NEUT (AUTO) 4.4 10^3/uL (1.7-8.2); BASOPHILS % (AUTO) 0.2 % (0-2); HEMATOCRIT 31.5 % (36.0-47.0); HEMOGLOBIN 10.7 g/dL (12.0-15.5); LYMPHOCYTES % (AUTO) 14.9 % (13-45); MEAN CORPUSCULAR HEMOGLOBIN 29.6 pg (27.0-33.4); MEAN CORPUSCULAR VOLUME 87 fl (80-97); MONOCYTES % (AUTO) 12.9 % (3-13); PLATELET COUNT 293 10^3/uL (150-450); RED BLOOD COUNT 3.62 10^6/uL (3.72-5.28); RED CELL DISTRIBUTION WIDTH 15.7 % (11.5-14.0); TOTAL CELLS COUNTED % (AUTO) 100 %; WHITE BLOOD COUNT 6.1 10^3/uL (4.0-10.5)
[2019-08-22 13:14] LABS: ALBUMIN 3.5 g/dL (3.5-5.0); ALKALINE PHOSPHATASE 108 U/L (38-126); ASPARTATE AMINO TRANSFERASE 27 U/L (14-36); BILIRUBIN,TOTAL 0.9 mg/dL (0.2-1.3); BLOOD UREA NITROGEN 14 mg/dL (7-20); CALCIUM 10.3 mg/dL (8.4-10.2); CARBON DIOXIDE 28 mmol/L (22-30); CHLORIDE 105 mmol/L (98-107); GLUCOSE 92 mg/dL (75-110); POTASSIUM 4.3 mmol/L (3.6-5.0); TOTAL PROTEIN 6.1 g/dL (6.3-8.2)
[2019-08-22 13:16] LABS: ANION GAP 4 (5-19); C-REACTIVE PROTEIN < 5.0 mg/L (<10.0)
--- NOTE | 2019-08-22 13:22 | ER Document Report ---
Entered by CECILIA ESTEVEZ SCRIBE 08/22/19 1233 Acting as scribe for:HEATHER CORDERO, DO ED Extremity Problem, Lower - General Chief Complaint: Knee Pain Stated Complaint: KNEE PAIN Time Seen by Provider: 08/22/19 12:17 Mode of Arrival: Ambulatory Information source: Patient Notes: This 73 year old female patient presents to the emergency department today with complaints of chronic right knee pain. Patient has had a right knee arthroplasty done, it failed and was revised, she is followed by Dr. yap. This patient had an appointment to see Dr. yap two days ago but she did not go to the appointment due to pain. She rescheduled for today and she also did not go to this appointment because she "hurt too much to get in the car". TRAVEL OUTSIDE OF THE [place] IN LAST 30 DAYS: No - Related Data Allergies/Adverse Reactions: No Known Allergies Allergy (Verified 08/22/19 13:07) Past Medical History - General Information source: Patient - Social History Smoking Status: Former Smoker Cigarette use (# per day): No Frequency of alcohol use: None Drug Abuse: None Family History: Reviewed & Not Pertinent - Past Medical History Cardiac Medical History: Reports: Hx Hypercholesterolemia, Hx Hypertension Musculoskeletal Medical History: Reports Hx Arthritis - knees, hands Psychiatric Medical History: Reports: Hx Depression Past Surgical History: Reports: Hx Orthopedic Surgery - Status post right knee arthroplasty, failure, and revision. - Immunizations Hx Pneumococcal Vaccination: 02/28/16 Review of Systems - Review of Systems Constitutional: No symptoms reported EENT: No symptoms reported Cardiovascular: No symptoms reported Respiratory: No symptoms reported Gastrointestinal: No symptoms reported Genitourinary: No symptoms reported Female Genitourinary: No symptoms reported Musculoskeletal: See HPI, Joint pain - knee Skin: No symptoms reported Hematologic/Lymphatic: No symptoms reported Neurological/Psychological: No symptoms reported -: Yes All other systems reviewed and negative Physical Exam - Vital signs Vitals: Temp Pulse Resp BP Pulse Ox 98.7 F 53 L 16 118/60 98 08/22/19 12:05 08/22/19 12:05 08/22/19 12:05 08/22/19 12:05 08/22/19 12:05 - Notes Notes: Physical Exam: General: Alert, appears well. HEENT: Normocephalic. Atraumatic. PERRL. Extraocular movements intact. Oropharynx clear. Neck: Supple. Non-tender. Respiratory: No respiratory distress. Clear and equal breath sounds bilaterally. Cardiovascular: Regular rate and rhythm. Abdominal: Obese. Non-tender. No distension. Normal Bowel Sounds. Back: No gross abnormalities. Extremities: Moves all four extremities. Upper extremities: Normal inspection. Normal ROM. Lower extremities: right knee is held in flexion at approximately 90 degrees. there is soft tissue swelling with post operative changes. no identifiable abscess. Neurological: Normal cognition. AAOx4. Normal speech. Psychological: Normal affect. Normal Mood. Skin: Warm. Dry. Normal color. Course - Re-evaluation Re-evalutation: 08/22/19 14:39 MDM Unfortunate 73 year old is poorly mobile with right knee pain and - Vital Signs Vital signs: Temp Pulse Resp BP Pulse Ox 98.7 F 53 L 16 118/60 98 08/22/19 12:05 08/22/19 12:05 08/22/19 12:05 08/22/19 12:05 08/22/19 12:05 - Laboratory Result Diagrams: 08/22/19 12:10 08/22/19 12:10 Laboratory results interpreted by me: 08/22/19 08/22/19 12:10 12:10 RBC 3.62 L Hgb 10.7 L Hct 31.5 L RDW 15.7 H Anion Gap 4 L Est GFR (MDRD) Non-Af 49 L Calcium 10.3 H Total Protein 6.1 L Discharge - Discharge Clinical Impression: Bradycardia, Hypercalcemia, Infection of right knee Right knee pain Qualifiers: Chronicity: acute Qualified Code(s): M25.561 - Pain in right knee Condition: Stable Disposition: ADMITTED OBSERVATION Admitting Provider: Rosi I personally performed the services described in the documentation, reviewed and edited the documentation which was dictated to the scribe in my presence, and it accurately records my words and actions.
[2019-08-22 13:44] LABS: ERYTHROCYTE SEDIMENTATION RATE 25 mm/hr (0-30)
[2019-08-22] MEDS: ONDANSETRON 4 MG TAB.RAPDIS SL SCH (18:11)
[2019-08-22] MEDS: OXYCODONE HCL IR 5 MG TABLET PO PRN (21:06)
[2019-08-22] MEDS: ATORVASTATIN CALCIUM 10 MG TABLET PO SCH (21:07)
[2019-08-23] MEDS: ONDANSETRON 4 MG TAB.RAPDIS SL SCH ×4 (00:02→17:12)
[2019-08-23] MEDS ORDERED: METOPROLOL TARTRATE 50 MG TABLET PO SCH (08:00)
[2019-08-23] MEDS: ESCITALOPRAM OXALATE 10 MG TABLET PO SCH (08:29)
[2019-08-23] MEDS: OXYBUTYNIN CHLORIDE 5 MG TABLET PO SCH ×2 (09:07→21:13)
--- NOTE | 2019-08-23 10:54 | RADIOLOGY REPORT (SQ) ---
EXAM DESCRIPTION: MRI RT LOWER EXTREMITY COMBO IMAGES COMPLETED DATE/TIME: 08/23/2019 10:19 am REASON FOR STUDY: right knee abess, MRI R Knee COMPARISON: 07/30/2019. Radiographs 07/20/2019. TECHNIQUE: Multiplanar imaging of the right knee to include T1-weighted, postcontrast T1-weighted, a nd T2-weighted images. CONTRAST TYPE AND DOSE: 15 mL Prohance. RENAL FUNCTION: Not indicated. ACR Type II contrast agent associated with few, if any, unconfounded cases of NSF LIMITATIONS: Mildly limiting postoperative artifact. Includes blooming metallic artifact along the popliteal fossa. FINDINGS: BONE MARROW: No progressive marrow edema or bone resorption. Most of the heterogeneity no leonor is likely postoperative. Hyperintense T2 intermediate T1 signal along the femoral bone interface looks similar to prior. SOFT TISSUES: Fluid collections look less conspicuous. There is some persistent strandy fluid along the anterior knee. No developing abscess or enhancing collections, however. OTHER: No other significant finding. IMPRESSION: Relatively similar appearance to prior. No clear evidence of developing or progressive osteomyelitis. TECHNICAL DOCUMENTATION: JOB ID: [id number] 2010 [employer]- All Rights Reserved Reading location - IP/workstation name: [email or web address]
[2019-08-23] MEDS ORDERED: OXYCODONE HCL IR 5 MG TABLET PO PRN (16:25)
[2019-08-23 17:10] LABS: INTERNATIONAL RATION (INR) 0.92; PROTHROMBIN TIME 12.3 SEC (11.4-15.4)
[2019-08-23] MEDS ORDERED: ONDANSETRON HCL INJ/PF 4 MG/2 ML SDV IV PRN (17:31)
[2019-08-23] MEDS ORDERED: (PENDING PHARMACY ID) (Oxybutynin Chloride [Oxybutynin Chloride Er] 5 MG) PO SCH (18:00)
[2019-08-23] MEDS: OXYCODONE HCL IR 5 MG TABLET PO PRN (18:53)
[2019-08-23] MEDS: ATORVASTATIN CALCIUM 10 MG TABLET PO SCH (21:13)
[2019-08-23] MEDS ORDERED: ATORVASTATIN CALCIUM 10 MG TABLET PO SCH (22:00)
--- NOTE | 2019-08-24 06:56 | PDOC H&P ---
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 The patient was recently hospitalized at [facility] her PICC line was removed and antibiotics were stopped. She was subsequently discharged to [facility] and then to home. When she returned home she was unable to be transported to an outpatient appointment either Monday or because of pain. EMS was called and she was transported to the [facility] emergency room. Past Medical History Cardiac Medical History: Reports: Hyperlipidema, Hypertension Denies: Atrial Fibrillation, Congestive Heart Failure, Coronary Artery Disease, Myocardial Infarction, Peripheral Vascular Disease, Heart Murmur Pulmonary Medical History: Denies: Asthma, Bronchitis, Chronic Obstructive Pulmonary Disease (COPD), Sleep Apnea Neurological Medical History: Denies: Seizures Endocrine Medical History: Denies: Hyperthyroidism, Hypothyroidism Malignancy Medical History: Denies: Leukemia GI Medical History: Denies: Gastroesophageal Reflux Disease Musculoskeltal Medical History: Reports: Arthritis - knees, hands Denies: Fibromyalgia Skin Medical History: Denies: Eczema Psychiatric Medical History: Reports: Depression Denies: Bipolar Disorder, Post Traumatic Stress Disorder Hematology: Reports: Anemia Denies: Hemophilia, Sickle Cell Disease Infectious Medical History: Denies: HIV Past Surgical History Past Surgical History: Reports: Orthopedic Surgery - Status post right knee arthroplasty, failure, and resection. Denies: Amputation, Appendectomy, Section, Cholecystectomy, Coronary Artery Bypass Graft, Gastric Bypass Surgery, Herniorrhaphy, Hysterectomy, Mastectomy, Pacemaker, Tonsillectomy, Tubal Ligation Social History Information Source: Patient, [facility], [facility] Lives with: Spouse/Significant other Smoking Status: Never Smoker Frequency of Alcohol Use: None Hx Recreational Drug Use: No Drugs: None Hx Prescription Drug Abuse: No Family History Family History: Reviewed & Not Pertinent Parental Family History Reviewed: No Children Family History Reviewed: No Sibling(s) Family History Reviewed.: No Medication/Allergy Home Medications: Escitalopram Oxalate [Lexapro 10 mg Tablet] 10 mg PO DAILY 03/20/19 Ergocalciferol (Vitamin D2) [Drisdol 50,000 unit (1.25MG) Capsule] 50,000 unit PO LIGHT 07/20/19 Metoprolol Tartrate [Lopressor 50 mg Tablet] 25 mg PO DAILY tablet 07/24/19 Oxycodone HCl [Oxy-Ir 5 mg Tablet] 5 mg PO Q6HP PRN #40 07/24/19 Atorvastatin Calcium [Lipitor 10 mg Tablet] 10 mg PO QHS 08/22/19 Oxybutynin Chloride [Oxybutynin Chloride ER] 5 mg PO BID 08/22/19 Allergies/Adverse Reactions: No Known Allergies Allergy (Verified 08/22/19 13:07) Review of Systems All systems: as per H Physical Exam Vital Signs: Temp Pulse Resp BP Pulse Ox 36.9 C 52 L 17 137/56 H 98 08/24/19 05:24 08/24/19 05:24 08/24/19 05:24 08/24/19 05:24 08/24/19 05:24 Intake & Output 08/22/19 08/23/19 08/24/19 06:59 06:59 06:59 Intake Total 340 Balance 340 Weight 77.5 kg 79.6 kg Physical Exam: Overweight middle-aged white female lying in a hospital bed. Patient is alert, oriented, appropriate. There is probably a component of situational depression. General appearance: PRESENT: obese Respiratory exam: PRESENT: unlabored Cardiovascular exam: PRESENT: RRR Pulses: PRESENT: +1 pedal pulses bilateral Vascular exam: PRESENT: normal capillary refill GI/Abdominal exam: PRESENT: soft Rectal exam: PRESENT: deferred Extremities exam: PRESENT: other - Right lower extremity demonstrates a draining sinus tract at the posterior lateral corner. Anterior knee incision is well- healed. Neurological exam: PRESENT: alert, awake, oriented to person, oriented to place, oriented to time, oriented to situation, CN II-XII grossly intact. ABSENT: motor sensory deficit Psychiatric exam: PRESENT: depressed Skin exam: PRESENT: dry, intact, warm. ABSENT: cyanosis, rash Results Laboratory Results: 08/22/19 12:10 08/22/19 12:10 Impressions: Lower Extremity MRI 08/23/19 08:40 IMPRESSION: Relatively similar appearance to prior. No clear evidence of developing or progressive osteomyelitis. Status: Imported from PACS Assessment & Plan - Diagnosis (1) Infection of right knee Is this a current diagnosis for this admission?: Yes Plan: The patient's original knee arthroplasty failed because of polyethylene wear leading to [id number] articulation and to scattered metal debris. The recent MRI scan demonstrates significant metallic artifact in the popliteal fossa that presumably results from the [id number] wear. The patient clearly has a retained foreign body with persistence of her infection and it is my best guess that the retained foreign body is in fact the metallic debris in the pop liteal fossa. Any attempt to reimplant knee prior to eradicating the underlying infection is can be fraught with failure. At this point my plan is to return to the operating room and debride the sinus tract from a posterior lateral corner with an attempt to resect the capsule and the metallic debris. This is a difficult situation that has a reduced likelihood of success - Time Time Spent: 50 to 70 Minutes Anticipated discharge: Other Within: Other
[2019-08-24] MEDS: METOPROLOL TARTRATE 25 MG TABLET PO SCH (09:18)
[2019-08-24] MEDS: ESCITALOPRAM OXALATE 10 MG TABLET PO SCH (09:18)
[2019-08-24] MEDS: OXYBUTYNIN CHLORIDE 5 MG TABLET PO SCH ×2 (09:19→21:01)
[2019-08-24] MEDS ORDERED: METOPROLOL TARTRATE 50 MG TABLET PO SCH (10:00)
[2019-08-24] MEDS ORDERED: ESCITALOPRAM OXALATE 10 MG TABLET PO SCH (10:00)
[2019-08-24] MEDS: ASPIRIN 81 MG TABLET, ENT COATED PO SCH (10:48)
[2019-08-24] MEDS: OXYCODONE HCL IR 5 MG TABLET PO PRN ×2 (12:39→21:03)
[2019-08-24] MEDS: ATORVASTATIN CALCIUM 10 MG TABLET PO SCH (21:01)
--- NOTE | 2019-08-25 06:23 | PDOC PROGRESS REPORT ---
Subjective Progress Note for:: 08/25/19 Reason For Visit: BRADYCARDIA,HYPERCALCEMIA,RIGHT KNEE INFECTION 73-year-old white female with a periprosthetic right knee infection and now persistent posterior lateral knee drainage. Physical Exam Vital Signs: Temp Pulse Resp BP Pulse Ox 36.6 C 45 L 17 123/53 L 96 08/24/19 23:20 08/25/19 02:00 08/24/19 23:20 08/24/19 23:20 08/24/19 23:20 Intake & Output 08/23/19 08/24/19 08/25/19 06:59 06:59 06:59 Intake Total 340 Output Total 0 Balance 340 0 Weight 77.5 kg 79.6 kg 80.9 kg General appearance: PRESENT: no acute distress Respiratory exam: PRESENT: unlabored Cardiovascular exam: PRESENT: bradycardia Pulses: PRESENT: +1 pedal pulses bilateral Vascular exam: PRESENT: normal capillary refill Musculoskeletal exam: PRESENT: other - [employer] posterior lateral drainage right knee with well-healed anterior incision Neurological exam: PRESENT: alert, awake, oriented to person, oriented to place, oriented to time, oriented to situation. ABSENT: motor sensory deficit Results Laboratory Results: 08/22/19 12:10 08/22/19 12:10 Impressions: Lower Extremity MRI 08/23/19 08:40 IMPRESSION: Relatively similar appearance to prior. No clear evidence of developing or progressive osteomyelitis. Status: Imported from PACS Assessment & Plan - Diagnosis (1) Infection of right knee Is this a current diagnosis for this admission?: Yes Plan: Evin for surgical debridement and resection of the posterior lateral capsule tomorrow - Time Time Spent with patient: 15-24 minutes Anticipated discharge: Other Within: Other
[2019-08-25] MEDS: ASPIRIN 81 MG TABLET, ENT COATED PO SCH (09:08)
[2019-08-25] MEDS: ESCITALOPRAM OXALATE 10 MG TABLET PO SCH (09:08)
[2019-08-25] MEDS: OXYBUTYNIN CHLORIDE 5 MG TABLET PO SCH ×2 (09:08→21:30)
[2019-08-25] MEDS: ERGOCALCIFEROL (VITAMIN D2) 50000 UNIT (1.25 MG) CAPSULE PO SCH (09:08)
[2019-08-25] MEDS: METOPROLOL TARTRATE 25 MG TABLET PO SCH (09:08)
[2019-08-25] MEDS: OXYCODONE HCL IR 5 MG TABLET PO PRN ×2 (12:35→21:33)
[2019-08-25] MEDS: ATORVASTATIN CALCIUM 10 MG TABLET PO SCH (21:30)
[2019-08-26] MEDS: RINGERS SOLUTION,LACTATED 1,000 ML IV PRN ×4 (00:08→21:02)
[2019-08-26] MEDS ORDERED: CELECOXIB 200 MG CAPSULE PO ONE (06:00)
[2019-08-26] MEDS ORDERED: GLYCOPYRROLATE 1 MG/5 ML VIAL ONE (08:24)
[2019-08-26] MEDS ORDERED: SUCCINYLCHOLINE CHLORIDE INJ 200 MG/10 ML VIAL ONE (08:24)
[2019-08-26] MEDS: ESCITALOPRAM OXALATE 10 MG TABLET PO SCH (08:44)
[2019-08-26] MEDS: ASPIRIN 81 MG TABLET, ENT COATED PO SCH (10:04)
[2019-08-26] MEDS: METOPROLOL TARTRATE 25 MG TABLET PO SCH (10:04)
[2019-08-26] MEDS: OXYBUTYNIN CHLORIDE 5 MG TABLET PO SCH ×2 (10:04→21:08)
[2019-08-26] MEDS ORDERED: ONDANSETRON HCL INJ/PF 4 MG/2 ML SDV IV PRN (15:35)
[2019-08-26] MEDS ORDERED: PROMETHAZINE HCL INJ 25 MG/1 ML VIAL IV PRN ×2 (15:35)
[2019-08-26] MEDS ORDERED: MORPHINE SULFATE 10 MG/ML INJ IV PRN (15:35)
[2019-08-26] MEDS ORDERED: FENTANYL CITRATE INJ/PF 100 MCG/2 ML AMPUL IV PRN ×3 (15:35)
[2019-08-26] MEDS ORDERED: MEPERIDINE HCL/PF INJ 25 MG/1 ML DISP.SYRIN IV PRN (15:35)
[2019-08-26] MEDS ORDERED: DIPHENHYDRAMINE HCL 50 MG/ML VIAL IV PRN (15:35)
[2019-08-26] MEDS ORDERED: VANCOMYCIN HCL INJ 1000 MG VIAL ONE (15:58)
--- NOTE | 2019-08-26 16:02 | Operative Report ---
Operative Report DATE OF SURGERY: 08/26/19 PREOPERATIVE DIAGNOSIS: Draining sinus tract right posterior lateral knee OPERATION: Irrigation debridement right posterior lateral knee, peroneal nerve identification and preservation SURGEON: ONDINA SIMONS ANESTHESIA: GA TISSUE REMOVED OR ALTERED: Cultures x2 to microbiology culture and sensitivity, AFB, and fungal. Soft tissue to pathology ESTIMATED BLOOD LOSS: 25 PROCEDURE: With the patient prone on the operating table right lower extremities prepped and draped sterile fashion. Limb is elevated for exsanguination tourniquet applied to 280 torr. A sigmoid type incision is made about the existing sinus tract beginning proximally and down along the lateral hamstring tendon over the top of the sinus tract and then down over the lateral gastroc. Sharp and blunt dissection was carried incision down to the fascia. The peroneal nerve was identified and preserved. There is an abscess cavity that seems to track late rally down along the lateral aspect of the fibular head material was sent for culture and sensitivity as well as frozen section diagnosis.. This is composed of soft tissue and what appears to be caseous type material. 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 Debrided both sharply and bluntly. The wound is copiously irrigated with pulse lavage containing 3 L normal saline containing Betadine. The wound is then closed in layers with interrupted PDS followed by nylon.
[2019-08-26] MEDS: OXYCODONE HCL IR 5 MG TABLET PO PRN (21:08)
[2019-08-26] MEDS: ATORVASTATIN CALCIUM 10 MG TABLET PO SCH (21:08)
[2019-08-26] MEDS: VANCOMYCIN HCL 1,250 MG in DEXTROSE 5%-WATER 250 ML IV SCH (21:53)
[2019-08-26] MEDS ORDERED: VANCOMYCIN HCL 1,000 MG in DEXTROSE 5%-WATER 250 ML IV SCH (22:00)
[2019-08-26] MEDS ORDERED: VANCOMYCIN HCL INJ 1000 MG VIAL IV SCH (22:00)
[2019-08-27] MEDS: RINGERS SOLUTION,LACTATED 1,000 ML IV PRN ×2 (05:38→19:59)
[2019-08-27 05:39] LABS: ABSOLUTE LYMPHOCYTES (AUTO) 0.7 10^3/uL (0.5-4.7); ABSOLUTE MONOCYTES (AUTO) 0.4 10^3/uL (0.1-1.4); BASOPHILS % (AUTO) 0.1 % (0-2); HEMATOCRIT 30.9 % (36.0-47.0); HEMOGLOBIN 10.5 g/dL (12.0-15.5); MEAN CORPUSCULAR HEMOGLOBIN 29.3 pg (27.0-33.4); MEAN CORPUSCULAR HGB CONC 33.9 g/dL (32.0-36.0); MEAN CORPUSCULAR VOLUME 87 fl (80-97); MONOCYTES % (AUTO) 6.1 % (3-13); PLATELET COUNT 262 10^3/uL (150-450); RED BLOOD COUNT 3.56 10^6/uL (3.72-5.28); RED CELL DISTRIBUTION WIDTH 15.3 % (11.5-14.0); SEGMENTED NEUTROPHILS % (AUTO) 82.8 % (42-78); TOTAL CELLS COUNTED % (AUTO) 100 %
[2019-08-27 06:15] LABS: ANION GAP 7 (5-19); BLOOD UREA NITROGEN 14 mg/dL (7-20); CALCIUM 10.5 mg/dL (8.4-10.2); CARBON DIOXIDE 27 mmol/L (22-30); CHLORIDE 104 mmol/L (98-107); GLUCOSE 107 mg/dL (75-110); POTASSIUM 4.1 mmol/L (3.6-5.0)
[2019-08-27 06:46] LABS: ERYTHROCYTE SEDIMENTATION RATE 24 mm/hr (0-30)
--- NOTE | 2019-08-27 07:06 | PDOC PROGRESS REPORT ---
Subjective Progress Note for:: 08/27/19 Reason For Visit: BRADYCARDIA,HYPERCALCEMIA,RIGHT KNEE INFECTION 73-year-old white female postop day 1 status post posterior lateral knee exploration and evacuation of what appears to be a sterile abscess. Laboratory values including frozen section, permanent pathology, and microbiology including Gram stain are pending. Likewise sedimentation rate and C-reactive protein are pending. Physical Exam Vital Signs: Temp Pulse Resp BP Pulse Ox 36.4 C 69 17 131/54 H 97 08/27/19 04:08 08/27/19 04:08 08/27/19 04:08 08/27/19 04:08 08/27/19 04:08 Intake & Output 08/26/19 08/27/19 08/28/19 06:59 06:59 06:59 Intake Total 2412 5009 Output Total 3609 Balance 2412 1400 Weight 80 kg 85.5 kg General appearance: PRESENT: no acute distress Head exam: PRESENT: normocephalic Respiratory exam: PRESENT: unlabored Cardiovascular exam: PRESENT: RRR Musculoskeletal exam: PRESENT: other - Right lower extremity dressing is clean dry and intact. Distal neurovascular examination is intact. Results Laboratory Results: 08/27/19 04:17 08/27/19 04:17 08/27/19 08/27/19 04:17 04:17 WBC 6.0 RBC 3.56 L Hgb 10.5 L Hct 30.9 L MCV 87 MCH 29.3 MCHC 33.9 RDW 15.3 H Plt Count 262 Seg Neutrophils % 82.8 H Sodium 137.5 Potassium 4.1 Chloride 104 Carbon Dioxide 27 Anion Gap 7 BUN 14 Creatinine 1.00 Est GFR ( Amer) > 60 Glucose 107 Calcium 10.5 H Impressions: Lower Extremity MRI 08/23/19 08:40 IMPRESSION: Relatively similar appearance to prior. No clear evidence of developing or progressive osteomyelitis. Assessment & Plan - Diagnosis (1) Infection of right knee Is this a current diagnosis for this admission?: Yes Plan: Right knee structuring pending clear eradication of an underlying periprosthetic infection - Time Time Spent with patient: 15-24 minutes Anticipated discharge: Home with Homehealth Within: Other
[2019-08-27] MEDS: METOPROLOL TARTRATE 25 MG TABLET PO SCH (09:25)
[2019-08-27] MEDS: ASPIRIN 81 MG TABLET, ENT COATED PO SCH (09:25)
[2019-08-27] MEDS: ESCITALOPRAM OXALATE 10 MG TABLET PO SCH (09:26)
[2019-08-27] MEDS: OXYBUTYNIN CHLORIDE 5 MG TABLET PO SCH ×2 (09:26→21:01)
[2019-08-27] MEDS: OXYCODONE HCL IR 5 MG TABLET PO PRN (17:48)
[2019-08-27] MEDS: VANCOMYCIN HCL 1,250 MG in DEXTROSE 5%-WATER 250 ML IV SCH (21:01)
[2019-08-27] MEDS: ATORVASTATIN CALCIUM 10 MG TABLET PO SCH (21:02)
[2019-08-28] MEDS: OXYCODONE HCL IR 5 MG TABLET PO PRN ×3 (00:34→21:40)
[2019-08-28] MEDS: RINGERS SOLUTION,LACTATED 1,000 ML IV PRN (04:39)
--- NOTE | 2019-08-28 07:29 | PDOC PROGRESS REPORT ---
Subjective Progress Note for:: 08/28/19 Reason For Visit: BRADYCARDIA,HYPERCALCEMIA,RIGHT KNEE INFECTION 73-year-old white female status post I&D of a right periprosthetic knee infection. No new results from microbiology or pathology as of this morning. Patient comfortable. Physical Exam Vital Signs: Temp Pulse Resp BP Pulse Ox 36.8 C 58 L 20 119/55 L 94 08/28/19 04:33 08/28/19 04:33 08/28/19 04:33 08/28/19 04:33 08/28/19 04:33 Intake & Output 08/27/19 08/28/19 08/29/19 06:59 06:59 06:59 Intake Total 5009 3172 Output Total 3609 Balance 1400 3172 Weight 85.5 kg 85.5 kg General appearance: PRESENT: no acute distress Head exam: PRESENT: normocephalic Respiratory exam: PRESENT: unlabored Cardiovascular exam: PRESENT: RRR Pulses: PRESENT: +1 pedal pulses bilateral Vascular exam: PRESENT: normal capillary refill Musculoskeletal exam: PRESENT: other - Right lower extremity dressing intact. Results Laboratory Results: 08/27/19 04:17 08/27/19 04:17 08/26/19 15:36 Knee - Right Fungal Smear - Final Not Reportable 08/26/19 15:36 Knee - Right Fungal Smear - Final Not Reportable 08/26/19 15:36 Knee - Right Fungal Smear - Final Not Reportable 08/26/19 15:36 Knee - Right Fungal Smear - Final Not Reportable 08/26/19 15:36 Knee - Right Fungal Smear - Final Not Reportable 08/26/19 15:36 Knee - Right Fungal Culture - Final Not Reportable 08/26/19 15:36 Knee - Right Fungal Culture - Final Not Reportable 08/26/19 15:36 Knee - Right Fungal Culture - Final Not Reportable 08/26/19 15:36 Knee - Right Susceptibility Special Request - Final Not Reportable 08/22/19 12:10 Blood Blood Culture - Final NO GROWTH IN 5 DAYS 08/22/19 12:10 Blood Blood Culture - Final NO GROWTH IN 5 DAYS Impressions: Lower Extremity MRI 08/23/19 08:40 IMPRESSION: Relatively similar appearance to prior. No clear evidence of developing or progressive osteomyelitis. Assessment & Plan - Diagnosis (1) Infection of right knee Is this a current diagnosis for this admission?: Yes Plan: Await final pathology interpretation as well as cultures. Gram stain demonstrates the presence of gram-negative rods and gram-positive cocci in chains. This would be different than what previous cultures have demonstrated which was primarily strep mitis. Plan on await the results of microbiology and pathology. Tentative plan for reconstruction on Monday. Patient is not interested in an arthrodesis and hence our current plan will be to proceed with a distal femoral placement rotating-hinge knee to allow aggressive debridement of the posterior capsule from inside. Patient understands that this fails our backup plans are pretty limited. - Time Time Spent with patient: 15-24 minutes Anticipated discharge: Other Within: Other
[2019-08-28] MEDS: ESCITALOPRAM OXALATE 10 MG TABLET PO SCH (08:13)
[2019-08-28] MEDS: CEFEPIME HCL 2 GM in DEXTROSE 5%-WATER 50 ML IV SCH ×2 (11:41→21:41)
[2019-08-28] MEDS: METOPROLOL TARTRATE 25 MG TABLET PO SCH (11:42)
[2019-08-28] MEDS: ASPIRIN 81 MG TABLET, ENT COATED PO SCH (11:43)
[2019-08-28] MEDS: OXYBUTYNIN CHLORIDE 5 MG TABLET PO SCH ×2 (11:48→21:40)
[2019-08-28] MEDS: VANCOMYCIN HCL 1,500 MG in DEXTROSE 5%-WATER 250 ML IV SCH (19:23)
[2019-08-28] MEDS: ATORVASTATIN CALCIUM 10 MG TABLET PO SCH (21:40)
[2019-08-29] MEDS ORDERED: BISACODYL 10 MG SUPP.RECT PR ONE (04:00)
--- NOTE | 2019-08-29 07:13 | PDOC PROGRESS REPORT ---
Subjective Progress Note for:: 08/29/19 Reason For Visit: BRADYCARDIA,HYPERCALCEMIA,RIGHT KNEE INFECTION 73-year-old white female status post right knee prosthetic resection for periprosthetic infection. Patient is now status post additional I&D on Monday. Current situation is normal sedimentation rate and C-reactive protein, afebrile status, no acute inflammation on eminent pathology, and now polymicrobial cultures including coliforms. I am having difficulty integrating this into the clinical situation. Physical Exam Vital Signs: Temp Pulse Resp BP Pulse Ox 36.9 C 56 L 16 127/64 H 96 08/29/19 00:41 08/29/19 02:00 08/29/19 00:41 08/29/19 00:41 08/29/19 00:41 Intake & Output 08/28/19 08/29/19 08/30/19 06:59 06:59 06:59 Intake Total 3172 2030 Output Total 650 Balance 3172 1380 Weight 85.5 kg 85 kg Physical Exam: Unchanged General appearance: PRESENT: no acute distress Results Laboratory Results: 08/27/19 04:17 08/27/19 04:17 08/26/19 15:36 Knee - Behind Right Gram Stain - Final 08/26/19 15:36 Knee - Behind Right Wound Culture - Final Pseudomonas Aeruginosa Enterococcus Faecalis(Group D) Anaerococcus (Peptostrep) Sp. 08/26/19 15:36 Knee - Behind Right Gram Stain - Final 08/26/19 15:36 Knee - Behind Right Wound Culture - Final Pseudomonas Aeruginosa Enterococcus Faecalis(Group D) Anaerococcus (Peptostrep) Sp. Impressions: Lower Extremity MRI 08/23/19 08:40 IMPRESSION: Relatively similar appearance to prior. No clear evidence of developing or progressive osteomyelitis. Status: Imported from PACS Assessment & Plan - Diagnosis (1) Infection of right knee Is this a current diagnosis for this admission?: Yes Plan: At this point I am really unsure as how to proceed. I do not think any further I&D's are appropriate for this patient and the question arises is whether you which are kayode and the microbiology data versus combination of the other data. At this point organ to proceed on Monday with a prosthetic reconstruction that will involved aggressive resection of the existing subarticular bone structure and attempt to eradicate any further foci of infection if it does exist. - Time Time Spent with patient: 15-24 minutes Anticipated discharge: Other Within: Other
[2019-08-29] MEDS: ESCITALOPRAM OXALATE 10 MG TABLET PO SCH (08:35)
[2019-08-29] MEDS: OXYCODONE HCL IR 5 MG TABLET PO PRN (08:57)
[2019-08-29] MEDS: METOPROLOL TARTRATE 25 MG TABLET PO SCH (14:06)
[2019-08-29] MEDS: ASPIRIN 81 MG TABLET, ENT COATED PO SCH (14:06)
[2019-08-29] MEDS: CEFEPIME HCL 2 GM in DEXTROSE 5%-WATER 50 ML IV SCH ×2 (14:06→21:03)
[2019-08-29] MEDS: OXYBUTYNIN CHLORIDE 5 MG TABLET PO SCH ×2 (14:07→21:03)
[2019-08-29] MEDS: VANCOMYCIN HCL 1,500 MG in DEXTROSE 5%-WATER 250 ML IV SCH (17:10)
[2019-08-29] MEDS: ATORVASTATIN CALCIUM 10 MG TABLET PO SCH (21:03)
[2019-08-29] MEDS: POLYETHYLENE GLYCOL 3350 POWDER 17 GM/1 PACKET PO SCH (21:50)
[2019-08-30] MEDS: ESCITALOPRAM OXALATE 10 MG TABLET PO SCH (07:38)
--- NOTE | 2019-08-30 09:39 | PDOC PROGRESS REPORT ---
Subjective Progress Note for:: 08/30/19 Reason For Visit: INFECTION OF RIGHT KNEE 73 yo WF with R periprosthetic knee infection, AFB stain negative Physical Exam Vital Signs: Temp Pulse Resp BP Pulse Ox 37.1 C 61 18 145/64 H 98 08/30/19 07:25 08/30/19 07:25 08/30/19 07:25 08/30/19 07:25 08/30/19 07:25 Intake & Output 08/29/19 08/30/19 08/31/19 06:59 06:59 06:59 Intake Total 2030 1048 Output Total 650 2150 Balance 1380 -1102 Weight 85 kg 85 kg Results Laboratory Results: 08/27/19 04:17 08/27/19 04:17 08/26/19 15:36 Knee - Right AFB Smear Concentration - Final 08/26/19 15:36 Knee - Right Acid Fast Bacilli Smear - Final Impressions: Lower Extremity MRI 08/23/19 08:40 IMPRESSION: Relatively similar appearance to prior. No clear evidence of developing or progressive osteomyelitis. Status: Imported from PACS Assessment & Plan - Diagnosis (1) Infection of right knee Is this a current diagnosis for this admission?: Yes Plan: awaiting reconstruction on Monday - Time Time Spent with patient: 15-24 minutes Anticipated discharge: Other Within: Other
[2019-08-30] MEDS: METOPROLOL TARTRATE 25 MG TABLET PO SCH (10:25)
[2019-08-30] MEDS: CEFEPIME HCL 2 GM in DEXTROSE 5%-WATER 50 ML IV SCH ×2 (10:25→22:15)
[2019-08-30] MEDS: CELECOXIB 200 MG CAPSULE PO SCH (10:25)
[2019-08-30] MEDS: ASPIRIN 81 MG TABLET, ENT COATED PO SCH (10:25)
[2019-08-30] MEDS: POLYETHYLENE GLYCOL 3350 POWDER 17 GM/1 PACKET PO SCH (10:25)
[2019-08-30] MEDS: OXYBUTYNIN CHLORIDE 5 MG TABLET PO SCH ×2 (11:16→22:15)
[2019-08-30] MEDS: OXYCODONE-ACETAMINOPHEN 5-325 MG TABLET PO PRN ×2 (12:28)
[2019-08-30] MEDS: VANCOMYCIN HCL 1,500 MG in DEXTROSE 5%-WATER 250 ML IV SCH (17:29)
[2019-08-30] MEDS: ATORVASTATIN CALCIUM 10 MG TABLET PO SCH (22:15)
[2019-08-31] MEDS: OXYCODONE-ACETAMINOPHEN 5-325 MG TABLET PO PRN ×2 (00:11→21:39)
--- NOTE | 2019-08-31 05:54 | PDOC PROGRESS REPORT ---
Subjective Progress Note for:: 08/31/19 Reason For Visit: INFECTION OF RIGHT KNEE 73-year-old white female awaiting right knee reconstruction on Monday. Interval course has been uneventful. Patient remains borderline bradycardic at 60, afebrile, and on empiric antibiotics for polymicrobial cultures on Monday Physical Exam Vital Signs: Temp Pulse Resp BP Pulse Ox 36.7 C 60 20 128/41 H 94 08/30/19 23:50 08/31/19 02:00 08/30/19 23:50 08/30/19 23:50 08/30/19 23:50 Intake & Output 08/29/19 08/30/19 08/31/19 06:59 06:59 06:59 Intake Total 2030 1048 1047 Output Total 650 2150 500 Balance 1380 -1102 547 Weight 85 kg 85 kg General appearance: PRESENT: no acute distress Respiratory exam: PRESENT: unlabored Cardiovascular exam: PRESENT: RRR GI/Abdominal exam: PRESENT: soft Rectal exam: PRESENT: deferred Musculoskeletal exam: PRESENT: other - Right lower extremity dressing dry Results Laboratory Results: 08/27/19 04:17 08/27/19 04:17 Impressions: Lower Extremity MRI 08/23/19 08:40 IMPRESSION: Relatively similar appearance to prior. No clear evidence of developing or progressive osteomyelitis. Status: Imported from PACS Assessment & Plan - Diagnosis (1) Infection of right knee Is this a current diagnosis for this admission?: Yes Plan: Patient remains on antibiotic therapy for positive intraoperative cultures. The discordance among indicators for persistent infection continues to be concerning for me. The patient had been seen at [facility] and had been deemed appropriate for surgical reconstruction during the pandemic shutdown and then had also been offered a reconstruction while hospitalized at [facility] in the last 2 weeks. My plan is again to reconstruct the knee with a distal femoral replacement allowing excision of considerable distal femoral and proximal tibial bone and debridement of the capsules posteriorly with good visualization. This is explained to the patient in detail with drawings on the marker board in her room. I have also informed her that if this fails our options become very limited. - Time Time Spent with patient: 15-24 minutes Anticipated discharge: Other Within: Other
[2019-08-31] MEDS: ESCITALOPRAM OXALATE 10 MG TABLET PO SCH (08:09)
[2019-08-31] MEDS: ASPIRIN 81 MG TABLET, ENT COATED PO SCH (09:29)
[2019-08-31] MEDS: CELECOXIB 200 MG CAPSULE PO SCH (09:29)
[2019-08-31] MEDS: OXYBUTYNIN CHLORIDE 5 MG TABLET PO SCH ×2 (09:29→21:40)
[2019-08-31] MEDS: POLYETHYLENE GLYCOL 3350 POWDER 17 GM/1 PACKET PO SCH (09:29)
[2019-08-31] MEDS: CEFEPIME HCL 2 GM in DEXTROSE 5%-WATER 50 ML IV SCH ×2 (09:32→21:40)
[2019-08-31] MEDS: METOPROLOL TARTRATE 25 MG TABLET PO SCH (12:04)
[2019-08-31 17:36] LABS: VANCOMYCIN,TROUGH 27.9 ug/mL (5.0-20.0)
[2019-08-31] MEDS: VANCOMYCIN HCL 1,500 MG in DEXTROSE 5%-WATER 250 ML IV SCH (18:03)
[2019-08-31] MEDS: ATORVASTATIN CALCIUM 10 MG TABLET PO SCH (21:40)
--- NOTE | 2019-09-01 05:28 | PDOC PROGRESS REPORT ---
Subjective Progress Note for:: 09/01/19 Reason For Visit: INFECTION OF RIGHT KNEE 73-year-old white female status post right knee resection arthroplasty for periprosthetic infection. No events overnight. Repeat labs drawn this morning in anticipation of surgical intervention tomorrow. Physical Exam Vital Signs: Temp Pulse Resp BP Pulse Ox 36.7 C 71 17 114/41 L 96 09/01/19 00:19 09/01/19 02:00 09/01/19 00:19 09/01/19 00:19 09/01/19 00:19 Intake & Output 08/30/19 08/31/19 09/01/19 06:59 06:59 06:59 Intake Total 1048 1047 1306 Output Total 2150 1100 750 Balance -1102 -53 556 Weight 85 kg 85 kg General appearance: PRESENT: obese Cardiovascular exam: PRESENT: bradycardia, RRR Pulses: PRESENT: +1 pedal pulses bilateral Musculoskeletal exam: PRESENT: other - Right lower extremity dressing clean dry and intact Results Laboratory Results: 08/27/19 04:17 08/31/19 16:54 08/31/19 16:54 Creatinine 1.43 H Est GFR ( Amer) 44 L Impressions: Lower Extremity MRI 08/23/19 08:40 IMPRESSION: Relatively similar appearance to prior. No clear evidence of developing or progressive osteomyelitis. Status: Imported from PACS Assessment & Plan - Diagnosis (1) Infection of right knee Is this a current diagnosis for this admission?: Yes Plan: The patient is not interested in consideration of an arthrodesis. We will going to proceed with a right knee revision arthroplasty entailing significant resection of both distal femoral and proximal tibial bone. This allowed direct access posterior capsule and the soft tissue debridement as well. Patient understands that the disadvantage of this approach is that if it were to fail salvage procedures will be very difficult. - Time Time Spent with patient: 15-24 minutes Anticipated discharge: Other Within: Other
[2019-09-01] MEDS ORDERED: TRANEXAMIC ACID 1,000 MG in DEXTROSE 5%-WATER 50 ML IV PRN (05:32)
[2019-09-01 06:40] LABS: ABSOLUTE MONOCYTES (AUTO) 0.6 10^3/uL (0.1-1.4); ABSOLUTE NEUT (AUTO) 2.8 10^3/uL (1.7-8.2); BASOPHILS % (AUTO) 0.4 % (0-2); EOSINOPHILS % (AUTO) 0.1 % (0-6); HEMATOCRIT 29.6 % (36.0-47.0); LYMPHOCYTES % (AUTO) 22.5 % (13-45); MEAN CORPUSCULAR HGB CONC 33.7 g/dL (32.0-36.0); MEAN CORPUSCULAR VOLUME 86 fl (80-97); MONOCYTES % (AUTO) 14.7 % (3-13); PLATELET COUNT 231 10^3/uL (150-450); RED BLOOD COUNT 3.44 10^6/uL (3.72-5.28); RED CELL DISTRIBUTION WIDTH 14.8 % (11.5-14.0); SEGMENTED NEUTROPHILS % (AUTO) 62.3 % (42-78); TOTAL CELLS COUNTED % (AUTO) 100 %; WHITE BLOOD COUNT 4.4 10^3/uL (4.0-10.5)
[2019-09-01 06:52] LABS: INTERNATIONAL RATION (INR) 1.01; PROTHROMBIN TIME 13.3 SEC (11.4-15.4)
[2019-09-01 06:53] LABS: PARTIAL THROMBOPLASTIN TIME 26.1 SEC (23.5-35.8)
[2019-09-01 07:03] LABS: ANION GAP 5 (5-19); BLOOD UREA NITROGEN 25 mg/dL (7-20); CALCIUM 10.8 mg/dL (8.4-10.2); CARBON DIOXIDE 25 mmol/L (22-30); CHLORIDE 108 mmol/L (98-107); GLUCOSE 99 mg/dL (75-110); POTASSIUM 3.8 mmol/L (3.6-5.0)
[2019-09-01] MEDS: ESCITALOPRAM OXALATE 10 MG TABLET PO SCH (08:16)
[2019-09-01] MEDS: CEFEPIME HCL 2 GM in DEXTROSE 5%-WATER 50 ML IV SCH ×2 (10:09→21:27)
[2019-09-01] MEDS: OXYBUTYNIN CHLORIDE 5 MG TABLET PO SCH ×2 (10:09→21:27)
[2019-09-01] MEDS: ERGOCALCIFEROL (VITAMIN D2) 50000 UNIT (1.25 MG) CAPSULE PO SCH (10:09)
[2019-09-01] MEDS: ASPIRIN 81 MG TABLET, ENT COATED PO SCH (10:09)
[2019-09-01] MEDS: POLYETHYLENE GLYCOL 3350 POWDER 17 GM/1 PACKET PO SCH (10:10)
[2019-09-01] MEDS: CELECOXIB 200 MG CAPSULE PO SCH (10:10)
[2019-09-01] MEDS: OXYCODONE-ACETAMINOPHEN 5-325 MG TABLET PO PRN ×2 (10:10→23:36)
[2019-09-01] MEDS: METOPROLOL TARTRATE 25 MG TABLET PO SCH (12:54)
[2019-09-01] MEDS: ATORVASTATIN CALCIUM 10 MG TABLET PO SCH (21:28)
[2019-09-01] MEDS: RINGERS SOLUTION,LACTATED 1,000 ML IV PRN (23:38)
[2019-09-02] MEDS ORDERED: MIDAZOLAM 2 MG/2 ML INJ ONE (06:26)
[2019-09-02] MEDS ORDERED: DEXAMETHASONE SOD PHOSPHATE INJ 4 MG/1 ML VIAL ONE (06:26)
[2019-09-02] MEDS ORDERED: FENTANYL CITRATE INJ/PF 100 MCG/2 ML AMPUL ONE (06:26)
[2019-09-02] MEDS ORDERED: TRANEXAMIC ACID INJ/PF 1,000 MG/10 ML SDV ONE (06:26)
[2019-09-02] MEDS ORDERED: ONDANSETRON HCL INJ/PF 4 MG/2 ML SDV ONE (06:26)
[2019-09-02] MEDS ORDERED: PROPOFOL INJ 200 MG/20 ML VIAL IV ONE (06:27)
[2019-09-02] MEDS ORDERED: SUCCINYLCHOLINE CHLORIDE INJ 200 MG/10 ML VIAL ONE (07:41)
[2019-09-02] MEDS: CEFEPIME HCL 2 GM in DEXTROSE 5%-WATER 50 ML IV SCH ×2 (09:22→21:14)
[2019-09-02] MEDS: VANCOMYCIN HCL 1,250 MG in DEXTROSE 5%-WATER 250 ML IV SCH (09:23)
[2019-09-02] MEDS: RINGERS SOLUTION,LACTATED 1,000 ML IV PRN ×2 (09:23→18:28)
[2019-09-02] MEDS: ESCITALOPRAM OXALATE 10 MG TABLET PO SCH (10:06)
[2019-09-02] MEDS: OXYBUTYNIN CHLORIDE 5 MG TABLET PO SCH ×2 (10:06→21:14)
[2019-09-02] MEDS: CELECOXIB 200 MG CAPSULE PO SCH (10:06)
[2019-09-02] MEDS: METOPROLOL TARTRATE 25 MG TABLET PO SCH (10:07)
[2019-09-02] MEDS: ASPIRIN 81 MG TABLET, ENT COATED PO SCH (10:07)
[2019-09-02] MEDS ORDERED: BUPIVACAINE INJ/PF LIPOSOME/PF 266 MG/20 ML SDV ONE (11:28)
[2019-09-02] MEDS ORDERED: VANCOMYCIN HCL INJ 1000 MG VIAL ONE (11:28)
[2019-09-02] MEDS ORDERED: BUPIVACAINE HCL 0.25 % INJ/PF (2.5 MG/1 ML) 30 ML VIAL ONE (11:31)
[2019-09-02] MEDS ORDERED: BUPIVACAINE HCL 0.25% /EPINEPHRINE INJ/PF 30 ML SDV ONE (11:32)
[2019-09-02] MEDS ORDERED: CEFAZOLIN INJ 1 GM VIAL ONE (11:53)
[2019-09-02] MEDS ORDERED: EPHEDRINE SULFATE INJ 50 MG/1 ML AMPULE ONE (12:00)
[2019-09-02] MEDS ORDERED: ONDANSETRON HCL INJ/PF 4 MG/2 ML SDV IV PRN ×2 (12:35→13:44)
[2019-09-02] MEDS ORDERED: DIPHENHYDRAMINE HCL 50 MG/ML VIAL IV PRN ×2 (12:35→13:44)
[2019-09-02] MEDS ORDERED: PROMETHAZINE HCL INJ 25 MG/1 ML VIAL IV PRN ×2 (12:35)
[2019-09-02] MEDS ORDERED: MORPHINE SULFATE 10 MG/ML INJ IV PRN (12:35)
[2019-09-02] MEDS ORDERED: FENTANYL CITRATE INJ/PF 100 MCG/2 ML AMPUL IV PRN ×3 (12:35)
[2019-09-02] MEDS: POLYETHYLENE GLYCOL 3350 POWDER 17 GM/1 PACKET PO SCH (13:36)
[2019-09-02] MEDS ORDERED: MAG HYDROX/AL HYDROX/SIMETH SUSP 30 ML UDCUP PO PRN (13:44)
[2019-09-02] MEDS ORDERED: ONDANSETRON 4 MG TAB.RAPDIS PO PRN (13:44)
[2019-09-02] MEDS ORDERED: ZOLPIDEM TARTRATE 5 MG TABLET PO PRN (13:44)
--- NOTE | 2019-09-02 13:55 | Operative Report ---
Operative Report DATE OF SURGERY: 09/02/19 PREOPERATIVE DIAGNOSIS: Right periprosthetic knee infection OPERATION: Right knee revision arthroplasty SURGEON: ONDINA SIMONS ANESTHESIA: GA TISSUE REMOVED OR ALTERED: Tissue for pathology. Cultures to microbiology ESTIMATED BLOOD LOSS: 100 PROCEDURE: Implants used: [place] [facility] system with a small distal femur, S1 tibial tray, 13 mm femoral stem, and 80 mm tibial stem Procedure: The patient supine on the operative table the right lower extremities prepped and draped in a sterile fashion. Limb elevated for exsanguination and tourniquet inflated 280 torr. A standard anterior approach knee is taken. Upon entering the knee capsule cultures were sent for culture and sensitivity. The existing PMMA spacer is removed piecemeal. The wound is debrided aggressively. Initially the tibial canal was prepared using cylindrical reamers and then with a proximal punch. This is then used as a reference to resect approximately 10 to 15 mm of proximal tibia. Similarly the femoral canal was prepared using cylindrical reamers and used to resect approximately 1.5 mm of distal femur. With the distal femur the posterior capsule was resected and behind this is a large amount of discolored soft tissue consistent with metallosis. Tissue was sent to pathology as well as the resected bone. Surgical bed was debrided meticulously. The entire wound is then irrigated with pulse lavage containing Betadine. The tourniquet is deflated and hemostasis obtained with electrocautery. Polymethylmethacrylate containing tobramycin and vancomycin is mixed and used to cement the above implants in place. Wound is then closed using PDS sutures and yecenia. A compressive dressing was applied and the patient is returned to the PACU in satisfactory condition.
[2019-09-02] MEDS ORDERED: TRANEXAMIC ACID INJ/PF 1,000 MG/10 ML SDV IV ONE (14:30)
--- NOTE | 2019-09-02 15:38 | RADIOLOGY REPORT (SQ) ---
EXAM DESCRIPTION: KNEE RIGHT 2 VIEWS IMAGES COMPLETED DATE/TIME: 09/02/2019 3:09 pm REASON FOR STUDY: Post OP -Long Cassette in PACU I10 ESSENTIAL (PRIMARY) HYPERTENSION COMPARISON: None. NUMBER OF VIEWS: Two views. TECHNIQUE: AP and lateral radiographic images acquired of the right knee. LIMITATIONS: None. FINDINGS: Postoperative images of the left knee show a total knee arthroplasty in good position. IMPRESSION: Left knee arthroplasty. Refer to operative report for further information. TECHNICAL DOCUMENTATION: JOB ID: [id number] 2010 [employer]- All Rights Reserved Reading location - IP/workstation name: [email or web address]
[2019-09-02] MEDS: OXYCODONE-ACETAMINOPHEN 5-325 MG TABLET PO PRN (15:54)
[2019-09-02] MEDS: IBUPROFEN 800 MG in NORMAL SALINE 250 ML IV SCH ×2 (15:54→21:14)
[2019-09-02] MEDS: OXYCODONE HCL IR 5 MG TABLET PO PRN (17:14)
[2019-09-02] MEDS: SENNOSIDES/DOCUSATE 8.6-50 MG 1 EACH TABLET PO SCH (17:14)
[2019-09-02] MEDS: ATORVASTATIN CALCIUM 10 MG TABLET PO SCH (21:14)
[2019-09-03] MEDS ORDERED: VANCOMYCIN HCL 1,000 MG in DEXTROSE 5%-WATER 250 ML IV ONE (01:45)
[2019-09-03] MEDS: RINGERS SOLUTION,LACTATED 1,000 ML IV PRN (03:14)
[2019-09-03] MEDS: PANTOPRAZOLE SODIUM 40 MG TABLET.DR PO SCH (05:47)
[2019-09-03] MEDS: IBUPROFEN 800 MG in NORMAL SALINE 250 ML IV SCH ×3 (05:47→21:13)
[2019-09-03 05:50] LABS: HEMATOCRIT 24.5 % (36.0-47.0); HEMOGLOBIN 8.4 g/dL (12.0-15.5); MEAN CORPUSCULAR HEMOGLOBIN 29.5 pg (27.0-33.4); MEAN CORPUSCULAR HGB CONC 34.1 g/dL (32.0-36.0); MEAN CORPUSCULAR VOLUME 86 fl (80-97); PLATELET COUNT 200 10^3/uL (150-450); RED BLOOD COUNT 2.84 10^6/uL (3.72-5.28)
[2019-09-03 06:25] LABS: BLOOD UREA NITROGEN 21 mg/dL (7-20); CARBON DIOXIDE 24 mmol/L (22-30); GLUCOSE 123 mg/dL (75-110); POTASSIUM 4.2 mmol/L (3.6-5.0)
[2019-09-03 06:32] LABS: CHLORIDE 107 mmol/L (98-107)
[2019-09-03 06:33] LABS: ANION GAP 5 (5-19)
--- NOTE | 2019-09-03 06:58 | PDOC PROGRESS REPORT ---
Subjective Progress Note for:: 09/03/19 Reason For Visit: RIGHT PERIPROSTHETIC KNEE INFECTION 73-year-old white female now postop day 1 status post right knee construction yesterday. Uneventful postoperative course. Patient is comfortable. Hematocrit is dropped to 24.5% Physical Exam Vital Signs: Temp Pulse Resp BP Pulse Ox 36.6 C 72 17 118/58 L 95 09/03/19 04:00 09/03/19 04:00 09/03/19 04:00 09/03/19 04:00 09/03/19 04:32 Intake & Output 09/01/19 09/02/19 09/03/19 06:59 06:59 06:59 Intake Total 1406 2011 5350 Output Total 1350 600 50 Balance 56 1412 5300 Weight 85 kg 94.3 kg 94.3 kg General appearance: PRESENT: no acute distress, obese Head exam: PRESENT: normocephalic Respiratory exam: PRESENT: unlabored Cardiovascular exam: PRESENT: RRR GI/Abdominal exam: PRESENT: soft Rectal exam: PRESENT: deferred Musculoskeletal exam: PRESENT: other - Right lower extremity dressing clean dry and intact. Distal neurovascular examination is intact. Results Laboratory Results: 09/03/19 04:19 09/03/19 04:19 09/03/19 09/03/19 04:19 04:19 WBC 8.0 RBC 2.84 L Hgb 8.4 L Hct 24.5 L MCV 86 MCH 29.5 MCHC 34.1 RDW 15.0 H Plt Count 200 Sodium 135.4 L Potassium 4.2 Chloride 107 Carbon Dioxide 24 Anion Gap 5 BUN 21 H Creatinine 1.04 Est GFR ( Amer) > 60 Glucose 123 H Calcium 10.0 08/26/19 15:36 Knee - Right Fungal Smear - Final 08/26/19 15:36 Knee - Right Fungal Smear - Final Impressions: Lower Extremity MRI 08/23/19 08:40 IMPRESSION: Relatively similar appearance to prior. No clear evidence of developing or progressive osteomyelitis. Knee X-Ray 09/02/19 13:47 IMPRESSION: Left knee arthroplasty. Refer to operative report for further information. Status: Imported from PACS Assessment & Plan - Diagnosis (1) Infection of right knee Is this a current diagnosis for this admission?: Yes Plan: Mobilize with physical therapy and a weightbearing as tolerated basis. Continue current antibiotic therapy. (2) Acute blood loss anemia Is this a current diagnosis for this admission?: Yes Plan: Hematocrit is dropped to 24.5%. We will continue on a course of observation as this is likely to be a combination of both blood loss and hemodilution. - Time Time Spent with patient: 15-24 minutes Anticipated discharge: Home with Homehealth Within: within 24 hours
[2019-09-03] MEDS: ESCITALOPRAM OXALATE 10 MG TABLET PO SCH (08:25)
[2019-09-03] MEDS: PRENATAL VITAMIN W DHA CAPSULE PO SCH (10:18)
[2019-09-03] MEDS: OXYBUTYNIN CHLORIDE 5 MG TABLET PO SCH ×2 (10:18→21:13)
[2019-09-03] MEDS: CELECOXIB 200 MG CAPSULE PO SCH (10:18)
[2019-09-03] MEDS: POLYETHYLENE GLYCOL 3350 POWDER 17 GM/1 PACKET PO SCH (10:18)
[2019-09-03] MEDS: SENNOSIDES/DOCUSATE 8.6-50 MG 1 EACH TABLET PO SCH ×2 (10:19→17:34)
[2019-09-03] MEDS: METOPROLOL TARTRATE 25 MG TABLET PO SCH (10:19)
[2019-09-03] MEDS: ASPIRIN 81 MG TABLET, ENT COATED PO SCH (10:19)
[2019-09-03] MEDS: CEFEPIME HCL 2 GM in DEXTROSE 5%-WATER 50 ML IV SCH ×2 (10:19→21:14)
[2019-09-03] MEDS: OXYCODONE HCL IR 5 MG TABLET PO PRN ×2 (10:34→19:52)
[2019-09-03] MEDS: VANCOMYCIN HCL 1,250 MG in DEXTROSE 5%-WATER 250 ML IV SCH (11:03)
[2019-09-03] MEDS ORDERED: EPHEDRINE SULFATE INJ 50 MG/1 ML AMPULE ONE (16:06)
[2019-09-03] MEDS: ATORVASTATIN CALCIUM 10 MG TABLET PO SCH (21:13)
[2019-09-03] MEDS: OXYCODONE-ACETAMINOPHEN 5-325 MG TABLET PO PRN (23:41)
[2019-09-04] MEDS: IBUPROFEN 800 MG in NORMAL SALINE 250 ML IV SCH ×3 (05:21→21:15)
[2019-09-04] MEDS: PANTOPRAZOLE SODIUM 40 MG TABLET.DR PO SCH (05:21)
[2019-09-04 05:55] LABS: HEMATOCRIT 22.7 % (36.0-47.0); MEAN CORPUSCULAR HEMOGLOBIN 28.9 pg (27.0-33.4); MEAN CORPUSCULAR VOLUME 88 fl (80-97); PLATELET COUNT 164 10^3/uL (150-450); RED CELL DISTRIBUTION WIDTH 15.3 % (11.5-14.0); WHITE BLOOD COUNT 3.8 10^3/uL (4.0-10.5)
[2019-09-04 06:00] LABS: HEMOGLOBIN 7.5 g/dL (12.0-15.5)
--- NOTE | 2019-09-04 07:17 | PDOC PROGRESS REPORT ---
Subjective Progress Note for:: 09/04/19 Reason For Visit: RIGHT PERIPROSTHETIC KNEE INFECTION 73-year-old white female now postop day 2 status post right knee reconstruction. Some progress with physical therapy yesterday. Hematocrit is dropped from 24.5% to 22.7%. No new intraoperative culture results available at this time Physical Exam Vital Signs: Temp Pulse Resp BP Pulse Ox 36.9 C 59 L 17 124/45 L 93 09/03/19 23:35 09/04/19 02:00 09/03/19 23:35 09/03/19 23:35 09/03/19 23:35 Intake & Output 09/03/19 09/04/19 09/05/19 06:59 06:59 06:59 Intake Total 5350 3460 Output Total 50 Balance 5300 3460 Weight 94.3 kg 95 kg General appearance: PRESENT: no acute distress, obese Respiratory exam: PRESENT: unlabored Cardiovascular exam: PRESENT: RRR Extremities exam: PRESENT: other - Right lower extremity dressing taken down. Wound is well approximated with yecenia and sutures. It is clean dry and intac t. OpSite dressing replaced. Results Laboratory Results: 09/04/19 04:30 09/03/19 04:19 09/04/19 04:30 WBC 3.8 L RBC 2.60 L Hgb 7.5 L Hct 22.7 L MCV 88 MCH 28.9 MCHC 33.0 RDW 15.3 H Plt Count 164 Impressions: Lower Extremity MRI 08/23/19 08:40 IMPRESSION: Relatively similar appearance to prior. No clear evidence of developing or progressive osteomyelitis. Knee X-Ray 09/02/19 13:47 IMPRESSION: Left knee arthroplasty. Refer to operative report for further information. Status: Imported from PACS Assessment & Plan - Diagnosis (1) Infection of right knee Is this a current diagnosis for this admission?: Yes Plan: Continue to mobilize with physical therapy. The patient does not have a flexion contracture and full extension of the knee was easily obtained intraoperatively. Anticipate discharge home once functional capacity is appropriate. (2) Acute blood loss anemia Is this a current diagnosis for this admission?: Yes Plan: We will transfuse 2 units of packed red blood cells - Time Time Spent with patient: 15-24 minutes Anticipated discharge: Home with Homehealth Within: Other
[2019-09-04] MEDS: POLYETHYLENE GLYCOL 3350 POWDER 17 GM/1 PACKET PO SCH (09:02)
[2019-09-04] MEDS: SENNOSIDES/DOCUSATE 8.6-50 MG 1 EACH TABLET PO SCH ×2 (09:03→18:26)
[2019-09-04] MEDS: OXYCODONE HCL IR 5 MG TABLET PO PRN (09:03)
[2019-09-04] MEDS: ASPIRIN 81 MG TABLET, ENT COATED PO SCH (09:04)
[2019-09-04] MEDS: CELECOXIB 200 MG CAPSULE PO SCH (09:04)
[2019-09-04] MEDS: OXYBUTYNIN CHLORIDE 5 MG TABLET PO SCH ×2 (09:04→21:16)
[2019-09-04] MEDS: PRENATAL VITAMIN W DHA CAPSULE PO SCH (09:04)
[2019-09-04] MEDS: ESCITALOPRAM OXALATE 10 MG TABLET PO SCH (09:04)
[2019-09-04] MEDS: VANCOMYCIN HCL 1,250 MG in DEXTROSE 5%-WATER 250 ML IV SCH (09:05)
[2019-09-04] MEDS: METOPROLOL TARTRATE 25 MG TABLET PO SCH (09:05)
[2019-09-04] MEDS: CEFEPIME HCL 2 GM in DEXTROSE 5%-WATER 50 ML IV SCH ×2 (09:46→22:31)
[2019-09-04] MEDS: ATORVASTATIN CALCIUM 10 MG TABLET PO SCH (21:14)
[2019-09-04 22:15] LABS: ABSOLUTE LYMPHOCYTES (AUTO) 0.9 10^3/uL (0.5-4.7); ABSOLUTE MONOCYTES (AUTO) 0.8 10^3/uL (0.1-1.4); ABSOLUTE NEUT (AUTO) 3.3 10^3/uL (1.7-8.2); BASOPHILS % (AUTO) 0.2 % (0-2); EOSINOPHILS % (AUTO) 0.1 % (0-6); HEMATOCRIT 27.8 % (36.0-47.0); HEMOGLOBIN 9.4 g/dL (12.0-15.5); LYMPHOCYTES % (AUTO) 18.1 % (13-45); MEAN CORPUSCULAR HGB CONC 33.9 g/dL (32.0-36.0); MEAN CORPUSCULAR VOLUME 86 fl (80-97); MONOCYTES % (AUTO) 15.1 % (3-13); PLATELET COUNT 179 10^3/uL (150-450); RED BLOOD COUNT 3.25 10^6/uL (3.72-5.28); RED CELL DISTRIBUTION WIDTH 16.2 % (11.5-14.0); SEGMENTED NEUTROPHILS % (AUTO) 66.5 % (42-78); TOTAL CELLS COUNTED % (AUTO) 100 %
[2019-09-05] MEDS: OXYCODONE HCL IR 5 MG TABLET PO PRN ×3 (04:29→21:33)
[2019-09-05] MEDS: PANTOPRAZOLE SODIUM 40 MG TABLET.DR PO SCH (05:29)
[2019-09-05] MEDS: IBUPROFEN 800 MG in NORMAL SALINE 250 ML IV SCH (05:29)
[2019-09-05 05:46] LABS: HEMATOCRIT 28.5 % (36.0-47.0); HEMOGLOBIN 9.7 g/dL (12.0-15.5); MEAN CORPUSCULAR HEMOGLOBIN 29.3 pg (27.0-33.4); MEAN CORPUSCULAR HGB CONC 34.1 g/dL (32.0-36.0); MEAN CORPUSCULAR VOLUME 86 fl (80-97); PLATELET COUNT 198 10^3/uL (150-450); RED BLOOD COUNT 3.32 10^6/uL (3.72-5.28); RED CELL DISTRIBUTION WIDTH 15.7 % (11.5-14.0); WHITE BLOOD COUNT 5.1 10^3/uL (4.0-10.5)
--- NOTE | 2019-09-05 06:49 | PDOC PROGRESS REPORT ---
Subjective Progress Note for:: 09/05/19 Reason For Visit: RIGHT PERIPROSTHETIC KNEE INFECTION 73-year-old white female now postop day 3 status post right knee reconstruction. Patient received 2 units of packed red blood cells yesterday for acute blood loss anemia raising her hematocrit 28%. This precluded meaningful physical therapy yesterday. Cultures remain no growth so far. IV antibiotics continue. Physical Exam Vital Signs: Temp Pulse Resp BP Pulse Ox 36.7 C 63 17 137/40 H 96 09/04/19 23:04 09/05/19 02:00 09/04/19 23:04 09/04/19 23:04 09/04/19 23:04 Intake & Output 09/03/19 09/04/19 09/05/19 06:59 06:59 06:59 Intake Total 5350 3460 2019 Output Total 50 Balance 5300 3460 2019 Weight 94.3 kg 95 kg 95 kg General appearance: PRESENT: no acute distress, obese Respiratory exam: PRESENT: unlabored Cardiovascular exam: PRESENT: RRR Extremities exam: PRESENT: other - Right knee dressing remains clean dry and intact. Patient has a tendency to keep the right knee flexed. I encouraged her to keep it on a pillow and extended position. Results Laboratory Results: 09/05/19 04:19 09/03/19 04:19 09/04/19 09/04/19 09/05/19 08:30 22:07 04:19 WBC 5.0 5.1 RBC 3.25 L 3.32 L Hgb 9.4 L 9.7 L Hct 27.8 L 28.5 L MCV 86 86 MCH 29.0 29.3 MCHC 33.9 34.1 RDW 16.2 H 15.7 H Plt Count 179 198 Seg Neutrophils % 66.5 Blood Type O POSITIVE Antibody Screen NEGATIVE Impressions: Lower Extremity MRI 08/23/19 08:40 IMPRESSION: Relatively similar appearance to prior. No clear evidence of developing or progressive osteomyelitis. Knee X-Ray 09/02/19 13:47 IMPRESSION: Left knee arthroplasty. Refer to operative report for further information. Status: Imported from PACS Assessment & Plan - Diagnosis (1) Infection of right knee Is this a current diagnosis for this admission?: Yes Plan: Ongoing physical therapy with an anticipation of discharge home with home health services. Question arises as to the necessity of ongoing IV antibiotics. At this point I think they should be continued in the short-term pending outcome from the intraoperative cultures. If and when these are stopped I would be most comfortable patient was discharged on suppressive oral antibiotics. (2) Acute blood loss anemia Is this a current diagnosis for this admission?: Yes Plan: Resolved - Time Time Spent with patient: 15-24 minutes Anticipated discharge: Home with Homehealth Within: Other
[2019-09-05 10:23] LABS: PLATELET COUNT 245 10^3/uL (150-450)
[2019-09-05] MEDS: ASPIRIN 81 MG TABLET, ENT COATED PO SCH (10:36)
[2019-09-05] MEDS: METOPROLOL TARTRATE 25 MG TABLET PO SCH (10:37)
[2019-09-05] MEDS: PRENATAL VITAMIN W DHA CAPSULE PO SCH (10:37)
[2019-09-05] MEDS: OXYBUTYNIN CHLORIDE 5 MG TABLET PO SCH ×2 (10:37→21:08)
[2019-09-05] MEDS: SENNOSIDES/DOCUSATE 8.6-50 MG 1 EACH TABLET PO SCH ×2 (10:37→17:04)
[2019-09-05] MEDS: POLYETHYLENE GLYCOL 3350 POWDER 17 GM/1 PACKET PO SCH ×2 (10:38→10:41)
[2019-09-05] MEDS: CELECOXIB 200 MG CAPSULE PO SCH (10:38)
[2019-09-05] MEDS: CEFEPIME HCL 2 GM in DEXTROSE 5%-WATER 50 ML IV SCH ×2 (10:38→21:07)
[2019-09-05 10:56] LABS: VANCOMYCIN,TROUGH 27.8 ug/mL (5.0-20.0)
[2019-09-05] MEDS: ESCITALOPRAM OXALATE 10 MG TABLET PO SCH (11:22)
[2019-09-05] MEDS: VANCOMYCIN HCL 1,250 MG in DEXTROSE 5%-WATER 250 ML IV SCH (11:23)
[2019-09-05] MEDS: ATORVASTATIN CALCIUM 10 MG TABLET PO SCH (21:08)
[2019-09-06] MEDS: PANTOPRAZOLE SODIUM 40 MG TABLET.DR PO SCH (06:15)
[2019-09-06] MEDS: ESCITALOPRAM OXALATE 10 MG TABLET PO SCH (09:29)
[2019-09-06] MEDS: SENNOSIDES/DOCUSATE 8.6-50 MG 1 EACH TABLET PO SCH ×2 (09:30→18:00)
[2019-09-06] MEDS: PRENATAL VITAMIN W DHA CAPSULE PO SCH (09:30)
[2019-09-06] MEDS: ASPIRIN 81 MG TABLET, ENT COATED PO SCH (09:30)
[2019-09-06] MEDS: METOPROLOL TARTRATE 25 MG TABLET PO SCH (09:30)
[2019-09-06] MEDS: ACETAMINOPHEN 325 MG TABLET PO PRN (09:34)
[2019-09-06] MEDS: CELECOXIB 200 MG CAPSULE PO SCH (09:36)
[2019-09-06] MEDS: OXYBUTYNIN CHLORIDE 5 MG TABLET PO SCH ×2 (09:36→23:23)
[2019-09-06] MEDS: POLYETHYLENE GLYCOL 3350 POWDER 17 GM/1 PACKET PO SCH (09:37)
[2019-09-06] MEDS: CEFEPIME HCL 2 GM in DEXTROSE 5%-WATER 50 ML IV SCH ×2 (11:09→23:25)
--- NOTE | 2019-09-06 12:31 | PDOC PROGRESS REPORT ---
Subjective Progress Note for:: 09/06/19 Subjective:: Patient lying in bed currently. No issues overnight. States pain is controlled. Improved compared to preoperative discomfort. Denies fever chills or sweats. Reason For Visit: RIGHT PERIPROSTHETIC KNEE INFECTION Physical Exam Vital Signs: Temp Pulse Resp BP Pulse Ox 98.1 F 92 16 169/72 H 98 09/06/19 11:06 09/06/19 11:06 09/06/19 11:06 09/06/19 11:06 09/06/19 11:06 Intake & Output 09/05/19 09/06/19 09/07/19 06:59 06:59 06:59 Intake Total 2019 1659 Balance 2019 1659 Weight 95 kg 95 kg Musculoskeletal exam: PRESENT: other - Right knee: Surgical incision approximated no erythema or drainage. No calf tenderness. Tight plantarflexion/dorsiflexion. Results Laboratory Results: 09/05/19 09:47 09/03/19 04:19 Impressions: Lower Extremity MRI 08/23/19 08:40 IMPRESSION: Relatively similar appearance to prior. No clear evidence of developing or progressive osteomyelitis. Knee X-Ray 09/02/19 13:47 IMPRESSION: Left knee arthroplasty. Refer to operative report for further information. 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 Physical therapy 2. Pain control 3. Aspirin for DVT prophylaxis 4. Discharge planning plan will be for patient be discharged home with IV antibiotics for the next 6 weeks for prophylactic treatment of patient's prior infection she is currently doing much better after reconstructive procedure. - Time Time Spent with patient: Less than 15 minutes
--- NOTE | 2019-09-06 14:41 | RADIOLOGY REPORT (SQ) ---
EXAM DESCRIPTION: PICC INSERTION IMAGES COMPLETED DATE/TIME: 09/06/2019 2:02 pm REASON FOR STUDY: weeks iv abx I10 ESSENTIAL (PRIMARY) HYPERTENSION COMPARISON: None. FLUOROSCOPY TIME: FT: 9 seconds. 1 image saved to PACS. TECHNIQUE: Fluoroscopic and ultrasound guided PICC placement. LIMITATIONS: None. PROCEDURE: After written consent and assessment were obtained, the patient was brought into the fluo roscopy room and placed supine on the table. Ultrasound evaluation of potential access sites were per formed. After successfully identifying a patent left basilic vein, the left arm was prepped and drape d in a sterile fashion along with the ultrasound probe. The entry site was anesthetized with 1% lidoc sarah. A 21 gauge 7 cm needle was advanced through the skin and into the basilic vein under live ultra sound guidance. An ultrasound image was saved to PACS confirming access site. A .018 guide wire was then inserted through the needle and into the venous system. The needle was then removed and an 11 b lade scalpel was used to make a 1cm skin incision. A 5 fr peel-away sheath was advanced over the wir e and into the venous system. A measurement was then made using the existing wire and live fluoroscop ic guidance. The wire was then removed and trimmed. The PICC was advanced through the peel-away sheat h and into the venous system. The peel-away sheath was removed and the catheter was adhered to the pa tients arm with a stat lock. The catheter was then aspirated and flushed and a sterile bandage was pl aced over the access site. A fluoroscopic spot image was saved to PACS confirming the catheter tip w ithin the superior vena cava. IMPRESSION: SUCCESSFUL PLACEMENT OF A 5 FR DUAL LUMEN 42 CM PICC IN THE LEFT BASILIC VEIN. COMMENT: Patient medication list reviewed: Yes- Quality ID# 130:Eligible professional attests to doc umenting in the medical record they obtained, updated, or reviewed the patient's current medications. . Quality ID 145: Final reports for procedures using fluoroscopy that document radiation exposure lucia pam, or exposure time and number of fluorographic images (if radiation exposure indices are not avail able) Quality ID #76: The patient was prepped and draped using maximum sterile barrier technique including cap, mask, sterile gown, sterile gloves, a large sterile sheet, hand hygiene, and 2% Chlorhexidine fo r cutaneous antisepsis. When ultrasound is used, sterile ultrasound techniques are followed requiring sterile gel and sterile probes. TECHNICAL DOCUMENTATION: JOB ID: [id number] 2010 [employer]- All Rights Reserved rev-07/14 Reading location - IP/workstation name: [email or web address]
[2019-09-06] MEDS ORDERED: NORMAL SALINE 10 ML SDV (AFTER EACH USE) IV PRN (15:30)
[2019-09-06] MEDS: ATORVASTATIN CALCIUM 10 MG TABLET PO SCH (23:23)
[2019-09-06] MEDS: NORMAL SALINE 10 ML SDV (SCHEDULED) IV SCH (23:24)
[2019-09-07] MEDS: ACETAMINOPHEN 325 MG TABLET PO PRN (00:42)
--- NOTE | 2019-09-07 06:00 | PDOC PROGRESS REPORT ---
Subjective Progress Note for:: 09/07/19 Reason For Visit: RIGHT PERIPROSTHETIC KNEE INFECTION 73-year-old white female now postop day 5 status post right knee reconstruction. No overnight ends noted. Patient making progress with physical therapy. Cultures remain no growth so far. Path report is significant for chronic inflammation only Physical Exam Vital Signs: Temp Pulse Resp BP Pulse Ox 36.7 C 55 L 17 138/65 H 96 09/06/19 23:56 09/06/19 23:56 09/06/19 23:56 09/06/19 23:56 09/06/19 23:56 Intake & Output 09/05/19 09/06/19 09/07/19 06:59 06:59 06:59 Intake Total 2019 1660 1020 Balance 2019 1660 1020 Weight 95 kg 95 kg 99 kg General appearance: PRESENT: no acute distress, obese Respiratory exam: PRESENT: unlabored Cardiovascular exam: PRESENT: RRR GI/Abdominal exam: PRESENT: soft Rectal exam: PRESENT: deferred Musculoskeletal exam: PRESENT: other - Right knee dressing that was replaced on postop day 1 remains clean dry and intact. Results Laboratory Results: 09/05/19 09:47 09/03/19 04:19 09/02/19 12:27 Knee - Joint Gram Stain - Final 09/02/19 12:27 Knee - Joint Wound Culture - Final NO AEROBIC OR ANAEROBIC ORGANISMS RECOVERED 09/02/19 12:19 Knee - Joint Gram Stain - Final 09/02/19 12:19 Knee - Joint Wound Culture - Final NO AEROBIC OR ANAEROBIC ORGANISMS RECOVERED 09/02/19 12:17 Knee - Right Gram Stain - Final 09/02/19 12:17 Knee - Right Wound Culture - Final NO AEROBIC OR ANAEROBIC ORGANISMS RECOVERED Impressions: Lower Extremity MRI 08/23/19 08:40 IMPRESSION: Relatively similar appearance to prior. No clear evidence of developing or progressive osteomyelitis. Knee X-Ray 09/02/19 13:47 IMPRESSION: Left knee arthroplasty. Refer to operative report for further information. PICC Line Insertion 09/06/19 00:00 IMPRESSION: SUCCESSFUL PLACEMENT OF A 5 FR DUAL LUMEN 42 CM PICC IN THE LEFT BASILIC VEIN. Status: Imported from PACS Assessment & Plan - Diagnosis (1) Infection of right knee Is this a current diagnosis for this admission?: Yes Plan: Patient had PICC line placed yesterday. Anticipate 6 weeks of IV antibiotic therapy. Anticipate discharge home with home health services. She is working with physical therapy to obtain a bed to chair to bathroom mobility prior to discharge. (2) Acute blood loss anemia Is this a current diagnosis for this admission?: Yes - Time Time Spent with patient: 15-24 minutes Anticipated discharge: Home with Homehealth Within: within 72 hours
[2019-09-07] MEDS: PANTOPRAZOLE SODIUM 40 MG TABLET.DR PO SCH (06:02)
[2019-09-07] MEDS: POLYETHYLENE GLYCOL 3350 POWDER 17 GM/1 PACKET PO SCH (09:17)
[2019-09-07] MEDS: OXYBUTYNIN CHLORIDE 5 MG TABLET PO SCH ×2 (09:32→21:30)
[2019-09-07] MEDS: CEFEPIME HCL 2 GM in DEXTROSE 5%-WATER 50 ML IV SCH ×2 (09:32→21:30)
[2019-09-07] MEDS: ESCITALOPRAM OXALATE 10 MG TABLET PO SCH (09:32)
[2019-09-07] MEDS: METOPROLOL TARTRATE 25 MG TABLET PO SCH (09:32)
[2019-09-07] MEDS: CELECOXIB 200 MG CAPSULE PO SCH (09:32)
[2019-09-07] MEDS: SENNOSIDES/DOCUSATE 8.6-50 MG 1 EACH TABLET PO SCH ×2 (09:32→17:05)
[2019-09-07] MEDS: ASPIRIN 81 MG TABLET, ENT COATED PO SCH (09:32)
[2019-09-07] MEDS: NORMAL SALINE 10 ML SDV (SCHEDULED) IV SCH ×2 (09:33→21:31)
[2019-09-07] MEDS: PRENATAL VITAMIN W DHA CAPSULE PO SCH (09:34)
[2019-09-07 10:25] LABS: VANCOMYCIN,TROUGH 21.8 ug/mL (5.0-20.0)
[2019-09-07] MEDS: ATORVASTATIN CALCIUM 10 MG TABLET PO SCH (21:31)
[2019-09-08] MEDS: PANTOPRAZOLE SODIUM 40 MG TABLET.DR PO SCH (05:44)
--- NOTE | 2019-09-08 06:39 | PDOC PROGRESS REPORT ---
Subjective Progress Note for:: 09/08/19 Reason For Visit: RIGHT PERIPROSTHETIC KNEE INFECTION 73-year-old white female now postop day 6 status post right knee reconstruction. Uneventful course overnight. Patient is comfortable. Slow progress with physical therapy. Hematocrit remained stable at 28%. Physical Exam Vital Signs: Temp Pulse Resp BP Pulse Ox 37.1 C 63 17 145/65 H 96 09/07/19 23:20 09/07/19 23:20 09/07/19 23:20 09/07/19 23:20 09/07/19 23:20 Intake & Output 09/06/19 09/07/19 09/08/19 06:59 06:59 06:59 Intake Total 1660 1070 325 Balance 1660 1070 325 Weight 95 kg 99 kg 99.5 kg General appearance: PRESENT: no acute distress, obese Respiratory exam: PRESENT: unlabored Cardiovascular exam: PRESENT: RRR Pulses: PRESENT: +1 pedal pulses bilateral Vascular exam: PRESENT: normal capillary refill GI/Abdominal exam: PRESENT: soft Rectal exam: PRESENT: deferred Musculoskeletal exam: PRESENT: other - Right lower extremity dressing remains clean dry and intact. Modest pedal edema. Distal neurovascular examination is intact. Results Laboratory Results: 09/05/19 09:47 09/07/19 09:31 09/07/19 09:31 Creatinine 1.05 Est GFR ( Amer) > 60 Impressions: Lower Extremity MRI 08/23/19 08:40 IMPRESSION: Relatively similar appearance to prior. No clear evidence of developing or progressive osteomyelitis. Knee X-Ray 09/02/19 13:47 IMPRESSION: Left knee arthroplasty. Refer to operative report for further information. PICC Line Insertion 09/06/19 00:00 IMPRESSION: SUCCESSFUL PLACEMENT OF A 5 FR DUAL LUMEN 42 CM PICC IN THE LEFT BASILIC VEIN. Status: Imported from PACS Assessment & Plan - Diagnosis (1) Infection of right knee Is this a current diagnosis for this admission?: Yes Plan: Continued physical therapy and weightbearing as tolerated basis. Anticipate discharge home with home health services once functional capacity permits. This will involved bed to chair to bathroom mobilization independently. (2) Acute blood loss anemia Is this a current diagnosis for this admission?: Yes Plan: Stable - Time Time Spent with patient: 15-24 minutes Anticipated discharge: Home with Homehealth Within: within 48 hours
[2019-09-08] MEDS: ESCITALOPRAM OXALATE 10 MG TABLET PO SCH (08:09)
[2019-09-08] MEDS: PRENATAL VITAMIN W DHA CAPSULE PO SCH (10:21)
[2019-09-08] MEDS: METOPROLOL TARTRATE 25 MG TABLET PO SCH (10:21)
[2019-09-08] MEDS: SENNOSIDES/DOCUSATE 8.6-50 MG 1 EACH TABLET PO SCH ×2 (10:21→17:02)
[2019-09-08] MEDS: ERGOCALCIFEROL (VITAMIN D2) 50000 UNIT (1.25 MG) CAPSULE PO SCH (10:21)
[2019-09-08] MEDS: CEFEPIME HCL 2 GM in DEXTROSE 5%-WATER 50 ML IV SCH ×2 (10:21→21:33)
[2019-09-08] MEDS: ASPIRIN 81 MG TABLET, ENT COATED PO SCH (10:21)
[2019-09-08] MEDS: NORMAL SALINE 10 ML SDV (SCHEDULED) IV SCH ×2 (10:22→21:34)
[2019-09-08] MEDS: OXYBUTYNIN CHLORIDE 5 MG TABLET PO SCH ×2 (10:22→21:33)
[2019-09-08] MEDS: CELECOXIB 200 MG CAPSULE PO SCH (10:22)
[2019-09-08] MEDS: POLYETHYLENE GLYCOL 3350 POWDER 17 GM/1 PACKET PO SCH (10:22)
[2019-09-08] MEDS ORDERED: ZOLPIDEM TARTRATE 5 MG TABLET PO PRN (17:00)
[2019-09-08] MEDS ORDERED: OXYCODONE HCL IR 5 MG TABLET PO PRN (17:00)
[2019-09-08] MEDS: ATORVASTATIN CALCIUM 10 MG TABLET PO SCH (21:33)
[2019-09-09] MEDS: PANTOPRAZOLE SODIUM 40 MG TABLET.DR PO SCH (05:13)
--- NOTE | 2019-09-09 07:08 | PDOC PROGRESS REPORT ---
Subjective Progress Note for:: 09/09/19 Reason For Visit: RIGHT PERIPROSTHETIC KNEE INFECTION 73-year-old white female now postop day 7 status post right knee reconstruction. Uneventful overnight course. Excellent progress with physical therapy yesterday. Physical Exam Vital Signs: Temp Pulse Resp BP Pulse Ox 36.7 C 53 L 18 146/64 H 94 09/08/19 23:16 09/08/19 23:16 09/08/19 23:16 09/08/19 23:16 09/08/19 23:16 Intake & Output 09/08/19 09/09/19 09/10/19 06:59 06:59 06:59 Intake Total 325 1792 Balance 325 1792 Weight 99.5 kg 101.1 kg General appearance: PRESENT: no acute distress, obese Respiratory exam: PRESENT: unlabored Cardiovascular exam: PRESENT: RRR Pulses: PRESENT: +1 pedal pulses bilateral Rectal exam: PRESENT: deferred Extremities exam: PRESENT: other - Right lower extremity dressing remains clean dry and intact. Minimal pedal edema. Results Laboratory Results: 09/05/19 09:47 09/07/19 09:31 Impressions: Lower Extremity MRI 08/23/19 08:40 IMPRESSION: Relatively similar appearance to prior. No clear evidence of developing or progressive osteomyelitis. Knee X-Ray 09/02/19 13:47 IMPRESSION: Left knee arthroplasty. Refer to operative report for further information. PICC Line Insertion 09/06/19 00:00 IMPRESSION: SUCCESSFUL PLACEMENT OF A 5 FR DUAL LUMEN 42 CM PICC IN THE LEFT BASILIC VEIN. Status: Imported from PACS Assessment & Plan - Diagnosis (1) Infection of right knee Is this a current diagnosis for this admission?: Yes Plan: Continue physical therapy for weightbearing as taught ambulation. Anticipate discharge home tomorrow with 6 weeks of IV antibiotic therapy, ongoing physical therapy. (2) Acute blood loss anemia Is this a current diagnosis for this admission?: Yes Plan: Stable - Time Time Spent with patient: 15-24 minutes Anticipated discharge: Home with Homehealth Within: within 24 hours
[2019-09-09] MEDS: ESCITALOPRAM OXALATE 10 MG TABLET PO SCH (07:30)
[2019-09-09] MEDS: METOPROLOL TARTRATE 25 MG TABLET PO SCH (09:04)
[2019-09-09] MEDS: PRENATAL VITAMIN W DHA CAPSULE PO SCH (09:05)
[2019-09-09] MEDS: OXYBUTYNIN CHLORIDE 5 MG TABLET PO SCH ×2 (09:05→21:23)
[2019-09-09] MEDS: CELECOXIB 200 MG CAPSULE PO SCH (09:05)
[2019-09-09] MEDS: ASPIRIN 81 MG TABLET, ENT COATED PO SCH (09:05)
[2019-09-09] MEDS: SENNOSIDES/DOCUSATE 8.6-50 MG 1 EACH TABLET PO SCH ×2 (09:05→17:22)
[2019-09-09] MEDS: NORMAL SALINE 10 ML SDV (SCHEDULED) IV SCH ×2 (09:06→21:31)
[2019-09-09] MEDS: CEFEPIME HCL 2 GM in DEXTROSE 5%-WATER 50 ML IV SCH ×2 (09:06→21:22)
[2019-09-09] MEDS: POLYETHYLENE GLYCOL 3350 POWDER 17 GM/1 PACKET PO SCH (09:07)
[2019-09-09 11:35] LABS: VANCOMYCIN,TROUGH 13.9 ug/mL (5.0-20.0)
--- NOTE | 2019-09-09 16:06 | Progress Note ---
Provider Note Provider Note: ID Note- Chart reviewed, including microbiology results. Patient has had I&D of right prosthetic knee infection. Cultures grew three organisms: Pseudomonas aeruginosa, Enterococcus faecalis, and Peptostreptococcus. All three organisms are susceptible to Zosyn (pip-tazobactam). Patient is currently receiving van comycin and cefepime. Plans are made for 6 weeks of IV antibiotics. Recommendations: 1. DC vancomycin and cefepime. 2. Begin Zosyn 3.375 gm IV q 6 hours or via extended infusion q 8 hours or by continuous infusion 14 gm per day. Any of these options is acceptable. Recommend treating for 6 weeks. Would check CBC with diff, CMP, C-reactive protein (CRP) weekly while on therapy. Please call me if there are any questions. Dalton Gutierrez MD Pager: [phone]
[2019-09-09] MEDS: ATORVASTATIN CALCIUM 10 MG TABLET PO SCH (21:23)
[2019-09-10] MEDS: PANTOPRAZOLE SODIUM 40 MG TABLET.DR PO SCH (05:37)
--- NOTE | 2019-09-10 07:14 | PDOC DISCHARGE SUMMARY ---
Impression - Admit/DC Date/PCP Admission Date/Primary Care Provider: 08/29/19 13:10 ONDINA SIMONS MD Discharge Date: 09/10/19 - Discharge Diagnosis (1) Infection of right knee Is this a current diagnosis for this admission?: Yes (2) Acute blood loss anemia Is this a current diagnosis for this admission?: Yes - Additional Information Resuscitation Status: Full Code Discharge Diet: Regular Discharge Activity: Balance Activity w/Rest, No tub bath Referrals: ONDINA SIMONS MD [Primary Care Provider] - Follow up as needed (S/P 08/25 I&D OF RIGHT KNEE) Home Medications: Escitalopram Oxalate [Lexapro 10 mg Tablet] 10 mg PO DAILY 03/20/19 Ergocalciferol (Vitamin D2) [Drisdol 50,000 unit (1.25MG) Capsule] 50,000 unit PO LIGHT 07/20/19 Metoprolol Tartrate [Lopressor 50 mg Tablet] 25 mg PO DAILY tablet 07/24/19 Oxycodone HCl [Oxy-Ir 5 mg Tablet] 5 mg PO Q6HP PRN #40 07/24/19 Atorvastatin Calcium [Lipitor 10 mg Tablet] 10 mg PO QHS 08/22/19 Oxybutynin Chloride [Oxybutynin Chloride ER] 5 mg PO BID 08/22/19 Oxycodone HCl [Oxy-Ir 5 mg Tablet] 5 mg PO Q6HP PRN #60 tab 09/10/19 History of Present Illiness History of Present Illness: The patient is a 73-year-old white female with a very complicated recent medical history revolving around a right periprosthetic knee infection. During the current hospitalization the patient has undergone an I&D of a draining sinus tract in the posterior lateral corner and a subsequent right knee reconstruction as a staged procedure. Hospital Course Hospital Course: As above the patient actually undergoes an I&D of a right posterior lateral knee draining sinus tract. Situation is notable for normal sedimentation rate and C- reactive protein. No acute inflammation by frozen section and subsequent permanent pathology evaluation. However cultures are growing polymicrobial kristie including Pseudomonas. Patient is maintained on Rocephin and vancomycin. She is taken back to the operating room the following week and undergoes a right knee reconstruction that involves distal femoral and proximal tibial reconstruction and endoprosthetic reconstruction. The patient does well as a result of this and eventually ambulates with physical therapy, has decreased pain, wounds remain dry. Physical Exam Vital Signs: Temp Pulse Resp BP Pulse Ox 36.9 C 61 16 125/41 L 94 09/10/19 03:32 09/10/19 03:32 09/10/19 03:32 09/10/19 03:32 09/10/19 03:32 Intake & Output 09/09/19 09/10/19 09/11/19 06:59 06:59 06:59 Intake Total 1792 896 Balance 1792 896 Weight 101.1 kg General appearance: PRESENT: no acute distress, obese Respiratory exam: PRESENT: unlabored Cardiovascular exam: PRESENT: RRR Pulses: PRESENT: +1 pedal pulses bilateral Vascular exam: PRESENT: normal capillary refill GI/Abdominal exam: PRESENT: soft Rectal exam: PRESENT: deferred Musculoskeletal exam: PRESENT: other - Right knee dressings remain clean dry and intact Results Laboratory Results: WBC 5.1 10^3/uL (4.0-10.5) 09/05/19 04:19 RBC 3.32 10^6/uL (3.72-5.28) L 09/05/19 04:19 Hgb 9.7 g/dL (12.0-15.5) L 09/05/19 04:19 Hct 28.5 % (36.0-47.0) L 09/05/19 04:19 MCV 86 fl (80-97) 09/05/19 04:19 MCH 29.3 pg (27.0-33.4) 09/05/19 04:19 MCHC 34.1 g/dL (32.0-36.0) 09/05/19 04:19 RDW 15.7 % (11.5-14.0) H 09/05/19 04:19 Plt Count 245 10^3/uL (150-450) 09/05/19 09:47 Lymph % (Auto) 18.1 % (13-45) 09/04/19 22:07 [place] % (Auto) 15.1 % (3-13) H 09/04/19 22:07 Eos % (Auto) 0.1 % (0-6) 09/04/19 22:07 Baso % (Auto) 0.2 % (0-2) 09/04/19 22:07 Absolute Neuts (auto) 3.3 10^3/uL (1.7-8.2) 09/04/19 22:07 Absolute Lymphs (auto) 0.9 10^3/uL (0.5-4.7) 09/04/19 22:07 Absolute Monos (auto) 0.8 10^3/uL (0.1-1.4) 09/04/19 22:07 Absolute Eos (auto) 0.0 10^3/uL (0.0-0.6) 09/04/19 22:07 Absolute Basos (auto) 0.0 10^3/uL (0.0-0.2) 09/04/19 22:07 Seg Neutrophils % 66.5 % (42-78) 09/04/19 22:07 ESR 24 mm/hr (0-30) 08/27/19 04:17 PT 13.3 SEC (11.4-15.4) 09/01/19 06:30 INR 1.01 09/01/19 06:30 APTT 26.1 SEC (23.5-35.8) 09/01/19 06:30 Sodium 135.4 mmol/L (137-145) L 09/03/19 04:19 Potassium 4.2 mmol/L (3.6-5.0) 09/03/19 04:19 Chloride 107 mmol/L (98-107) 09/03/19 04:19 Carbon Dioxide 24 mmol/L (22-30) 09/03/19 04:19 Anion Gap 5 (5-19) 09/03/19 04:19 BUN 21 mg/dL (7-20) H 09/03/19 04:19 Creatinine 1.05 mg/dL (0.52-1.25) 09/07/19 09:31 Est GFR ( Amer) > 60 (>60) 09/07/19 09:31 Est GFR (MDRD) Non-Af 51 (>60) L 09/07/19 09:31 Glucose 123 mg/dL (75-110) H 09/03/19 04:19 Calcium 10.0 mg/dL (8.4-10.2) 09/03/19 04:19 Total Bilirubin 0.9 mg/dL (0.2-1.3) 08/22/19 12:10 Direct Bilirubin 0.0 mg/dL (0.0-0.4) 08/22/19 12:10 Neonat Total Bilirubin Not Reportable 08/22/19 12:10 Neonat Direct Bilirubin Not Reportable 08/22/19 12:10 Neonat Indirect Bili Not Reportable 08/22/19 12:10 AST 27 U/L (14-36) 08/22/19 12:10 ALT 18 U/L (<35) 08/22/19 12:10 Alkaline Phosphatase 108 U/L (38-126) 08/22/19 12:10 C-Reactive Protein < 5.0 mg/L (<10.0) 08/22/19 12:10 Total Protein 6.1 g/dL (6.3-8.2) L 08/22/19 12:10 Albumin 3.5 g/dL (3.5-5.0) 08/22/19 12:10 Time Trough Drawn 1055 09/09/19 10:55 Vancomycin Trough 13.9 ug/mL (5.0-20.0) 09/09/19 10:55 SARS-CoV-2 (PCR) NEGATIVE (NEGATIVE) 08/26/19 11:25 Blood Type O POSITIVE 09/04/19 08:30 Antibody Screen NEGATIVE 09/04/19 08:30 Crossmatch See Detail 09/04/19 08:30 Impressions: Lower Extremity MRI 08/23/19 08:40 IMPRESSION: Relatively similar appearance to prior. No clear evidence of developing or progressive osteomyelitis. Knee X-Ray 09/02/19 13:47 IMPRESSION: Left knee arthroplasty. Refer to operative report for further information. PICC Line Insertion 09/06/19 00:00 IMPRESSION: SUCCESSFUL PLACEMENT OF A 5 FR DUAL LUMEN 42 CM PICC IN THE LEFT BASILIC VEIN. Plan Plan of Treatment: Patient to be discharged home on a weightbearing as tolerated basis with home health services and DME. Plan for 6 weeks of IV Zosyn therapy. Follow-up with Dr. Simons and [facility] for surgery in 2 weeks for staple removal. Stroke Is this a Stroke Patient?: No Stroke Pt being discharged on Anti-thrombolytic therapy?: Yes Acute Heart Failure - Is this a Heart Failure Patient?: No
[2019-09-10 08:33] VITALS: BP 132/61
[2019-09-10] MEDS: ESCITALOPRAM OXALATE 10 MG TABLET PO SCH (09:08)
[2019-09-10] MEDS: PRENATAL VITAMIN W DHA CAPSULE PO SCH (09:08)
[2019-09-10] MEDS: METOPROLOL TARTRATE 25 MG TABLET PO SCH (09:08)
[2019-09-10] MEDS: ASPIRIN 81 MG TABLET, ENT COATED PO SCH (09:08)
[2019-09-10] MEDS: CELECOXIB 200 MG CAPSULE PO SCH (09:09)
[2019-09-10] MEDS: OXYBUTYNIN CHLORIDE 5 MG TABLET PO SCH (09:09)
[2019-09-10] MEDS: CEFEPIME HCL 2 GM in DEXTROSE 5%-WATER 50 ML IV SCH (09:09)
[2019-09-10] MEDS: NORMAL SALINE 10 ML SDV (SCHEDULED) IV SCH (09:10)
[2019-09-10] MEDS: POLYETHYLENE GLYCOL 3350 POWDER 17 GM/1 PACKET PO SCH (09:10)
[2019-09-10] MEDS: SENNOSIDES/DOCUSATE 8.6-50 MG 1 EACH TABLET PO SCH (09:11)
[2019-09-10] MEDS ORDERED: PIPERACILLIN SODIUM/TAZOBACTAM 3.375 GM in NORMAL SALINE 100 ML IV ONE (11:00)
== END 2019-09-10 12:12 | disposition home health service (06) | DRG 464 ==
LOC: ER 11:46 → EH 13:52 → 4N 15:05 → OBSVTOIN 18:23 → INTOOBSV 18:23 → OBSVTOIN 08-29 13:10
PROVIDERS: ADMIT Orthopaedic Surgery; ATTEND Orthopaedic Surgery
PROC: 0JBN0ZZ Excision of Right Lower Leg Subcutaneous Tissue and Fascia, Open Approach (ICD-10-PCS; principal; 2019-08-26 12:45)
PROC: 0SWC0JZ Revision of Synthetic Substitute in Right Knee Joint, Open Approach (ICD-10-PCS; 2019-09-02)
PROC: 02HV33Z Insertion of Infusion Device into Superior Vena Cava, Percutaneous Approach (ICD-10-PCS; 2019-09-06)
DX: T84.53XA Infection and inflammatory reaction due to internal right knee prosthesis, initial encounter (principal); D62 Acute posthemorrhagic anemia; Z79.899 Other long term (current) drug therapy; E66.3 Overweight; E78.00 Pure hypercholesterolemia, unspecified; I10 Essential (primary) hypertension; F32.9 Major depressive disorder, single episode, unspecified; E78.5 Hyperlipidemia, unspecified; R00.1 Bradycardia, unspecified; E83.52 Hypercalcemia; B96.5 Pseudomonas (aeruginosa) (mallei) (pseudomallei) as the cause of diseases classified elsewhere; B95.2 Enterococcus as the cause of diseases classified elsewhere; Y83.1 Surgical operation with implant of artificial internal device as the cause of abnormal reaction of the patient, or of later complication, without mention of misadventure at the time of the procedure; Z87.891 Personal history of nicotine dependence
CPT/HCPCS: 01320; 01402; 36415; 36430; 36573; 80048; 80053; 80202; 82565; 85025; 85027; 85049; 85610; 85652; 85730; 86140; 86850; 86900; 86901; 86920; 87015; 87040; 87070; 87075; 87077; 87101; 87116; 87186; 87205; 87206; 87635; 88304; 88305; 88311; 88312; 94799; 99140; 99285; C1713; C1776; C9290; C9803; G0378; J0330; J0690; J0692; J1100; J1642; J1741; J2250; J2405; J2543; J2704; J3010; J3370; J3490; J7050; J7060; J7120; L1830; P9016

== ENCOUNTER 2019-10-29 18:16 | Inpatient (IN) | payer OTHER, MEDICARE ==
[2019-10-29 19:38] LABS: HEMATOCRIT 31.7 % (36.0-47.0); HEMOGLOBIN 10.7 g/dL (12.0-15.5); MEAN CORPUSCULAR HEMOGLOBIN 28.7 pg (27.0-33.4); MEAN CORPUSCULAR HGB CONC 33.7 g/dL (32.0-36.0); MEAN CORPUSCULAR VOLUME 85 fl (80-97); PLATELET COUNT 280 10^3/uL (150-450); RED BLOOD COUNT 3.72 10^6/uL (3.72-5.28); RED CELL DISTRIBUTION WIDTH 16.9 % (11.5-14.0); WHITE BLOOD COUNT 5.8 10^3/uL (4.0-10.5)
[2019-10-29 19:47] LABS: INTERNATIONAL RATION (INR) 0.92; PROTHROMBIN TIME 12.6 SEC (11.4-15.4)
[2019-10-29 19:48] LABS: PARTIAL THROMBOPLASTIN TIME 22.3 SEC (23.5-35.8)
[2019-10-29 20:03] LABS: ANION GAP 13 (5-19); BLOOD UREA NITROGEN 30 mg/dL (7-20); CALCIUM 10.1 mg/dL (8.4-10.2); CARBON DIOXIDE 21 mmol/L (22-30); CHLORIDE 104 mmol/L (98-107); GLUCOSE 100 mg/dL (75-110); POTASSIUM 4.9 mmol/L (3.6-5.0)
[2019-10-29 20:26] LABS: ERYTHROCYTE SEDIMENTATION RATE 60 mm/hr (0-30)
[2019-10-29 20:29] LABS: C-REACTIVE PROTEIN 12.1 mg/L (<10.0)
--- NOTE | 2019-10-29 20:35 | EKG REPORT ---
SEVERITY:- ABNORMAL ECG - SINUS RHYTHM FIRST DEGREE AV BLOCK LEFT ANTERIOR FASCICULAR BLOCK PROBABLE LEFT VENTRICULAR HYPERTROPHY : Confirmed by: Byron Saeed MD 29-Oct-2019 20:33:56
[2019-10-29] MEDS: CIPROFLOXACIN HCL 750 MG TABLET PO SCH (21:47)
[2019-10-29] MEDS: HYDROCODONE/ACETAMINOPHEN 5-325 MG TABLET PO PRN (21:48)
[2019-10-29] MEDS: RINGERS SOLUTION,LACTATED 1,000 ML IV PRN (23:19)
--- NOTE | 2019-10-30 01:58 | RADIOLOGY REPORT (SQ) ---
CLINICAL HISTORY: Preop Clearance/Admission COMPARISON: 03/19/2019. TECHNIQUE: XR CHEST 1 VIEW 10/29/2019 12:00 AM CDT FINDINGS: The heart is borderline in size. Lungs are clear without consolidation, atelectasis, mass or edema. There is no pleural effusion. There is no pneumothorax. There are no acute osseous findings. IMPRESSION: Clear lungs.
[2019-10-30] MEDS: RINGERS SOLUTION,LACTATED 1,000 ML IV PRN (08:28)
[2019-10-30] MEDS: HYDROCHLOROTHIAZIDE 25 MG TABLET PO SCH (10:26)
[2019-10-30] MEDS: METOPROLOL TARTRATE 50 MG TABLET PO SCH ×2 (10:26→11:06)
[2019-10-30] MEDS: ASPIRIN 81 MG TABLET, ENT COATED PO SCH (10:26)
--- NOTE | 2019-10-30 10:37 | PDOC H&P ---
History of Present Illness Admission Date/PCP: 10/29/19 18:16 EDWARD JEAN NP History of Present Illness: MELONY DAWSON is a 74 year old female The patient is a 74-year-old white female with a complicated past medical history regarding right knee arthroplasty with periprosthetic infection culminating in a right distal femoral resection and endoprosthetic reconstruction in August. Since at that time the patient has minimal input with physical therapy and most recently has fallen on the day of admission with an injury to the right knee and acute onset pain. She was evaluated in the office where a dislocation of the endoprosthesis was identified. She is now admitted for surgical reduction/revision of the implant Past Medical History Cardiac Medical History: Reports: Hyperlipidema, Hypertension Denies: Atrial Fibrillation, Congestive Heart Failure, Coronary Artery Disease, Myocardial Infarction, Peripheral Vascular Disease, Heart Murmur Pulmonary Medical History: Denies: Asthma, Bronchitis, Chronic Obstructive Pulmonary Disease (COPD), Sleep Apnea Neurological Medical History: Denies: Seizures Endocrine Medical History: Denies: Hyperthyroidism, Hypothyroidism Malignancy Medical History: Denies: Leukemia GI Medical History: Denies: Gastroesophageal Reflux Disease Musculoskeltal Medical History: Reports: Arthritis - knees, hands Denies: Fibromyalgia Skin Medical History: Denies: Eczema Psychiatric Medical History: Reports: Depression Denies: Bipolar Disorder, Post Traumatic Stress Disorder Hematology: Reports: Anemia Denies: Hemophilia, Sickle Cell Disease Infectious Medical History: Denies: HIV Past Surgical History Past Surgical History: Reports: Orthopedic Surgery - Status post right knee arthroplasty, failure, and resection. 09/02/2019 Denies: Amputation, Appendectomy, Section, Cholecystectomy, Coronary Artery Bypass Graft, Gastric Bypass Surgery, Herniorrhaphy, Hysterectomy, Mastectomy, Pacemaker, Tonsillectomy, Tubal Ligation Social History Information Source: Patient, DrAdriane Bolanos, [facility] Records Lives with: Spouse/Significant other Smoking Status: Never Smoker Frequency of Alcohol Use: None Hx Recreational Drug Use: No Drugs: None Hx Prescription Drug Abuse: No Family History Family History: Reviewed & Not Pertinent Parental Family History Reviewed: No Children Family History Reviewed: No Sibling(s) Family History Reviewed.: No Medication/Allergy Home Medications: Metoprolol Tartrate [Lopressor 50 mg Tablet] 25 mg PO DAILY tablet 07/24/19 Oxycodone HCl [Oxy-Ir 5 mg Tablet] 5 mg PO Q6HP PRN #40 07/24/19 Ciprofloxacin HCl [Cipro 750 mg Tablet] 750 mg PO DAILY 10/30/19 Tramadol HCl [Ultram 50 mg Tablet] 50 mg PO Q6HP PRN 10/30/19 Allergies/Adverse Reactions: No Known Allergies Allergy (Verified 08/22/19 13:07) Review of Systems All systems: as per PMH Physical Exam Vital Signs: Temp Pulse Resp BP Pulse Ox 36.7 C 58 L 16 133/54 H 96 10/30/19 07:47 10/30/19 07:47 10/30/19 07:47 10/30/19 07:47 10/30/19 07:47 Intake & Output 10/29/19 10/30/19 10/31/19 06:59 06:59 06:59 Intake Total 1000 Balance 1000 Weight 89.3 kg General appearance: PRESENT: mild distress, obese Head exam: PRESENT: normocephalic Respiratory exam: PRESENT: unlabored Cardiovascular exam: PRESENT: RRR GI/Abdominal exam: PRESENT: soft Rectal exam: PRESENT: deferred Extremities exam: PRESENT: other - Deformity present in the right knee with ecchymosis over the prepatellar region Neurological exam: PRESENT: alert, awake, oriented to person, oriented to place, oriented to time, oriented to situation. ABSENT: motor sensory deficit Psychiatric exam: PRESENT: depressed Results Laboratory Results: 10/29/19 19:23 10/29/19 19:23 10/29/19 10/29/19 19:23 19:23 WBC 5.8 RBC 3.72 Hgb 10.7 L Hct 31.7 L MCV 85 MCH 28.7 MCHC 33.7 RDW 16.9 H Plt Count 280 Sodium 138.1 Potassium 4.9 Chloride 104 Carbon Dioxide 21 L Anion Gap 13 BUN 30 H Creatinine 1.18 Est GFR ( Amer) 54 L Glucose 100 Calcium 10.1 C-Reactive Protein 12.1 H Impressions: Chest X-Ray 10/29/19 00:00 IMPRESSION: Clear lungs. Status: Imported from PACS Assessment & Plan - Diagnosis (1) Dislocation of prosthetic joint of knee Qualifiers: Encounter type: subsequent encounter Qualified Code(s): T84.028D - Dislocation of other internal joint prosthesis, subsequent encounter; Z96.659 - Presence of unspecified artificial knee joint Is this a current diagnosis for this admission?: Yes Plan: Plan for surgical reduction/revision right knee implant - Time Time Spent: 50 to 70 Minutes Medications reviewed and adjusted accordingly: Yes Anticipated Discharge Disposition: Care Home Facility Anticipated Discharge Timeframe: within 48 hours
[2019-10-30] MEDS ORDERED: PHENYLEPHRINE HCL INJ/PF 10 MG/1 ML SDV ONE (10:42)
[2019-10-30] MEDS ORDERED: GLYCOPYRROLATE 1 MG/5 ML VIAL ONE (10:42)
[2019-10-30] MEDS ORDERED: BUPIVACAINE HCL 0.25 % INJ/PF (2.5 MG/1 ML) 30 ML VIAL ONE (12:19)
[2019-10-30] MEDS ORDERED: BUPIVACAINE HCL 0.25% /EPINEPHRINE INJ/PF 30 ML SDV ONE (12:19)
[2019-10-30] MEDS ORDERED: THROMBIN (BOVINE) 5000 UNIT EPITAXIS KIT ONE (12:19)
[2019-10-30] MEDS ORDERED: THROMBIN (BOVINE) TOPICAL 20000 UNIT VIAL ONE (12:19)
[2019-10-30] MEDS ORDERED: EPINEPHRINE INJ/PF 1 MG/1 ML AMPULE ONE (12:31)
[2019-10-30] MEDS ORDERED: LIDOCAINE 2% INJ-PF (20 MG/ML) 10 ML AMPUL ONE (12:31)
[2019-10-30] MEDS ORDERED: FENTANYL CITRATE INJ/PF 100 MCG/2 ML AMPUL ONE (12:31)
[2019-10-30] MEDS ORDERED: PROPOFOL INJ 200 MG/20 ML VIAL IV ONE (12:32)
[2019-10-30] MEDS ORDERED: VANCOMYCIN HCL 1,000 MG in DEXTROSE 5%-WATER 250 ML IV PRN (12:53)
[2019-10-30] MEDS ORDERED: TRANEXAMIC ACID INJ/PF 1,000 MG/10 ML SDV ONE (13:33)
--- NOTE | 2019-10-30 13:46 | Operative Report ---
Operative Report DATE OF SURGERY: 10/30/19 PREOPERATIVE DIAGNOSIS: Right prosthetic knee dislocation OPERATION: reVision right knee arthroplasty SURGEON: ONDINA SIMONS ANESTHESIA: Spinal TISSUE REMOVED OR ALTERED: Cultures to microbiology PROCEDURE: The patient had been reconstructed with a [place] distal femoral endoprosthesis approximately 2 months ago. She then fell and sustained a prosthetic dislocation. With the patient supine on the operating table the right lower extremities prepped and draped in a sterile fashion. Under fluoroscopic guidance the knee is manipulated into high flexion and that attempt to secure a closed reduction of the yolk within the tibial component. This was not successful. Next a 3 inch longitudinal incision made at the inferior aspect of the previous wound and sharp dissection was used to carry it through the retinaculum. Underneath this is a large hematoma this is cultured. Then with direct visualization the post is placed back into the hole and the knee is reduced. Extension with distraction on the lower extremity there is very little separation between the yolk and the tibial plateau. It is examined scopic Jose range of motion. It appears stable until the flexion angle reaches 135 degrees or so at which point it begins to be some liftoff and elevation of the yolk out of the tibial component. A decision is made to leave with this level of stability. The wound is irrigated pulse lavage normal saline data Betadine. Is then closed in layers interrupted Vicryl followed by nylon. A sterile compressive dressing is applied and the patient is returned to the PACU in satisfactory condition.
[2019-10-30] MEDS ORDERED: OXYCODONE-ACETAMINOPHEN 5-325 MG TABLET PO PRN ×2 (13:52)
[2019-10-30] MEDS ORDERED: FENTANYL CITRATE INJ/PF 100 MCG/2 ML AMPUL IV PRN ×3 (13:52)
[2019-10-30] MEDS ORDERED: MEPERIDINE HCL/PF INJ 25 MG/1 ML DISP.SYRIN IV PRN (13:52)
[2019-10-30] MEDS ORDERED: PROMETHAZINE HCL INJ 25 MG/1 ML VIAL IV PRN ×2 (13:52)
[2019-10-30] MEDS ORDERED: DIPHENHYDRAMINE HCL 50 MG/ML VIAL IV PRN (13:52)
[2019-10-30] MEDS ORDERED: MORPHINE SULFATE 10 MG/ML INJ IV PRN (13:52)
--- NOTE | 2019-10-30 14:32 | RADIOLOGY REPORT (SQ) ---
EXAM DESCRIPTION: NO CHG FLUORO; KNEE RIGHT 2 VIEWS IMAGES COMPLETED DATE/TIME: 10/30/2019 2:09 pm REASON FOR STUDY: RIGHT KNEE REVISION ASSISTED WITH FLUORO IN OR COMPARISON: None. FLUOROSCOPY TIME: 1.2 minutes 2 Images saved to PACS LIMITATIONS: None. PROCEDURE: Right knee revision. FINDINGS: Images from fluoro document the procedure. IMPRESSION: Right knee revision assisted with fluoro. Refer to operative note for further informati on. COMMENT: PQRS 6045F: Fluoroscopy time of the procedure is documented in the report. TECHNICAL DOCUMENTATION: JOB ID: [id number] 2010 [employer]- All Rights Reserved Reading location - IP/workstation name: [email or web address]
--- NOTE | 2019-10-30 14:32 | RADIOLOGY REPORT (SQ) ---
EXAM DESCRIPTION: NO CHG FLUORO; KNEE RIGHT 2 VIEWS IMAGES COMPLETED DATE/TIME: 10/30/2019 2:09 pm REASON FOR STUDY: RIGHT KNEE REVISION ASSISTED WITH FLUORO IN OR COMPARISON: None. FLUOROSCOPY TIME: 1.2 minutes 2 Images saved to PACS LIMITATIONS: None. PROCEDURE: Right knee revision. FINDINGS: Images from fluoro document the procedure. IMPRESSION: Right knee revision assisted with fluoro. Refer to operative note for further informati on. COMMENT: PQRS 6045F: Fluoroscopy time of the procedure is documented in the report. TECHNICAL DOCUMENTATION: JOB ID: [id number] 2010 [employer]- All Rights Reserved Reading location - IP/workstation name: [email or web address]
[2019-10-30] MEDS ORDERED: ONDANSETRON 4 MG TAB.RAPDIS SL PRN (14:36)
[2019-10-30] MEDS ORDERED: ROPIVACAINE HCL 0.2% INJ/PF (2 MG/ML) 20 ML SDV ONE (14:54)
[2019-10-30] MEDS: HYDROCODONE/ACETAMINOPHEN 5-325 MG TABLET PO PRN (19:57)
[2019-10-30] MEDS: OXYCODONE HCL IR 5 MG TABLET PO PRN (22:03)
[2019-10-30] MEDS: CIPROFLOXACIN HCL 750 MG TABLET PO SCH (22:04)
[2019-10-31] MEDS ORDERED: VANCOMYCIN HCL 1,000 MG in DEXTROSE 5%-WATER 250 ML IV ONE (01:00)
[2019-10-31] MEDS: HYDROCODONE/ACETAMINOPHEN 5-325 MG TABLET PO PRN ×2 (01:56→09:14)
[2019-10-31] MEDS ORDERED: HYDROMORPHONE HCL INJ/PF 2 MG/ML AMPULE IV PRN (03:17)
[2019-10-31] MEDS: KETOROLAC TROMETHAMINE INJ/PF 30 MG/1 ML SDV IV PRN ×2 (03:40→15:54)
[2019-10-31] MEDS: ACETAMINOPHEN 325 MG TABLET PO SCH ×3 (05:37→21:53)
[2019-10-31 05:44] LABS: HEMATOCRIT 26.1 % (36.0-47.0); MEAN CORPUSCULAR HGB CONC 34.6 g/dL (32.0-36.0); MEAN CORPUSCULAR VOLUME 84 fl (80-97); PLATELET COUNT 221 10^3/uL (150-450); RED BLOOD COUNT 3.11 10^6/uL (3.72-5.28); RED CELL DISTRIBUTION WIDTH 16.7 % (11.5-14.0); WHITE BLOOD COUNT 5.3 10^3/uL (4.0-10.5)
[2019-10-31 05:58] LABS: ANION GAP 9 (5-19); BLOOD UREA NITROGEN 22 mg/dL (7-20); CALCIUM 9.2 mg/dL (8.4-10.2); CARBON DIOXIDE 21 mmol/L (22-30); CHLORIDE 105 mmol/L (98-107); GLUCOSE 103 mg/dL (75-110); POTASSIUM 4.5 mmol/L (3.6-5.0)
--- NOTE | 2019-10-31 07:24 | PDOC PROGRESS REPORT ---
Subjective Progress Note for:: 10/31/19 Reason For Visit: RIGHT KNEE DISLOCATION 74-year-old white female status post right knee revision arthroplasty postop day 1. Patient with minimal complaints this morning. Physical Exam Vital Signs: Temp Pulse Resp BP Pulse Ox 37.4 C 59 L 16 114/50 L 97 10/30/19 20:37 10/30/19 20:37 10/30/19 20:37 10/30/19 20:37 10/30/19 20:37 Intake & Output 10/30/19 10/31/19 11/01/19 06:59 06:59 06:59 Intake Total 1000 6040 Output Total 16 Balance 1000 6024 Weight 89.3 kg 89.3 kg General appearance: PRESENT: no acute distress, obese Head exam: PRESENT: normocephalic Respiratory exam: PRESENT: unlabored Cardiovascular exam: PRESENT: RRR GI/Abdominal exam: PRESENT: soft Rectal exam: PRESENT: deferred Extremities exam: PRESENT: other - Right knee immobilizer in place Results Laboratory Results: 10/31/19 05:00 10/31/19 05:00 10/31/19 10/31/19 05:00 05:00 WBC 5.3 RBC 3.11 L Hgb 9.0 L Hct 26.1 L MCV 84 MCH 29.0 MCHC 34.6 RDW 16.7 H Plt Count 221 Sodium 135.0 L Potassium 4.5 Chloride 105 Carbon Dioxide 21 L Anion Gap 9 BUN 22 H Creatinine 1.23 Est GFR ( Amer) 52 L Glucose 103 Calcium 9.2 Impressions: Chest X-Ray 10/29/19 00:00 IMPRESSION: Clear lungs. Fluoroscopy 10/30/19 00:00 IMPRESSION: Right knee revision assisted with fluoro. Refer to operative note for further information. Knee X-Ray 10/30/19 00:00 IMPRESSION: Right knee revision assisted with fluoro. Refer to operative note for further information. Status: Imported from PACS Assessment & Plan - Diagnosis (1) Dislocation of prosthetic joint of knee Qualifiers: Encounter type: subsequent encounter Qualified Code(s): T84.028D - Dislocation of other internal joint prosthesis, subsequent encounter; Z96.659 - Presence of unspecified artificial knee joint Is this a current diagnosis for this admission?: Yes Plan: Awaiting long leg brace. Anticipate physical therapy with weightbearing as trial ambulation. Limit high flexion angles. Anticipate discharge home with home health services and DME - Time Time Spent with patient: 15-24 minutes Anticipated discharge: Home with Homehealth Anticipated DC Timeframe: within 24 hours
[2019-10-31] MEDS: HYDROCHLOROTHIAZIDE 25 MG TABLET PO SCH (09:14)
[2019-10-31] MEDS: ASPIRIN 81 MG TABLET, ENT COATED PO SCH (09:14)
[2019-10-31] MEDS: METOPROLOL TARTRATE 50 MG TABLET PO SCH (09:15)
[2019-10-31] MEDS: OXYCODONE HCL IR 5 MG TABLET PO PRN (21:53)
[2019-10-31] MEDS: CIPROFLOXACIN HCL 750 MG TABLET PO SCH (21:54)
[2019-11-01 05:14] VITALS: BP 120/50
[2019-11-01] MEDS: HYDROCODONE/ACETAMINOPHEN 5-325 MG TABLET PO PRN (06:04)
[2019-11-01] MEDS: ACETAMINOPHEN 325 MG TABLET PO SCH (06:04)
--- NOTE | 2019-11-01 06:55 | PDOC DISCHARGE SUMMARY ---
Impression - Admit/DC Date/PCP Admission Date/Primary Care Provider: 10/29/19 18:16 EDWARD JEAN NP Discharge Date: 11/01/19 - Discharge Diagnosis (1) Dislocation of prosthetic joint of knee Is this a current diagnosis for this admission?: Yes - Additional Information Resuscitation Status: Full Code Discharge Diet: As Tolerated, Regular Discharge Activity: Balance Activity w/Rest, No Driving, No tub bath Referrals: EDWARD JEAN NP [Primary Care Provider] - Home Medications: Metoprolol Tartrate [Lopressor 50 mg Tablet] 25 mg PO DAILY tablet 07/24/19 Oxycodone HCl [Oxy-Ir 5 mg Tablet] 5 mg PO Q6HP PRN #40 07/24/19 Ciprofloxacin HCl [Cipro 750 mg Tablet] 750 mg PO DAILY 10/30/19 Tramadol HCl [Ultram 50 mg Tablet] 50 mg PO Q6HP PRN 10/30/19 History of Present Illiness History of Present Illness: Patient is a 74-year-old white female with a long complicated history revolving around a right knee periprosthetic infection and recently a distal femoral resection endoprosthetic reconstruction in light. The patient fell at home and sustained a prosthetic dislocation. She is now admitted for a reduction/revision of the prosthesis. Hospital Course Hospital Course: Patient is admitted from my office to the surgical floor. She is taken to the operating room the subsequent day. She undergoes an open reduction of the prosthetic dislocation. Stability is assessed intraoperatively and determines that the instability presumably occurred from a hyperflexion position associated with a fall. The patient is placed into a long-leg brace with a restricted flexion angle from 0 to 90 degrees. Her operative cultures remain no growth so far. Physical Exam Vital Signs: Temp Pulse Resp BP Pulse Ox 36.8 C 66 17 120/50 L 100 11/01/19 00:00 11/01/19 00:00 11/01/19 00:00 11/01/19 00:00 11/01/19 00:00 Intake & Output 10/30/19 10/31/19 11/01/19 06:59 06:59 06:59 Intake Total 1000 6040 1504 Output Total 16 1 Balance 1000 6024 1503 Weight 89.3 kg 89.3 kg 89.3 kg General appearance: PRESENT: no acute distress, obese Head exam: PRESENT: normocephalic Respiratory exam: PRESENT: unlabored Cardiovascular exam: PRESENT: RRR Pulses: PRESENT: +1 pedal pulses bilateral GI/Abdominal exam: PRESENT: soft Rectal exam: PRESENT: deferred Musculoskeletal exam: PRESENT: other - Right knee dressing remains clean dry and intact. Hinged knee brace remains in place. Results Laboratory Results: WBC 5.3 10^3/uL (4.0-10.5) 10/31/19 05:00 RBC 3.11 10^6/uL (3.72-5.28) L 10/31/19 05:00 Hgb 9.0 g/dL (12.0-15.5) L 10/31/19 05:00 Hct 26.1 % (36.0-47.0) L 10/31/19 05:00 MCV 84 fl (80-97) 10/31/19 05:00 MCH 29.0 pg (27.0-33.4) 10/31/19 05:00 MCHC 34.6 g/dL (32.0-36.0) 10/31/19 05:00 RDW 16.7 % (11.5-14.0) H 10/31/19 05:00 Plt Count 221 10^3/uL (150-450) 10/31/19 05:00 ESR 60 mm/hr (0-30) H 10/29/19 19:23 PT 12.6 SEC (11.4-15.4) 10/29/19 19:23 INR 0.92 10/29/19 19:23 APTT 22.3 SEC (23.5-35.8) L 10/29/19 19:23 Sodium 135.0 mmol/L (137-145) L 10/31/19 05:00 Potassium 4.5 mmol/L (3.6-5.0) 10/31/19 05:00 Chloride 105 mmol/L (98-107) 10/31/19 05:00 Carbon Dioxide 21 mmol/L (22-30) L 10/31/19 05:00 Anion Gap 9 (5-19) 10/31/19 05:00 BUN 22 mg/dL (7-20) H 10/31/19 05:00 Creatinine 1.23 mg/dL (0.52-1.25) 09/03/20 05:00 Est GFR ( Amer) 52 (>60) L 10/31/19 05:00 Est GFR (MDRD) Non-Af 43 (>60) L 10/31/19 05:00 Glucose 103 mg/dL (75-110) 10/31/19 05:00 Calcium 9.2 mg/dL (8.4-10.2) 10/31/19 05:00 C-Reactive Protein 12.1 mg/L (<10.0) H 10/29/19 19:23 SARS-CoV-2 (PCR) NEGATIVE (NEGATIVE) 10/29/19 23:20 Impressions: Chest X-Ray 10/29/19 00:00 IMPRESSION: Clear lungs. Fluoroscopy 10/30/19 00:00 IMPRESSION: Right knee revision assisted with fluoro. Refer to operative note for further information. Knee X-Ray 10/30/19 00:00 IMPRESSION: Right knee revision assisted with fluoro. Refer to operative note for further information. Plan Plan of Treatment: Discharge home on a weightbearing as tolerated basis. Brace to be worn at all times. Patient will begin outpatient physical therapy on Monday and return to [facility] for surgery in 2 weeks for suture removal. Stroke Is this a Stroke Patient?: No Stroke Pt being discharged on Anti-thrombolytic therapy?: Yes Acute Heart Failure - Is this a Heart Failure Patient?: No
== END 2019-11-01 09:23 | disposition home or self-care (01) | DRG 468 ==
LOC: 4W 18:16
PROVIDERS: ADMIT Orthopaedic Surgery; ATTEND Orthopaedic Surgery
PROC: 0SWT0JZ Revision of Synthetic Substitute in Right Knee Joint, Femoral Surface, Open Approach (ICD-10-PCS; principal; 2019-10-30 14:30)
DX: T84.022A Instability of internal right knee prosthesis, initial encounter (principal); E78.5 Hyperlipidemia, unspecified; I10 Essential (primary) hypertension; F32.9 Major depressive disorder, single episode, unspecified; D64.9 Anemia, unspecified; E66.9 Obesity, unspecified; W19.XXXA Unspecified fall, initial encounter
CPT/HCPCS: 01402; 36415; 71045; 80048; 85027; 85610; 85652; 85730; 86140; 87070; 87075; 87077; 87186; 87205; 87635; 93005; 93010; C9803; J0171; J1885; J2370; J2704; J2795; J3010; J3370; J3490; J7060; J7120; L1830; L4386